=== PATIENT | female | born 1945 | race Caucasian/White ===

== ENCOUNTER → 2018-12-07 14:38 | Outpatient (ROUT) | payer MEDICARE, SELFPAY ==
[2018-12-07 14:53] LABS: Hematocrit 40.3 % (36-46); Hemoglobin 13.6 g/dL (12.0-16.0); Mean Corpuscular HGB Conc 33.7 % (30-36); Mean Corpuscular Hemoglobin 31.5 PG (26-34); Mean Corpuscular Volume 93.6 fL (80-100); Platelet Count 260 X10^3/uL (150-400); Red Cell Distribution Width 13.1 % (11.6-14.8); White Blood Cell Count 4.6 X10^3/uL (4.5-11.0)
[2018-12-07 15:04] LABS: BUN Creatinine Ratio 23.8 (6-22); Blood Urea Nitrogen 19 mg/dL (7-17); Calcium 9.9 mg/dL (8.4-10.2); Carbon Dioxide 26 mmol/L (22-32); Chloride 103 mmol/L (98-107); Estimated Glomerular Filt Rate > 60.0 mL/min (>60); Glucose 91 mg/dL (80-110); HEMOLYSIS < 15 (0-50); Potassium 4.7 mmol/L (3.4-5.1); Sodium 139 mmol/L (137-145)
[2018-12-07 15:32] LABS: TSH w/ Reflex to FT4 2.62 uIU/mL (0.47-4.68)
[2018-12-07 15:51] LABS: Vitamin B12 267 pg/mL (239-931)
== END ==
PROVIDERS: Family Provider Registered Nurse Women's Health Care, Ambulatory; PCP Registered Nurse Women's Health Care, Ambulatory; Visit Provider Internal Medicine
DX: R53.83 Other fatigue (principal)
CPT/HCPCS: 80048; 82607; 84443; 85027

== ENCOUNTER → 2019-01-13 07:03 | Outpatient (CLI) | payer MEDICARE, SELFPAY ==
[2019-01-13 10:05] LABS: Vitamin B12 462 pg/mL (239-931)
== END ==
PROVIDERS: PCP Internal Medicine; Visit Provider Internal Medicine
DX: E53.8 Deficiency of other specified B group vitamins (principal)
CPT/HCPCS: 36415; 82607

== ENCOUNTER 2020-06-03 15:20 | Emergency (ER) | payer MEDICARE, SELFPAY ==
--- NOTE | 2020-06-03 15:24 | DI.RAD.S_ITS ---
PROCEDURE: XR KNEE LT 3V INDICATIONS: heard a pop, pain, unable to bear weight TECHNIQUE: 3views of the knee were acquired. COMPARISON: None. FINDINGS: Bones: No fractures or dislocations. No suspicious bony lesions. Soft tissues: No joint effusion. No suspicious soft tissue calcifications. IMPRESSION: No fracture. No acute osseous lesion. If symptoms and/or clinical suspicion for pathology persists, further assessment with repeat radiographs (7-10 days) or advanced imaging (e.g. CT, MRI or bone scan) should be considered. Dictated by: Evy Quezada MD, PhD on 06/03/2020 at 15:40 Approved by: Evy Quezada MD, PhD on 06/03/2020 at 15:53
[2020-06-03 15:25] VITALS: BP 159/79; PULSE 79; RESP 18; TEMP 36.4; O2SAT 100
--- NOTE | 2020-06-03 16:33 | ED_ITS ---
HPI - Extremity Injury (Lower) General Chief Complaint: Extremity Injury, Lower Stated Complaint: LEFT KNEE PAIN Time Seen by Provider: 06/03/20 16:33 Source: patient Mode of arrival: Wheelchair Limitations: no limitations History of Present Illness HPI Narrative: This is a 74-year-old female comes in with complaint of left knee pain. Patient was gardening when she stood up from her knee pads and went to step up on a large 1st and felt a pop. Patient instantly had pain. She describes the pain more on the medial side of her knee. She has pain with movement but is able to fully flex and extend. Patient states she has pain when she tries to weight bear and required he onto multiple objects to get into the house. Patient has not had prior knee injuries. She did not have any other trauma. She denies any other medical issues. States she is not on medications regularly. She has not had any prior surgeries on her knee. She denies any numbness, tingling or weakness. She states it did feel like the joint was going to give out when she had the initial pain. She does follow with Violetta Minor for primary care. 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 Review of Systems Review of Systems ROS Unobtainable: All systems reviewed & are unremarkable except as noted in HPI and below Exam Narrative Exam Narrative: GENERAL: Alert and oriented x three, well-nourished well- appearing female in mild distress. HEENT: Head normocephalic, atraumatic, EOMI, pupils reactive, face symmetric, moist mucous membranes NECK: Supple, full range of motion EXTREMITIES: Normal range of motion although uncomfortable for patient. Patient has tenderness with palpation of the medial knee but does not have tenderness when valgus nor varus, patient does not have any other joint laxity testing negative anterior posterior drawer. Negative compression test. Patient does not have any is swelling but difficult to tell from habitus. Patient does not have any appreciable bony tenderness of her left lower extremity. She has 2+ dorsalis pedis. Normal sensation throughout. Patient is neurovascularly intact otherwise. NEUROLOGICAL: Cranial nerves II through XII grossly intact. Moving all extremities SKIN: Warm, dry, no petechiae, no rashes or lesions. Initial Vital Signs Initial Vital Signs: Vital Signs Temperature 97.6 F 06/03/20 15:25 Pulse Rate 79 06/03/20 15:25 Respiratory Rate 18 06/03/20 15:25 Blood Pressure 159/79 H 06/03/20 15:25 Pulse Oximetry 100 06/03/20 15:25 Course Orders Ordered: ED Orders 06/03/20 15:24 XR knee LT 3V Stat Vital Signs Vital signs: Vital Signs - 8 hr 06/03/20 15:25 Temperature 97.6 F Pulse Rate 79 Respiratory Rate 18 Blood Pressure 159/79 H Pulse Oximetry 100 [facility] - Extremity Injury (Lower) Imaging Data Extremity x-ray #1: Radiologist's Impression: [address] [id number] ReportSigned Patient: Joie Taylor LMR#: [id number]: [id number]:[id number]/Sex: 74 / FDate of Service: 06/03/20Loc: EDAccession Number: [id number] Procedure: XR knee LT 3V Ordering Provider: Tracie Rivera MD PROCEDURE: XR KNEE LT 3V INDICATIONS: heard a pop, pain, unable to bear weight TECHNIQUE: 3views of the knee were acquired. COMPARISON: None. FINDINGS: Bones: No fractures or dislocations. No suspicious bony lesions. Soft tissues: No joint effusion. No suspicious soft tissue calcifications. IMPRESSION: No fracture. No acute osseous lesion. If symptoms and/or clinical suspicion for pathology persists, further assessment with repeat radiographs (7-10 days) or advanced imaging (e.g. CT, MRI or bone scan) should be considered. Dictated by: Evy Quezada MD, PhD on 06/03/2020 at 15:40 Approved by: Evy Quezada MD, PhD on 06/03/2020 at 15:53 [facility] Narrative Medical decision making narrative: Patient has negative x-ray. Her exam she has tenderness over the medial knee but really bony tenderness. We discussed she may have a tendon or ligament injury or possibly meniscal but the rest of her exam is not highly suspicious. Plan for knee immobilizer, crutches, weight- bearing as tolerated. She has ibuprofen at home which she states she will take an defers any medication here. Discussed follow-up with her primary care for recheck in the next week if she is not having improvement and return precautions discussed. Discharge Plan Departure Patient Disposition: Home Clinical Impression: Injury of knee, left Qualifiers: Encounter type: initial encounter Qualified Code(s): S89.92XA - Unspecified injury of left lower leg, initial encounter Instructions: How to Use a Knee Immobilizer Activity Restrictions/Additional Instructions: Follow-up with your physician in the next week for recheck if your symptoms have not resolved. Call for an appointment. You may take ibuprofen up to 600 mg every 6 hours as needed for pain and/or Tylenol up to a 1000 mg every 8 hours as needed. Splint Care: Keep splint clean and dry. Elevated affected body part to decrease swelling. OK to use ice pack on the affected body part. Use for 15-20 minutes each time, for 5-6x per day. If you develop worsening pain, numbness, tingling, discoloration of the affected body part, loosen the knee immobilizer, and either see your doctor for an urgent re-assessment, or return to the Emergency Department. Return to the Emergency Department for any new or worsening symptoms. Referrals: Violetta Minor MD [Primary Care Provider] -
== END 2020-06-03 17:55 | disposition home or self-care (01) ==
PROVIDERS: Emergency Provider Emergency Medicine; PCP Internal Medicine
DX: S89.92XA Unspecified injury of left lower leg, initial encounter (principal); X58.XXXA Exposure to other specified factors, initial encounter
CPT/HCPCS: 73562; 99283

== ENCOUNTER → 2020-09-14 11:08 | Outpatient (CLI) | payer MEDICARE, SELFPAY ==
[2020-09-14 12:53] LABS: COVID19 -Nasal RAPID Negative (Negative)
== END ==
PROVIDERS: Family Provider Internal Medicine; PCP Internal Medicine; Visit Provider Physician Assistant
DX: Z01.812 Encounter for preprocedural laboratory examination (principal); Z20.822 Contact with and (suspected) exposure to COVID-19
CPT/HCPCS: 87635; C9803

== ENCOUNTER 2020-12-17 09:00 | Outpatient (RCR) | payer MEDICARE, SELFPAY ==
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
--- NOTE | 2020-10-17 15:19 | PT.OPPOC ---
Physical, Occupational & Speech Therapy At [facility] Current Diagnoses Other tear of medial meniscus, current injury, left knee, subsequent encounter (10/17/20) Encounter for other orthopedic aftercare (10/17/20) Visit Care Team Role Provider Type Violetta Minor MD Primary Care Provider Physician Specialty: Internal Medicine Address: [address] [place] [address], [id number] Email: [email or web address] Dwayne Barrientos PA-C Attending Provider Non-Staff Referring Provider Specialty: Nursing Address: [facility] [facility], [address], [place], [address] Email: Plan Of Care PT-OP-T Assessment and Plan Start: 10/16/20 15:44 Freq: Status: Active Protocol: Document 10/17/20 09:00 MB (Rec: 10/17/20 14:10 MB [id number]) Physical Therapy Assessment Rehab Potential Rehabilitation Potential Good Evaluation Complexity Number of Personal Factors/Comorbidities 1-2 Number of Body Systems Impaired 1-2 Clinical Presentation at Evaluation Stable Impairments Impairments Activity Tolerance,Balance, Edema,Functional Activities, Functional Mobility,Gait, Integument,Pain,Posture,ROM, Soft Tissue Mobility,Strength, Transfers Other Impairments Personal factors include leaving town for short vacation (flying) next week. Body systems affected include musculoskeletal and lymphatic. Her clinical presentation is stable at this point post-op. She denies sensory changes. Goals 6 Senior Living Goal (LTG) Pt will perform progressive HEP with I including flexibility, strengthening, balance and gait to mazimize I by 12/17/20. LTG Duration 8 weeks 5 Senior Living Goal (LTG) Pt will perform WNLs on a standardized balance test to decrease fall risk by 12/17/20 . LTG Duration 8 weeks 4 Senior Living Goal (LTG) Pt will gait train at least 1300 feet in 6 minutes without AD to prepare for return to hiking by 12/17/20. LTG Duration 8 weeks 3 Claim Examiner Goal (LTG) Pt will perform active left knee flexion and extension equal to the right in supine to improve functional transfers by 12/17/20. LTG Duration 8 weeks 2 Claim Examiner Goal (LTG) Pt will perform 13 reps sit to stand without UE support in 30 sec to improve functional strength by 12/17/20. LTG Duration 8 weeks 1 Impairment LEF score reflects greater than 70% functional impairment Claim Examiner Goal (LTG) Pt will present with an LEF score to reflect no more than 20% impairment to allow return to gardening and hiking by . LTG Duration 8 weeks Assessment Summary Assessment Pt is an active 75 y/o female presenting 4 weeks post-op left meniscal repair. She presents with LLE edema, decreased ROM and strength, antalgic gait and poor balance . She will benefit from PT to improve range, functional strength, balance and gait. She would like to get back to hiking. She is flying out to [place] next week and this is an initial barrier to PT. Physical Therapy Plan Frequency and Duration Frequency of Treatment 2x/Week Duration of Treatment 8 weeks Plan of Care Start Date 10/17/20 Plan of Care End Date 12/17/20 Therapeutic Interventions Therapeutic Interventions Aquatic Therapy,Balance Training,Canalithic Repositioning,Coordination Training,Gait Training,Home Exercise Program,Joint Mobilizations,Manual Therapy, Neuromuscular Re-education, Orthotic/Prosthetic Management ,Patient/Caregiver Education, Self-Care/Home Management,Soft Tissue Mobilization,Taping, Therapeutic Activities, Therapeutic Exercises Modalities Cold Pack/Ice Massage,Hot Packs Next Visit Focus/Plan Next Note Type Treatment Note Next Visit Plan Initiate recumbent stepper, review exercises given by previous PTLeena Plan of Care Dates Plan of Care Start Date 10/17/20 Plan of Care End Date 12/17/20 Electronically Signed by: Gabrielle De Leon, PT 10/17/20 [id number] Please Sign and Return: I have reviewed this Plan of Care and certify that the skilled therapy services above are required to meet the patient?s needs. Physician Signature Date Printed Name and Credentials Clinical Instructor Signature Printed Name and Credentials
--- NOTE | 2020-10-23 10:25 | PT.OTN ---
Current Diagnoses Other tear of medial meniscus, current injury, left knee, subsequent encounter (10/23/20) Encounter for other orthopedic aftercare (10/23/20) Physical Therapy Treatment Note PT-OP-A Visit Information Start: 10/16/20 15:44 Freq: Status: Active Protocol: Document 10/23/20 09:45 MB (Rec: 10/23/20 10:25 MB [id number]) Out-Patient Physical Therapy Visit Information Visit Information Visit Type Treatment Note Visit Note Medicare AARP before KX Visit Start Time 09:45 Visit Stop Time 10:24 Total Visit Minutes 39 Visit Number 2 Precautions Precautions S/p left knee medial mensicus posterior root repair 09/17/20 and doctor's note from 09/27/20 states: PT orders for gentle knee ROM, strengthening treatment of pain and swelling starting 4 weeks post-op. At that time, she was TTWB wearing knee brace set 0-90 deg. Pt had appointment with Dr. Rojas yesterday and was taken out of brace and told she could WBAT with AD. Note from doctor 10/16/20: she can start WBAT and wean out of knee brace, work on progresive ROM and strengthening PT-OP-B Current Condition Start: 10/16/20 15:44 Freq: Status: Active Protocol: Document 10/17/20 09:00 MB (Rec: 10/17/20 09:22 MB [id number]) Current Condition History of Current Condition Onset Date 09/17/20 Current Complaints Decreased mobility and some pain and swelling left leg History of Current Condition Pt had left meniscal tear May 2020 when she was working in the garden on her hands and knees and stood up. She went to the ED. She then got in with an orthopedist a month later. She then got in to PT and had 12 treatments. Pt had PT at this clinic up until August before she had knee surgery 09/17/20. She underwent left knee arthroscopic surgery for meniscus. Pt has 4 steps to enter the house. She had been in the w/c up until today. She is using RW at home and she comes in with the SPC in her right hand today. She states she just got out of the knee brace. Before May, she was hiking and doing lunges and squats. She used to go to the gym before COVID. Massage, bike and stretching were helpful with PT. The leg press was helpful. Pt is flying to [place] next week and will miss some PT treatments. Pt reports low pain 1/10 left knee. Pt reports that her PMH is essentially negative, she does take an allergy pill everyday . Treatment Goals Patient/Caregiver Goals To get back to active lifestyle PT-OP-C Subjective Start: 10/16/20 15:44 Freq: Status: Active Protocol: Document 10/23/20 09:45 MB (Rec: 10/23/20 10:25 MB [id number]) OP-PT Subjective Patient Comments Patient Comments Pt states that her left knee is a little stiff today. She wonders what the difference is . She is doing her exercises several times a day. PT-OP-G Mobility & Gait Start: 10/16/20 15:44 Freq: Status: Active Protocol: Document 10/17/20 09:00 MB (Rec: 10/17/20 14:10 MB [id number]) OP Gait Assessment Comments Gait Comments Gait is antalgic with step-to pattern with cane in right hand. She presents with decreased heel strike and toe off on the left, slow levi, LLE edema PT-OP-K Range of Motion Start: 10/16/20 15:44 Freq: Status: Active Protocol: Document 10/17/20 09:00 MB (Rec: 10/17/20 14:10 MB [id number]) Knee Goniometric Range of Motion Knee ROM Limitations Comments Right knee AROM in supine: 0- 120 deg Left knee AROM in supine: 12- 85 deg PT-OP-M Strength Start: 10/16/20 15:44 Freq: Status: Active Protocol: Document 10/17/20 09:00 MB (Rec: 10/17/20 14:10 MB [id number]) Hip Strength Hip Manual Muscle Testing Left Flexion (L2) 4 Good Comments Pt does not tolerate holding left leg up for abduction and adduction testing Right Flexion (L2) 4 Good Abduction 4 Good Adduction 4 Good Knee Strength Knee Manual Muscle Testing Left Comments MMT deferred, 4 weeks post-op and decreased ROM Right Flexion (S2) 5 Normal Extension (L3) 5 Normal Ankle/Foot Strength Ankle and Foot Manual Muscle Testing Left Dorsiflexion (L4) 5 Normal Right Dorsiflexion (L4) 5 Normal Toe Strength Toe Manual Muscle Testing Left Great Toe Extension 3+ Fair+ Right Great Toe Extension 5 Normal PT-OP-Q Treatments Start: 10/16/20 15:44 Freq: Status: Active Protocol: Document 10/23/20 09:45 MB (Rec: 10/23/20 10:25 MB [id number]) Cardio Equipment Recumbent Stepper (Sci-Fit) Duration (Minutes) 10 Resistance 4 Therapeutic Exercises Supine Exercises SAQ Side bilateral Comments Without ankle weight today, 10 reps slowly alternating Hamstring stretch with calf, add AP Side bilateral Comments Strap around ankle and added 20-30 APs Dynamic hamstring stretch Side bilateral Comments Hands behind thigh and gently bending and straightening leg Prone Exercises Hamstring curl Side bilateral Comments 10 reps slowly, alternating Standing Exercises Calf stretch Side bilateral Comments Gastroc stretch as instructed last PT course PT-OP-T Assessment and Plan Start: 10/16/20 15:44 Freq: Status: Active Protocol: Document 10/23/20 09:45 MB (Rec: 10/23/20 10:25 MB [id number]) Physical Therapy Assessment Rehab Potential Rehabilitation Potential Good Evaluation Complexity Number of Personal Factors/Comorbidities 1-2 Number of Body Systems Impaired 1-2 Clinical Presentation at Evaluation Stable Impairments Impairments Activity Tolerance,Balance, Edema,Functional Activities, Functional Mobility,Gait, Integument,Pain,Posture,ROM, Soft Tissue Mobility,Strength, Transfers Other Impairments Personal factors include leaving town for short vacation (flying) next week. Body systems affected include musculoskeletal and lymphatic. Her clinical presentation is stable at this point post-op. She denies sensory changes. Goals 6 Fire Support Man Goal (LTG) Pt will perform progressive HEP with I including flexibility, strengthening, balance and gait to mazimize I by 12/17/20. LTG Duration 8 weeks 5 Mcfp Goal (LTG) Pt will perform WNLs on a standardized balance test to decrease fall risk by 12/17/20 . LTG Duration 8 weeks 4 Fire Support Man Goal (LTG) Pt will gait train at least 1300 feet in 6 minutes without AD to prepare for return to hiking by 12/17/20. LTG Duration 8 weeks 3 Mcfp Goal (LTG) Pt will perform active left knee flexion and extension equal to the right in supine to improve functional transfers by 12/17/20. LTG Duration 8 weeks 2 Fire Support Man Goal (LTG) Pt will perform 13 reps sit to stand without UE support in 30 sec to improve functional strength by 12/17/20. LTG Duration 8 weeks 1 Impairment LEF score reflects greater than 70% functional impairment Mcfp Goal (LTG) Pt will present with an LEF score to reflect no more than 20% impairment to allow return to gardening and hiking by . LTG Duration 8 weeks Assessment Summary Assessment Progressed exercises today to include ones that she liked and was performing with PT last PT course. Will con't revision. See plan below. Pt gait is slow and careful with cane in right hand and she cannot tolerate upright bike yet. Physical Therapy Plan Frequency and Duration Frequency of Treatment 2x/Week Duration of Treatment 8 weeks Plan of Care Start Date 10/17/20 Plan of Care End Date 12/17/20 Therapeutic Interventions Therapeutic Interventions Aquatic Therapy,Balance Training,Canalithic Repositioning,Coordination Training,Gait Training,Home Exercise Program,Joint Mobilizations,Manual Therapy, Neuromuscular Re-education, Orthotic/Prosthetic Management ,Patient/Caregiver Education, Self-Care/Home Management,Soft Tissue Mobilization,Taping, Therapeutic Activities, Therapeutic Exercises Modalities Cold Pack/Ice Massage,Hot Packs Next Visit Focus/Plan Next Note Type Treatment Note Next Visit Plan Revisit ball slide and bridge as given by previous PT last PT course vs initiate core progression and then add these later, progress recumbent stepper to upright bike, consider Chaz gomez
--- NOTE | 2020-11-01 10:33 | PT.OTN ---
Current Diagnoses Other tear of medial meniscus, current injury, left knee, subsequent encounter (11/01/20) Encounter for other orthopedic aftercare (11/01/20) Physical Therapy Treatment Note PT-OP-A Visit Information Start: 10/16/20 15:44 Freq: Status: Active Protocol: Document 11/01/20 09:46 MB (Rec: 11/01/20 10:25 MB [id number]) Out-Patient Physical Therapy Visit Information Visit Information Visit Type Treatment Note Visit Note Medicare AARP before KX Visit Start Time 09:46 Visit Stop Time 10:30 Total Visit Minutes 44 Visit Number 3 Precautions Precautions S/p left knee medial mensicus posterior root repair 09/17/20 and doctor's note from 09/27/20 states: PT orders for gentle knee ROM, strengthening treatment of pain and swelling starting 4 weeks post-op. At that time, she was TTWB wearing knee brace set 0-90 deg. Pt had appointment with Dr. Rojas yesterday and was taken out of brace and told she could WBAT with AD. Note from doctor 10/16/20: she can start WBAT and wean out of knee brace, work on progresive ROM and strengthening PT-OP-B Current Condition Start: 10/16/20 15:44 Freq: Status: Active Protocol: Document 10/17/20 09:00 MB (Rec: 10/17/20 09:22 MB [id number]) Current Condition History of Current Condition Onset Date 09/17/20 Current Complaints Decreased mobility and some pain and swelling left leg History of Current Condition Pt had left meniscal tear May 2020 when she was working in the garden on her hands and knees and stood up. She went to the ED. She then got in with an orthopedist a month later. She then got in to PT and had 12 treatments. Pt had PT at this clinic up until August before she had knee surgery 09/17/20. She underwent left knee arthroscopic surgery for meniscus. Pt has 4 steps to enter the house. She had been in the w/c up until today. She is using RW at home and she comes in with the SPC in her right hand today. She states she just got out of the knee brace. Before May, she was hiking and doing lunges and squats. She used to go to the gym before COVID. Massage, bike and stretching were helpful with PT. The leg press was helpful. Pt is flying to [place] next week and will miss some PT treatments. Pt reports low pain 1/10 left knee. Pt reports that her PMH is essentially negative, she does take an allergy pill everyday . Treatment Goals Patient/Caregiver Goals To get back to active lifestyle PT-OP-C Subjective Start: 10/16/20 15:44 Freq: Status: Active Protocol: Document 11/01/20 09:46 MB (Rec: 11/01/20 10:25 MB [id number]) OP-PT Subjective Patient Comments Patient Comments Pt went for a walk for a block with cane x2 this week. It felt good. PT-OP-G Mobility & Gait Start: 10/16/20 15:44 Freq: Status: Active Protocol: Document 10/17/20 09:00 MB (Rec: 10/17/20 14:10 MB [id number]) OP Gait Assessment Comments Gait Comments Gait is antalgic with step-to pattern with cane in right hand. She presents with decreased heel strike and toe off on the left, slow levi, LLE edema PT-OP-K Range of Motion Start: 10/16/20 15:44 Freq: Status: Active Protocol: Document 10/17/20 09:00 MB (Rec: 10/17/20 14:10 MB [id number]) Knee Goniometric Range of Motion Knee ROM Limitations Comments Right knee AROM in supine: 0- 120 deg Left knee AROM in supine: 12- 85 deg PT-OP-M Strength Start: 10/16/20 15:44 Freq: Status: Active Protocol: Document 10/17/20 09:00 MB (Rec: 10/17/20 14:10 MB [id number]) Hip Strength Hip Manual Muscle Testing Left Flexion (L2) 4 Good Comments Pt does not tolerate holding left leg up for abduction and adduction testing Right Flexion (L2) 4 Good Abduction 4 Good Adduction 4 Good Knee Strength Knee Manual Muscle Testing Left Comments MMT deferred, 4 weeks post-op and decreased ROM Right Flexion (S2) 5 Normal Extension (L3) 5 Normal Ankle/Foot Strength Ankle and Foot Manual Muscle Testing Left Dorsiflexion (L4) 5 Normal Right Dorsiflexion (L4) 5 Normal Toe Strength Toe Manual Muscle Testing Left Great Toe Extension 3+ Fair+ Right Great Toe Extension 5 Normal PT-OP-Q Treatments Start: 10/16/20 15:44 Freq: Status: Active Protocol: Document 11/01/20 09:46 MB (Rec: 11/01/20 10:25 MB [id number]) Cardio Equipment Recumbent Stepper (Sci-Fit) Duration (Minutes) 10 Resistance 7 Bicycle (Upright) Duration (Minutes) 7 Resistance 10 Seat Position 4 Therapeutic Exercises Supine Exercises Bridge Supine Exercise Name Pushing out into back, squeeze glutes, hold as long as possible Comments Added back in today with level 2 band around knees Hamstring curl on portuguese ball Comments Feet up on ball, too much for pt Chaz stretch Supine Exercise Name Abdominal drawing in and pelvic tilt first Side bilateral Comments 45 sec hold Manual Therapy Treatment Other Other Manual Treatments STM left vastus lateralis and patellar lift left knee. A lot of tension vastus lateralis and lateral distal patella PT-OP-T Assessment and Plan Start: 10/16/20 15:44 Freq: Status: Active Protocol: Document 11/01/20 09:46 MB (Rec: 11/01/20 10:25 MB [id number]) Physical Therapy Assessment Rehab Potential Rehabilitation Potential Good Evaluation Complexity Number of Personal Factors/Comorbidities 1-2 Number of Body Systems Impaired 1-2 Clinical Presentation at Evaluation Stable Impairments Impairments Activity Tolerance,Balance, Edema,Functional Activities, Functional Mobility,Gait, Integument,Pain,Posture,ROM, Soft Tissue Mobility,Strength, Transfers Other Impairments Personal factors include leaving town for short vacation (flying) next week. Body systems affected include musculoskeletal and lymphatic. Her clinical presentation is stable at this point post-op. She denies sensory changes. Goals 6 Care Home Goal (LTG) Pt will perform progressive HEP with I including flexibility, strengthening, balance and gait to mazimize I by 12/17/20. LTG Duration 8 weeks 5 Consulting Nurse Goal (LTG) Pt will perform WNLs on a standardized balance test to decrease fall risk by 12/17/20 . LTG Duration 8 weeks 4 Consulting Nurse Goal (LTG) Pt will gait train at least 1300 feet in 6 minutes without AD to prepare for return to hiking by 12/17/20. LTG Duration 8 weeks 3 Care Home Goal (LTG) Pt will perform active left knee flexion and extension equal to the right in supine to improve functional transfers by 12/17/20. LTG Duration 8 weeks 2 Care Home Goal (LTG) Pt will perform 13 reps sit to stand without UE support in 30 sec to improve functional strength by 12/17/20. LTG Duration 8 weeks 1 Impairment LEF score reflects greater than 70% functional impairment Consulting Nurse Goal (LTG) Pt will present with an LEF score to reflect no more than 20% impairment to allow return to gardening and hiking by . LTG Duration 8 weeks Assessment Summary Assessment Progressed to upright bike today after using recumbent stepper. Also added Chaz gomez, core ed initiation and bridge and back into program. Con't progression and start manual work. Physical Therapy Plan Frequency and Duration Frequency of Treatment 2x/Week Duration of Treatment 8 weeks Plan of Care Start Date 10/17/20 Plan of Care End Date 12/17/20 Therapeutic Interventions Therapeutic Interventions Aquatic Therapy,Balance Training,Canalithic Repositioning,Coordination Training,Gait Training,Home Exercise Program,Joint Mobilizations,Manual Therapy, Neuromuscular Re-education, Orthotic/Prosthetic Management ,Patient/Caregiver Education, Self-Care/Home Management,Soft Tissue Mobilization,Taping, Therapeutic Activities, Therapeutic Exercises Modalities Cold Pack/Ice Massage,Hot Packs Next Visit Focus/Plan Next Note Type Treatment Note Next Visit Plan Selt massage with rolling pin, core progression and consider band for hip abduction in hook lying, progressive balance and strengthening, manual work, eventually get to Trauma Release Exercises for a quick and full LE strengthening and flexibility work out that will address hip flexor and knee range and strength as well
--- NOTE | 2020-11-05 11:10 | PT.OTN ---
Current Diagnoses Other tear of medial meniscus, current injury, left knee, subsequent encounter (11/05/20) Encounter for other orthopedic aftercare (11/05/20) Physical Therapy Treatment Note PT-OP-A Visit Information Start: 10/16/20 15:44 Freq: Status: Active Protocol: Document 11/05/20 10:28 MB (Rec: 11/05/20 11:06 MB [id number]) Out-Patient Physical Therapy Visit Information Visit Information Visit Type Treatment Note Visit Note Medicare AARP before KX Visit Start Time 10:28 Visit Stop Time 11:10 Total Visit Minutes 42 Visit Number 4 Precautions Precautions S/p left knee medial mensicus posterior root repair 09/17/20 and doctor's note from 09/27/20 states: PT orders for gentle knee ROM, strengthening treatment of pain and swelling starting 4 weeks post-op. At that time, she was TTWB wearing knee brace set 0-90 deg. Pt had appointment with Dr. Rojas yesterday and was taken out of brace and told she could WBAT with AD. Note from doctor 10/16/20: she can start WBAT and wean out of knee brace, work on progresive ROM and strengthening PT-OP-B Current Condition Start: 10/16/20 15:44 Freq: Status: Active Protocol: Document 10/17/20 09:00 MB (Rec: 10/17/20 09:22 MB [id number]) Current Condition History of Current Condition Onset Date 09/17/20 Current Complaints Decreased mobility and some pain and swelling left leg History of Current Condition Pt had left meniscal tear May 2020 when she was working in the garden on her hands and knees and stood up. She went to the ED. She then got in with an orthopedist a month later. She then got in to PT and had 12 treatments. Pt had PT at this clinic up until August before she had knee surgery 09/17/20. She underwent left knee arthroscopic surgery for meniscus. Pt has 4 steps to enter the house. She had been in the w/c up until today. She is using RW at home and she comes in with the SPC in her right hand today. She states she just got out of the knee brace. Before May, she was hiking and doing lunges and squats. She used to go to the gym before COVID. Massage, bike and stretching were helpful with PT. The leg press was helpful. Pt is flying to [place] next week and will miss some PT treatments. Pt reports low pain 1/10 left knee. Pt reports that her PMH is essentially negative, she does take an allergy pill everyday . Treatment Goals Patient/Caregiver Goals To get back to active lifestyle PT-OP-C Subjective Start: 10/16/20 15:44 Freq: Status: Active Protocol: Document 11/05/20 10:28 MB (Rec: 11/05/20 11:06 MB [id number]) OP-PT Subjective Patient Comments Patient Comments Pt walked 2 blocks everyday and got on the upright bike. Her left knee ached really bad one night. It is better. She got up this morning and didn't feel like she needed the cane to walk. PT-OP-G Mobility & Gait Start: 10/16/20 15:44 Freq: Status: Active Protocol: Document 10/17/20 09:00 MB (Rec: 10/17/20 14:10 MB [id number]) OP Gait Assessment Comments Gait Comments Gait is antalgic with step-to pattern with cane in right hand. She presents with decreased heel strike and toe off on the left, slow levi, LLE edema PT-OP-K Range of Motion Start: 10/16/20 15:44 Freq: Status: Active Protocol: Document 10/17/20 09:00 MB (Rec: 10/17/20 14:10 MB [id number]) Knee Goniometric Range of Motion Knee ROM Limitations Comments Right knee AROM in supine: 0- 120 deg Left knee AROM in supine: 12- 85 deg PT-OP-M Strength Start: 10/16/20 15:44 Freq: Status: Active Protocol: Document 10/17/20 09:00 MB (Rec: 10/17/20 14:10 MB [id number]) Hip Strength Hip Manual Muscle Testing Left Flexion (L2) 4 Good Comments Pt does not tolerate holding left leg up for abduction and adduction testing Right Flexion (L2) 4 Good Abduction 4 Good Adduction 4 Good Knee Strength Knee Manual Muscle Testing Left Comments MMT deferred, 4 weeks post-op and decreased ROM Right Flexion (S2) 5 Normal Extension (L3) 5 Normal Ankle/Foot Strength Ankle and Foot Manual Muscle Testing Left Dorsiflexion (L4) 5 Normal Right Dorsiflexion (L4) 5 Normal Toe Strength Toe Manual Muscle Testing Left Great Toe Extension 3+ Fair+ Right Great Toe Extension 5 Normal PT-OP-Q Treatments Start: 10/16/20 15:44 Freq: Status: Active Protocol: Document 11/05/20 10:28 MB (Rec: 11/05/20 11:06 MB [id number]) Cardio Equipment Bicycle (Upright) Duration (Minutes) 10 Resistance 11 Seat Position 4 Therapeutic Exercises Supine Exercises Core progression Supine Exercise Name Abdominal drawing in, knee rocking, heel slide, mini march, knee fall out Side bilateral Clam in hook lying with band around knees Side bilateral Comments Level 2 band too easy, gave a 3. 10 reps slowly Bridge Comments Level 3 band around knees, cues to squeeze glutes Chaz stretch Supine Exercise Name Opposite leg up to chest today Side bilateral Comments 45 sec hold Sitting Exercises Rolling pin self-massage Side bilateral Comments See saw motion PT-OP-T Assessment and Plan Start: 10/16/20 15:44 Freq: Status: Active Protocol: Document 11/05/20 10:28 MB (Rec: 11/05/20 11:06 [id number]) Physical Therapy Assessment Rehab Potential Rehabilitation Potential Good Evaluation Complexity Number of Personal Factors/Comorbidities 1-2 Number of Body Systems Impaired 1-2 Clinical Presentation at Evaluation Stable Impairments Impairments Activity Tolerance,Balance, Edema,Functional Activities, Functional Mobility,Gait, Integument,Pain,Posture,ROM, Soft Tissue Mobility,Strength, Transfers Other Impairments Personal factors include leaving town for short vacation (flying) next week. Body systems affected include musculoskeletal and lymphatic. Her clinical presentation is stable at this point post-op. She denies sensory changes. Goals 6 Business Support Professional Goal (LTG) Pt will perform progressive HEP with I including flexibility, strengthening, balance and gait to mazimize I by 12/17/20. LTG Duration 8 weeks 5 Jail Goal (LTG) Pt will perform WNLs on a standardized balance test to decrease fall risk by 12/17/20 . LTG Duration 8 weeks 4 Business Support Professional Goal (LTG) Pt will gait train at least 1300 feet in 6 minutes without AD to prepare for return to hiLocomizer by 12/17/20. LTG Duration 8 weeks 3 Business Support Professional Goal (LTG) Pt will perform active left knee flexion and extension equal to the right in supine to improve functional transfers by 12/17/20. LTG Duration 8 weeks 2 Jail Goal (LTG) Pt will perform 13 reps sit to stand without UE support in 30 sec to improve functional strength by 12/17/20. LTG Duration 8 weeks 1 Impairment LEF score reflects greater than 70% functional impairment Jail Goal (LTG) Pt will present with an LEF score to reflect no more than 20% impairment to allow return to gardening and hiking by . LTG Duration 8 weeks Assessment Summary Assessment Progressed core and hip strengthening today and self- massage. Progress gait training, balance. Physical Therapy Plan Frequency and Duration Frequency of Treatment 2x/Week Duration of Treatment 8 weeks Plan of Care Start Date 10/17/20 Plan of Care End Date 12/17/20 Therapeutic Interventions Therapeutic Interventions Aquatic Therapy,Balance Training,Canalithic Repositioning,Coordination Training,Gait Training,Home Exercise Program,Joint Mobilizations,Manual Therapy, Neuromuscular Re-education, Orthotic/Prosthetic Management ,Patient/Caregiver Education, Self-Care/Home Management,Soft Tissue Mobilization,Taping, Therapeutic Activities, Therapeutic Exercises Modalities Cold Pack/Ice Massage,Hot Packs Next Visit Focus/Plan Next Note Type Treatment Note Next Visit Plan Progressive balance and strengthening, manual work, eventually get to Trauma Release Exercises for a quick and full LE strengthening and flexibility work out that will address hip flexor and knee range and strength as well
--- NOTE | 2020-11-12 17:11 | PT.OTN ---
Current Diagnoses Other tear of medial meniscus, current injury, left knee, subsequent encounter (11/12/20) Encounter for other orthopedic aftercare (11/12/20) Physical Therapy Treatment Note PT-OP-A Visit Information Start: 10/16/20 15:44 Freq: Status: Active Protocol: Document 11/12/20 15:59 [facility] (Rec: 11/12/20 17:04 [facility] [id number]) Out-Patient Physical Therapy Visit Information Visit Information Visit Type Treatment Note Visit Note Medicare AARP before KX Visit Start Time 16:00 Visit Stop Time 16:45 Total Visit Minutes 45 Visit Number 5 PT-OP-B Current Condition Start: 10/16/20 15:44 Freq: Status: Active Protocol: Document 10/17/20 09:00 MB (Rec: 10/17/20 09:22 MB [id number]) Current Condition History of Current Condition Onset Date 09/17/20 Current Complaints Decreased mobility and some pain and swelling left leg History of Current Condition Pt had left meniscal tear May 2020 when she was working in the garden on her hands and knees and stood up. She went to the ED. She then got in with an orthopedist a month later. She then got in to PT and had 12 treatments. Pt had PT at this clinic up until August before she had knee surgery 09/17/20. She underwent left knee arthroscopic surgery for meniscus. Pt has 4 steps to enter the house. She had been in the w/c up until today. She is using RW at home and she comes in with the SPC in her right hand today. She states she just got out of the knee brace. Before May, she was hiking and doing lunges and squats. She used to go to the gym before . Massage, bike and stretching were helpful with PT. The leg press was helpful. Pt is flying to [place] next week and will miss some PT treatments. Pt reports low pain 1/10 left knee. Pt reports that her PMH is essentially negative, she does take an allergy pill everyday . Treatment Goals Patient/Caregiver Goals To get back to active lifestyle PT-OP-C Subjective Start: 10/16/20 15:44 Freq: Status: Active Protocol: Document 11/12/20 15:59 [facility] (Rec: 11/12/20 17:04 [facility] [id number]) OP-PT Subjective Patient Comments Patient Comments pt got out of bed yesterday morning when it was still dark and felt a twinge in her knee , it was a little sore for the day but better today. PT-OP-G Mobility & Gait Start: 10/16/20 15:44 Freq: Status: Active Protocol: Document 10/17/20 09:00 MB (Rec: 10/17/20 14:10 MB [id number]) OP Gait Assessment Comments Gait Comments Gait is antalgic with step-to pattern with cane in right hand. She presents with decreased heel strike and toe off on the left, slow levi, LLE edema PT-OP-K Range of Motion Start: 10/16/20 15:44 Freq: Status: Active Protocol: Document 10/17/20 09:00 MB (Rec: 10/17/20 14:10 MB [id number]) Knee Goniometric Range of Motion Knee ROM Limitations Comments Right knee AROM in supine: 0- 120 deg Left knee AROM in supine: 12- 85 deg PT-OP-M Strength Start: 10/16/20 15:44 Freq: Status: Active Protocol: Document 10/17/20 09:00 MB (Rec: 10/17/20 14:10 MB [id number]) Hip Strength Hip Manual Muscle Testing Left Flexion (L2) 4 Good Comments Pt does not tolerate holding left leg up for abduction and adduction testing Right Flexion (L2) 4 Good Abduction 4 Good Adduction 4 Good Knee Strength Knee Manual Muscle Testing Left Comments MMT deferred, 4 weeks post-op and decreased ROM Right Flexion (S2) 5 Normal Extension (L3) 5 Normal Ankle/Foot Strength Ankle and Foot Manual Muscle Testing Left Dorsiflexion (L4) 5 Normal Right Dorsiflexion (L4) 5 Normal Toe Strength Toe Manual Muscle Testing Left Great Toe Extension 3+ Fair+ Right Great Toe Extension 5 Normal PT-OP-Q Treatments Start: 10/16/20 15:44 Freq: Status: Active Protocol: Document 11/12/20 15:59 [facility] (Rec: 11/12/20 17:04 [facility] [id number]) Cardio Equipment Bicycle (Upright) Duration (Minutes) 10 Resistance 11 Seat Position 4 Gym Equipment Shuttle Recovery Bilateral Squats Resistance 25# Shuttle Recovery Platform Stable Reps/Time 3 x 10 reps Therapeutic Exercises Supine Exercises Clam in hook lying with band around knees Side bilateral Reps/Minutes level 3 3 x 10 Bridge Comments Level 3 band around knees, cues to squeeze glutes Chaz stretch Supine Exercise Name Opposite leg up to chest today Side bilateral Comments 45 sec hold SLR Side left Comments Some decreased ability to reach full extension before lifting leg Manual Therapy Treatment Soft Tissue Mobilization patella tendon Body Location patella tendon TFM patella mobs Body Location left patella Comments patella mobilizations Quads Body Location Quads L Mobilization Type Myofascial Release Intensity/Depth Moderate Body Position Supine Taping kinesiotape for paltella tendon Body Location patella tendon Type of Tape Kinesio Tape Manual Techniques manual calf and hamstring stretch Comments manual calf and hamstring stretch in supine PT-OP-T Assessment and Plan Start: 10/16/20 15:44 Freq: Status: Active Protocol: Document 11/12/20 16:00 [facility] (Rec: 11/12/20 17:08 [facility] [id number]) Physical Therapy Assessment Assessment Summary Assessment Joie was a little cautious with her knee today with weightbearing. Single leg stance is tender still. I did start her today on the shuttle for bilateral leg press with 25# and she did well. We talked about having a night light by her bed so she is not getting out of bed in the dark Physical Therapy Plan Frequency and Duration Frequency of Treatment 2x/Week Duration of Treatment 8 weeks Plan of Care Start Date 10/17/20 Plan of Care End Date 12/17/20 Next Visit Focus/Plan Next Note Type Treatment Note Next Visit Plan progressive balance and strengthening, manual work for tightness in the patella tendon and quad
--- NOTE | 2020-11-14 17:45 | PT.OTN ---
Current Diagnoses Other tear of medial meniscus, current injury, left knee, subsequent encounter (11/14/20) Encounter for other orthopedic aftercare (11/14/20) Physical Therapy Treatment Note PT-OP-A Visit Information Start: 10/16/20 15:44 Freq: Status: Active Protocol: Document 11/14/20 15:23 [facility] (Rec: 11/14/20 16:01 [facility] [id number]) Out-Patient Physical Therapy Visit Information Visit Information Visit Type Treatment Note Visit Note before kx Visit Start Time 15:15 Visit Stop Time 16:00 Total Visit Minutes 45 Visit Number 6 PT-OP-B Current Condition Start: 10/16/20 15:44 Freq: Status: Active Protocol: Document 10/17/20 09:00 MB (Rec: 10/17/20 09:22 MB [id number]) Current Condition History of Current Condition Onset Date 09/17/20 Current Complaints Decreased mobility and some pain and swelling left leg History of Current Condition Pt had left meniscal tear May 2020 when she was working in the garden on her hands and knees and stood up. She went to the ED. She then got in with an orthopedist a month later. She then got in to PT and had 12 treatments. Pt had PT at this clinic up until August before she had knee surgery 09/17/20. She underwent left knee arthroscopic surgery for meniscus. Pt has 4 steps to enter the house. She had been in the w/c up until today. She is using RW at home and she comes in with the SPC in her right hand today. She states she just got out of the knee brace. Before May, she was hiking and doing lunges and squats. She used to go to the gym before . Massage, bike and stretching were helpful with PT. The leg press was helpful. Pt is flying to [place] next week and will miss some PT treatments. Pt reports low pain 1/10 left knee. Pt reports that her PMH is essentially negative, she does take an allergy pill everyday . Treatment Goals Patient/Caregiver Goals To get back to active lifestyle PT-OP-C Subjective Start: 10/16/20 15:44 Freq: Status: Active Protocol: Document 11/14/20 15:23 [facility] (Rec: 11/14/20 16:01 [facility] [id number]) OP-PT Subjective Patient Comments Patient Comments pt was able to walk 1.7 miles in 40 min with her cane on the [facility] [address] Patient Reported Progress Improving PT-OP-G Mobility & Gait Start: 10/16/20 15:44 Freq: Status: Active Protocol: Document 10/17/20 09:00 MB (Rec: 10/17/20 14:10 MB [id number]) OP Gait Assessment Comments Gait Comments Gait is antalgic with step-to pattern with cane in right hand. She presents with decreased heel strike and toe off on the left, slow levi, LLE edema PT-OP-K Range of Motion Start: 10/16/20 15:44 Freq: Status: Active Protocol: Document 10/17/20 09:00 MB (Rec: 10/17/20 14:10 MB [id number]) Knee Goniometric Range of Motion Knee ROM Limitations Comments Right knee AROM in supine: 0- 120 deg Left knee AROM in supine: 12- 85 deg PT-OP-M Strength Start: 10/16/20 15:44 Freq: Status: Active Protocol: Document 10/17/20 09:00 MB (Rec: 10/17/20 14:10 MB [id number]) Hip Strength Hip Manual Muscle Testing Left Flexion (L2) 4 Good Comments Pt does not tolerate holding left leg up for abduction and adduction testing Right Flexion (L2) 4 Good Abduction 4 Good Adduction 4 Good Knee Strength Knee Manual Muscle Testing Left Comments MMT deferred, 4 weeks post-op and decreased ROM Right Flexion (S2) 5 Normal Extension (L3) 5 Normal Ankle/Foot Strength Ankle and Foot Manual Muscle Testing Left Dorsiflexion (L4) 5 Normal Right Dorsiflexion (L4) 5 Normal Toe Strength Toe Manual Muscle Testing Left Great Toe Extension 3+ Fair+ Right Great Toe Extension 5 Normal PT-OP-Q Treatments Start: 10/16/20 15:44 Freq: Status: Active Protocol: Document 11/14/20 15:23 [facility] (Rec: 11/14/20 16:01 [facility] [id number]) Cardio Equipment Bicycle (Upright) Duration (Minutes) 8 Resistance 14 resistance Seat Position 4 Gym Equipment Cable Column (Body Solid) Leg Curl Resistance 30# Reps/Time 3 x 10 reps Hip Abduction Resistance 30# Reps/Time 3x 10 reps Shuttle Recovery Bilateral Squats Resistance 75 Reps/Time 3 x 10 reps Therapeutic Exercises Standing Exercises single leg stance Side bilateral Reps/Minutes 2 x 30 seconds Comments with support to avoid any knee pain side steps with theraband Reps/Minutes x 20 steps right and left Calf stretch Side bilateral Comments Gastroc stretch as instructed last PT course Other Exercises transfer up and down from the floor Comments pt able to safely transfer with use of chair to the floor and back up PT-OP-T Assessment and Plan Start: 10/16/20 15:44 Freq: Status: Active Protocol: Document 11/14/20 15:15 [facility] (Rec: 11/14/20 17:44 [facility] [id number]) Physical Therapy Assessment Assessment Summary Assessment Joie had decreased pain today and was able to attempt single leg stance with hand hold without pain, I also returned her to the shuttle double leg press, hip abduction, and hamstring curl. She tolerated this well. Transferring to the floor she could do with CGA but she would benefit from additional practice with this transfer. Physical Therapy Plan Frequency and Duration Frequency of Treatment 2x/Week Duration of Treatment 8 weeks Plan of Care Start Date 10/17/20 Plan of Care End Date 12/17/20 Therapeutic Interventions Therapeutic Interventions Aquatic Therapy,Balance Training,Canalithic Repositioning,Coordination Training,Gait Training,Home Exercise Program,Joint Mobilizations,Manual Therapy, Neuromuscular Re-education, Orthotic/Prosthetic Management ,Patient/Caregiver Education, Self-Care/Home Management,Soft Tissue Mobilization,Taping, Therapeutic Activities, Therapeutic Exercises Modalities Cold Pack/Ice Massage,Hot Packs Next Visit Focus/Plan Next Note Type Treatment Note Next Visit Plan progressive balance and strengthening, manual work for tightness in the patella tendon and quad
--- NOTE | 2020-11-18 10:41 | PT.OTN ---
Current Diagnoses Other tear of medial meniscus, current injury, left knee, subsequent encounter (11/18/20) Encounter for other orthopedic aftercare (11/18/20) Physical Therapy Treatment Note PT-OP-A Visit Information Start: 10/16/20 15:44 Freq: Status: Active Protocol: Document 11/18/20 09:45 MB (Rec: 11/18/20 10:25 MB [id number]) Out-Patient Physical Therapy Visit Information Visit Information Visit Type Treatment Note Visit Note before KX Visit Start Time 09:45 Visit Stop Time 10:40 Total Visit Minutes 55 Visit Number 7 PT-OP-B Current Condition Start: 10/16/20 15:44 Freq: Status: Active Protocol: Document 10/17/20 09:00 MB (Rec: 10/17/20 09:22 MB [id number]) Current Condition History of Current Condition Onset Date 09/17/20 Current Complaints Decreased mobility and some pain and swelling left leg History of Current Condition Pt had left meniscal tear May 2020 when she was working in the garden on her hands and knees and stood up. She went to the ED. She then got in with an orthopedist a month later. She then got in to PT and had 12 treatments. Pt had PT at this clinic up until August before she had knee surgery 09/17/20. She underwent left knee arthroscopic surgery for meniscus. Pt has 4 steps to enter the house. She had been in the w/c up until today. She is using RW at home and she comes in with the SPC in her right hand today. She states she just got out of the knee brace. Before May, she was hiking and doing lunges and squats. She used to go to the gym before . Massage, bike and stretching were helpful with PT. The leg press was helpful. Pt is flying to [place] next week and will miss some PT treatments. Pt reports low pain 1/10 left knee. Pt reports that her PMH is essentially negative, she does take an allergy pill everyday . Treatment Goals Patient/Caregiver Goals To get back to active lifestyle PT-OP-C Subjective Start: 10/16/20 15:44 Freq: Status: Active Protocol: Document 11/18/20 09:45 MB (Rec: 11/18/20 10:25 MB [id number]) OP-PT Subjective Patient Comments Patient Comments Pt states that she has been practicing getting on and off the floor at home. She did side stepping and [place] with the band at home. [place] is hard. PT-OP-G Mobility & Gait Start: 10/16/20 15:44 Freq: Status: Active Protocol: Document 10/17/20 09:00 MB (Rec: 10/17/20 14:10 MB [id number]) OP Gait Assessment Comments Gait Comments Gait is antalgic with step-to pattern with cane in right hand. She presents with decreased heel strike and toe off on the left, slow levi, LLE edema PT-OP-K Range of Motion Start: 10/16/20 15:44 Freq: Status: Active Protocol: Document 10/17/20 09:00 MB (Rec: 10/17/20 14:10 MB [id number]) Knee Goniometric Range of Motion Knee ROM Limitations Comments Right knee AROM in supine: 0- 120 deg Left knee AROM in supine: 12- 85 deg PT-OP-M Strength Start: 10/16/20 15:44 Freq: Status: Active Protocol: Document 10/17/20 09:00 MB (Rec: 10/17/20 14:10 MB [id number]) Hip Strength Hip Manual Muscle Testing Left Flexion (L2) 4 Good Comments Pt does not tolerate holding left leg up for abduction and adduction testing Right Flexion (L2) 4 Good Abduction 4 Good Adduction 4 Good Knee Strength Knee Manual Muscle Testing Left Comments MMT deferred, 4 weeks post-op and decreased ROM Right Flexion (S2) 5 Normal Extension (L3) 5 Normal Ankle/Foot Strength Ankle and Foot Manual Muscle Testing Left Dorsiflexion (L4) 5 Normal Right Dorsiflexion (L4) 5 Normal Toe Strength Toe Manual Muscle Testing Left Great Toe Extension 3+ Fair+ Right Great Toe Extension 5 Normal PT-OP-Q Treatments Start: 10/16/20 15:44 Freq: Status: Active Protocol: Document 11/18/20 09:45 MB (Rec: 11/18/20 10:25 MB [id number]) Cardio Equipment Bicycle (Upright) Duration (Minutes) 10 Resistance 14 Seat Position 5 Gym Equipment Shuttle Recovery Bilateral Squats Resistance 87 Reps/Time Level 2 band around knees, 10 reps slowly counting 1,2,3,[address] Therapeutic Exercises Supine Exercises Chaz stretch Side bilateral Comments 45 sec hold Standing Exercises Backward stepping Comments Level 2 band around ankles, several steps going back side steps with theraband Comments Level 2 band around ankles, several steps to right and left x4 Manual Therapy Treatment Other Other Manual Treatments Left patellar lift, STM quads and vastus lateralis and MWM with pt performing active heel slide, STM medial hamstring and adductor attachment PT-OP-T Assessment and Plan Start: 10/16/20 15:44 Freq: Status: Active Protocol: Document 11/18/20 09:45 MB (Rec: 11/18/20 10:25 MB [id number]) Physical Therapy Assessment Goals 6 Band Tier Goal (LTG) Pt will perform progressive HEP with I including flexibility, strengthening, balance and gait to mazimize I by 12/17/20. LTG Duration 8 weeks 5 Care Home Goal (LTG) Pt will perform WNLs on a standardized balance test to decrease fall risk by 12/17/20 . LTG Duration 8 weeks 4 Care Home Goal (LTG) Pt will gait train at least 1300 feet in 6 minutes without AD to prepare for return to hiking by 12/17/20. LTG Duration 8 weeks 3 Band Tier Goal (LTG) Pt will perform active left knee flexion and extension equal to the right in supine to improve functional transfers by 12/17/20. LTG Duration 8 weeks 2 Care Home Goal (LTG) Pt will perform 13 reps sit to stand without UE support in 30 sec to improve functional strength by 12/17/20. LTG Duration 8 weeks 1 Impairment LEF score reflects greater than 70% functional impairment Care Home Goal (LTG) Pt will present with an LEF score to reflect no more than 20% impairment to allow return to gardening and hiking by . LTG Duration 8 weeks Assessment Summary Assessment Progressed hip abduction and extension strengthening with bands today in standing and manual work. Con't progression . Physical Therapy Plan Frequency and Duration Frequency of Treatment 2x/Week Duration of Treatment 8 weeks Plan of Care Start Date 10/17/20 Plan of Care End Date 12/17/20 Therapeutic Interventions Therapeutic Interventions Aquatic Therapy,Balance Training,Canalithic Repositioning,Coordination Training,Gait Training,Home Exercise Program,Joint Mobilizations,Manual Therapy, Neuromuscular Re-education, Orthotic/Prosthetic Management ,Patient/Caregiver Education, Self-Care/Home Management,Soft Tissue Mobilization,Taping, Therapeutic Activities, Therapeutic Exercises Modalities Cold Pack/Ice Massage,Hot Packs Next Visit Focus/Plan Next Note Type Treatment Note Next Visit Plan Consider mini squat against the wall for strengthening, ankle eversion and DF with band around ankle in sitting. Add a balance exercise such as tandem standing for ankle and knee reaction.
--- NOTE | 2020-11-22 09:42 | PT.OTN ---
Current Diagnoses Other tear of medial meniscus, current injury, left knee, subsequent encounter (11/22/20) Encounter for other orthopedic aftercare (11/22/20) Physical Therapy Treatment Note PT-OP-A Visit Information Start: 10/16/20 15:44 Freq: Status: Active Protocol: Document 11/22/20 09:01 MB (Rec: 11/22/20 09:42 MB [id number]) Out-Patient Physical Therapy Visit Information Visit Information Visit Type Treatment Note Visit Note KX Visit Start Time 09:01 Visit Stop Time 09:41 Total Visit Minutes 40 Visit Number 8 PT-OP-B Current Condition Start: 10/16/20 15:44 Freq: Status: Active Protocol: Document 10/17/20 09:00 MB (Rec: 10/17/20 09:22 MB [id number]) Current Condition History of Current Condition Onset Date 09/17/20 Current Complaints Decreased mobility and some pain and swelling left leg History of Current Condition Pt had left meniscal tear May 2020 when she was working in the garden on her hands and knees and stood up. She went to the ED. She then got in with an orthopedist a month later. She then got in to PT and had 12 treatments. Pt had PT at this clinic up until August before she had knee surgery 09/17/20. She underwent left knee arthroscopic surgery for meniscus. Pt has 4 steps to enter the house. She had been in the w/c up until today. She is using RW at home and she comes in with the SPC in her right hand today. She states she just got out of the knee brace. Before May, she was hiking and doing lunges and squats. She used to go to the gym before . Massage, bike and stretching were helpful with PT. The leg press was helpful. Pt is flying to [place] next week and will miss some PT treatments. Pt reports low pain 1/10 left knee. Pt reports that her PMH is essentially negative, she does take an allergy pill everyday . Treatment Goals Patient/Caregiver Goals To get back to active lifestyle PT-OP-C Subjective Start: 10/16/20 15:44 Freq: Status: Active Protocol: Document 11/22/20 09:01 MB (Rec: 11/22/20 09:42 MB [id number]) OP-PT Subjective Patient Comments Patient Comments Pt states she walked yesterday with walking stick and it went well. PT-OP-G Mobility & Gait Start: 10/16/20 15:44 Freq: Status: Active Protocol: Document 10/17/20 09:00 MB (Rec: 10/17/20 14:10 MB [id number]) OP Gait Assessment Comments Gait Comments Gait is antalgic with step-to pattern with cane in right hand. She presents with decreased heel strike and toe off on the left, slow levi, LLE edema PT-OP-K Range of Motion Start: 10/16/20 15:44 Freq: Status: Active Protocol: Document 10/17/20 09:00 MB (Rec: 10/17/20 14:10 MB [id number]) Knee Goniometric Range of Motion Knee ROM Limitations Comments Right knee AROM in supine: 0- 120 deg Left knee AROM in supine: 12- 85 deg PT-OP-M Strength Start: 10/16/20 15:44 Freq: Status: Active Protocol: Document 10/17/20 09:00 MB (Rec: 10/17/20 14:10 MB [id number]) Hip Strength Hip Manual Muscle Testing Left Flexion (L2) 4 Good Comments Pt does not tolerate holding left leg up for abduction and adduction testing Right Flexion (L2) 4 Good Abduction 4 Good Adduction 4 Good Knee Strength Knee Manual Muscle Testing Left Comments MMT deferred, 4 weeks post-op and decreased ROM Right Flexion (S2) 5 Normal Extension (L3) 5 Normal Ankle/Foot Strength Ankle and Foot Manual Muscle Testing Left Dorsiflexion (L4) 5 Normal Right Dorsiflexion (L4) 5 Normal Toe Strength Toe Manual Muscle Testing Left Great Toe Extension 3+ Fair+ Right Great Toe Extension 5 Normal PT-OP-Q Treatments Start: 10/16/20 15:44 Freq: Status: Active Protocol: Document 11/22/20 09:01 MB (Rec: 11/22/20 09:42 MB [id number]) Cardio Equipment Bicycle (Upright) Duration (Minutes) 10 Resistance 12 Seat Position 5 Therapeutic Exercises Sitting Exercises Ankle DF and eversion Side bilateral Equipment Used Level 3 band around feet Comments 10 reps slowly, knees still Standing Exercises Mini wall squat Equipment Used [place] band around knees Reps/Minutes 10 reps, cues to slow down Backward stepping Side bilateral Reps/Minutes Level 1 band around ankles, to use Level 2 at home Comments Several steps side steps with theraband Reps/Minutes Level 1 band around ankles and pt to use level 2 at home Comments Several steps to right and left Neuro Re-Education Treatment Balance Activities Balance in corner Comments Romberg EO no trouble Romberg EC no trouble and increased sway Tandem: trouble with both right foot and left foot behind--can hold several to 20 sec with practice before LOB and added to HEP PT-OP-T Assessment and Plan Start: 10/16/20 15:44 Freq: Status: Active Protocol: Document 11/22/20 09:01 MB (Rec: 11/22/20 09:42 MB [id number]) Physical Therapy Assessment Goals 6 Long-Term Goal (LTG) Pt will perform progressive HEP with I including flexibility, strengthening, balance and gait to mazimize I by 12/17/20. LTG Duration 8 weeks 5 Health And Physical Education Teacher Goal (LTG) Pt will perform WNLs on a standardized balance test to decrease fall risk by 12/17/20 . LTG Duration 8 weeks 4 Long-Term Goal (LTG) Pt will gait train at least 1300 feet in 6 minutes without AD to prepare for return to hiking by 12/17/20. LTG Duration 8 weeks 3 Health And Physical Education Teacher Goal (LTG) Pt will perform active left knee flexion and extension equal to the right in supine to improve functional transfers by 12/17/20. LTG Duration 8 weeks 2 Health And Physical Education Teacher Goal (LTG) Pt will perform 13 reps sit to stand without UE support in 30 sec to improve functional strength by 12/17/20. LTG Duration 8 weeks 1 Impairment LEF score reflects greater than 70% functional impairment Long-Term Goal (LTG) Pt will present with an LEF score to reflect no more than 20% impairment to allow return to gardening and hiking by . LTG Duration 8 weeks Assessment Summary Assessment Progressed mini wall squat against the wall, tandem balance and ankle strengthening today. Physical Therapy Plan Frequency and Duration Frequency of Treatment 2x/Week Duration of Treatment 8 weeks Plan of Care Start Date 10/17/20 Plan of Care End Date 12/17/20 Therapeutic Interventions Therapeutic Interventions Aquatic Therapy,Balance Training,Canalithic Repositioning,Coordination Training,Gait Training,Home Exercise Program,Joint Mobilizations,Manual Therapy, Neuromuscular Re-education, Orthotic/Prosthetic Management ,Patient/Caregiver Education, Self-Care/Home Management,Soft Tissue Mobilization,Taping, Therapeutic Activities, Therapeutic Exercises Modalities Cold Pack/Ice Massage,Hot Packs Next Visit Focus/Plan Next Note Type Treatment Note Next Visit Plan Consider checking sit to stands for form and HEP, getting on and off the floor, onging manual work. Eventually work up to trauma release exercises.
--- NOTE | 2020-11-25 08:54 | PT.OTN ---
Current Diagnoses Other tear of medial meniscus, current injury, left knee, subsequent encounter (11/25/20) Encounter for other orthopedic aftercare (11/25/20) Physical Therapy Treatment Note PT-OP-A Visit Information Start: 10/16/20 15:44 Freq: Status: Active Protocol: Document 11/25/20 08:14 MB (Rec: 11/25/20 08:54 MB [id number]) Out-Patient Physical Therapy Visit Information Visit Information Visit Type Treatment Note Visit Note KX Visit Start Time 08:14 Visit Stop Time 08:53 Total Visit Minutes 39 Visit Number 9 PT-OP-B Current Condition Start: 10/16/20 15:44 Freq: Status: Active Protocol: Document 10/17/20 09:00 MB (Rec: 10/17/20 09:22 MB [id number]) Current Condition History of Current Condition Onset Date 09/17/20 Current Complaints Decreased mobility and some pain and swelling left leg History of Current Condition Pt had left meniscal tear May 2020 when she was working in the garden on her hands and knees and stood up. She went to the ED. She then got in with an orthopedist a month later. She then got in to PT and had 12 treatments. Pt had PT at this clinic up until August before she had knee surgery 09/17/20. She underwent left knee arthroscopic surgery for meniscus. Pt has 4 steps to enter the house. She had been in the w/c up until today. She is using RW at home and she comes in with the SPC in her right hand today. She states she just got out of the knee brace. Before May, she was hiking and doing lunges and squats. She used to go to the gym before . Massage, bike and stretching were helpful with PT. The leg press was helpful. Pt is flying to [place] next week and will miss some PT treatments. Pt reports low pain 1/10 left knee. Pt reports that her PMH is essentially negative, she does take an allergy pill everyday . Treatment Goals Patient/Caregiver Goals To get back to active lifestyle PT-OP-C Subjective Start: 10/16/20 15:44 Freq: Status: Active Protocol: Document 11/25/20 08:14 MB (Rec: 11/25/20 08:54 MB [id number]) OP-PT Subjective Patient Comments Patient Comments Pt states that she is feeling good. She did have trouble doing the balance exercise in the corner yesterday. PT-OP-G Mobility & Gait Start: 10/16/20 15:44 Freq: Status: Active Protocol: Document 10/17/20 09:00 MB (Rec: 10/17/20 14:10 MB [id number]) OP Gait Assessment Comments Gait Comments Gait is antalgic with step-to pattern with cane in right hand. She presents with decreased heel strike and toe off on the left, slow levi, LLE edema PT-OP-K Range of Motion Start: 10/16/20 15:44 Freq: Status: Active Protocol: Document 10/17/20 09:00 MB (Rec: 10/17/20 14:10 MB [id number]) Knee Goniometric Range of Motion Knee ROM Limitations Comments Right knee AROM in supine: 0- 120 deg Left knee AROM in supine: 12- 85 deg PT-OP-M Strength Start: 10/16/20 15:44 Freq: Status: Active Protocol: Document 10/17/20 09:00 MB (Rec: 10/17/20 14:10 MB [id number]) Hip Strength Hip Manual Muscle Testing Left Flexion (L2) 4 Good Comments Pt does not tolerate holding left leg up for abduction and adduction testing Right Flexion (L2) 4 Good Abduction 4 Good Adduction 4 Good Knee Strength Knee Manual Muscle Testing Left Comments MMT deferred, 4 weeks post-op and decreased ROM Right Flexion (S2) 5 Normal Extension (L3) 5 Normal Ankle/Foot Strength Ankle and Foot Manual Muscle Testing Left Dorsiflexion (L4) 5 Normal Right Dorsiflexion (L4) 5 Normal Toe Strength Toe Manual Muscle Testing Left Great Toe Extension 3+ Fair+ Right Great Toe Extension 5 Normal PT-OP-Q Treatments Start: 10/16/20 15:44 Freq: Status: Active Protocol: Document 11/25/20 08:14 MB (Rec: 11/25/20 08:54 MB [id number]) Cardio Equipment Bicycle (Upright) Duration (Minutes) 10 Resistance 11 Seat Position 5 Gym Equipment Shuttle Recovery Bilateral Squats Resistance 87 Reps/Time Level 2 band around knees, 20 reps slowly Therapeutic Exercises Supine Exercises Chaz stretch Side bilateral Comments 45 sec hold and cues to tip pelvis up and make core tight Sitting Exercises Sit to stands Equipment Used Level 2 band around knees Reps/Minutes Several reps for practice, then took arms out of the equation Comments 30 sec: 6 reps Standing Exercises Calf stretch Side bilateral Comments 30 sec each Gait Training Gait Activity 6MWT Comments 11/25/20: Pt gait trains 1330 feet without AD and with reports of left tibial discomfort and decreased left arm swing compared to the right. Will make goal for further distance on progress note next treatment date. PT-OP-T Assessment and Plan Start: 10/16/20 15:44 Freq: Status: Active Protocol: Document 11/25/20 08:14 MB (Rec: 11/25/20 08:54 MB [id number]) Physical Therapy Assessment Rehab Potential Rehabilitation Potential Good Evaluation Complexity Number of Personal Factors/Comorbidities 1-2 Number of Body Systems Impaired 1-2 Clinical Presentation at Evaluation Stable Impairments Impairments Activity Tolerance,Balance, Edema,Functional Activities, Functional Mobility,Gait, Integument,Pain,Posture,ROM, Soft Tissue Mobility,Strength, Transfers Other Impairments Personal factors include leaving town for short vacation (flying) next week. Body systems affected include musculoskeletal and lymphatic. Her clinical presentation is stable at this point post-op. She denies sensory changes. Goals 6 Residential Goal (LTG) Pt will perform progressive HEP with I including flexibility, strengthening, balance and gait to mazimize I by 12/17/20. LTG Duration 8 weeks 5 Humidifier Maintenance Worker Goal (LTG) Pt will perform WNLs on a standardized balance test to decrease fall risk by 12/17/20 . LTG Duration 8 weeks 4 Humidifier Maintenance Worker Goal (LTG) Pt will gait train at least 1300 feet in 6 minutes without AD to prepare for return to hiking by 12/17/20. 11/25/20: Pt gait trains 1330 feet without AD and with reports of left tibial discomfort and decreased left arm swing compared to the right. Will make goal for further distance on progress note next treatment date. LTG Duration 8 weeks 3 Residential Goal (LTG) Pt will perform active left knee flexion and extension equal to the right in supine to improve functional transfers by 12/17/20. LTG Duration 8 weeks 2 Residential Goal (LTG) Pt will perform 13 reps sit to stand without UE support in 30 sec to improve functional strength by 12/17/20. 11/25/20: 7 reps in 30 sec with reaching arms forward LTG Duration 8 weeks 1 Impairment LEF score reflects greater than 70% functional impairment Humidifier Maintenance Worker Goal (LTG) Pt will present with an LEF score to reflect no more than 20% impairment to allow return to gardening and hiking by . LTG Duration 8 weeks Assessment Summary Assessment Initiated 6MWT today and pt presents with some discomfort on her left savage with gait and presents with decreased arm swing left arm compared to the right. She may benefit from long bone/periosteal scan and treatment with Counterstrain in future treatments. Progressed sit to stands today and pt performs well. Physical Therapy Plan Frequency and Duration Frequency of Treatment 2x/Week Duration of Treatment 8 weeks Plan of Care Start Date 10/17/20 Plan of Care End Date 12/17/20 Therapeutic Interventions Therapeutic Interventions Aquatic Therapy,Balance Training,Canalithic Repositioning,Coordination Training,Gait Training,Home Exercise Program,Joint Mobilizations,Manual Therapy, Neuromuscular Re-education, Orthotic/Prosthetic Management ,Patient/Caregiver Education, Self-Care/Home Management,Soft Tissue Mobilization,Taping, Therapeutic Activities, Therapeutic Exercises Modalities Cold Pack/Ice Massage,Hot Packs Next Visit Focus/Plan Next Note Type Progress Note Next Visit Plan Consider checking periosteal scan for left savage/long bones after surgery, getting on and off the floor, onging manual work. Eventually work up to trauma release exercises.
--- NOTE | 2020-11-28 13:15 | PT.OTN ---
Current Diagnoses Other tear of medial meniscus, current injury, left knee, subsequent encounter (11/28/20) Encounter for other orthopedic aftercare (11/28/20) Physical Therapy Treatment Note PT-OP-A Visit Information Start: 10/16/20 15:44 Freq: Status: Active Protocol: Document 11/28/20 09:01 MB (Rec: 11/28/20 09:43 MB [id number]) Out-Patient Physical Therapy Visit Information Visit Information Visit Type Progress Note Visit Note KX Visit Start Time 09:01 Visit Stop Time 09:45 Total Visit Minutes 44 Visit Number 10 PT-OP-B Current Condition Start: 10/16/20 15:44 Freq: Status: Active Protocol: Document 10/17/20 09:00 MB (Rec: 10/17/20 09:22 MB [id number]) Current Condition History of Current Condition Onset Date 09/17/20 Current Complaints Decreased mobility and some pain and swelling left leg History of Current Condition Pt had left meniscal tear May 2020 when she was working in the garden on her hands and knees and stood up. She went to the ED. She then got in with an orthopedist a month later. She then got in to PT and had 12 treatments. Pt had PT at this clinic up until August before she had knee surgery 09/17/20. She underwent left knee arthroscopic surgery for meniscus. Pt has 4 steps to enter the house. She had been in the w/c up until today. She is using RW at home and she comes in with the SPC in her right hand today. She states she just got out of the knee brace. Before May, she was hiking and doing lunges and squats. She used to go to the gym before . Massage, bike and stretching were helpful with PT. The leg press was helpful. Pt is flying to [place] next week and will miss some PT treatments. Pt reports low pain 1/10 left knee. Pt reports that her PMH is essentially negative, she does take an allergy pill everyday . Treatment Goals Patient/Caregiver Goals To get back to active lifestyle PT-OP-C Subjective Start: 10/16/20 15:44 Freq: Status: Active Protocol: Document 11/28/20 09:01 MB (Rec: 11/28/20 09:43 MB [id number]) OP-PT Subjective Patient Comments Patient Comments Yesterday, she went for a mile walk out and back and she got soaked. She did not lose her balance with the wind and rain pushing her and her knee did not bother her. PT-OP-G Mobility & Gait Start: 10/16/20 15:44 Freq: Status: Active Protocol: Document 10/17/20 09:00 MB (Rec: 10/17/20 14:10 MB [id number]) OP Gait Assessment Comments Gait Comments Gait is antalgic with step-to pattern with cane in right hand. She presents with decreased heel strike and toe off on the left, slow levi, LLE edema PT-OP-K Range of Motion Start: 10/16/20 15:44 Freq: Status: Active Protocol: Document 10/17/20 09:00 MB (Rec: 10/17/20 14:10 MB [id number]) Knee Goniometric Range of Motion Knee ROM Limitations Comments Right knee AROM in supine: 0- 120 deg Left knee AROM in supine: 12- 85 deg PT-OP-M Strength Start: 10/16/20 15:44 Freq: Status: Active Protocol: Document 10/17/20 09:00 MB (Rec: 10/17/20 14:10 MB [id number]) Hip Strength Hip Manual Muscle Testing Left Flexion (L2) 4 Good Comments Pt does not tolerate holding left leg up for abduction and adduction testing Right Flexion (L2) 4 Good Abduction 4 Good Adduction 4 Good Knee Strength Knee Manual Muscle Testing Left Comments MMT deferred, 4 weeks post-op and decreased ROM Right Flexion (S2) 5 Normal Extension (L3) 5 Normal Ankle/Foot Strength Ankle and Foot Manual Muscle Testing Left Dorsiflexion (L4) 5 Normal Right Dorsiflexion (L4) 5 Normal Toe Strength Toe Manual Muscle Testing Left Great Toe Extension 3+ Fair+ Right Great Toe Extension 5 Normal PT-OP-Q Treatments Start: 10/16/20 15:44 Freq: Status: Active Protocol: Document 11/28/20 09:01 MB (Rec: 11/28/20 09:43 MB [id number]) Cardio Equipment Bicycle (Upright) Duration (Minutes) 13 Resistance 12 Seat Position 4 Therapeutic Exercises Supine Exercises HS Comments Performed today for AROM assessment, see goals Sitting Exercises Sit to stands Comments 8 reps in 30 sec today Other Exercises HEP Review Comments Verbally reviewed the exercises she is doing for HEP , see goal comments Neuro Re-Education Treatment Balance Activities Balance in corner Comments Reviewed and performed today with pt with LOB within 1 sec of getting into both tandem positions (right foot behind and left foot behind) Romberg WNLs PT-OP-T Assessment and Plan Start: 10/16/20 15:44 Freq: Status: Active Protocol: Document 11/28/20 09:01 MB (Rec: 11/28/20 09:43 MB [id number]) Physical Therapy Assessment Rehab Potential Rehabilitation Potential Good Evaluation Complexity Number of Personal Factors/Comorbidities 1-2 Number of Body Systems Impaired 1-2 Clinical Presentation at Evaluation Stable Impairments Impairments Activity Tolerance,Balance, Edema,Functional Activities, Functional Mobility,Gait, Integument,Pain,Posture,ROM, Soft Tissue Mobility,Strength, Transfers Other Impairments Personal factors include leaving town for short vacation (flying) next week. Body systems affected include musculoskeletal and lymphatic. Her clinical presentation is stable at this point post-op. She denies sensory changes. Goals 6 Vc++ Developer Goal (LTG) Pt will perform progressive HEP with I including flexibility, strengthening, balance and gait to mazimize I by 01/08/21. 11/28/20: Pt is performing hamstring, Chaz, calf stetches, crab and backward walking with band, ankle strengthening with band, sit to stands, core progression with bridge, tandem balance, wall squat with band around knees, self-massage rolling pin LTG Duration 6 weeks 5 Chcf Goal (LTG) Pt will perform WNLs on a standardized balance test to decrease fall risk by 01/08/21 . 11/28/20: Pt can only stand a couple of seconds before she loses balance each foot behind and hits elbow against wall, cues to rest arms by side LTG Duration 6 weeks 4 Chcf Goal (LTG) Pt will gait train at least 1500 feet in 6 minutes without AD to prepare for return to hiking by 01/08/21. 11/25/20: Pt gait trains 1330 feet without AD and with reports of left tibial discomfort and decreased left arm swing compared to the right. Will make goal for further distance on progress note next treatment date. LTG Duration 6 weeks 3 Vc++ Developer Goal (LTG) Pt will perform active left knee flexion and extension equal to the right in supine to improve functional transfers by 01/08/21. 11/28/20: AROM left knee 3-106 deg; right knee 0-115 deg LTG Duration 6 weeks 2 Chcf Goal (LTG) Pt will perform 13 reps sit to stand without UE support in 30 sec to improve functional strength by 01/08/21. 11/28/20: 8 reps in 30 sec with reaching arms forward LTG Duration 6 weeks 1 Impairment LEF score reflects greater than 70% functional impairment Vc++ Developer Goal (LTG) Pt will present with an LEF score to reflect no more than 20% impairment to allow return to gardening and hiking by . 11/28/20: LEF score reflects 32 .5% impairment, which is about a 40% improvement in function since starting PT LTG Duration 6 weeks Assessment Summary Assessment Pt has progressed towards all PT goals since starting therapy. These include ROM, gait distance, balance, sit to stands and HEP. She will benefit from ongoing PT to further improve balance, functional strength, gait and range. Physical Therapy Plan Frequency and Duration Frequency of Treatment 2x/Week Duration of Treatment 6 weeks Plan of Care Start Date 11/28/20 Plan of Care End Date 01/08/21 Therapeutic Interventions Therapeutic Interventions Aquatic Therapy,Balance Training,Canalithic Repositioning,Coordination Training,Gait Training,Home Exercise Program,Joint Mobilizations,Manual Therapy, Neuromuscular Re-education, Orthotic/Prosthetic Management ,Patient/Caregiver Education, Self-Care/Home Management,Soft Tissue Mobilization,Taping, Therapeutic Activities, Therapeutic Exercises Modalities Cold Pack/Ice Massage,Hot Packs Next Visit Focus/Plan Next Note Type Treatment Note Next Visit Plan Consider checking periosteal scan for left savage/long bones after surgery, getting on and off the floor, onging manual work. Eventually work up to trauma release exercises.
--- NOTE | 2020-11-28 13:16 | PT.OPPOC ---
Physical, Occupational & Speech Therapy At [facility] Current Diagnoses Other tear of medial meniscus, current injury, left knee, subsequent encounter (11/28/20) Encounter for other orthopedic aftercare (11/28/20) Visit Care Team Role Provider Type Violetta Minor MD Primary Care Provider Physician Specialty: Internal Medicine Address: [address] [place] [address], [id number] Email: [email or web address] Dwayne Barrientos PA-C Attending Provider Non-Staff Referring Provider Specialty: Nursing Address: [facility] [facility], [address], [place], [address] Email: Plan Of Care PT-OP-T Assessment and Plan Start: 10/16/20 15:44 Freq: Status: Active Protocol: Document 11/28/20 09:01 MB (Rec: 11/28/20 09:43 MB [id number]) Physical Therapy Assessment Rehab Potential Rehabilitation Potential Good Evaluation Complexity Number of Personal Factors/Comorbidities 1-2 Number of Body Systems Impaired 1-2 Clinical Presentation at Evaluation Stable Impairments Impairments Activity Tolerance,Balance, Edema,Functional Activities, Functional Mobility,Gait, Integument,Pain,Posture,ROM, Soft Tissue Mobility,Strength, Transfers Other Impairments Personal factors include leaving town for short vacation (flying) next week. Body systems affected include musculoskeletal and lymphatic. Her clinical presentation is stable at this point post-op. She denies sensory changes. Goals 6 Coffee Roaster Helper Goal (LTG) Pt will perform progressive HEP with I including flexibility, strengthening, balance and gait to mazimize I by 01/08/21. 11/28/20: Pt is performing hamstring, Chaz, calf stetches, crab and backward walking with band, ankle strengthening with band, sit to stands, core progression with bridge, tandem balance, wall squat with band around knees, self-massage rolling pin LTG Duration 6 weeks 5 Coffee Roaster Helper Goal (LTG) Pt will perform WNLs on a standardized balance test to decrease fall risk by 01/08/21 . 11/28/20: Pt can only stand a couple of seconds before she loses balance each foot behind and hits elbow against wall, cues to rest arms by side LTG Duration 6 weeks 4 Alf Goal (LTG) Pt will gait train at least 1500 feet in 6 minutes without AD to prepare for return to hiking by 01/08/21. 11/25/20: Pt gait trains 1330 feet without AD and with reports of left tibial discomfort and decreased left arm swing compared to the right. Will make goal for further distance on progress note next treatment date. LTG Duration 6 weeks 3 Coffee Roaster Helper Goal (LTG) Pt will perform active left knee flexion and extension equal to the right in supine to improve functional transfers by 01/08/21. 11/28/20: AROM left knee 3-106 deg; right knee 0-115 deg LTG Duration 6 weeks 2 Coffee Roaster Helper Goal (LTG) Pt will perform 13 reps sit to stand without UE support in 30 sec to improve functional strength by 01/08/21. 11/28/20: 8 reps in 30 sec with reaching arms forward LTG Duration 6 weeks 1 Impairment LEF score reflects greater than 70% functional impairment Alf Goal (LTG) Pt will present with an LEF score to reflect no more than 20% impairment to allow return to gardening and hiking by . 11/28/20: LEF score reflects 32 .5% impairment, which is about a 40% improvement in function since starting PT LTG Duration 6 weeks Assessment Summary Assessment Pt has progressed towards all PT goals since starting therapy. These include ROM, gait distance, balance, sit to stands and HEP. She will benefit from ongoing PT to further improve balance, functional strength, gait and range. Physical Therapy Plan Frequency and Duration Frequency of Treatment 2x/Week Duration of Treatment 6 weeks Plan of Care Start Date 11/28/20 Plan of Care End Date 01/08/21 Therapeutic Interventions Therapeutic Interventions Aquatic Therapy,Balance Training,Canalithic Repositioning,Coordination Training,Gait Training,Home Exercise Program,Joint Mobilizations,Manual Therapy, Neuromuscular Re-education, Orthotic/Prosthetic Management ,Patient/Caregiver Education, Self-Care/Home Management,Soft Tissue Mobilization,Taping, Therapeutic Activities, Therapeutic Exercises Modalities Cold Pack/Ice Massage,Hot Packs Next Visit Focus/Plan Next Note Type Treatment Note Next Visit Plan Consider checking periosteal scan for left savage/long bones after surgery, getting on and off the floor, onging manual work. Eventually work up to trauma release exercises. Plan of Care Dates Plan of Care Start Date 11/28/20 Plan of Care End Date 01/08/21 Electronically Signed by: Gabrielle De Leon, PT 11/28/20 [id number] Please Sign and Return: I have reviewed this Plan of Care and certify that the skilled therapy services above are required to meet the patient?s needs. Physician Signature Date Printed Name and Credentials Clinical Instructor Signature Printed Name and Credentials
--- NOTE | 2020-12-03 09:52 | PT.OTN ---
Current Diagnoses Other tear of medial meniscus, current injury, left knee, subsequent encounter (12/03/20) Encounter for other orthopedic aftercare (12/03/20) Physical Therapy Treatment Note PT-OP-A Visit Information Start: 10/16/20 15:44 Freq: Status: Active Protocol: Document 12/03/20 09:00 MB (Rec: 12/03/20 09:51 MB [id number]) Out-Patient Physical Therapy Visit Information Visit Information Visit Type Treatment Note Visit Note KX Visit Start Time 09:00 Visit Stop Time 09:45 Total Visit Minutes 45 Visit Number 11 PT-OP-B Current Condition Start: 10/16/20 15:44 Freq: Status: Active Protocol: Document 10/17/20 09:00 MB (Rec: 10/17/20 09:22 MB [id number]) Current Condition History of Current Condition Onset Date 09/17/20 Current Complaints Decreased mobility and some pain and swelling left leg History of Current Condition Pt had left meniscal tear May 2020 when she was working in the garden on her hands and knees and stood up. She went to the ED. She then got in with an orthopedist a month later. She then got in to PT and had 12 treatments. Pt had PT at this clinic up until August before she had knee surgery 09/17/20. She underwent left knee arthroscopic surgery for meniscus. Pt has 4 steps to enter the house. She had been in the w/c up until today. She is using RW at home and she comes in with the SPC in her right hand today. She states she just got out of the knee brace. Before May, she was hiking and doing lunges and squats. She used to go to the gym before . Massage, bike and stretching were helpful with PT. The leg press was helpful. Pt is flying to [place] next week and will miss some PT treatments. Pt reports low pain 1/10 left knee. Pt reports that her PMH is essentially negative, she does take an allergy pill everyday . Treatment Goals Patient/Caregiver Goals To get back to active lifestyle PT-OP-C Subjective Start: 10/16/20 15:44 Freq: Status: Active Protocol: Document 12/03/20 09:00 MB (Rec: 12/03/20 09:51 MB [id number]) OP-PT Subjective Patient Comments Patient Comments Pt states that she walked 2.7 miles in 1 hour yesterday at [facility]. She had really bad cramping in both legs last night. PT-OP-G Mobility & Gait Start: 10/16/20 15:44 Freq: Status: Active Protocol: Document 10/17/20 09:00 MB (Rec: 10/17/20 14:10 MB [id number]) OP Gait Assessment Comments Gait Comments Gait is antalgic with step-to pattern with cane in right hand. She presents with decreased heel strike and toe off on the left, slow levi, LLE edema PT-OP-K Range of Motion Start: 10/16/20 15:44 Freq: Status: Active Protocol: Document 10/17/20 09:00 MB (Rec: 10/17/20 14:10 MB [id number]) Knee Goniometric Range of Motion Knee ROM Limitations Comments Right knee AROM in supine: 0- 120 deg Left knee AROM in supine: 12- 85 deg PT-OP-M Strength Start: 10/16/20 15:44 Freq: Status: Active Protocol: Document 10/17/20 09:00 MB (Rec: 10/17/20 14:10 MB [id number]) Hip Strength Hip Manual Muscle Testing Left Flexion (L2) 4 Good Comments Pt does not tolerate holding left leg up for abduction and adduction testing Right Flexion (L2) 4 Good Abduction 4 Good Adduction 4 Good Knee Strength Knee Manual Muscle Testing Left Comments MMT deferred, 4 weeks post-op and decreased ROM Right Flexion (S2) 5 Normal Extension (L3) 5 Normal Ankle/Foot Strength Ankle and Foot Manual Muscle Testing Left Dorsiflexion (L4) 5 Normal Right Dorsiflexion (L4) 5 Normal Toe Strength Toe Manual Muscle Testing Left Great Toe Extension 3+ Fair+ Right Great Toe Extension 5 Normal PT-OP-Q Treatments Start: 10/16/20 15:44 Freq: Status: Active Protocol: Document 12/03/20 09:00 MB (Rec: 12/03/20 09:51 MB [id number]) Cardio Equipment Bicycle (Upright) Duration (Minutes) 10 Resistance 9 Seat Position 5 Manual Therapy Treatment Other Other Manual Treatments Pt agrees to Counterstrain to assess and treat fascial tension and she presents with tension in ALL, LF, periosteal scan. PT treats stacks in ALL and periostelas for LEs and her scan improves and left tibia moves better. PT-OP-T Assessment and Plan Start: 10/16/20 15:44 Freq: Status: Active Protocol: Document 12/03/20 09:00 MB (Rec: 12/03/20 09:51 MB [id number]) Physical Therapy Assessment Rehab Potential Rehabilitation Potential Good Evaluation Complexity Number of Personal Factors/Comorbidities 1-2 Number of Body Systems Impaired 1-2 Clinical Presentation at Evaluation Stable Impairments Impairments Activity Tolerance,Balance, Edema,Functional Activities, Functional Mobility,Gait, Integument,Pain,Posture,ROM, Soft Tissue Mobility,Strength, Transfers Other Impairments Personal factors include leaving town for short vacation (flying) next week. Body systems affected include musculoskeletal and lymphatic. Her clinical presentation is stable at this point post-op. She denies sensory changes. Goals 6 Detention Goal (LTG) Pt will perform progressive HEP with I including flexibility, strengthening, balance and gait to mazimize I by 01/08/21. 11/28/20: Pt is performing hamstring, Chaz, calf stetches, crab and backward walking with band, ankle strengthening with band, sit to stands, core progression with bridge, tandem balance, wall squat with band around knees, self-massage rolling pin LTG Duration 6 weeks 5 Social Work Coordinator Goal (LTG) Pt will perform WNLs on a standardized balance test to decrease fall risk by 01/08/21 . 11/28/20: Pt can only stand a couple of seconds before she loses balance each foot behind and hits elbow against wall, cues to rest arms by side LTG Duration 6 weeks 4 Social Work Coordinator Goal (LTG) Pt will gait train at least 1500 feet in 6 minutes without AD to prepare for return to hiking by 01/08/21. 11/25/20: Pt gait trains 1330 feet without AD and with reports of left tibial discomfort and decreased left arm swing compared to the right. Will make goal for further distance on progress note next treatment date. LTG Duration 6 weeks 3 Social Work Coordinator Goal (LTG) Pt will perform active left knee flexion and extension equal to the right in supine to improve functional transfers by 01/08/21. 11/28/20: AROM left knee 3-106 deg; right knee 0-115 deg LTG Duration 6 weeks 2 Social Work Coordinator Goal (LTG) Pt will perform 13 reps sit to stand without UE support in 30 sec to improve functional strength by 01/08/21. 11/28/20: 8 reps in 30 sec with reaching arms forward LTG Duration 6 weeks 1 Impairment LEF score reflects greater than 70% functional impairment Detention Goal (LTG) Pt will present with an LEF score to reflect no more than 20% impairment to allow return to gardening and hiking by . 11/28/20: LEF score reflects 32 .5% impairment, which is about a 40% improvement in function since starting PT LTG Duration 6 weeks Assessment Summary Assessment PT ed pt about considering electrolytes when walking to help with leg cramping and to talk with pharmacist or provider about magnesium. Initiated Counterstrain today and pt initially responds well to treatment. Will con't to monitor. Physical Therapy Plan Frequency and Duration Frequency of Treatment 2x/Week Duration of Treatment 6 weeks Plan of Care Start Date 11/28/20 Plan of Care End Date 01/08/21 Therapeutic Interventions Therapeutic Interventions Aquatic Therapy,Balance Training,Canalithic Repositioning,Coordination Training,Gait Training,Home Exercise Program,Joint Mobilizations,Manual Therapy, Neuromuscular Re-education, Orthotic/Prosthetic Management ,Patient/Caregiver Education, Self-Care/Home Management,Soft Tissue Mobilization,Taping, Therapeutic Activities, Therapeutic Exercises Modalities Cold Pack/Ice Massage,Hot Packs Next Visit Focus/Plan Next Note Type Treatment Note Next Visit Plan Consider a treatment with walking including steps to check endurance, balance and strength per pt's report that she can no longer carry stuff up and down the steps Progress to trauma release exercises
--- NOTE | 2020-12-05 12:23 | PT.OTN ---
Current Diagnoses Other tear of medial meniscus, current injury, left knee, subsequent encounter (12/05/20) Encounter for other orthopedic aftercare (12/05/20) Physical Therapy Treatment Note PT-OP-A Visit Information Start: 10/16/20 15:44 Freq: Status: Active Protocol: Document 12/05/20 09:01 MB (Rec: 12/05/20 09:24 MB [id number]) Out-Patient Physical Therapy Visit Information Visit Information Visit Type Treatment Note Visit Note KX Visit Start Time 09:01 Visit Stop Time 09:40 Total Visit Minutes 39 Visit Number 12 PT-OP-B Current Condition Start: 10/16/20 15:44 Freq: Status: Active Protocol: Document 10/17/20 09:00 MB (Rec: 10/17/20 09:22 MB [id number]) Current Condition History of Current Condition Onset Date 09/17/20 Current Complaints Decreased mobility and some pain and swelling left leg History of Current Condition Pt had left meniscal tear May 2020 when she was working in the garden on her hands and knees and stood up. She went to the ED. She then got in with an orthopedist a month later. She then got in to PT and had 12 treatments. Pt had PT at this clinic up until August before she had knee surgery 09/17/20. She underwent left knee arthroscopic surgery for meniscus. Pt has 4 steps to enter the house. She had been in the w/c up until today. She is using RW at home and she comes in with the SPC in her right hand today. She states she just got out of the knee brace. Before May, she was hiking and doing lunges and squats. She used to go to the gym before . Massage, bike and stretching were helpful with PT. The leg press was helpful. Pt is flying to [place] next week and will miss some PT treatments. Pt reports low pain 1/10 left knee. Pt reports that her PMH is essentially negative, she does take an allergy pill everyday . Treatment Goals Patient/Caregiver Goals To get back to active lifestyle PT-OP-C Subjective Start: 10/16/20 15:44 Freq: Status: Active Protocol: Document 12/05/20 09:01 MB (Rec: 12/05/20 09:24 MB [id number]) OP-PT Subjective Patient Comments Patient Comments Pt walked down to PT and forgot her walking sticks. She was able to get to her 2.9 m/ hr pace. She is happy with this. Initially, pt had pain at night after periosteal Counterstrain treatment and now she is feeling better. PT-OP-G Mobility & Gait Start: 10/16/20 15:44 Freq: Status: Active Protocol: Document 10/17/20 09:00 MB (Rec: 10/17/20 14:10 MB [id number]) OP Gait Assessment Comments Gait Comments Gait is antalgic with step-to pattern with cane in right hand. She presents with decreased heel strike and toe off on the left, slow levi, LLE edema PT-OP-K Range of Motion Start: 10/16/20 15:44 Freq: Status: Active Protocol: Document 10/17/20 09:00 MB (Rec: 10/17/20 14:10 MB [id number]) Knee Goniometric Range of Motion Knee ROM Limitations Comments Right knee AROM in supine: 0- 120 deg Left knee AROM in supine: 12- 85 deg PT-OP-M Strength Start: 10/16/20 15:44 Freq: Status: Active Protocol: Document 10/17/20 09:00 MB (Rec: 10/17/20 14:10 MB [id number]) Hip Strength Hip Manual Muscle Testing Left Flexion (L2) 4 Good Comments Pt does not tolerate holding left leg up for abduction and adduction testing Right Flexion (L2) 4 Good Abduction 4 Good Adduction 4 Good Knee Strength Knee Manual Muscle Testing Left Comments MMT deferred, 4 weeks post-op and decreased ROM Right Flexion (S2) 5 Normal Extension (L3) 5 Normal Ankle/Foot Strength Ankle and Foot Manual Muscle Testing Left Dorsiflexion (L4) 5 Normal Right Dorsiflexion (L4) 5 Normal Toe Strength Toe Manual Muscle Testing Left Great Toe Extension 3+ Fair+ Right Great Toe Extension 5 Normal PT-OP-Q Treatments Start: 10/16/20 15:44 Freq: Status: Active Protocol: Document 12/05/20 09:01 MB (Rec: 12/05/20 09:24 MB [id number]) Cardio Equipment Bicycle (Upright) Duration (Minutes) 10 Resistance 11 Seat Position 4 Gait Training Gait Activity Gait outside and on steps Comments [place] inside building outside clinic x2 with right rail ascend and descend and no left knee pain and walks well . Standard carpeted steps with right rail as well, two split level sets x2 with more effort. Pt gait trains well in parking lot and sidewalk, does fatigue 6MWT Comments 12/05/20: Pt gait trains 1511 feet in 6 minutes with some mild less left knee flexion and left arm swing compared to the right. Her pace is 2.86 mi/hour. Her goal is 3 mi/hour . Pt is using race arm swing with arms bent and close to sides PT-OP-T Assessment and Plan Start: 10/16/20 15:44 Freq: Status: Active Protocol: Document 12/05/20 09:01 MB (Rec: 12/05/20 09:24 MB [id number]) Physical Therapy Assessment Rehab Potential Rehabilitation Potential Good Evaluation Complexity Number of Personal Factors/Comorbidities 1-2 Number of Body Systems Impaired 1-2 Clinical Presentation at Evaluation Stable Impairments Impairments Activity Tolerance,Balance, Edema,Functional Activities, Functional Mobility,Gait, Integument,Pain,Posture,ROM, Soft Tissue Mobility,Strength, Transfers Other Impairments Personal factors include leaving town for short vacation (flying) next week. Body systems affected include musculoskeletal and lymphatic. Her clinical presentation is stable at this point post-op. She denies sensory changes. Goals 6 Senior Living Goal (LTG) Pt will perform progressive HEP with I including flexibility, strengthening, balance and gait to mazimize I by 01/08/21. 11/28/20: Pt is performing hamstring, Chaz, calf stetches, crab and backward walking with band, ankle strengthening with band, sit to stands, core progression with bridge, tandem balance, wall squat with band around knees, self-massage rolling pin LTG Duration 6 weeks 5 Deli Cook Goal (LTG) Pt will perform WNLs on a standardized balance test to decrease fall risk by 01/08/21 . 11/28/20: Pt can only stand a couple of seconds before she loses balance each foot behind and hits elbow against wall, cues to rest arms by side LTG Duration 6 weeks 4 Deli Cook Goal (LTG) Pt will gait train at least 1500 feet in 6 minutes without AD to prepare for return to hiking by 01/08/21. 12/05/20: Pt gait trains 1511 feet in 6 minutes with some mild less left knee flexion and left arm swing compared to the right. Her pace is 2.86 mi/hour. Her goal is 3 mi/hour . Pt is using race arm swing with arms bent and close to sides 11/25/20: Pt gait trains 1330 feet without AD and with reports of left tibial discomfort and decreased left arm swing compared to the right. Will make goal for further distance on progress note next treatment date. LTG Duration 6 weeks 3 Deli Cook Goal (LTG) Pt will perform active left knee flexion and extension equal to the right in supine to improve functional transfers by 01/08/21. 11/28/20: AROM left knee 3-106 deg; right knee 0-115 deg LTG Duration 6 weeks 2 Deli Cook Goal (LTG) Pt will perform 13 reps sit to stand without UE support in 30 sec to improve functional strength by 01/08/21. 11/28/20: 8 reps in 30 sec with reaching arms forward LTG Duration 6 weeks 1 Impairment LEF score reflects greater than 70% functional impairment Deli Cook Goal (LTG) Pt will present with an LEF score to reflect no more than 20% impairment to allow return to gardening and hiking by . 11/28/20: LEF score reflects 32 .5% impairment, which is about a 40% improvement in function since starting PT LTG Duration 6 weeks Assessment Summary Assessment Pt is improving with levi with 6MWT and with gait outside and on stairs today without AD. Con't balance and gait progression. Physical Therapy Plan Frequency and Duration Frequency of Treatment 2x/Week Duration of Treatment 6 weeks Plan of Care Start Date 11/28/20 Plan of Care End Date 01/08/21 Therapeutic Interventions Therapeutic Interventions Aquatic Therapy,Balance Training,Canalithic Repositioning,Coordination Training,Gait Training,Home Exercise Program,Joint Mobilizations,Manual Therapy, Neuromuscular Re-education, Orthotic/Prosthetic Management ,Patient/Caregiver Education, Self-Care/Home Management,Soft Tissue Mobilization,Taping, Therapeutic Activities, Therapeutic Exercises Modalities Cold Pack/Ice Massage,Hot Packs Next Visit Focus/Plan Next Note Type Treatment Note Next Visit Plan Progress to trauma release exercises, practice getting on and off the floor
--- NOTE | 2020-12-10 08:55 | PT.OTN ---
Current Diagnoses Other tear of medial meniscus, current injury, left knee, subsequent encounter (12/10/20) Encounter for other orthopedic aftercare (12/10/20) Physical Therapy Treatment Note PT-OP-A Visit Information Start: 10/16/20 15:44 Freq: Status: Active Protocol: Document 12/10/20 08:14 MB (Rec: 12/10/20 08:55 MB [id number]) Out-Patient Physical Therapy Visit Information Visit Information Visit Type Treatment Note Visit Note KX Visit Start Time 08:14 Visit Stop Time 08:55 Total Visit Minutes 41 Visit Number 13 PT-OP-B Current Condition Start: 10/16/20 15:44 Freq: Status: Active Protocol: Document 10/17/20 09:00 MB (Rec: 10/17/20 09:22 MB [id number]) Current Condition History of Current Condition Onset Date 09/17/20 Current Complaints Decreased mobility and some pain and swelling left leg History of Current Condition Pt had left meniscal tear May 2020 when she was working in the garden on her hands and knees and stood up. She went to the ED. She then got in with an orthopedist a month later. She then got in to PT and had 12 treatments. Pt had PT at this clinic up until August before she had knee surgery 09/17/20. She underwent left knee arthroscopic surgery for meniscus. Pt has 4 steps to enter the house. She had been in the w/c up until today. She is using RW at home and she comes in with the SPC in her right hand today. She states she just got out of the knee brace. Before May, she was hiking and doing lunges and squats. She used to go to the gym before . Massage, bike and stretching were helpful with PT. The leg press was helpful. Pt is flying to [place] next week and will miss some PT treatments. Pt reports low pain 1/10 left knee. Pt reports that her PMH is essentially negative, she does take an allergy pill everyday . Treatment Goals Patient/Caregiver Goals To get back to active lifestyle PT-OP-C Subjective Start: 10/16/20 15:44 Freq: Status: Active Protocol: Document 12/10/20 08:14 MB (Rec: 12/10/20 08:55 MB [id number]) OP-PT Subjective Patient Comments Patient Comments Pt states that her left knee is a little tired today. She might have overdone it. She walked about 2 hours yesterday . She was having fun walking with her friend. PT-OP-G Mobility & Gait Start: 10/16/20 15:44 Freq: Status: Active Protocol: Document 10/17/20 09:00 MB (Rec: 10/17/20 14:10 MB [id number]) OP Gait Assessment Comments Gait Comments Gait is antalgic with step-to pattern with cane in right hand. She presents with decreased heel strike and toe off on the left, slow levi, LLE edema PT-OP-K Range of Motion Start: 10/16/20 15:44 Freq: Status: Active Protocol: Document 10/17/20 09:00 MB (Rec: 10/17/20 14:10 MB [id number]) Knee Goniometric Range of Motion Knee ROM Limitations Comments Right knee AROM in supine: 0- 120 deg Left knee AROM in supine: 12- 85 deg PT-OP-M Strength Start: 10/16/20 15:44 Freq: Status: Active Protocol: Document 10/17/20 09:00 MB (Rec: 10/17/20 14:10 MB [id number]) Hip Strength Hip Manual Muscle Testing Left Flexion (L2) 4 Good Comments Pt does not tolerate holding left leg up for abduction and adduction testing Right Flexion (L2) 4 Good Abduction 4 Good Adduction 4 Good Knee Strength Knee Manual Muscle Testing Left Comments MMT deferred, 4 weeks post-op and decreased ROM Right Flexion (S2) 5 Normal Extension (L3) 5 Normal Ankle/Foot Strength Ankle and Foot Manual Muscle Testing Left Dorsiflexion (L4) 5 Normal Right Dorsiflexion (L4) 5 Normal Toe Strength Toe Manual Muscle Testing Left Great Toe Extension 3+ Fair+ Right Great Toe Extension 5 Normal PT-OP-Q Treatments Start: 10/16/20 15:44 Freq: Status: Active Protocol: Document 12/10/20 08:14 MB (Rec: 12/10/20 08:55 MB [id number]) Cardio Equipment Bicycle (Upright) Duration (Minutes) 10 Resistance 11 Seat Position 4 Therapeutic Exercises Other Exercises Trauma Release Exercises Comments Performed all exercises today in order Manual Therapy Treatment Other Other Manual Treatments L patellar mobs and STM rectus femoris and vastus lateralis, positional release for valgus PT-OP-T Assessment and Plan Start: 10/16/20 15:44 Freq: Status: Active Protocol: Document 12/10/20 08:14 MB (Rec: 12/10/20 08:55 MB [id number]) Physical Therapy Assessment Rehab Potential Rehabilitation Potential Good Evaluation Complexity Number of Personal Factors/Comorbidities 1-2 Number of Body Systems Impaired 1-2 Clinical Presentation at Evaluation Stable Impairments Impairments Activity Tolerance,Balance, Edema,Functional Activities, Functional Mobility,Gait, Integument,Pain,Posture,ROM, Soft Tissue Mobility,Strength, Transfers Other Impairments Personal factors include leaving town for short vacation (flying) next week. Body systems affected include musculoskeletal and lymphatic. Her clinical presentation is stable at this point post-op. She denies sensory changes. Goals 6 Recruitment Officer Goal (LTG) Pt will perform progressive HEP with I including flexibility, strengthening, balance and gait to mazimize I by 01/08/21. 11/28/20: Pt is performing hamstring, Chaz, calf stetches, crab and backward walking with band, ankle strengthening with band, sit to stands, core progression with bridge, tandem balance, wall squat with band around knees, self-massage rolling pin LTG Duration 6 weeks 5 Detention Goal (LTG) Pt will perform WNLs on a standardized balance test to decrease fall risk by 01/08/21 . 11/28/20: Pt can only stand a couple of seconds before she loses balance each foot behind and hits elbow against wall, cues to rest arms by side LTG Duration 6 weeks 4 Recruitment Officer Goal (LTG) Pt will gait train at least 1500 feet in 6 minutes without AD to prepare for return to hiking by 01/08/21. 12/05/20: Pt gait trains 1511 feet in 6 minutes with some mild less left knee flexion and left arm swing compared to the right. Her pace is 2.86 mi/hour. Her goal is 3 mi/hour . Pt is using race arm swing with arms bent and close to sides 11/25/20: Pt gait trains 1330 feet without AD and with reports of left tibial discomfort and decreased left arm swing compared to the right. Will make goal for further distance on progress note next treatment date. LTG Duration 6 weeks 3 Recruitment Officer Goal (LTG) Pt will perform active left knee flexion and extension equal to the right in supine to improve functional transfers by 01/08/21. 11/28/20: AROM left knee 3-106 deg; right knee 0-115 deg LTG Duration 6 weeks 2 Recruitment Officer Goal (LTG) Pt will perform 13 reps sit to stand without UE support in 30 sec to improve functional strength by 01/08/21. 11/28/20: 8 reps in 30 sec with reaching arms forward LTG Duration 6 weeks 1 Impairment LEF score reflects greater than 70% functional impairment Detention Goal (LTG) Pt will present with an LEF score to reflect no more than 20% impairment to allow return to gardening and hiking by . 11/28/20: LEF score reflects 32 .5% impairment, which is about a 40% improvement in function since starting PT LTG Duration 6 weeks Assessment Summary Assessment Progressed to trauma release exercises today. Manual work as well. Con't balance progression. Physical Therapy Plan Frequency and Duration Frequency of Treatment 2x/Week Duration of Treatment 6 weeks Plan of Care Start Date 11/28/20 Plan of Care End Date 01/08/21 Therapeutic Interventions Therapeutic Interventions Aquatic Therapy,Balance Training,Canalithic Repositioning,Coordination Training,Gait Training,Home Exercise Program,Joint Mobilizations,Manual Therapy, Neuromuscular Re-education, Orthotic/Prosthetic Management ,Patient/Caregiver Education, Self-Care/Home Management,Soft Tissue Mobilization,Taping, Therapeutic Activities, Therapeutic Exercises Modalities Cold Pack/Ice Massage,Hot Packs Next Visit Focus/Plan Next Note Type Treatment Note Next Visit Plan Balance progression
--- NOTE | 2020-12-12 08:46 | PT.OTN ---
Current Diagnoses Other tear of medial meniscus, current injury, left knee, subsequent encounter (12/12/20) Encounter for other orthopedic aftercare (12/12/20) Physical Therapy Treatment Note PT-OP-A Visit Information Start: 10/16/20 15:44 Freq: Status: Active Protocol: Document 12/12/20 08:15 MB (Rec: 12/12/20 08:46 MB [id number]) Out-Patient Physical Therapy Visit Information Visit Information Visit Type Treatment Note Visit Note KX Visit Start Time 08:15 Visit Stop Time 08:38 Total Visit Minutes 23 Visit Number 14 PT-OP-B Current Condition Start: 10/16/20 15:44 Freq: Status: Active Protocol: Document 10/17/20 09:00 MB (Rec: 10/17/20 09:22 MB [id number]) Current Condition History of Current Condition Onset Date 09/17/20 Current Complaints Decreased mobility and some pain and swelling left leg History of Current Condition Pt had left meniscal tear May 2020 when she was working in the garden on her hands and knees and stood up. She went to the ED. She then got in with an orthopedist a month later. She then got in to PT and had 12 treatments. Pt had PT at this clinic up until August before she had knee surgery 09/17/20. She underwent left knee arthroscopic surgery for meniscus. Pt has 4 steps to enter the house. She had been in the w/c up until today. She is using RW at home and she comes in with the SPC in her right hand today. She states she just got out of the knee brace. Before May, she was hiking and doing lunges and squats. She used to go to the gym before . Massage, bike and stretching were helpful with PT. The leg press was helpful. Pt is flying to [place] next week and will miss some PT treatments. Pt reports low pain 1/10 left knee. Pt reports that her PMH is essentially negative, she does take an allergy pill everyday . Treatment Goals Patient/Caregiver Goals To get back to active lifestyle PT-OP-C Subjective Start: 10/16/20 15:44 Freq: Status: Active Protocol: Document 12/12/20 08:15 MB (Rec: 12/12/20 08:46 MB [id number]) OP-PT Subjective Patient Comments Patient Comments Pt states that she was really sore in both legs the following day after PT. She could only walk 3/4 mile yesterday. She did her stretching exercises today and they didn't bother her. PT-OP-G Mobility & Gait Start: 10/16/20 15:44 Freq: Status: Active Protocol: Document 10/17/20 09:00 MB (Rec: 10/17/20 14:10 MB [id number]) OP Gait Assessment Comments Gait Comments Gait is antalgic with step-to pattern with cane in right hand. She presents with decreased heel strike and toe off on the left, slow levi, LLE edema PT-OP-K Range of Motion Start: 10/16/20 15:44 Freq: Status: Active Protocol: Document 10/17/20 09:00 MB (Rec: 10/17/20 14:10 MB [id number]) Knee Goniometric Range of Motion Knee ROM Limitations Comments Right knee AROM in supine: 0- 120 deg Left knee AROM in supine: 12- 85 deg PT-OP-M Strength Start: 10/16/20 15:44 Freq: Status: Active Protocol: Document 10/17/20 09:00 MB (Rec: 10/17/20 14:10 MB [id number]) Hip Strength Hip Manual Muscle Testing Left Flexion (L2) 4 Good Comments Pt does not tolerate holding left leg up for abduction and adduction testing Right Flexion (L2) 4 Good Abduction 4 Good Adduction 4 Good Knee Strength Knee Manual Muscle Testing Left Comments MMT deferred, 4 weeks post-op and decreased ROM Right Flexion (S2) 5 Normal Extension (L3) 5 Normal Ankle/Foot Strength Ankle and Foot Manual Muscle Testing Left Dorsiflexion (L4) 5 Normal Right Dorsiflexion (L4) 5 Normal Toe Strength Toe Manual Muscle Testing Left Great Toe Extension 3+ Fair+ Right Great Toe Extension 5 Normal PT-OP-Q Treatments Start: 10/16/20 15:44 Freq: Status: Active Protocol: Document 12/12/20 08:15 MB (Rec: 12/12/20 08:46 MB [id number]) Cardio Equipment Bicycle (Upright) Duration (Minutes) 10 Resistance 11 Seat Position 5 Neuro Re-Education Treatment Balance Activities Tandem gait for home Comments L index finger sliding along the wall, tandem walking reps in hallway x3 with I and no LOB FGA Comments FGA score is 27/30, normal. She slows with walking with eyes closed, has mild trouble with tandem gait and slows with stepping over obstacle PT-OP-T Assessment and Plan Start: 10/16/20 15:44 Freq: Status: Active Protocol: Document 12/12/20 08:15 MB (Rec: 12/12/20 08:46 MB [id number]) Physical Therapy Assessment Rehab Potential Rehabilitation Potential Good Evaluation Complexity Number of Personal Factors/Comorbidities 1-2 Number of Body Systems Impaired 1-2 Clinical Presentation at Evaluation Stable Impairments Impairments Activity Tolerance,Balance, Edema,Functional Activities, Functional Mobility,Gait, Integument,Pain,Posture,ROM, Soft Tissue Mobility,Strength, Transfers Other Impairments Personal factors include leaving town for short vacation (flying) next week. Body systems affected include musculoskeletal and lymphatic. Her clinical presentation is stable at this point post-op. She denies sensory changes. Goals 6 Mcfp Goal (LTG) Pt will perform progressive HEP with I including flexibility, strengthening, balance and gait to mazimize I by 01/08/21. 11/28/20: Pt is performing hamstring, Chaz, calf stetches, crab and backward walking with band, ankle strengthening with band, sit to stands, core progression with bridge, tandem balance, wall squat with band around knees, self-massage rolling pin LTG Duration 6 weeks 5 Mcfp Goal (LTG) Pt will perform WNLs on a standardized balance test to decrease fall risk by 01/08/21 . 11/28/20: Pt can only stand a couple of seconds before she loses balance each foot behind and hits elbow against wall, cues to rest arms by side LTG Duration 6 weeks 4 Mcfp Goal (LTG) Pt will gait train at least 1500 feet in 6 minutes without AD to prepare for return to hiking by 01/08/21. 12/05/20: Pt gait trains 1511 feet in 6 minutes with some mild less left knee flexion and left arm swing compared to the right. Her pace is 2.86 mi/hour. Her goal is 3 mi/hour . Pt is using race arm swing with arms bent and close to sides 11/25/20: Pt gait trains 1330 feet without AD and with reports of left tibial discomfort and decreased left arm swing compared to the right. Will make goal for further distance on progress note next treatment date. LTG Duration 6 weeks 3 Mcfp Goal (LTG) Pt will perform active left knee flexion and extension equal to the right in supine to improve functional transfers by 01/08/21. 11/28/20: AROM left knee 3-106 deg; right knee 0-115 deg LTG Duration 6 weeks 2 Human Resource Analyst Goal (LTG) Pt will perform 13 reps sit to stand without UE support in 30 sec to improve functional strength by 01/08/21. 11/28/20: 8 reps in 30 sec with reaching arms forward LTG Duration 6 weeks 1 Impairment LEF score reflects greater than 70% functional impairment Mcfp Goal (LTG) Pt will present with an LEF score to reflect no more than 20% impairment to allow return to gardening and hiking by . 11/28/20: LEF score reflects 32 .5% impairment, which is about a 40% improvement in function since starting PT LTG Duration 6 weeks Assessment Summary Assessment Progressed balance exercise for home, pt only has trouble with tandem walking. She has progressed very well with PT and will be ready to d/c soon with her exercises and starting to hike. She returns to surgeon on Wednesday. Anticipate two more treatments . Physical Therapy Plan Frequency and Duration Frequency of Treatment 2x/Week Duration of Treatment 6 weeks Plan of Care Start Date 11/28/20 Plan of Care End Date 01/08/21 Therapeutic Interventions Therapeutic Interventions Aquatic Therapy,Balance Training,Canalithic Repositioning,Coordination Training,Gait Training,Home Exercise Program,Joint Mobilizations,Manual Therapy, Neuromuscular Re-education, Orthotic/Prosthetic Management ,Patient/Caregiver Education, Self-Care/Home Management,Soft Tissue Mobilization,Taping, Therapeutic Activities, Therapeutic Exercises Modalities Cold Pack/Ice Massage,Hot Packs Next Visit Focus/Plan Next Note Type Treatment Note Next Visit Plan Review exercises as needed
--- NOTE | 2020-12-17 09:45 | PT.OTN ---
Current Diagnoses Other tear of medial meniscus, current injury, left knee, subsequent encounter (12/17/20) Encounter for other orthopedic aftercare (12/17/20) Physical Therapy Treatment Note PT-OP-A Visit Information Start: 10/16/20 15:44 Freq: Status: Active Protocol: Document 12/17/20 09:02 MB (Rec: 12/17/20 09:45 MB [id number]) Out-Patient Physical Therapy Visit Information Visit Information Visit Type Treatment Note Visit Note KX Visit Start Time 09:02 Visit Stop Time 09:40 Total Visit Minutes 38 Visit Number 15 PT-OP-B Current Condition Start: 10/16/20 15:44 Freq: Status: Active Protocol: Document 10/17/20 09:00 MB (Rec: 10/17/20 09:22 MB [id number]) Current Condition History of Current Condition Onset Date 09/17/20 Current Complaints Decreased mobility and some pain and swelling left leg History of Current Condition Pt had left meniscal tear May 2020 when she was working in the garden on her hands and knees and stood up. She went to the ED. She then got in with an orthopedist a month later. She then got in to PT and had 12 treatments. Pt had PT at this clinic up until August before she had knee surgery 09/17/20. She underwent left knee arthroscopic surgery for meniscus. Pt has 4 steps to enter the house. She had been in the w/c up until today. She is using RW at home and she comes in with the SPC in her right hand today. She states she just got out of the knee brace. Before May, she was hiking and doing lunges and squats. She used to go to the gym before . Massage, bike and stretching were helpful with PT. The leg press was helpful. Pt is flying to [place] next week and will miss some PT treatments. Pt reports low pain 1/10 left knee. Pt reports that her PMH is essentially negative, she does take an allergy pill everyday . Treatment Goals Patient/Caregiver Goals To get back to active lifestyle PT-OP-C Subjective Start: 10/16/20 15:44 Freq: Status: Active Protocol: Document 12/17/20 09:02 MB (Rec: 12/17/20 09:45 MB [id number]) OP-PT Subjective Patient Comments Patient Comments Pt states that she returned to the surgeon and he said that she does not need to con't with PT. She still has some left knee pain after trauma release exercises that lasts for the afternoon and she takes a couple of Tylenol. She did go for a quicker walk on Wednesday and went the speed and distance she wanted. PT-OP-G Mobility & Gait Start: 10/16/20 15:44 Freq: Status: Active Protocol: Document 10/17/20 09:00 MB (Rec: 10/17/20 14:10 MB [id number]) OP Gait Assessment Comments Gait Comments Gait is antalgic with step-to pattern with cane in right hand. She presents with decreased heel strike and toe off on the left, slow levi, LLE edema PT-OP-K Range of Motion Start: 10/16/20 15:44 Freq: Status: Active Protocol: Document 10/17/20 09:00 MB (Rec: 10/17/20 14:10 MB [id number]) Knee Goniometric Range of Motion Knee ROM Limitations Comments Right knee AROM in supine: 0- 120 deg Left knee AROM in supine: 12- 85 deg PT-OP-M Strength Start: 10/16/20 15:44 Freq: Status: Active Protocol: Document 10/17/20 09:00 MB (Rec: 10/17/20 14:10 MB [id number]) Hip Strength Hip Manual Muscle Testing Left Flexion (L2) 4 Good Comments Pt does not tolerate holding left leg up for abduction and adduction testing Right Flexion (L2) 4 Good Abduction 4 Good Adduction 4 Good Knee Strength Knee Manual Muscle Testing Left Comments MMT deferred, 4 weeks post-op and decreased ROM Right Flexion (S2) 5 Normal Extension (L3) 5 Normal Ankle/Foot Strength Ankle and Foot Manual Muscle Testing Left Dorsiflexion (L4) 5 Normal Right Dorsiflexion (L4) 5 Normal Toe Strength Toe Manual Muscle Testing Left Great Toe Extension 3+ Fair+ Right Great Toe Extension 5 Normal PT-OP-Q Treatments Start: 10/16/20 15:44 Freq: Status: Active Protocol: Document 12/17/20 09:02 MB (Rec: 12/17/20 09:45 MB [id number]) Cardio Equipment Bicycle (Upright) Duration (Minutes) 15 Resistance 11 Seat Position 4 Therapeutic Exercises Supine Exercises HS Comments Performed for ROM check today, see goals Sitting Exercises Sit to stands Comments Performed many times today for goal, see goal Other Exercises Trauma Release Exercises Comments Verbally reviewed today and ed to take care, angelique with wall sit Gait Training Gait Activity [id number] Comments Performed today for goals and see goal for comments Gait quality throughout treatment is WNLs and without pain today, pt can perform good arm swing with quick gait PT-OP-T Assessment and Plan Start: 10/16/20 15:44 Freq: Status: Active Protocol: Document 12/17/20 09:02 MB (Rec: 12/17/20 09:45 MB [id number]) Physical Therapy Assessment Rehab Potential Rehabilitation Potential Good Evaluation Complexity Number of Personal Factors/Comorbidities 1-2 Number of Body Systems Impaired 1-2 Clinical Presentation at Evaluation Stable Impairments Impairments Activity Tolerance,Balance, Edema,Functional Activities, Functional Mobility,Gait, Integument,Pain,Posture,ROM, Soft Tissue Mobility,Strength, Transfers Other Impairments Personal factors include leaving town for short vacation (flying) next week. Body systems affected include musculoskeletal and lymphatic. Her clinical presentation is stable at this point post-op. She denies sensory changes. Goals 6 Mcc Goal (LTG) Pt will perform progressive HEP with I including flexibility, strengthening, balance and gait to mazimize I by 01/08/21. 12/17/20: Pt is performing all exercises as instructed and monitoring response (trauma release exercises) LTG Duration Met 5 Mcc Goal (LTG) Pt will perform WNLs on a standardized balance test to decrease fall risk by 01/08/21 . 12/17/20: Pt uses hand on ballet bar to get into position and then is able to hold 30 sec each position LTG Duration Progressed towards goal 4 Burr Picker Goal (LTG) Pt will gait train at least 1500 feet in 6 minutes without AD to prepare for return to hiking by 01/08/21. 12/17/20: Pt gait trains 1507 in 6 minutes without pain in tibial plateau today LTG Duration Met 3 Burr Picker Goal (LTG) Pt will perform active left knee flexion and extension equal to the right in supine to improve functional transfers by 01/08/21. 12/17/20: AROM left knee 0-113 deg; right knee 0-112 deg LTG Duration Met 2 Mcc Goal (LTG) Pt will perform 13 reps sit to stand without UE support in 30 sec to improve functional strength by 01/08/21. 12/17/20: 11 reps in 30 sec and then 12 reps in 30 sec LTG Duration Progressed towards goal 1 Impairment LEF score reflects greater than 70% functional impairment Mcc Goal (LTG) Pt will present with an LEF score to reflect no more than 20% impairment to allow return to gardening and hiking by . 12/17/20: LEF score reflects 27.5% impairment LTG Duration Progressed towards goal Assessment Summary Assessment Pt has met many goals since starting PT including range, gait, HEP. She has progressed towards balance, sit to stands and LEF score. She is ready for d/c and will con't with HEP at d/c. Physical Therapy Plan Frequency and Duration Frequency of Treatment 2x/Week Duration of Treatment 6 weeks Plan of Care Start Date 11/28/20 Plan of Care End Date 01/08/21 Therapeutic Interventions Therapeutic Interventions Aquatic Therapy,Balance Training,Canalithic Repositioning,Coordination Training,Gait Training,Home Exercise Program,Joint Mobilizations,Manual Therapy, Neuromuscular Re-education, Orthotic/Prosthetic Management ,Patient/Caregiver Education, Self-Care/Home Management,Soft Tissue Mobilization,Taping, Therapeutic Activities, Therapeutic Exercises Modalities Cold Pack/Ice Massage,Hot Packs Discharge Physical Therapy Discharge Reasons Goals Met
== END 2021-04-01 09:53 ==
LOC: PHYS 09:00
PROVIDERS: PCP Internal Medicine; Referring Provider Physician Assistant Surgical; Visit Provider Physician Assistant Surgical
DX: S83.242D Other tear of medial meniscus, current injury, left knee, subsequent encounter (principal); Z47.89 Encounter for other orthopedic aftercare
CPT/HCPCS: 97110; 97112; 97116; 97140; 97161

== ENCOUNTER → 2021-02-08 13:51 | Outpatient (CLI) | payer MEDICARE, SELFPAY ==
[2021-02-08 15:09] LABS: COVID19 -Nasal RAPID Negative (Negative)
== END ==
PROVIDERS: PCP Internal Medicine; Visit Provider Nurse Practitioner Family
DX: R09.89 Other specified symptoms and signs involving the circulatory and respiratory systems (principal); R06.7 Sneezing
CPT/HCPCS: 87635

== ENCOUNTER → 2021-05-12 07:54 | Outpatient (CLI) | payer MEDICARE, SELFPAY ==
--- NOTE | 2021-05-12 | DI.MG.S_ITS ---
BILATERAL DIGITAL SCREENING MAMMOGRAM 3D/2D WITH CAD: 05/12/2021 CLINICAL: Routine screening. Comparison is made to exams dated: 02/28/2016 mammogram, 03/31/2013 mammogram, and 11/26/2011 mammogram - [facility]. The tissue of both breasts is predominantly fatty. Current study was also evaluated with a Computer Aided Detection (CAD) system. No significant masses, calcifications, or other findings are seen in either breast. There has been no significant interval change. IMPRESSION: NEGATIVE There is no mammographic evidence of malignancy. A 1 year screening mammogram is recommended. This exam was interpreted at Station ID: [id number]. NOTE: For mammograms, a report in lay terms will be sent to the patient. Approximately 15% of breast malignancies will not be visualized mammographically. In the management of a palpable breast mass, a negative mammogram must not discourage biopsy of a clinically suspicious lesion. Electronically Signed By: Dinora spencer/michael:05/12/2021 08:54:44 letter sent: Normal Exam ACR BI-RADS Category 1: Negative [id number]
== END ==
PROVIDERS: PCP Family Medicine; Referring Provider Internal Medicine; Visit Provider Internal Medicine
DX: Z12.31 Encounter for screening mammogram for malignant neoplasm of breast (principal)
CPT/HCPCS: 77063; 77067

== ENCOUNTER → 2021-07-07 15:55 | Outpatient (CLI) | payer MEDICARE, SELFPAY ==
--- NOTE | 2021-07-07 | DI.RAD.S_ITS ---
PROCEDURE: XR THORACIC SPINE 2V INDICATIONS: DORSALGIA TECHNIQUE: 3 views of the thoracic spine were acquired. COMPARISON: [facility], , CHEST 2 VIEW, 05/11/2015, 9:39. FINDINGS: Bones: No acute fractures or dislocations. Mild wedging of the T9 vertebral body which is unchanged from prior examination. Mild multilevel disc height loss with endplate sclerosis and spurring. No suspicious bony lesions. 12 pairs of ribs are noted, and appear intact where visualized. Mild levo curvature centered at the T12 level. Soft tissues: No paravertebral stripe thickening. IMPRESSION: 1. Chronic mild wedging of the T9 vertebral body unchanged from prior examination which may be physiologic. 2. Multilevel disc degeneration. disc degeneration. Dictated by: Mateus STANTON Interpreted: Baldev Singh MD on 07/07/2021 at 16:27 Transcribed by: IBIS on 07/07/2021 at 16:29 Approved by: Baldev Singh M.D. on 07/07/2021 at 17:17
== END ==
PROVIDERS: PCP Family Medicine; Referring Provider Family Medicine; Visit Provider Family Medicine
DX: M54.9 Dorsalgia, unspecified (principal); M51.34 Other intervertebral disc degeneration, thoracic region
CPT/HCPCS: 72070

== ENCOUNTER → 2021-07-11 08:34 | Outpatient (CLI) | payer MEDICARE, SELFPAY ==
--- NOTE | 2021-07-11 | DI.MRI.S_ITS ---
PROCEDURE: MR STROKE Pre- and post-contrast brain MRI, non-contrast brain MR angiogram, pre- and postcontrast neck MR angiogram INDICATIONS: Syncope and collapse/STROKE PROTOCOL TECHNIQUE: Brain: Noncontrast axial T1 spin echo, axial T2 fast spin echo, sagittal and axial FLAIR, coronal T2 fast spin echo, axial gradient echo, axial diffusion and ADC through the brain. After the administration of contrast, axial 3D VIBE of the cranial vasculature and brain. Brain MRA: Non-contrast 3-D time of flight MR angiogram, with multiple vsptjoa-edmetdfdi-tjaiyjvxax (MIP) reformats performed. Neck MRA: Axial and sagittal TruFISP through the neck. Coronal dynamic MR angiogram during administration of contrast in the arterial and venous phases, with 3-dimenstional ajctlnr-mdkiychqi-cwsnmpvruu (MIP) reformats constructed from subtraction images. COMPARISON: None. FINDINGS: Image quality: Excellent. BRAIN: CSF spaces: Ventricles are normal in size and shape. Basal cisterns are patent. No extra-axial fluid collections. Brain: No intracranial bleeds or mass effects. Anthony-white matter interface is normal. Diffusion weighted images show no acute ischemic insults. Brainstem appears normal. Normal intravascular flow voids are present. Dural sinuses demonstrate normal postcontrast enhancement. No abnormal intracranial enhancement. Skull and face: Calvarial marrow signal is normal. Orbits appear normal. Sinuses: Sinuses are clear. Small amount fluid noted in the dependent portions of the mastoid air cells, left greater than right. BRAIN MR ANGIOGRAM: Anterior circulation: Intracranial internal carotid arteries are normal in size and enhancement. The flow within the paired anterior cerebral arteries is normal and symmetric. The flow within the middle cerebral arteries is normal and symmetric. The anterior communicating artery is seen. No stenoses, occlusions, or aneurysms. Posterior circulation: The visualized portions of the vertebral arteries demonstrate normal caliber, and join to form a normal appearing basilar artery. The flow within the posterior cerebral arteries is normal and symmetric. 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 No stenoses, occlusions, or aneurysms. NECK MR ANGIOGRAM: Carotids: Great vessels demonstrate a conventional anatomy as they arise from the aortic arch. The origins of the common carotid arteries appear patent. The calibers and courses of both common carotid arteries are normal. The bifurcation regions appear normal bilaterally. The internal carotid arteries demonstrate normal course. Right internal carotid artery is fully patent. Atherosclerotic plaque noted in the origin left internal carotid artery which causes less than 50% stenosis of the vessel. Posterior circulation: The origins of the vertebral arteries appear patent. More superior portions of both vertebral arteries demonstrate normal course and caliber, and join to form a normal appearing basilar artery. Miscellaneous: Subclavian arteries appear patent. Pre-contrast images through the neck show no soft tissue abnormalities. IMPRESSION: BRAIN MRI: 1. No acute intracranial disease process. 2. No areas of acute or chronic infarction. 3. Ryzj-ve-unayexvk diffuse cerebral volume loss. 4. Mild periventricular and subcortical white matter chronic microvascular ischemic change. BRAIN MR ANGIOGRAM: Normal MR angiogram of the head. NECK MR ANGIOGRAM: 1. Less than 50% stenosis of the origin of the left internal carotid artery. 2. Right internal carotid artery is fully patent. 3. Vertebral arteries are fully patent. Dictated by: Evy Quezada MD, PhD on 07/11/2021 at 11:12 Approved by: Evy Quezada MD, PhD on 07/11/2021 at 11:20
== END ==
PROVIDERS: PCP Family Medicine; Referring Provider Family Medicine; Visit Provider Family Medicine
DX: I65.22 Occlusion and stenosis of left carotid artery (principal); R55 Syncope and collapse
CPT/HCPCS: 70548; 70553; A9579

== ENCOUNTER → 2021-07-16 09:44 | Outpatient (CLI) | payer MEDICARE, SELFPAY ==
--- NOTE | 2021-09-04 16:16 | PM.CARDMON.1 ---
Mud [employer] Operator Report Referral & Results Date Patient Seen: 07/16/21 Requesting provider: Dewayne Ledezma Indication: Syncope Duration of monitoring (days): 7 Diary information: There was 1 patient triggered event associated with sinus rhythm only Data: Minimum heart rate identified was 57 beats per minute at 05:06 on 07/20/2021 Maximum sinus heart rate was 120 beats per minute at 10:16 on 07/17/2021 Maximum overall heart rate was 182 beats per minute at 22:19 on 07/19/2021 during a run of SVT There were 4 runs of SVT with the fastest being a 4 beat run at the above rate of 182 beats per minute, the longest was 12 beats in duration Less than 1% of identified beats were ventricular or supraventricular ectopic in origin, which would classify them as rare. There were no pauses of 3 seconds or longer or episodes of atrial fibrillation identified on this study Impression: 6+ day classroom monitor demonstrating very rare very brief runs of SVT otherwise unremarkable No etiology for syncope identified on this study
== END ==
PROVIDERS: PCP Family Medicine; Referring Provider Family Medicine; Visit Provider Family Medicine
DX: R55 Syncope and collapse (principal)
CPT/HCPCS: 93242; 93244

== ENCOUNTER → 2021-11-16 08:53 | Outpatient (CLI) | payer MEDICARE, SELFPAY ==
--- NOTE | 2021-11-16 08:55 | DI.MRI.S_ITS ---
PROCEDURE: MR CERVICAL SPINE WO CON INDICATIONS: FREQUENT FALLS/GAIT DISTURBANCE/HYPERREFLEXIA TECHNIQUE: Noncontrast sagittal T1 spin echo and T2 fast spin echo, sagittal STIR, foraminal oblique sagittal T2 fast spin echo, and axial gradient echo or T2 fast spin echo through the cervical spine. COMPARISON: None. FINDINGS: Image quality: Excellent. Alignment and Curvature: There is normal bony alignment. Bone Marrow: Marrow demonstrates normal overall signal. Moderate reactive signal within the endplates adjacent to the C5-C6 and C6-C7 intervertebral discs. Mild reactive signal adjacent to the remaining cervical and upper thoracic intervertebral discs. Spinal Cord: Visualized spinal cord has normal size and signal. No cerebellar tonsillar herniation. Paraspinous Soft Tissues: No paravertebral masses. Prevertebral soft tissues are normal in thickness. C2-C3: Moderate disc height loss and desiccation. Mild diffuse disc bulge. Mild facet and uncovertebral hypertrophy bilaterally. Mild canal stenosis. Moderate left and mild right foraminal stenosis. C3-C4: Moderate disc desiccation. Mild disc height loss and diffuse disc bulge. Moderate facet and uncovertebral hypertrophy bilaterally. Mild canal stenosis. Moderate left greater than right foraminal stenosis. C4-C5: Mild disc height loss and desiccation. Mild diffuse disc bulge. Moderate facet and uncovertebral hypertrophy bilaterally. Mild canal stenosis. Moderate bilateral foraminal stenosis. C5-C6: Moderate disc height loss and desiccation. Mild diffuse disc bulge with superimposed right posterolateral broad-based protrusion/osteophyte. Mild left and moderate right facet and uncovertebral hypertrophy bilaterally. Moderate to severe canal stenosis. Minimal anterior cord flattening. Moderate left and severe right foraminal stenosis. Right C6 nerve root compression. C6-C7: Moderate disc height loss and desiccation. Mild diffuse disc bulge. Mild facet and uncovertebral hypertrophy. Mild canal stenosis. Moderate to severe right and mild left foraminal stenosis. Right C7 nerve root compression. C7-T1: Mild disc height loss. Moderate disc desiccation. No significant canal, or foraminal stenosis. IMPRESSION: 1. Multilevel degenerative disc and facet disease, as well as uncovertebral hypertrophy. 2. Multilevel canal stenoses, worst at C5-C6 where there is minimal cord flattening. 3. Multilevel foraminal stenoses, worst at C5-C6 and C6-C7 where there is associated intraforaminal nerve root compression. Recommend correlation with clinical symptoms to ascertain relevance of these findings. Dictated by: Sri Oconnor M.D. on 11/17/2021 at 12:54 Approved by: Sri Oconnor M.D. on 11/17/2021 at 12:57
== END ==
PROVIDERS: PCP Family Medicine; Referring Provider Psychiatry & Neurology Neurology; Visit Provider Psychiatry & Neurology Neurology
DX: R26.9 Unspecified abnormalities of gait and mobility (principal); R29.6 Repeated falls; M50.30 Other cervical disc degeneration, unspecified cervical region; M48.02 Spinal stenosis, cervical region
CPT/HCPCS: 72141

== ENCOUNTER → 2021-12-25 10:11 | Outpatient (CLI) | payer MEDICARE, SELFPAY | PROVIDERS: Absent Provider Family Medicine; Family Provider Family Medicine; PCP Family Medicine; Referring Provider Family Medicine; Visit Provider Family Medicine | DX: R29.898 Other symptoms and signs involving the musculoskeletal system (principal) | CPT/HCPCS: 95886; 95911 ==

== ENCOUNTER → 2022-01-01 15:11 | Outpatient (CLI) | payer MEDICARE, SELFPAY ==
--- NOTE | 2022-01-01 | DI.MRI.S_ITS ---
PROCEDURE: MR LUMBAR SPINE WO CON INDICATIONS: Dorsalgia, unspecified TECHNIQUE: Noncontrast sagittal T1 spin echo and T2 fast echo, sagittal STIR, and T2 fast spin echo through the lumbar spine. In cases with scoliosis, additional coronal T2 fast spin echo may be performed. COMPARISON: None. FINDINGS: Image quality: Excellent. Alignment and Curvature: There is normal bony alignment. Bone: Marrow is of normal overall signal. No acute vertebral body compression fractures. Schmorl's nodes are seen at multiple levels including T11, T12, and L1. Endplate degenerative changes and anterior osteophytes are seen throughout the lumbar spine. There is a remote compression fracture of T11 and T12 with minimal height loss. Spinal Cord: Conus medullaris terminates at the L1 level. Visualized cord demonstrates normal signal and size. Paraspinous Soft Tissues: No paravertebral masses. T12-L1: Diffuse disc bulge and disc osteophytes with facet hypertrophy cause moderate bilateral foraminal stenosis. The central canal is patent. L1-L2: Diffuse disc bulge and disc osteophytes with facet hypertrophy cause moderate bilateral foraminal stenosis. The central canal is patent. L2-L3: Diffuse disc bulge and disc osteophytes with facet hypertrophy cause moderate bilateral foraminal stenosis. The central canal is patent. L3-L4: Diffuse disc bulge and disc osteophytes with facet hypertrophy causing mild right and moderate left foraminal stenosis. The central canal has severe stenosis. L4-L5: Diffuse disc bulge and disc osteophytes with facet hypertrophy causing mild right and severe left foraminal stenosis. The central canal has severe stenosis. L5-S1: Diffuse disc bulge and disc osteophytes with facet hypertrophy cause moderate bilateral foraminal stenosis. The central canal is patent. IMPRESSION: 1. Multilevel lumbar spondylosis, causing foraminal stenosis as detailed above. 2. Severe central canal stenosis at L3-4 and L4-5. 3. No abnormal cord signal. 4. Remote compression fractures of T11 and T12. Dictated by: Joey Cortez M.D. on 01/02/2022 at 8:43 Approved by: Joey Cortez M.D. on 01/02/2022 at 9:24
== END ==
PROVIDERS: Family Provider Family Medicine; PCP Family Medicine; Referring Provider Family Medicine; Visit Provider Family Medicine
DX: M47.816 Spondylosis without myelopathy or radiculopathy, lumbar region (principal); M48.061 Spinal stenosis, lumbar region without neurogenic claudication; M48.54XS Collapsed vertebra, not elsewhere classified, thoracic region, sequela of fracture; R29.898 Other symptoms and signs involving the musculoskeletal system; M54.9 Dorsalgia, unspecified; R94.131 Abnormal electromyogram [EMG]
CPT/HCPCS: 72148

== ENCOUNTER 2022-04-13 09:51 | Outpatient (RCR) | payer MEDICARE, SELFPAY ==
--- NOTE | 2022-04-13 11:31 | OT.OP.DC ---
Visit Care Team Role Provider Type Dewayne Ledezma MD Attending Provider Physician Family Provider Primary Care Provider Referring Provider Address: [address] [place] [address], [id number] Email: [email or web address] OT Outpatient OT Outpatient Adult Evaluation Start: 04/13/22 11:18 Freq: Status: Active Protocol: Document 04/13/22 11:18 [facility] (Rec: 04/13/22 11:30 [facility] [id number]) General Information - Adult Visit Information Visit Number 03/10 Plan of Care Dates 04/13/22 - 04/20/22 Insurance Information Medicare Session Time Visit Start Time 10:30 Visit Stop Time 11:00 Total Visit Minutes 30 Setting Treatment Setting Outpatient Care Visit Type Note Type Initial Evaluation Identification Identification Confirmed Yes Assessment/Plan Assessment Treatment Assessment Joie is a 76 year-old right hand dominant female who was accompanied by her to initial evaluation. Joie arrived to [facility] utilizing FWW for ambulation; she required physical assistance from her to transfer from chair w/ bilateral arm rests x 2 trials. Tendency to sit back in chair versus weight shifting to front of chair prior to coming into standing. Joie is receiving outpatient PT here at ; Joie reports that PT is addressing LE strength, UE strength and hand strength. She was given medium firm theraputty and a softer theraputty for home use for strengthening, as well as removing beans from the putty for fine motor coordination/ strength. Main concerns that were expressed by Joie and her were in re: home set-up and desire for clinician to assess the home ( particularly as her function declines). Thus, outpatient OT not needed at this time. Plan Patient Recommendations Discharge from Occupational Therapy Functional Wrist/Hand Scan Hand Side Sensory Assessment Sensory Profile2
== END 2022-04-14 09:37 | disposition home or self-care (01) ==
LOC: OT 09:51
PROVIDERS: Family Provider Family Medicine; PCP Family Medicine; Referring Provider Family Medicine; Visit Provider Family Medicine
DX: G12.21 Amyotrophic lateral sclerosis (principal)
CPT/HCPCS: 97166

== ENCOUNTER 2022-11-18 10:45 | Outpatient (RCR) | payer MEDICARE, SELFPAY ==
--- NOTE | 2022-02-09 15:05 | PT.OIE ---
Current Diagnoses Muscle weakness (generalized) (02/09/22) Difficulty in walking, not elsewhere classified (02/09/22) Visit Care Team Role Provider Type Dewayne Ledezma MD Attending Provider Physician Family Provider Primary Care Provider Referring Provider Specialty: Family Practice Address: [address] [place] [address], [facility] [place], [address] Email: [email or web address] Physical Therapy Initial Evaluation PT-OP-A Visit Information Start: 02/04/22 18:00 Freq: Status: Active Protocol: Document 02/09/22 11:20 [facility] (Rec: 02/09/22 15:02 [facility] [id number]) Out-Patient Physical Therapy Visit Information Visit Information Visit Type Initial Evaluation Visit Note 03/10 Visit Start Time 11:20 Visit Stop Time 12:15 Total Visit Minutes 55 Visit Number 1 Number of INTAKE CLINICIAN Visits 0 PT-OP-B Current Condition Start: 02/04/22 18:00 Freq: Status: Active Protocol: Document 02/09/22 11:20 [facility] (Rec: 02/09/22 15:02 [facility] [id number]) Current Condition History of Current Condition Onset Date Jan Current Complaints weakness in entire body, falls History of Current Condition Pt is frustrated because she used to be able to go to high intensity classes and walk 3-5 miles a day but stopped in Mar d/t falls. She has seen 2 neurologists, 1 neurosurgeon and feels like she is really progressively worse. She is really hating not being able to walk daily. She is having trouble getting socks on. Her dexterity is limited also. No one has been able to say what they think it is. Pt has been using a 4WW since Nov and in June started using a cane. she started using devices d/t falls. She is planning to see another neurologist in [place]. She has started going to [employer] class but stopped d/t her balance being too bad. She has all the pilates equipment including a reformer. Her also recently has dx of cancer. Pt reports she got her first booster in Dec and she wonders if this is what started this. In Jan, she had some falls when she was working on her [employer] and stumbled mult times. Had Meniscus surgery in August and did PT for a short time and was DC quickly d/t how well she was doing. Dr. Jain sent her to the neurosurgeon for potential back surgery based on EMG, but neurosurgeon didn't think that was the issue. She has mild back pain in the AM that has only been recently d/t being less mobile. The neurosurgeon at first thought she needed another MRI of brain and had it scheduled, but then when he talked to the neurologist, the plan is now for her to see a different neurologist. Pt seeing a telehealth ND/MD who gave her folic acid steffanie something else but she doesn't feel like it helps. Pt reports R foot flops down sometime. Since getting 4WW , she has fallen 3 times ( nov). Prior to the walker, she was falling every few days and had some days wehre she fell more than once. All falls have resulted only in cuts and bruises Prior Treatments and Tests Lumbar MRI: IMPRESSION: 1. Multilevel lumbar spondylosis, causing foraminal stenosis as detailed above. 2. Severe central canal stenosis at L3-4 and L4-5. 3. No abnormal cord signal. 4. Remote compression fractures of T11 and T12. Cervical MRI:IMPRESSION: 1. Multilevel degenerative disc and facet disease, as well as uncovertebral hypertrophy. 2. Multilevel canal stenoses, worst at C5-C6 where there is minimal cord flattening. 3. Multilevel foraminal stenoses, worst at C5-C6 and C6-C7 where there is associated intraforaminal nerve root compression. Recommend correlation with clinical symptoms to ascertain relevance of these findings. IMPRESSION: BRAIN MRI: 1. No acute intracranial disease process. 2. No areas of acute or chronic infarction. 3. Jtmu-pe-edgtwoil diffuse cerebral volume loss. 4. Mild periventricular and subcortical white matter chronic microvascular ischemic change. BRAIN MR ANGIOGRAM: Normal MR angiogram of the head. NECK MR ANGIOGRAM: 1. Less than 50% stenosis of the origin of the left internal carotid artery. 2. Right internal carotid artery is fully patent. 3. Vertebral arteries are fully patent. ADDENDUM: This case was reviewed at the request of Dr. Gonzalez and discussed by telephone at 11: 04 a.m. [place] time on October 14, 2021. This patient is brain parenchymal volume loss and chronic small vessel ischemic change. There is prominence of the ventricles and sulci, with the lateral ventricles larger than would be expected, given the degree of sulcal atrophy. Please consider normal pressure hydrocephalus. IMPRESSION: 1. Chronic mild wedging of the T9 vertebral body unchanged from prior examination which may be physiologic. 2. Multilevel disc degeneration. disc degeneration. Treatment Goals Patient/Caregiver Goals be able to get back to working outa nd walking PT-OP-D Balance Start: 02/04/22 18:00 Freq: Status: Active Protocol: Document 02/09/22 11:20 [facility] (Rec: 02/09/22 15:02 [facility] [id number]) Balance Tests Kimble Balance Test Kimble Balance Test Score test next session PT-OP-E Functional Tests Start: 02/04/22 18:00 Freq: Status: Active Protocol: Document 02/09/22 11:20 [facility] (Rec: 02/09/22 15:02 [facility] [id number]) Functional Tests 6 Minute Walk Test Distance to be tested next session PT-OP-F Manual Assessment Start: 02/04/22 18:00 Freq: Status: Active Protocol: Document 02/09/22 11:20 [facility] (Rec: 02/09/22 15:02 [facility] [id number]) Manual Assessments Soft Tissue Assessment Soft Tissue Mobility Assessment tight calves w/limited passive DF PT-OP-G Mobility & Gait Start: 02/04/22 18:00 Freq: Status: Active Protocol: Document 02/09/22 11:20 [facility] (Rec: 02/09/22 15:02 [facility] [id number]) OP Mobility Evaluation Bed Mobility Rolling can roll B indep w/lower body following upper body Supine to and from Sit required min A for both supine <>sit Transfers Sit to Stand heavy use of UEs -pt reports sometimes needs to help OP Gait Assessment Comments Gait Comments Dec foot clearance B with heavy use of 4WW and dec DF R> L and dec hip flex PT-OP-M Strength Start: 02/04/22 18:00 Freq: Status: Active Protocol: Document 02/09/22 11:20 [facility] (Rec: 02/09/22 15:02 [facility] [id number]) Hip Strength Hip Manual Muscle Testing Right Flexion (L2) 3- Fair- Abduction 2+ Poor+ External Rotation 3- Fair- Internal Rotation 3+ Fair+ Left Flexion (L2) 3- Fair- Abduction 2+ Poor+ External Rotation 3 Fair Internal Rotation 3+ Fair+ Knee Strength Knee Manual Muscle Testing Right Flexion (S2) 3+ Fair+ Extension (L3) 3+ Fair+ Left Flexion (S2) 3+ Fair+ Extension (L3) 3+ Fair+ Ankle/Foot Strength Ankle and Foot Manual Muscle Testing Right Dorsiflexion (L4) 3 Fair Plantarflexion (S1) 4- Good- Left Dorsiflexion (L4) 3 Fair Plantarflexion (S1) 4- Good- Comments PF tested seated B PT-OP-Q Treatments Start: 02/04/22 18:00 Freq: Status: Active Protocol: Document 02/09/22 11:20 [facility] (Rec: 02/09/22 15:02 [facility] [id number]) Self-Care/Home Management Treatment Education Other Education Discussion w/pt re: how despite lumbar findings in imaging and EMG that would not explain her UE symptoms also. Discussed other diseases pt had found upon google searcha nd encouraged her to bring this up with her neurologist. Encouraged pt to make a list of all the things that are difficult now and discuss her workout prior upon meeting with the next neurologist. Discussed if she iss till having difficulty, consider looking into a clinic at [facility] or other larger facility. PT-OP-T Assessment and Plan Start: 02/04/22 18:00 Freq: Status: Active Protocol: Document 02/09/22 11:20 [facility] (Rec: 02/09/22 15:02 [facility] [id number]) Physical Therapy Assessment Rehab Potential Rehabilitation Potential Good Evaluation Complexity Number of Personal Factors/Comorbidities 3 or More Number of Body Systems Impaired 4 or More Clinical Presentation at Evaluation Evolving Impairments Impairments Activity Tolerance,Balance, Functional Activities, Functional Mobility,Gait,Pain, Posture,ROM,Soft Tissue Mobility,Strength Goals functional activities Short Term Goal (STG) Pt will be able to do bed mobility indep consistantly STG Duration 04/06/22 Drag Out Worker Goal (LTG) Pt will be able to do sit to stand Indep and safely LTG Duration 05/04/22 strength Short Term Goal (STG) Pt will be indep w/HEP STG Duration 03/29/22 Residential Goal (LTG) Pt will score at least 4/5 on MMT to show improved LE strength improvign pt ability to do ADLs LTG Duration 05/04 gait Residential Goal (LTG) Pt will be able to walk safely with SPC at home and in community. LTG Duration 05/04/22 balance Short Term Goal (STG) Pt will be able to score at least 36 on KIMBLE to show safe ambulation w/AD w/dec risk for falls. STG Duration 04/01/22 Drag Out Worker Goal (LTG) Pt will be able to score at least 46 on KIMBLE to show safe ambulation w/dec risk for falls. LTG Duration 05/04/22 Assessment Summary Assessment Pt presents w/rapid change in strength and balance that continues to get worse that started about 1 year ago. Pt notes the month before, she had gotten her COVID 19 booster and is unsure if it is related. At this time, pt shows extreme weakness w/ decreased LE strength so signifcantly, pt is not clearing R foot>L w/gait and is now having to use a 4WW and has had still at least 3 falls in the past 2 months. 1 year ago, pt was walking 3-5 miles a day and doing a lot of crafts along with high intensity gym classes.S he tried to continue what she could and still is doing as much as she can, but is very limited d/t weakness. She has seen primary, 2 neurlologists, a neurosurgeon and plans to see another neurologist, with Cervical MRI, brain MRI and lumbar MRI, but no one has been able to diagnose her. She is frustrated d/t being a very activite person and now struggles with her ADLs. Pt would benefit from skilled PT to work on balance, gait, and core and LE strength. Physical Therapy Plan Frequency and Duration Frequency of Treatment 2x/Week Duration of treatment (weeks) 12 Plan of Care Start Date 02/09/22 Plan of Care End Date 05/04/22 Therapeutic Interventions Therapeutic Interventions Aquatic Therapy,Balance Training,Coordination Training ,Gait Training,Home Exercise Program,Joint Mobilizations, Manual Therapy,Neuromuscular Re-education,Orthotic/ Prosthetic Management,Patient/ Caregiver Education,Self-Care/ Home Management,Soft Tissue Mobilization,Taping, Therapeutic Activities, Therapeutic Exercises Modalities Electric Stimulation Next Visit Focus/Plan Next Note Type Treatment Note Next Visit Plan technical support associate strength testing,6 min walk test, KIMBLE balance test, HEP (seated: marches, knee ext /flex w/tband, Hip ER w/band, APs, towel calf stretch)
--- NOTE | 2022-02-09 15:05 | PT.OPPOC ---
Physical, Occupational & Speech Therapy At [facility] Current Diagnoses Muscle weakness (generalized) (02/09/22) Difficulty in walking, not elsewhere classified (02/09/22) Visit Care Team Role Provider Type Dewayne Ledezma MD Attending Provider Physician Family Provider Primary Care Provider Referring Provider Specialty: [facility] Address: [address] [place] [address], [facility] Email: [email or web address] Plan Of Care PT-OP-T Assessment and Plan Start: 02/04/22 18:00 Freq: Status: Active Protocol: Document 02/09/22 11:20 [facility] (Rec: 02/09/22 15:02 [facility] [id number]) Physical Therapy Assessment Rehab Potential Rehabilitation Potential Good Evaluation Complexity Number of Personal Factors/Comorbidities 3 or More Number of Body Systems Impaired 4 or More Clinical Presentation at Evaluation Evolving Impairments Impairments Activity Tolerance,Balance, Functional Activities, Functional Mobility,Gait,Pain, Posture,ROM,Soft Tissue Mobility,Strength Goals functional activities Short Term Goal (STG) Pt will be able to do bed mobility indep consistantly STG Duration 04/06/22 Assisted Goal (LTG) Pt will be able to do sit to stand Indep and safely LTG Duration 05/04/22 strength Short Term Goal (STG) Pt will be indep w/HEP STG Duration 03/29/22 Blanker Operator Goal (LTG) Pt will score at least 4/5 on MMT to show improved LE strength improvign pt ability to do ADLs LTG Duration 05/04 gait Assisted Goal (LTG) Pt will be able to walk safely with SPC at home and in community. LTG Duration 05/04/22 balance Short Term Goal (STG) Pt will be able to score at least 36 on KIMBLE to show safe ambulation w/AD w/dec risk for falls. STG Duration 04/01/22 Assisted Goal (LTG) Pt will be able to score at least 46 on KIMBLE to show safe ambulation w/dec risk for falls. LTG Duration 05/04/22 Assessment Summary Assessment Pt presents w/rapid change in strength and balance that continues to get worse that started about 1 year ago. Pt notes the month before, she had gotten her COVID 19 booster and is unsure if it is related. At this time, pt shows extreme weakness w/ decreased LE strength so signifcantly, pt is not clearing R foot>L w/gait and is now having to use a 4WW and has had still at least 3 falls in the past 2 months. 1 year ago, pt was walking 3-5 miles a day and doing a lot of crafts along with high intensity gym classes.S he tried to continue what she could and still is doing as much as she can, but is very limited d/t weakness. She has seen primary, 2 neurlologists, a neurosurgeon and plans to see another neurologist, with Cervical MRI, brain MRI and lumbar MRI, but no one has been able to diagnose her. She is frustrated d/t being a very activite person and now struggles with her ADLs. Pt would benefit from skilled PT to work on balance, gait, and core and LE strength. Physical Therapy Plan Frequency and Duration Frequency of Treatment 2x/Week Duration of treatment (weeks) 12 Plan of Care Start Date 02/09/22 Plan of Care End Date 05/04/22 Therapeutic Interventions Therapeutic Interventions Aquatic Therapy,Balance Training,Coordination Training ,Gait Training,Home Exercise Program,Joint Mobilizations, Manual Therapy,Neuromuscular Re-education,Orthotic/ Prosthetic Management,Patient/ Caregiver Education,Self-Care/ Home Management,Soft Tissue Mobilization,Taping, Therapeutic Activities, Therapeutic Exercises Modalities Electric Stimulation Next Visit Focus/Plan Next Note Type Treatment Note Next Visit Plan security sales consultant strength testing,6 min walk test, KIMBLE balance test, HEP (seated: marches, knee ext /flex w/tband, Hip ER w/band, APs, towel calf stretch) Plan of Care Dates Plan of Care Start Date 02/09/22 Plan of Care End Date 05/04/22 Electronically Signed by: Leni Russell, PT 02/09/22 2366 If you are in agreement with this Plan of Care, please return a signed and dated copy. I have reviewed this Plan of Care and certify that the skilled therapy services above are required to meet the patient?s needs. Physician Signature Date Printed Name and Credentials Clinical Instructor Signature Printed Name and Credentials
--- NOTE | 2022-02-13 10:35 | PT.OTN ---
Current Diagnoses Muscle weakness (generalized) (02/13/22) Difficulty in walking, not elsewhere classified (02/13/22) Physical Therapy Treatment Note PT-OP-A Visit Information Start: 02/04/22 18:00 Freq: Status: Active Protocol: Document 02/13/22 09:52 SP (Rec: 02/13/22 10:37 SP [id number]) Out-Patient Physical Therapy Visit Information Visit Information Visit Type Treatment Note Visit Note 04/10 Visit Start Time 09:52 Visit Stop Time 10:35 Total Visit Minutes 43 Visit Number 2 Number of UTILITY DIVISION PROJECT MANAGER Visits 1 PT-OP-B Current Condition Start: 02/04/22 18:00 Freq: Status: Active Protocol: Document 02/09/22 11:20 [facility] (Rec: 02/09/22 15:02 [facility] [id number]) Current Condition History of Current Condition Onset Date Jan Current Complaints weakness in entire body, falls History of Current Condition Pt is frustrated because she used to be able to go to high intensity classes and walk 3-5 miles a day but stopped in Mar d/t falls. She has seen 2 neurologists, 1 neurosurgeon and feels like she is really progressively worse. She is really hating not being able to walk daily. She is having trouble getting socks on. Her dexterity is limited also. No one has been able to say what they think it is. Pt has been using a 4WW since Nov and in June started using a cane. she started using devices d/t falls. She is planning to see another neurologist in [place]. She has started going to [employer] class but stopped d/t her balance being too bad. She has all the [employer] equipment including a reformer. Her also recently has dx of cancer. Pt reports she got her first booster in Dec and she wonders if this is what started this. In Jan, she had some falls when she was working on her [employer]. Had Meniscus surgery in August and did PT for a short time and was DC quickly d/t how well she was doing. Dr. Jain sent her to the neurosurgeon for potential back surgery based on EMG, but neurosurgeon didn't think that was the issue. She has mild back pain in the AM that has only been recently d/t being less mobile. The neurosurgeon at first thought she needed another MRI of brain and had it scheduled, but then when he talked to the neurologist, the plan is now for her to see a different neurologist. Pt seeing a telehealth ND/MD who gave her folic acid steffanie something else but she doesn't feel like it helps. Pt reports R foot flops down sometime. Since getting 4WW , she has fallen 3 times ( oct). Prior to the walker, she was falling every few days and had some days wehre she fell more than once. All falls have resulted only in cuts and bruises Prior Treatments and Tests Lumbar MRI: IMPRESSION: 1. Multilevel lumbar spondylosis, causing foraminal stenosis as detailed above. 2. Severe central canal stenosis at L3-4 and L4-5. 3. No abnormal cord signal. 4. Remote compression fractures of T11 and T12. Cervical MRI:IMPRESSION: 1. Multilevel degenerative disc and facet disease, as well as uncovertebral hypertrophy. 2. Multilevel canal stenoses, worst at C5-C6 where there is minimal cord flattening. 3. Multilevel foraminal stenoses, worst at C5-C6 and C6-C7 where there is associated intraforaminal nerve root compression. Recommend correlation with clinical symptoms to ascertain relevance of these findings. IMPRESSION: BRAIN MRI: 1. No acute intracranial disease process. 2. No areas of acute or chronic infarction. 3. Hqlt-kn-qstefysv diffuse cerebral volume loss. 4. Mild periventricular and subcortical white matter chronic microvascular ischemic change. BRAIN MR ANGIOGRAM: Normal MR angiogram of the head. NECK MR ANGIOGRAM: 1. Less than 50% stenosis of the origin of the left internal carotid artery. 2. Right internal carotid artery is fully patent. 3. Vertebral arteries are fully patent. ADDENDUM: This case was reviewed at the request of Dr. Gonzalez and discussed by telephone at 11: 04 a.m. [place] time on October 14, 2021. This patient is brain parenchymal volume loss and chronic small vessel ischemic change. There is prominence of the ventricles and sulci, with the lateral ventricles larger than would be expected, given the degree of sulcal atrophy. Please consider normal pressure hydrocephalus. IMPRESSION: 1. Chronic mild wedging of the T9 vertebral body unchanged from prior examination which may be physiologic. 2. Multilevel disc degeneration. disc degeneration. Treatment Goals Patient/Caregiver Goals be able to get back to working outa nd walking PT-OP-C Subjective Start: 02/04/22 18:00 Freq: Status: Active Protocol: Document 02/13/22 09:52 SP (Rec: 02/13/22 10:37 SP [id number]) OP-PT Subjective Patient Comments Patient Comments Pt reports getting EMG in [place], not looking forward to but hoping will provide insight to why has made significant decline in mobility. Pt arrives using FWW and SPC in hanging bag, states was able to purchase a foot drop brace and wants help to try on/use and see if is helpful at this time. She states finds herself performing a mini squat and doing things at the counter and fairly stable vs standing upright, legs get unsteady and start to lose balance retro needing UE support. PT-OP-D Balance Start: 02/04/22 18:00 Freq: Status: Active Protocol: Document 02/13/22 09:52 SP (Rec: 02/13/22 10:37 SP [id number]) Kimble Balance Assessment Evaluation Sitting to Standing Ability Minimal Assist Unsupported Stance 30 seconds Sitting Unsupported, Feet on Floor Safely- 2 minutes Standing to Sitting Ability Independent, Uncontrolled Transfer Ability Safely, Hand Use Unsupported Stance- Eyes Closed Falls Without Assistance Unsupported Stance- Eyes Open Independent, 1 minute Reaching Forward Standing Safely, 5 inches Pick- Up Object From Floor Within 2 inches, Unable Look Behind Shoulder - Standing Supervision w/Turning Turning 360 Degrees Requires Assistance Unsupported Stance, Alternating Feet on Assist to Prevent Fall Stair Unsupported Tandem Stance Balance Lost- Step/Stand Unilateral Leg Stance Unable,assist to not fall Total Score Kimble Total Score (out of 56 points) 21 Kimble Impairment Rating 60 to 79% Impaired (Score 12- 22) PT-OP-E Functional Tests Start: 02/04/22 18:00 Freq: Status: Active Protocol: Document 02/13/22 09:52 SP (Rec: 02/13/22 10:37 SP [id number]) Functional Tests 6 Minute Walk Test Distance next tx PT-OP-F Manual Assessment Start: 02/04/22 18:00 Freq: Status: Active Protocol: Document 02/09/22 11:20 [facility] (Rec: 02/09/22 15:02 [facility] [id number]) Manual Assessments Soft Tissue Assessment Soft Tissue Mobility Assessment tight calves w/limited passive DF PT-OP-G Mobility & Gait Start: 02/04/22 18:00 Freq: Status: Active Protocol: Document 02/09/22 11:20 [facility] (Rec: 02/09/22 15:02 [facility] [id number]) OP Mobility Evaluation Bed Mobility Rolling can roll B indep w/lower body following upper body Supine to and from Sit required min A for both supine <>sit Transfers Sit to Stand heavy use of UEs -pt reports sometimes needs to help OP Gait Assessment Comments Gait Comments Dec foot clearance B with heavy use of 4WW and dec DF R> L and dec hip flex PT-OP-M Strength Start: 02/04/22 18:00 Freq: Status: Active Protocol: Document 02/09/22 11:20 [facility] (Rec: 02/09/22 15:02 [facility] [id number]) Hip Strength Hip Manual Muscle Testing Right Flexion (L2) 3- Fair- Abduction 2+ Poor+ External Rotation 3- Fair- Internal Rotation 3+ Fair+ Left Flexion (L2) 3- Fair- Abduction 2+ Poor+ External Rotation 3 Fair Internal Rotation 3+ Fair+ Knee Strength Knee Manual Muscle Testing Right Flexion (S2) 3+ Fair+ Extension (L3) 3+ Fair+ Left Flexion (S2) 3+ Fair+ Extension (L3) 3+ Fair+ Ankle/Foot Strength Ankle and Foot Manual Muscle Testing Right Dorsiflexion (L4) 3 Fair Plantarflexion (S1) 4- Good- Left Dorsiflexion (L4) 3 Fair Plantarflexion (S1) 4- Good- Comments PF tested seated B PT-OP-Q Treatments Start: 02/04/22 18:00 Freq: Status: Active Protocol: Document 02/13/22 09:52 SP (Rec: 02/13/22 10:37 SP [id number]) Therapeutic Exercises Sitting Exercises sit<> stand Sitting Exercise Name reviewed self HEP Equipment Used mesh chair Reps/Minutes many reps during Kimble testing Comments SBA BUE support on chair arms, Min A hands on chair seat Standing Exercises mini squats Standing Exercise Name reviewed self HEP Resistance AROM Equipment Used hands hover FWW/ rail for safety Reps/Minutes 5 reps, 5 sec hold Comments cued TS/ chest lift, good core /HS facilitation for stability Self-Care/Home Management Treatment Education Patient Education Body Mechanics,Safety Other Education Extensive time spent ed/don dorsflexion ankle brace purchased: DOSH. Pt and UTILITY DIVISION PROJECT MANAGER noticed didn't provide sufficient DF support both straps or secured to sneaker laces. Pt reported thinks will return and continue to look for DF brace that better supports her needs. UTILITY DIVISION PROJECT MANAGER told pt, PT/ UTILITY DIVISION PROJECT MANAGER will continue look for alternates in meantime as well. PT-OP-T Assessment and Plan Start: 02/04/22 18:00 Freq: Status: Active Protocol: Document 02/13/22 09:52 SP (Rec: 02/13/22 10:37 SP [id number]) Physical Therapy Assessment Goals functional activities Short Term Goal (STG) Pt will be able to do bed mobility indep consistantly STG Duration 04/06/22 Bowling Ball Grader And Marker Goal (LTG) Pt will be able to do sit to stand Indep and safely LTG Duration 05/04/22 strength Short Term Goal (STG) Pt will be indep w/HEP STG Duration 03/29/22 Bowling Ball Grader And Marker Goal (LTG) Pt will score at least 4/5 on MMT to show improved LE strength improvign pt ability to do ADLs LTG Duration 05/04 gait Bowling Ball Grader And Marker Goal (LTG) Pt will be able to walk safely with SPC at home and in community. LTG Duration 05/04/22 balance Short Term Goal (STG) Pt will be able to score at least 36 on KIMBLE to show safe ambulation w/AD w/dec risk for falls. 02/13/22: KIMBLE . STG Duration 04/01/22 Bowling Ball Grader And Marker Goal (LTG) Pt will be able to score at least 46 on KIMBLE to show safe ambulation w/dec risk for falls. LTG Duration 05/04/22 Assessment Summary Assessment UTILITY DIVISION PROJECT MANAGER donned DOSH DF ankle brace and pt decided will be difficult for her to manage with her lack of L hand chaplain strength and stated didn't give as good DF support needs with strap attached to furthest laces, will return and look for more options. Complete KIMBLE testing . Pt decreased stability, requires BUE for transfers able self chair arms, added Min A + from seat, pt states sometimes has to help her alot coming to standing is sits to long. Will benefit from continued skilled therapy . Physical Therapy Plan Frequency and Duration Frequency of Treatment 2x/Week Duration of treatment (weeks) 12 Plan of Care Start Date 02/09/22 Plan of Care End Date 05/04/22 Therapeutic Interventions Therapeutic Interventions Aquatic Therapy,Balance Training,Coordination Training ,Gait Training,Home Exercise Program,Joint Mobilizations, Manual Therapy,Neuromuscular Re-education,Orthotic/ Prosthetic Management,Patient/ Caregiver Education,Self-Care/ Home Management,Soft Tissue Mobilization,Taping, Therapeutic Activities, Therapeutic Exercises Modalities Electric Stimulation Next Visit Focus/Plan Next Note Type Treatment Note Next Visit Plan Next tx: chaplain strength testing L>R UE, 6 min walk test. Add: HEP (seated: marches, knee ext/flex w/tband, Hip ER w/ band, APs, towel calf stretch, theraputty/scissor cutting).
--- NOTE | 2022-02-16 13:45 | PT.OTN ---
Current Diagnoses Muscle weakness (generalized) (02/16/22) Difficulty in walking, not elsewhere classified (02/16/22) Physical Therapy Treatment Note PT-OP-A Visit Information Start: 02/04/22 18:00 Freq: Status: Active Protocol: Document 02/16/22 11:21 [facility] (Rec: 02/16/22 13:43 [facility] [id number]) Out-Patient Physical Therapy Visit Information Visit Information Visit Type Treatment Note Visit Note 05/08 Visit Start Time 11:20 Visit Stop Time 12:05 Total Visit Minutes 45 Visit Number 3 Number of HIGH SCHOOL SOCIAL STUDIES TEACHER Visits 0 PT-OP-B Current Condition Start: 02/04/22 18:00 Freq: Status: Active Protocol: Document 02/09/22 11:20 [facility] (Rec: 02/09/22 15:02 [facility] [id number]) Current Condition History of Current Condition Onset Date Jan Current Complaints weakness in entire body, falls History of Current Condition Pt is frustrated because she used to be able to go to high intensity classes and walk 3-5 miles a day but stopped in Mar d/t falls. She has seen 2 neurologists, 1 neurosurgeon and feels like she is really progressively worse. She is really hating not being able to walk daily. She is having trouble getting socks on. Her dexterity is limited also. No one has been able to say what they think it is. Pt has been using a 4WW since Nov and in June started using a cane. she started using devices d/t falls. She is planning to see another neurologist in [place]. She has started going to [employer] class but stopped d/t her balance being too bad. She has all the [employer] equipment including a reformer. Her also recently has dx of cancer. Pt reports she got her first booster in Dec and she wonders if this is what started this. In Jan, she had some falls when she was working on her [employer]. Had Meniscus surgery in August and did PT for a short time and was DC quickly d/t how well she was doing. Dr. Jain sent her to the neurosurgeon for potential back surgery based on EMG, but neurosurgeon didn't think that was the issue. She has mild back pain in the AM that has only been recently d/t being less mobile. The neurosurgeon at first thought she needed another MRI of brain and had it scheduled, but then when he talked to the neurologist, the plan is now for her to see a different neurologist. Pt seeing a telehealth ND/MD who gave her folic acid steffanie something else but she doesn't feel like it helps. Pt reports R foot flops down sometime. Since getting 4WW , she has fallen 3 times ( oct). Prior to the walker, she was falling every few days and had some days wehre she fell more than once. All falls have resulted only in cuts and bruises Prior Treatments and Tests Lumbar MRI: IMPRESSION: 1. Multilevel lumbar spondylosis, causing foraminal stenosis as detailed above. 2. Severe central canal stenosis at L3-4 and L4-5. 3. No abnormal cord signal. 4. Remote compression fractures of T11 and T12. Cervical MRI:IMPRESSION: 1. Multilevel degenerative disc and facet disease, as well as uncovertebral hypertrophy. 2. Multilevel canal stenoses, worst at C5-C6 where there is minimal cord flattening. 3. Multilevel foraminal stenoses, worst at C5-C6 and C6-C7 where there is associated intraforaminal nerve root compression. Recommend correlation with clinical symptoms to ascertain relevance of these findings. IMPRESSION: BRAIN MRI: 1. No acute intracranial disease process. 2. No areas of acute or chronic infarction. 3. Mpor-wi-vglwobhx diffuse cerebral volume loss. 4. Mild periventricular and subcortical white matter chronic microvascular ischemic change. BRAIN MR ANGIOGRAM: Normal MR angiogram of the head. NECK MR ANGIOGRAM: 1. Less than 50% stenosis of the origin of the left internal carotid artery. 2. Right internal carotid artery is fully patent. 3. Vertebral arteries are fully patent. ADDENDUM: This case was reviewed at the request of Dr. Gonzalez and discussed by telephone at 11: 04 a.m. [place] time on October 14, 2021. This patient is brain parenchymal volume loss and chronic small vessel ischemic change. There is prominence of the ventricles and sulci, with the lateral ventricles larger than would be expected, given the degree of sulcal atrophy. Please consider normal pressure hydrocephalus. IMPRESSION: 1. Chronic mild wedging of the T9 vertebral body unchanged from prior examination which may be physiologic. 2. Multilevel disc degeneration. disc degeneration. Treatment Goals Patient/Caregiver Goals be able to get back to working outa nd walking PT-OP-C Subjective Start: 02/04/22 18:00 Freq: Status: Active Protocol: Document 02/16/22 11:21 [facility] (Rec: 02/16/22 13:43 [facility] [id number]) OP-PT Subjective Patient Comments Patient Comments Pt reports she got EMG and neurologist thinks she may have ALS and has listed something else too. She is frustrated as not much more testing is planned PT-OP-D Balance Start: 02/04/22 18:00 Freq: Status: Active Protocol: Document 02/13/22 09:52 SP (Rec: 02/13/22 10:37 SP [id number]) Kimble Balance Assessment Evaluation Sitting to Standing Ability Minimal Assist Unsupported Stance 30 seconds Sitting Unsupported, Feet on Floor Safely- 2 minutes Standing to Sitting Ability Independent, Uncontrolled Transfer Ability Safely, Hand Use Unsupported Stance- Eyes Closed Falls Without Assistance Unsupported Stance- Eyes Open Independent, 1 minute Reaching Forward Standing Safely, 5 inches Pick- Up Object From Floor Within 2 inches, Unable Look Behind Shoulder - Standing Supervision w/Turning Turning 360 Degrees Requires Assistance Unsupported Stance, Alternating Feet on Assist to Prevent Fall Stair Unsupported Tandem Stance Balance Lost- Step/Stand Unilateral Leg Stance Unable,assist to not fall Total Score Kimble Total Score (out of 56 points) 21 Kimble Impairment Rating 60 to 79% Impaired (Score 12- 22) PT-OP-E Functional Tests Start: 02/04/22 18:00 Freq: Status: Active Protocol: Document 02/16/22 11:21 [facility] (Rec: 02/16/22 13:43 [facility] [id number]) Functional Tests 6 Minute Walk Test Distance 190ft Device Used fww PT-OP-F Manual Assessment Start: 02/04/22 18:00 Freq: Status: Active Protocol: Document 02/09/22 11:20 [facility] (Rec: 02/09/22 15:02 [facility] [id number]) Manual Assessments Soft Tissue Assessment Soft Tissue Mobility Assessment tight calves w/limited passive DF PT-OP-G Mobility & Gait Start: 02/04/22 18:00 Freq: Status: Active Protocol: Document 02/09/22 11:20 [facility] (Rec: 02/09/22 15:02 [facility] [id number]) OP Mobility Evaluation Bed Mobility Rolling can roll B indep w/lower body following upper body Supine to and from Sit required min A for both supine <>sit Transfers Sit to Stand heavy use of UEs -pt reports sometimes needs to help OP Gait Assessment Comments Gait Comments Dec foot clearance B with heavy use of 4WW and dec DF R> L and dec hip flex PT-OP-M Strength Start: 02/04/22 18:00 Freq: Status: Active Protocol: Document 02/16/22 09:52 [facility] (Rec: 02/16/22 13:45 [id number] Hand Hot Saw Operator/Pinch Strength Hand Dominance Hand Dominance Right Hand Strength Right Comments 15 kg, 14 kg, 12 kg Left Comments 4kg x3 reps PT-OP-Q Treatments Start: 02/04/22 18:00 Freq: Status: Active Protocol: Document 02/16/22 11:21 [facility] (Rec: 02/16/22 13:43 [id number]) Therapeutic Exercises Sitting Exercises sit backs Sitting Exercise Name hip hinge back Side bilateral Equipment Used dowel on back initially Reps/Minutes 15 Comments small range-cues for scap squeeze together calf stretch Sitting Exercise Name calf/HS stretch Side bilateral Reps/Minutes 30 sec knee flex Side bilateral Equipment Used L1 Reps/Minutes 15 knee ext Side bilateral Equipment Used L1 Reps/Minutes 15 DF Side bilateral Reps/Minutes 30 march Side bilateral Reps/Minutes 20 Comments cues for posture & core hip ER Side bilateral Equipment Used L2 Reps/Minutes 15 Comments cues for posture & core PT-OP-T Assessment and Plan Start: 02/04/22 18:00 Freq: Status: Active Protocol: Document 02/16/22 11:21 [facility] (Rec: 02/16/22 13:43 [id number] Physical Therapy Assessment Goals functional activities Short Term Goal (STG) Pt will be able to do bed mobility indep consistantly STG Duration 04/06/22 Starch Factory Laborer Goal (LTG) Pt will be able to do sit to stand Indep and safely LTG Duration 05/04/22 strength Short Term Goal (STG) Pt will be indep w/HEP STG Duration 03/29/22 [facility] Goal (LTG) Pt will score at least 4/5 on MMT to show improved LE strength improvign pt ability to do ADLs LTG Duration 3/6 gait [facility] Goal (LTG) Pt will be able to walk safely with SPC at home and in community. LTG Duration 05/04/22 balance Short Term Goal (STG) Pt will be able to score at least 36 on KIMBLE to show safe ambulation w/AD w/dec risk for falls. 02/13/22: KIMBLE 21/56. STG Duration 04/01/22 Starch Factory Laborer Goal (LTG) Pt will be able to score at least 46 on KIMBLE to show safe ambulation w/dec risk for falls. LTG Duration 05/04/22 Assessment Summary Assessment Pt required a lot of cues for posture and core during seated exercises and has trouble maintaining this. She did understand exercises and does plan to do at home. Limited mobility noted w/6 min walk and significant weakness in B sports management professor. Physical Therapy Plan Next Visit Focus/Plan Next Note Type Treatment Note Next Visit Plan review HEP quickly; spend most time on standing ther ex and blance (for clinic only at this time)
--- NOTE | 2022-02-27 11:16 | PT.OTN ---
Current Diagnoses Muscle weakness (generalized) (02/27/22) Difficulty in walking, not elsewhere classified (02/27/22) Physical Therapy Treatment Note PT-OP-A Visit Information Start: 02/04/22 18:00 Freq: Status: Active Protocol: Document 02/27/22 10:36 SP (Rec: 02/27/22 11:29 SP [id number]) Out-Patient Physical Therapy Visit Information Visit Information Visit Type Treatment Note Visit Note 06/08 Visit Start Time 10:36 Visit Stop Time 11:16 Total Visit Minutes 40 Visit Number 4 Number of COMMUNITY SERVICE DIRECTOR Visits 1 PT-OP-B Current Condition Start: 02/04/22 18:00 Freq: Status: Active Protocol: Document 02/09/22 11:20 [facility] (Rec: 02/09/22 15:02 [facility] [id number]) Current Condition History of Current Condition Onset Date Jan Current Complaints weakness in entire body, falls History of Current Condition Pt is frustrated because she used to be able to go to high intensity classes and walk 3-5 miles a day but stopped in Mar d/t falls. She has seen 2 neurologists, 1 neurosurgeon and feels like she is really progressively worse. She is really hating not being able to walk daily. She is having trouble getting socks on. Her dexterity is limited also. No one has been able to say what they think it is. Pt has been using a 4WW since Nov and in June started using a cane. she started using devices d/t falls. She is planning to see another neurologist in [place]. She has started going to [employer] class but stopped d/t her balance being too bad. She has all the [employer]onate equipment including a reformer. Her also recently has dx of cancer. Pt reports she got her first booster in Dec and she wonders if this is what started this. In Jan, she had some falls when she was working on her [employer] and [employer]. Had Meniscus surgery in August and did PT for a short time and was DC quickly d/t how well she was doing. Dr. Jain sent her to the neurosurgeon for potential back surgery based on EMG, but neurosurgeon didn't think that was the issue. She has mild back pain in the AM that has only been recently d/t being less mobile. The neurosurgeon at first thought she needed another MRI of brain and had it scheduled, but then when he talked to the neurologist, the plan is now for her to see a different neurologist. Pt seeing a telehealth ND/MD who gave her folic acid steffanie something else but she doesn't feel like it helps. Pt reports R foot flops down sometime. Since getting 4WW , she has fallen 3 times ( oct). Prior to the walker, she was falling every few days and had some days wehre she fell more than once. All falls have resulted only in cuts and bruises Prior Treatments and Tests Lumbar MRI: IMPRESSION: 1. Multilevel lumbar spondylosis, causing foraminal stenosis as detailed above. 2. Severe central canal stenosis at L3-4 and L4-5. 3. No abnormal cord signal. 4. Remote compression fractures of T11 and T12. Cervical MRI:IMPRESSION: 1. Multilevel degenerative disc and facet disease, as well as uncovertebral hypertrophy. 2. Multilevel canal stenoses, worst at C5-C6 where there is minimal cord flattening. 3. Multilevel foraminal stenoses, worst at C5-C6 and C6-C7 where there is associated intraforaminal nerve root compression. Recommend correlation with clinical symptoms to ascertain relevance of these findings. IMPRESSION: BRAIN MRI: 1. No acute intracranial disease process. 2. No areas of acute or chronic infarction. 3. Pyqm-ux-zfcngllf diffuse cerebral volume loss. 4. Mild periventricular and subcortical white matter chronic microvascular ischemic change. BRAIN MR ANGIOGRAM: Normal MR angiogram of the head. NECK MR ANGIOGRAM: 1. Less than 50% stenosis of the origin of the left internal carotid artery. 2. Right internal carotid artery is fully patent. 3. Vertebral arteries are fully patent. ADDENDUM: This case was reviewed at the request of Dr. Gonzalez and discussed by telephone at 11: 04 a.m. [place] time on October 14, 2021. This patient is brain parenchymal volume loss and chronic small vessel ischemic change. There is prominence of the ventricles and sulci, with the lateral ventricles larger than would be expected, given the degree of sulcal atrophy. Please consider normal pressure hydrocephalus. IMPRESSION: 1. Chronic mild wedging of the T9 vertebral body unchanged from prior examination which may be physiologic. 2. Multilevel disc degeneration. disc degeneration. Treatment Goals Patient/Caregiver Goals be able to get back to working outa nd walking PT-OP-C Subjective Start: 02/04/22 18:00 Freq: Status: Active Protocol: Document 02/27/22 10:36 SP (Rec: 02/27/22 11:29 SP [id number]) OP-PT Subjective Patient Comments Patient Comments Pt reports thinking of finding another neurologist or specialist that works with ALS more often for support how mobilize going forward and what to expect. PT-OP-D Balance Start: 02/04/22 18:00 Freq: Status: Active Protocol: Document 02/13/22 09:52 SP (Rec: 02/13/22 10:37 SP [id number]) Kimble Balance Assessment Evaluation Sitting to Standing Ability Minimal Assist Unsupported Stance 30 seconds Sitting Unsupported, Feet on Floor Safely- 2 minutes Standing to Sitting Ability Independent, Uncontrolled Transfer Ability Safely, Hand Use Unsupported Stance- Eyes Closed Falls Without Assistance Unsupported Stance- Eyes Open Independent, 1 minute Reaching Forward Standing Safely, 5 inches Pick- Up Object From Floor Within 2 inches, Unable Look Behind Shoulder - Standing Supervision w/Turning Turning 360 Degrees Requires Assistance Unsupported Stance, Alternating Feet on Assist to Prevent Fall Stair Unsupported Tandem Stance Balance Lost- Step/Stand Unilateral Leg Stance Unable,assist to not fall Total Score Kimble Total Score (out of 56 points) 21 Kimble Impairment Rating 60 to 79% Impaired (Score 12- 22) PT-OP-E Functional Tests Start: 02/04/22 18:00 Freq: Status: Active Protocol: Document 02/16/22 11:21 [facility] (Rec: 02/16/22 13:43 [facility] [id number]) Functional Tests 6 Minute Walk Test Distance 190ft Device Used fww PT-OP-F Manual Assessment Start: 02/04/22 18:00 Freq: Status: Active Protocol: Document 02/09/22 11:20 [facility] (Rec: 02/09/22 15:02 [facility] [id number]) Manual Assessments Soft Tissue Assessment Soft Tissue Mobility Assessment tight calves w/limited passive DF PT-OP-G Mobility & Gait Start: 02/04/22 18:00 Freq: Status: Active Protocol: Document 02/09/22 11:20 [facility] (Rec: 02/09/22 15:02 [facility] [id number]) OP Mobility Evaluation Bed Mobility Rolling can roll B indep w/lower body following upper body Supine to and from Sit required min A for both supine <>sit Transfers Sit to Stand heavy use of UEs -pt reports sometimes needs to help OP Gait Assessment Comments Gait Comments Dec foot clearance B with heavy use of 4WW and dec DF R> L and dec hip flex PT-OP-M Strength Start: 02/04/22 18:00 Freq: Status: Active Protocol: Document 02/16/22 09:52 [facility] (Rec: 02/16/22 13:45 [facility] [id number]) Hand Business Banking Sales Assistant/Pinch Strength Hand Dominance Hand Dominance Right Hand Strength Right Comments 15 kg, 14 kg, 12 kg Left Comments 4kg x3 reps PT-OP-Q Treatments Start: 02/04/22 18:00 Freq: Status: Active Protocol: Document 02/27/22 10:36 SP (Rec: 02/27/22 11:29 SP [id number]) Therapeutic Exercises Sitting Exercises theraputty Sitting Exercise Name added toHEP: grasp squeeze, pick out buttons Resistance yellow theraputty (provided Red for progression) Reps/Minutes 2 min Comments good feedback will help with sewing/ cutting sit backs Sitting Exercise Name hip hinge back Side bilateral Equipment Used cued chest lift (hover toilet) Reps/Minutes 15 Comments cued reach use 1 UE for safe controlled support knee flex Side bilateral Resistance L1 Equipment Used therapist anchored Reps/Minutes 15 Comments cued eccentric control DF Sitting Exercise Name HEP review Side bilateral Reps/Minutes 30 Comments cued increase range can tolerate hip ER Sitting Exercise Name hip abd against resistance Side bilateral Resistance L2 Reps/Minutes 15 Comments cues for posture & core sit<> stand Sitting Exercise Name reviewed self HEP Equipment Used raised table 18-0 Reps/Minutes many reps Comments SBA BUE support on chair arms, Min A hands on chair seat Standing Exercises wall plank Standing Exercise Name added to HEP Resistance FWW front of her Reps/Minutes 5 reps 5 sec hold Comments cued tall posture, forearm fully on wall allowable shld range mini squats Standing Exercise Name reviewed self HEP hip hinge hover toilet Resistance AROM Equipment Used FWW/rail for safety Reps/Minutes 5 reps, 5 sec hold Comments cued TS/ chest lift, good core /HS facilitation for stability Self-Care/Home Management Treatment Education Patient Education Body Mechanics,Safety Other Education Time spent discussion stationary recliner not rotation but lift recliner only if bring to level can get up from to continue do the work. Added yellow theraputty for cattle dehorner strength, wall plank to keep up with activity modified used to do, cues for tall posturing LT fac. PT-OP-T Assessment and Plan Start: 02/04/22 18:00 Freq: Status: Active Protocol: Document 02/27/22 10:36 SP (Rec: 02/27/22 11:29 SP [id number]) Physical Therapy Assessment Goals functional activities Short Term Goal (STG) Pt will be able to do bed mobility indep consistantly STG Duration 04/06/22 Fpc Goal (LTG) Pt will be able to do sit to stand Indep and safely 02/27/22; cues for proper hand placement and hip hinge slow controlled descent, scoot forward feet under push from seated and downward pressure on FWW. LTG Duration 05/04/22 progressing : 02/27/22 strength Short Term Goal (STG) Pt will be indep w/HEP 02/27/22: added theraputty, wall plank, reviewed seated resisted hip abd, HC, STS, mini squat STG Duration 03/29/22 progressing 02/27/22 Cascade Operator Goal (LTG) Pt will score at least 4/5 on MMT to show improved LE strength improvign pt ability to do ADLs LTG Duration 05/04 gait Cascade Operator Goal (LTG) Pt will be able to walk safely with SPC at home and in community. 02/27/22: pt uses moderate UE WB on FWW during gait, cues for DF and controlled purposeful LE advancement. LTG Duration 05/04/22 slow progression balance Short Term Goal (STG) Pt will be able to score at least 36 on KIMBLE to show safe ambulation w/AD w/dec risk for falls. 02/13/22: KIMBLE 21/56. STG Duration 04/01/22 Fpc Goal (LTG) Pt will be able to score at least 46 on KIMBLE to show safe ambulation w/dec risk for falls. LTG Duration 05/04/22 Assessment Summary Assessment Pt improved self corrections seated trunk control at EO raised mat table HEP review. PRovided theraputty for assist cattle dehorner strength to allow better grasp theraband with hip abd seated. Added wall plank for trunk posturing, calf stretch and core fac modified used to do. Physical Therapy Plan Frequency and Duration Frequency of Treatment 2x/Week Duration of treatment (weeks) 12 Plan of Care Start Date 02/09/22 Plan of Care End Date 05/04/22 Therapeutic Interventions Therapeutic Interventions Aquatic Therapy,Balance Training,Coordination Training ,Gait Training,Home Exercise Program,Joint Mobilizations, Manual Therapy,Neuromuscular Re-education,Orthotic/ Prosthetic Management,Patient/ Caregiver Education,Self-Care/ Home Management,Soft Tissue Mobilization,Taping, Therapeutic Activities, Therapeutic Exercises Modalities Electric Stimulation Next Visit Focus/Plan Next Note Type Treatment Note Next Visit Plan recheck standing plank added. Continue POC: review HEP quickly; spend most time on standing ther ex and blance ( for clinic only at this time)
--- NOTE | 2022-03-03 12:32 | PT.OTN ---
Current Diagnoses Muscle weakness (generalized) (03/03/22) Difficulty in walking, not elsewhere classified (03/03/22) Physical Therapy Treatment Note PT-OP-A Visit Information Start: 02/04/22 18:00 Freq: Status: Active Protocol: Document 03/03/22 11:20 [facility] (Rec: 03/03/22 12:32 [facility] [id number]) Out-Patient Physical Therapy Visit Information Visit Information Visit Type Treatment Note Visit Note 07/08 Visit Start Time 11:20 Visit Stop Time 12:00 Total Visit Minutes 40 Visit Number 5 Number of FOOD COUNSELOR Visits 0 PT-OP-B Current Condition Start: 02/04/22 18:00 Freq: Status: Active Protocol: Document 02/09/22 11:20 [facility] (Rec: 02/09/22 15:02 [facility] [id number]) Current Condition History of Current Condition Onset Date Jan Current Complaints weakness in entire body, falls History of Current Condition Pt is frustrated because she used to be able to go to high intensity classes and walk 3-5 miles a day but stopped in Mar d/t falls. She has seen 2 neurologists, 1 neurosurgeon and feels like she is really progressively worse. She is really hating not being able to walk daily. She is having trouble getting socks on. Her dexterity is limited also. No one has been able to say what they think it is. Pt has been using a 4WW since Nov and in June started using a cane. she started using devices d/t falls. She is planning to see another neurologist in [place]. She has started going to [employer] class but stopped d/t her balance being too bad. She has all the [employer] equipment including a reformer. Her also recently has dx of cancer. Pt reports she got her first booster in Dec and she wonders if this is what started this. In Jan, she had some falls when she was working on her [employer]. Had Meniscus surgery in August and did PT for a short time and was DC quickly d/t how well she was doing. Dr. Jain sent her to the neurosurgeon for potential back surgery based on EMG, but neurosurgeon didn't think that was the issue. She has mild back pain in the AM that has only been recently d/t being less mobile. The neurosurgeon at first thought she needed another MRI of brain and had it scheduled, but then when he talked to the neurologist, the plan is now for her to see a different neurologist. Pt seeing a telehealth ND/MD who gave her folic acid steffanie something else but she doesn't feel like it helps. Pt reports R foot flops down sometime. Since getting 4WW , she has fallen 3 times ( oct). Prior to the walker, she was falling every few days and had some days wehre she fell more than once. All falls have resulted only in cuts and bruises Prior Treatments and Tests Lumbar MRI: IMPRESSION: 1. Multilevel lumbar spondylosis, causing foraminal stenosis as detailed above. 2. Severe central canal stenosis at L3-4 and L4-5. 3. No abnormal cord signal. 4. Remote compression fractures of T11 and T12. Cervical MRI:IMPRESSION: 1. Multilevel degenerative disc and facet disease, as well as uncovertebral hypertrophy. 2. Multilevel canal stenoses, worst at C5-C6 where there is minimal cord flattening. 3. Multilevel foraminal stenoses, worst at C5-C6 and C6-C7 where there is associated intraforaminal nerve root compression. Recommend correlation with clinical symptoms to ascertain relevance of these findings. IMPRESSION: BRAIN MRI: 1. No acute intracranial disease process. 2. No areas of acute or chronic infarction. 3. Qsau-mv-oquunavq diffuse cerebral volume loss. 4. Mild periventricular and subcortical white matter chronic microvascular ischemic change. BRAIN MR ANGIOGRAM: Normal MR angiogram of the head. NECK MR ANGIOGRAM: 1. Less than 50% stenosis of the origin of the left internal carotid artery. 2. Right internal carotid artery is fully patent. 3. Vertebral arteries are fully patent. ADDENDUM: This case was reviewed at the request of Dr. Gonzalez and discussed by telephone at 11: 04 a.m. [place] time on October 14, 2021. This patient is brain parenchymal volume loss and chronic small vessel ischemic change. There is prominence of the ventricles and sulci, with the lateral ventricles larger than would be expected, given the degree of sulcal atrophy. Please consider normal pressure hydrocephalus. IMPRESSION: 1. Chronic mild wedging of the T9 vertebral body unchanged from prior examination which may be physiologic. 2. Multilevel disc degeneration. disc degeneration. Treatment Goals Patient/Caregiver Goals be able to get back to working outa nd walking PT-OP-C Subjective Start: 02/04/22 18:00 Freq: Status: Active Protocol: Document 03/03/22 11:20 [facility] (Rec: 03/03/22 12:32 [facility] [id number]) OP-PT Subjective Patient Comments Patient Comments Pt reports she meets w/neuro via telehealth appt today. PT-OP-D Balance Start: 02/04/22 18:00 Freq: Status: Active Protocol: Document 02/13/22 09:52 SP (Rec: 02/13/22 10:37 SP [id number]) Kimble Balance Assessment Evaluation Sitting to Standing Ability Minimal Assist Unsupported Stance 30 seconds Sitting Unsupported, Feet on Floor Safely- 2 minutes Standing to Sitting Ability Independent, Uncontrolled Transfer Ability Safely, Hand Use Unsupported Stance- Eyes Closed Falls Without Assistance Unsupported Stance- Eyes Open Independent, 1 minute Reaching Forward Standing Safely, 5 inches Pick- Up Object From Floor Within 2 inches, Unable Look Behind Shoulder - Standing Supervision w/Turning Turning 360 Degrees Requires Assistance Unsupported Stance, Alternating Feet on Assist to Prevent Fall Stair Unsupported Tandem Stance Balance Lost- Step/Stand Unilateral Leg Stance Unable,assist to not fall Total Score Kimble Total Score (out of 56 points) 21 Kimble Impairment Rating 60 to 79% Impaired (Score 12- 22) PT-OP-E Functional Tests Start: 02/04/22 18:00 Freq: Status: Active Protocol: Document 02/16/22 11:21 [facility] (Rec: 02/16/22 13:43 [facility] [id number]) Functional Tests 6 Minute Walk Test Distance 190ft Device Used fww PT-OP-F Manual Assessment Start: 02/04/22 18:00 Freq: Status: Active Protocol: Document 02/09/22 11:20 [facility] (Rec: 02/09/22 15:02 [facility] [id number]) Manual Assessments Soft Tissue Assessment Soft Tissue Mobility Assessment tight calves w/limited passive DF PT-OP-G Mobility & Gait Start: 02/04/22 18:00 Freq: Status: Active Protocol: Document 02/09/22 11:20 [facility] (Rec: 02/09/22 15:02 [facility] [id number]) OP Mobility Evaluation Bed Mobility Rolling can roll B indep w/lower body following upper body Supine to and from Sit required min A for both supine <>sit Transfers Sit to Stand heavy use of UEs -pt reports sometimes needs to help OP Gait Assessment Comments Gait Comments Dec foot clearance B with heavy use of 4WW and dec DF R> L and dec hip flex PT-OP-M Strength Start: 02/04/22 18:00 Freq: Status: Active Protocol: Document 02/16/22 09:52 [facility] (Rec: 02/16/22 13:45 [facility] [id number]) Hand Back Maker/Pinch Strength Hand Dominance Hand Dominance Right Hand Strength Right Comments 15 kg, 14 kg, 12 kg Left Comments 4kg x3 reps PT-OP-Q Treatments Start: 02/04/22 18:00 Freq: Status: Active Protocol: Document 03/03/22 11:20 [facility] (Rec: 03/03/22 12:32 [facility] [id number]) Cardio Equipment Recumbent Elliptical ([employer]) Duration (Minutes) 5 Resistance 7 Seat Position 7 Therapeutic Exercises Sitting Exercises hip ER Side bilateral Equipment Used L4 Reps/Minutes 15 Comments cues for posture & core Standing Exercises heel raises Side bilateral Reps/Minutes 2x10 april Standing Exercise Name 1 rail Side bilateral Reps/Minutes 10 backwards walk Side bilateral Equipment Used //bars Reps/Minutes 10ft Neuro Re-Education Treatment Balance Activities tilt board Details fwd &s golden Comments balancing & wt shifts ea EC Comments WBOS & NBOS trials foam Comments WBOS w/head turns NBOS staggered stance B PT-OP-T Assessment and Plan Start: 02/04/22 18:00 Freq: Status: Active Protocol: Document 03/03/22 11:20 [facility] (Rec: 03/03/22 12:32 [facility] [id number]) Physical Therapy Assessment Goals functional activities Short Term Goal (STG) Pt will be able to do bed mobility indep consistantly STG Duration 04/06/22 Billet Grinder Goal (LTG) Pt will be able to do sit to stand Indep and safely 02/27/22; cues for proper hand placement and hip hinge slow controlled descent, scoot forward feet under push from seated and downward pressure on FWW. LTG Duration 05/04/22 progressing : 02/27/22 strength Short Term Goal (STG) Pt will be indep w/HEP 02/27/22: added theraputty, wall plank, reviewed seated resisted hip abd, HC, STS, mini squat STG Duration 03/29/22 progressing 02/27/22 Billet Grinder Goal (LTG) Pt will score at least 4/5 on MMT to show improved LE strength improvign pt ability to do ADLs LTG Duration 05/04 gait Billet Grinder Goal (LTG) Pt will be able to walk safely with SPC at home and in community. 02/27/22: pt uses moderate UE WB on FWW during gait, cues for DF and controlled purposeful LE advancement. LTG Duration 05/04/22 slow progression balance Short Term Goal (STG) Pt will be able to score at least 36 on KIMBLE to show safe ambulation w/AD w/dec risk for falls. 02/13/22: KIMBLE 21/56. STG Duration 04/01/22 Prison Goal (LTG) Pt will be able to score at least 46 on KIMBLE to show safe ambulation w/dec risk for falls. LTG Duration 05/04/22 Assessment Summary Assessment Pt was cahllenged by standing exercisesand did report fatigue after session. She has dec balance when adding unstable surfaces and/or head turns/EC challenges. Physical Therapy Plan Frequency and Duration Frequency of Treatment 2x/Week Duration of treatment (weeks) 12 Plan of Care Start Date 02/09/22 Plan of Care End Date 05/04/22 Next Visit Focus/Plan Next Note Type Treatment Note Next Visit Plan Give supine/s/l exercises for pt to do safely at home for core and LEs; standing balacne
--- NOTE | 2022-03-05 12:13 | PT.OTN ---
Current Diagnoses Muscle weakness (generalized) (03/05/22) Difficulty in walking, not elsewhere classified (03/05/22) Physical Therapy Treatment Note PT-OP-A Visit Information Start: 02/04/22 18:00 Freq: Status: Active Protocol: Document 03/05/22 11:18 [facility] (Rec: 03/05/22 12:13 [facility] [id number]) Out-Patient Physical Therapy Visit Information Visit Information Visit Type Treatment Note Visit Note 08/08 Visit Start Time 11:18 Visit Stop Time 12:00 Total Visit Minutes 42 Visit Number 6 Number of TAXI DRIVER Visits 0 PT-OP-B Current Condition Start: 02/04/22 18:00 Freq: Status: Active Protocol: Document 02/09/22 11:20 [facility] (Rec: 02/09/22 15:02 [facility] [id number]) Current Condition History of Current Condition Onset Date Jan Current Complaints weakness in entire body, falls History of Current Condition Pt is frustrated because she used to be able to go to high intensity classes and walk 3-5 miles a day but stopped in Mar d/t falls. She has seen 2 neurologists, 1 neurosurgeon and feels like she is really progressively worse. She is really hating not being able to walk daily. She is having trouble getting socks on. Her dexterity is limited also. No one has been able to say what they think it is. Pt has been using a 4WW since Nov and in June started using a cane. she started using devices d/t falls. She is planning to see another neurologist in [place]. She has started going to [employer] class but stopped d/t her balance being too bad. She has all the [employer] equipment including a reformer. Her also recently has dx of cancer. Pt reports she got her first booster in Dec and she wonders if this is what started this. In Jan, she had some falls when she was working on her [employer]. Had Meniscus surgery in August and did PT for a short time and was DC quickly d/t how well she was doing. Dr. Jain sent her to the neurosurgeon for potential back surgery based on EMG, but neurosurgeon didn't think that was the issue. She has mild back pain in the AM that has only been recently d/t being less mobile. The neurosurgeon at first thought she needed another MRI of brain and had it scheduled, but then when he talked to the neurologist, the plan is now for her to see a different neurologist. Pt seeing a telehealth ND/MD who gave her folic acid steffanie something else but she doesn't feel like it helps. Pt reports R foot flops down sometime. Since getting 4WW , she has fallen 3 times ( oct). Prior to the walker, she was falling every few days and had some days wehre she fell more than once. All falls have resulted only in cuts and bruises Prior Treatments and Tests Lumbar MRI: IMPRESSION: 1. Multilevel lumbar spondylosis, causing foraminal stenosis as detailed above. 2. Severe central canal stenosis at L3-4 and L4-5. 3. No abnormal cord signal. 4. Remote compression fractures of T11 and T12. Cervical MRI:IMPRESSION: 1. Multilevel degenerative disc and facet disease, as well as uncovertebral hypertrophy. 2. Multilevel canal stenoses, worst at C5-C6 where there is minimal cord flattening. 3. Multilevel foraminal stenoses, worst at C5-C6 and C6-C7 where there is associated intraforaminal nerve root compression. Recommend correlation with clinical symptoms to ascertain relevance of these findings. IMPRESSION: BRAIN MRI: 1. No acute intracranial disease process. 2. No areas of acute or chronic infarction. 3. Mgsv-[id number]-dqgpwvwo diffuse cerebral volume loss. 4. Mild periventricular and subcortical white matter chronic microvascular ischemic change. BRAIN MR ANGIOGRAM: Normal MR angiogram of the head. NECK MR ANGIOGRAM: 1. Less than 50% stenosis of the origin of the left internal carotid artery. 2. Right internal carotid artery is fully patent. 3. Vertebral arteries are fully patent. ADDENDUM: This case was reviewed at the request of Dr. Gonzalez and discussed by telephone at 11: 04 a.m. [place] time on October 14, 2021. This patient is brain parenchymal volume loss and chronic small vessel ischemic change. There is prominence of the ventricles and sulci, with the lateral ventricles larger than would be expected, given the degree of sulcal atrophy. Please consider normal pressure hydrocephalus. IMPRESSION: 1. Chronic mild wedging of the T9 vertebral body unchanged from prior examination which may be physiologic. 2. Multilevel disc degeneration. disc degeneration. Treatment Goals Patient/Caregiver Goals be able to get back to working outa nd walking PT-OP-C Subjective Start: 02/04/22 18:00 Freq: Status: Active Protocol: Document 03/05/22 11:18 [facility] (Rec: 03/05/22 12:13 [facility] [id number]) OP-PT Subjective Patient Comments Patient Comments Pt reports her feels like she has gotten better since starting PT. Pt reports neurologist telehelath appt didn't help much Patient Reported Progress Improving PT-OP-D Balance Start: 02/04/22 18:00 Freq: Status: Active Protocol: Document 02/13/22 09:52 SP (Rec: 02/13/22 10:37 SP [id number]) Kimble Balance Assessment Evaluation Sitting to Standing Ability Minimal Assist Unsupported Stance 30 seconds Sitting Unsupported, Feet on Floor Safely- 2 minutes Standing to Sitting Ability Independent, Uncontrolled Transfer Ability Safely, Hand Use Unsupported Stance- Eyes Closed Falls Without Assistance Unsupported Stance- Eyes Open Independent, 1 minute Reaching Forward Standing Safely, 5 inches Pick- Up Object From Floor Within 2 inches, Unable Look Behind Shoulder - Standing Supervision w/Turning Turning 360 Degrees Requires Assistance Unsupported Stance, Alternating Feet on Assist to Prevent Fall Stair Unsupported Tandem Stance Balance Lost- Step/Stand Unilateral Leg Stance Unable,assist to not fall Total Score Kimble Total Score (out of 56 points) 21 Kimble Impairment Rating 60 to 79% Impaired (Score 12- 22) PT-OP-E Functional Tests Start: 02/04/22 18:00 Freq: Status: Active Protocol: Document 02/16/22 11:21 [facility] (Rec: 02/16/22 13:43 [facility] [id number]) Functional Tests 6 Minute Walk Test Distance 190ft Device Used fww PT-OP-F Manual Assessment Start: 02/04/22 18:00 Freq: Status: Active Protocol: Document 02/09/22 11:20 [facility] (Rec: 02/09/22 15:02 [facility] [id number]) Manual Assessments Soft Tissue Assessment Soft Tissue Mobility Assessment tight calves w/limited passive DF PT-OP-G Mobility & Gait Start: 02/04/22 18:00 Freq: Status: Active Protocol: Document 02/09/22 11:20 [facility] (Rec: 02/09/22 15:02 [facility] [id number]) OP Mobility Evaluation Bed Mobility Rolling can roll B indep w/lower body following upper body Supine to and from Sit required min A for both supine <>sit Transfers Sit to Stand heavy use of UEs -pt reports sometimes needs to help OP Gait Assessment Comments Gait Comments Dec foot clearance B with heavy use of 4WW and dec DF R> L and dec hip flex PT-OP-M Strength Start: 02/04/22 18:00 Freq: Status: Active Protocol: Document 02/16/22 09:52 [facility] (Rec: 02/16/22 13:45 [facility] [id number]) Hand Site Project Manager/Pinch Strength Hand Dominance Hand Dominance Right Hand Strength Right Comments 15 kg, 14 kg, 12 kg Left Comments 4kg x3 reps PT-OP-Q Treatments Start: 02/04/22 18:00 Freq: Status: Active Protocol: Document 03/05/22 11:18 [facility] (Rec: 03/05/22 12:13 [facility] [id number]) Cardio Equipment Recumbent Elliptical ([employer]) Duration (Minutes) 6 Resistance 7 Seat Position 7 Therapeutic Exercises Supine Exercises SLR Supine Exercise Name core enagagement Side bilateral Reps/Minutes 8 bridge Side bilateral Reps/Minutes 5 sec x8 Sidelying Exercises abd Sidelying Exercise Name hip Side bilateral Reps/Minutes 8 clamshell Side bilateral Reps/Minutes 10 Standing Exercises heel raises Side bilateral Reps/Minutes 15 Gait Training Gait Activity FWW Device Used FWW Distance/Duration 100ft x4 Comments amb w/FWW Neuro Re-Education Treatment Balance Activities SLS Comments alt tap to blue foam w/RAKING MACHINE OPERATOR x12 B tilt board Details fwd &s golden Comments balancing & wt shifts ea EC Comments WBOS trials foam Comments WBOS w/head turns NBOS w/head turns staggered stance B PT-OP-T Assessment and Plan Start: 02/04/22 18:00 Freq: Status: Active Protocol: Document 03/05/22 11:18 [facility] (Rec: 03/05/22 12:13 [facility] [id number]) Physical Therapy Assessment Goals functional activities Short Term Goal (STG) Pt will be able to do bed mobility indep consistantly STG Duration 04/06/22 Mcfp Goal (LTG) Pt will be able to do sit to stand Indep and safely 02/27/22; cues for proper hand placement and hip hinge slow controlled descent, scoot forward feet under push from seated and downward pressure on FWW. LTG Duration 05/04/22 progressing : 02/27/22 strength Short Term Goal (STG) Pt will be indep w/HEP 02/27/22: added theraputty, wall plank, reviewed seated resisted hip abd, HC, STS, mini squat STG Duration 03/29/22 progressing 02/27/22 Mcfp Goal (LTG) Pt will score at least 4/5 on MMT to show improved LE strength improvign pt ability to do ADLs LTG Duration 05/04 gait Mcfp Goal (LTG) Pt will be able to walk safely with SPC at home and in community. 02/27/22: pt uses moderate UE WB on FWW during gait, cues for DF and controlled purposeful LE advancement. LTG Duration 05/04/22 slow progression balance Short Term Goal (STG) Pt will be able to score at least 36 on KIMBLE to show safe ambulation w/AD w/dec risk for falls. 02/13/22: KIMBLE 21/56. STG Duration 04/01/22 Proposal Development Manager Goal (LTG) Pt will be able to score at least 46 on KIMBLE to show safe ambulation w/dec risk for falls. LTG Duration 05/04/22 Assessment Summary Assessment Pt appears to be amb w/better levi w/walking now. SHe did well with laying exercises and they gave her challenge. Cont to be challnged by balance Physical Therapy Plan Frequency and Duration Frequency of Treatment 2x/Week Duration of treatment (weeks) 12 Plan of Care Start Date 02/09/22 Plan of Care End Date 05/04/22 Next Visit Focus/Plan Next Note Type Treatment Note Next Visit Plan cont to advance standing balance and gait & strength
--- NOTE | 2022-03-09 09:46 | PT.OTN ---
Current Diagnoses Muscle weakness (generalized) (03/09/22) Difficulty in walking, not elsewhere classified (03/09/22) Physical Therapy Treatment Note PT-OP-A Visit Information Start: 02/04/22 18:00 Freq: Status: Active Protocol: Document 03/09/22 09:08 SP (Rec: 03/09/22 09:51 SP [id number]) Out-Patient Physical Therapy Visit Information Visit Information Visit Type Treatment Note Visit Note 09/07 Visit Start Time 09:08 Visit Stop Time 09:46 Total Visit Minutes 38 Visit Number 7 Number of DIGITAL ARTIST Visits 1 PT-OP-B Current Condition Start: 02/04/22 18:00 Freq: Status: Active Protocol: Document 02/09/22 11:20 [facility] (Rec: 02/09/22 15:02 [facility] [id number]) Current Condition History of Current Condition Onset Date Jan Current Complaints weakness in entire body, falls History of Current Condition Pt is frustrated because she used to be able to go to high intensity classes and walk 3-5 miles a day but stopped in Mar d/t falls. She has seen 2 neurologists, 1 neurosurgeon and feels like she is really progressively worse. She is really hating not being able to walk daily. She is having trouble getting socks on. Her dexterity is limited also. No one has been able to say what they think it is. Pt has been using a 4WW since Nov and in June started using a cane. she started using devices d/t falls. She is planning to see another neurologist in [place]. She has started going to [employer] class but stopped d/t her balance being too bad. She has all the [employer] equipment including a reformer. Her also recently has dx of cancer. Pt reports she got her first booster in Dec and she wonders if this is what started this. In Jan, she had some falls when she was working on her [employer] and [employer]. Had Meniscus surgery in August and did PT for a short time and was DC quickly d/t how well she was doing. Dr. Jain sent her to the neurosurgeon for potential back surgery based on EMG, but neurosurgeon didn't think that was the issue. She has mild back pain in the AM that has only been recently d/t being less mobile. The neurosurgeon at first thought she needed another MRI of brain and had it scheduled, but then when he talked to the neurologist, the plan is now for her to see a different neurologist. Pt seeing a telehealth ND/MD who gave her folic acid steffanie something else but she doesn't feel like it helps. Pt reports R foot flops down sometime. Since getting 4WW , she has fallen 3 times ( oct). Prior to the walker, she was falling every few days and had some days wehre she fell more than once. All falls have resulted only in cuts and bruises Prior Treatments and Tests Lumbar MRI: IMPRESSION: 1. Multilevel lumbar spondylosis, causing foraminal stenosis as detailed above. 2. Severe central canal stenosis at L3-4 and L4-5. 3. No abnormal cord signal. 4. Remote compression fractures of T11 and T12. Cervical MRI:IMPRESSION: 1. Multilevel degenerative disc and facet disease, as well as uncovertebral hypertrophy. 2. Multilevel canal stenoses, worst at C5-C6 where there is minimal cord flattening. 3. Multilevel foraminal stenoses, worst at C5-C6 and C6-C7 where there is associated intraforaminal nerve root compression. Recommend correlation with clinical symptoms to ascertain relevance of these findings. IMPRESSION: BRAIN MRI: 1. No acute intracranial disease process. 2. No areas of acute or chronic infarction. 3. Qrqg-rs-gycxbrpm diffuse cerebral volume loss. 4. Mild periventricular and subcortical white matter chronic microvascular ischemic change. BRAIN MR ANGIOGRAM: Normal MR angiogram of the head. NECK MR ANGIOGRAM: 1. Less than 50% stenosis of the origin of the left internal carotid artery. 2. Right internal carotid artery is fully patent. 3. Vertebral arteries are fully patent. ADDENDUM: This case was reviewed at the request of Dr. Gonzalez and discussed by telephone at 11: 04 a.m. [place] time on October 14, 2021. This patient is brain parenchymal volume loss and chronic small vessel ischemic change. There is prominence of the ventricles and sulci, with the lateral ventricles larger than would be expected, given the degree of sulcal atrophy. Please consider normal pressure hydrocephalus. IMPRESSION: 1. Chronic mild wedging of the T9 vertebral body unchanged from prior examination which may be physiologic. 2. Multilevel disc degeneration. disc degeneration. Treatment Goals Patient/Caregiver Goals be able to get back to working outa nd walking PT-OP-C Subjective Start: 02/04/22 18:00 Freq: Status: Active Protocol: Document 03/09/22 09:08 SP (Rec: 03/09/22 09:51 SP [id number]) OP-PT Subjective Patient Comments Patient Comments Pt reports tries to perform a mini squat when comes to standing to get a stretch over the front of her knees. Stated ordered a chair lift to get to basement to allow her get to sewing supplies. PT-OP-D Balance Start: 02/04/22 18:00 Freq: Status: Active Protocol: Document 02/13/22 09:52 SP (Rec: 02/13/22 10:37 SP [id number]) Kimble Balance Assessment Evaluation Sitting to Standing Ability Minimal Assist Unsupported Stance 30 seconds Sitting Unsupported, Feet on Floor Safely- 2 minutes Standing to Sitting Ability Independent, Uncontrolled Transfer Ability Safely, Hand Use Unsupported Stance- Eyes Closed Falls Without Assistance Unsupported Stance- Eyes Open Independent, 1 minute Reaching Forward Standing Safely, 5 inches Pick- Up Object From Floor Within 2 inches, Unable Look Behind Shoulder - Standing Supervision w/Turning Turning 360 Degrees Requires Assistance Unsupported Stance, Alternating Feet on Assist to Prevent Fall Stair Unsupported Tandem Stance Balance Lost- Step/Stand Unilateral Leg Stance Unable,assist to not fall Total Score Kimble Total Score (out of 56 points) 21 Kimble Impairment Rating 60 to 79% Impaired (Score 12- 22) PT-OP-E Functional Tests Start: 02/04/22 18:00 Freq: Status: Active Protocol: Document 02/16/22 11:21 [facility] (Rec: 02/16/22 13:43 [facility] [id number]) Functional Tests 6 Minute Walk Test Distance 190ft Device Used fww PT-OP-F Manual Assessment Start: 02/04/22 18:00 Freq: Status: Active Protocol: Document 02/09/22 11:20 [facility] (Rec: 02/09/22 15:02 [facility] [id number]) Manual Assessments Soft Tissue Assessment Soft Tissue Mobility Assessment tight calves w/limited passive DF PT-OP-G Mobility & Gait Start: 02/04/22 18:00 Freq: Status: Active Protocol: Document 02/09/22 11:20 [facility] (Rec: 02/09/22 15:02 [facility] [id number]) OP Mobility Evaluation Bed Mobility Rolling can roll B indep w/lower body following upper body Supine to and from Sit required min A for both supine <>sit Transfers Sit to Stand heavy use of UEs -pt reports sometimes needs to help OP Gait Assessment Comments Gait Comments Dec foot clearance B with heavy use of 4WW and dec DF R> L and dec hip flex PT-OP-M Strength Start: 02/04/22 18:00 Freq: Status: Active Protocol: Document 02/16/22 09:52 [facility] (Rec: 02/16/22 13:45 [facility] [id number]) Hand Responder/Pinch Strength Hand Dominance Hand Dominance Right Hand Strength Right Comments 15 kg, 14 kg, 12 kg Left Comments 4kg x3 reps PT-OP-Q Treatments Start: 02/04/22 18:00 Freq: Status: Active Protocol: Document 03/09/22 09:08 SP (Rec: 03/09/22 09:51 SP [id number]) Gym Equipment Shuttle Recovery Unilateral Squats Details cued // knees asc/desc Resistance 25 (new band) Reps/Time 2x10 Bilateral Squats Details cued //knees Resistance 50 (2 old bands) Reps/Time 2x10 Therapeutic Exercises Supine Exercises TA/ neutral pelvis Supine Exercise Name warm up review Reps/Minutes 5 sec hold x5 Comments cued CS neutral chin nod, low ribcage toward table, not alow leg assist SLR Supine Exercise Name core enagagement Side bilateral Reps/Minutes 8 bridge Supine Exercise Name HEP reviewed Side bilateral Equipment Used small green ball between knees , 1/2 foam under forefoot Reps/Minutes 5 sec x10 Comments cued hand flat arm straight gentle presure into bed, neutral pelvis Sitting Exercises DF Sitting Exercise Name HEP review Side bilateral Reps/Minutes 30 Comments cued increase range can tolerate Therapeutic Activity Therapeutic Activity supine>sit, log roll Name added to HEP Reps/Minutes 1 Comments Min A get each LE on table, cued log roll and use of BUEs to self support improved core fac and self performance this tx. Prior to today tends to sit up and harder to do so has been helping. Manual Therapy Treatment Soft Tissue Mobilization B ankles, calver Body Location B calves, Tib Ant, retrograde MFR Intensity/Depth Superficial Body Position Supine Comments gentle massage, pt reports ususally wears compression socks, didn't put on before tx today. Joint Mobilizations ankle Joint B talocrual, med/lat calcaneus , MTPs forefoot rotation, DF stretch Grade II Body Position Supine Comments good feedback mobility. Manual Techniques DF stretch Type B ankle Body Position Supine Comments good feedback stretch Self-Care/Home Management Treatment Education Patient Education Body Mechanics,Joint Protection,Safety Other Education Discussed limited in DF ROM possibly due to tight calves and weakness in DFs. Suggested to pt [place] sock assist DF ROM to support decrease calf PF while sleeping. Pt reports gets overheated easily so unsure would be able to wear. Pt reports usually wears compression socks, didn't today. Uses sock aide to don self. Theraputty helps with keeping up her strength. DIGITAL ARTIST also suggested check for an ALS support group for herself and , pt stated found one on zoom for herself but will ask about one for family. PT-OP-T Assessment and Plan Start: 02/04/22 18:00 Freq: Status: Active Protocol: Document 03/09/22 09:08 SP (Rec: 03/09/22 09:51 SP [id number]) Physical Therapy Assessment Goals functional activities Short Term Goal (STG) Pt will be able to do bed mobility indep consistantly 03/09/22: pt reports helps her at times comes to sitting, during tx instructed log roll able to perform with cues continued BUE support. STG Duration 04/06/22 progressing 03/09/22 Flight Software Test Engineer Goal (LTG) Pt will be able to do sit to stand Indep and safely 02/27/22; cues for proper hand placement and hip hinge slow controlled descent, scoot forward feet under push from seated and downward pressure on FWW. 03/09/22: pt stated needs use BUE support and at times has to help her. LTG Duration 05/04/22 progressing : 03/09/22 strength Short Term Goal (STG) Pt will be indep w/HEP 02/27/22: added theraputty, wall plank, reviewed seated resisted hip abd, HC, STS, mini squat 03/09/22: reviewed TA bridge ( added 1/2 foam roll under forefoot), SLR STG Duration 03/29/22 progressing 02/27/22 Flight Software Test Engineer Goal (LTG) Pt will score at least 4/5 on MMT to show improved LE strength improvign pt ability to do ADLs LTG Duration 05/04 gait Flight Software Test Engineer Goal (LTG) Pt will be able to walk safely with SPC at home and in community. 02/27/22: pt uses moderate UE WB on FWW during gait, cues for DF and controlled purposeful LE advancement. LTG Duration 05/04/22 slow progression balance Short Term Goal (STG) Pt will be able to score at least 36 on KIMBLE to show safe ambulation w/AD w/dec risk for falls. 02/13/22: KIMBLE 21/56. STG Duration 04/01/22 Fci Goal (LTG) Pt will be able to score at least 46 on KIMBLE to show safe ambulation w/dec risk for falls. LTG Duration 05/04/22 Assessment Summary Assessment Pt improved core/glut facilitation post manual with ankles and 1/2 foam roll under forefoot, cued BUE down at side and can give self compression into table for scapular complex, core, glut facilitation support improved more stable lift. Suggested use of DF sock for wearing at night to give passive calf stretch and allow improved DF while sleeping to improve stability coming to standing. Pt reported log roll technique helped alot with getting self up. Physical Therapy Plan Frequency and Duration Frequency of Treatment 2x/Week Duration of treatment (weeks) 12 Plan of Care Start Date 02/09/22 Plan of Care End Date 05/04/22 Therapeutic Interventions Therapeutic Interventions Aquatic Therapy,Balance Training,Coordination Training ,Gait Training,Home Exercise Program,Joint Mobilizations, Manual Therapy,Neuromuscular Re-education,Orthotic/ Prosthetic Management,Patient/ Caregiver Education,Self-Care/ Home Management,Soft Tissue Mobilization,Taping, Therapeutic Activities, Therapeutic Exercises Modalities Electric Stimulation Next Visit Focus/Plan Next Note Type Treatment Note Next Visit Plan Recheck bridge w/ DF support. Recheck sup<> sitting. Trial shuttle recovery, step taps/ step ups for quad/glut drive. F/B walking in //bars POC: cont to advance standing balance and gait & strength
--- NOTE | 2022-03-12 16:58 | PT.OTN ---
Current Diagnoses Muscle weakness (generalized) (03/12/22) Difficulty in walking, not elsewhere classified (03/12/22) Physical Therapy Treatment Note PT-OP-A Visit Information Start: 02/04/22 18:00 Freq: Status: Active Protocol: Document 03/12/22 16:11 [facility] (Rec: 03/12/22 16:58 [facility] [id number]) Out-Patient Physical Therapy Visit Information Visit Information Visit Type Treatment Note Visit Note 10/08 Visit Start Time 16:05 Visit Stop Time 16:46 Total Visit Minutes 41 Visit Number 8 Number of FISH FARM LABORER Visits 0 PT-OP-B Current Condition Start: 02/04/22 18:00 Freq: Status: Active Protocol: Document 02/09/22 11:20 [facility] (Rec: 02/09/22 15:02 [facility] [id number]) Current Condition History of Current Condition Onset Date Jan Current Complaints weakness in entire body, falls History of Current Condition Pt is frustrated because she used to be able to go to high intensity classes and walk 3-5 miles a day but stopped in Mar d/t falls. She has seen 2 neurologists, 1 neurosurgeon and feels like she is really progressively worse. She is really hating not being able to walk daily. She is having trouble getting socks on. Her dexterity is limited also. No one has been able to say what they think it is. Pt has been using a 4WW since Nov and in June started using a cane. she started using devices d/t falls. She is planning to see another neurologist in [place]. She has started going to [email or web address] class but stopped d/t her balance being too bad. She has all the [employer] equipment including a reformer. Her also recently has dx of cancer. Pt reports she got her first booster in Dec and she wonders if this is what started this. In Jan, she had some falls when she was working on her [employer] and [employer]. Had Meniscus surgery in August and did PT for a short time and was DC quickly d/t how well she was doing. Dr. Jain sent her to the neurosurgeon for potential back surgery based on EMG, but neurosurgeon didn't think that was the issue. She has mild back pain in the AM that has only been recently d/t being less mobile. The neurosurgeon at first thought she needed another MRI of brain and had it scheduled, but then when he talked to the neurologist, the plan is now for her to see a different neurologist. Pt seeing a telehealth ND/MD who gave her folic acid steffanie something else but she doesn't feel like it helps. Pt reports R foot flops down sometime. Since getting 4WW , she has fallen 3 times ( oct). Prior to the walker, she was falling every few days and had some days wehre she fell more than once. All falls have resulted only in cuts and bruises Prior Treatments and Tests Lumbar MRI: IMPRESSION: 1. Multilevel lumbar spondylosis, causing foraminal stenosis as detailed above. 2. Severe central canal stenosis at L3-4 and L4-5. 3. No abnormal cord signal. 4. Remote compression fractures of T11 and T12. Cervical MRI:IMPRESSION: 1. Multilevel degenerative disc and facet disease, as well as uncovertebral hypertrophy. 2. Multilevel canal stenoses, worst at C5-C6 where there is minimal cord flattening. 3. Multilevel foraminal stenoses, worst at C5-C6 and C6-C7 where there is associated intraforaminal nerve root compression. Recommend correlation with clinical symptoms to ascertain relevance of these findings. IMPRESSION: BRAIN MRI: 1. No acute intracranial disease process. 2. No areas of acute or chronic infarction. 3. Tjqn-fz-szytgkvv diffuse cerebral volume loss. 4. Mild periventricular and subcortical white matter chronic microvascular ischemic change. BRAIN MR ANGIOGRAM: Normal MR angiogram of the head. NECK MR ANGIOGRAM: 1. Less than 50% stenosis of the origin of the left internal carotid artery. 2. Right internal carotid artery is fully patent. 3. Vertebral arteries are fully patent. ADDENDUM: This case was reviewed at the request of Dr. Gonzalez and discussed by telephone at 11: 04 a.m. [place] time on October 14, 2021. This patient is brain parenchymal volume loss and chronic small vessel ischemic change. There is prominence of the ventricles and sulci, with the lateral ventricles larger than would be expected, given the degree of sulcal atrophy. Please consider normal pressure hydrocephalus. IMPRESSION: 1. Chronic mild wedging of the T9 vertebral body unchanged from prior examination which may be physiologic. 2. Multilevel disc degeneration. disc degeneration. Treatment Goals Patient/Caregiver Goals be able to get back to working outa nd walking PT-OP-C Subjective Start: 02/04/22 18:00 Freq: Status: Active Protocol: Document 03/12/22 16:11 [facility] (Rec: 03/12/22 16:58 [facility] [id number]) OP-PT Subjective Patient Comments Patient Comments pt reports she looks froward to seeing [facility] neurologist on Wed to get more info. She cooked dinner last nigth and did the dishes. She is tired this afternoon PT-OP-D Balance Start: 02/04/22 18:00 Freq: Status: Active Protocol: Document 02/13/22 09:52 SP (Rec: 02/13/22 10:37 SP [id number]) Kimble Balance Assessment Evaluation Sitting to Standing Ability Minimal Assist Unsupported Stance 30 seconds Sitting Unsupported, Feet on Floor Safely- 2 minutes Standing to Sitting Ability Independent, Uncontrolled Transfer Ability Safely, Hand Use Unsupported Stance- Eyes Closed Falls Without Assistance Unsupported Stance- Eyes Open Independent, 1 minute Reaching Forward Standing Safely, 5 inches Pick- Up Object From Floor Within 2 inches, Unable Look Behind Shoulder - Standing Supervision w/Turning Turning 360 Degrees Requires Assistance Unsupported Stance, Alternating Feet on Assist to Prevent Fall Stair Unsupported Tandem Stance Balance Lost- Step/Stand Unilateral Leg Stance Unable,assist to not fall Total Score Kimble Total Score (out of 56 points) 21 Kimble Impairment Rating 60 to 79% Impaired (Score 12- 22) PT-OP-E Functional Tests Start: 02/04/22 18:00 Freq: Status: Active Protocol: Document 02/16/22 11:21 [facility] (Rec: 02/16/22 13:43 [facility] [id number]) Functional Tests 6 Minute Walk Test Distance 190ft Device Used fww PT-OP-F Manual Assessment Start: 02/04/22 18:00 Freq: Status: Active Protocol: Document 02/09/22 11:20 [facility] (Rec: 02/09/22 15:02 [facility] [id number]) Manual Assessments Soft Tissue Assessment Soft Tissue Mobility Assessment tight calves w/limited passive DF PT-OP-G Mobility & Gait Start: 02/04/22 18:00 Freq: Status: Active Protocol: Document 02/09/22 11:20 [facility] (Rec: 02/09/22 15:02 [facility] [id number]) OP Mobility Evaluation Bed Mobility Rolling can roll B indep w/lower body following upper body Supine to and from Sit required min A for both supine <>sit Transfers Sit to Stand heavy use of UEs -pt reports sometimes needs to help OP Gait Assessment Comments Gait Comments Dec foot clearance B with heavy use of 4WW and dec DF R> L and dec hip flex PT-OP-M Strength Start: 02/04/22 18:00 Freq: Status: Active Protocol: Document 02/16/22 09:52 [facility] (Rec: 02/16/22 13:45 [facility] [id number]) Hand Rn Neurosurgical/Pinch Strength Hand Dominance Hand Dominance Right Hand Strength Right Comments 15 kg, 14 kg, 12 kg Left Comments 4kg x3 reps PT-OP-Q Treatments Start: 02/04/22 18:00 Freq: Status: Active Protocol: Document 03/12/22 16:11 [facility] (Rec: 03/12/22 16:58 [facility] [id number]) Cardio Equipment Recumbent Elliptical ([employer]) Duration (Minutes) 6 Resistance 7 Seat Position 7 Therapeutic Exercises Standing Exercises step ups Side bilateral Equipment Used 5 in step Reps/Minutes 10 Comments B rail Gait Training Gait Activity FWW Device Used FWW Distance/Duration 100ft x4 Comments amb w/FWW Neuro Re-Education Treatment Balance Activities hurdles Details on their sides (6) Reps/Duration 2 reps Comments fwd walk over SLS Comments alt tap to blue foam w/SENIOR NET C DEVELOPER x12 B tilt board Details fwd & side Comments balancing & wt shifts ea EC Comments WBOS & NBOS trials foam Comments WBOS w/head turns NBOS w/head turns staggered stance B PT-OP-T Assessment and Plan Start: 02/04/22 18:00 Freq: Status: Active Protocol: Document 03/12/22 16:11 [facility] (Rec: 03/12/22 16:58 [facility] [id number]) Physical Therapy Assessment Goals functional activities Short Term Goal (STG) Pt will be able to do bed mobility indep consistantly 03/09/22: pt reports helps her at times comes to sitting, during tx instructed log roll able to perform with cues continued BUE support. STG Duration 04/06/22 progressing 03/09/22 Correction Goal (LTG) Pt will be able to do sit to stand Indep and safely 02/27/22; cues for proper hand placement and hip hinge slow controlled descent, scoot forward feet under push from seated and downward pressure on FWW. 03/09/22: pt stated needs use BUE support and at times has to help her. LTG Duration 05/04/22 progressing : 03/09/22 strength Short Term Goal (STG) Pt will be indep w/HEP 02/27/22: added theraputty, wall plank, reviewed seated resisted hip abd, HC, STS, mini squat 03/09/22: reviewed TA bridge ( added 1/2 foam roll under forefoot), SLR STG Duration 03/29/22 progressing 02/27/22 Correction Goal (LTG) Pt will score at least 4/5 on MMT to show improved LE strength improvign pt ability to do ADLs LTG Duration 05/04 gait Correction Goal (LTG) Pt will be able to walk safely with SPC at home and in community. 02/27/22: pt uses moderate UE WB on FWW during gait, cues for DF and controlled purposeful LE advancement. LTG Duration 05/04/22 slow progression balance Short Term Goal (STG) Pt will be able to score at least 36 on KIMBLE to show safe ambulation w/AD w/dec risk for falls. 02/13/22: KIMBLE 21/56. STG Duration 04/01/22 Correction Goal (LTG) Pt will be able to score at least 46 on KIMBLE to show safe ambulation w/dec risk for falls. LTG Duration 05/04/22 Assessment Summary Assessment Pt did well with exercises is showing improvement w/blaance overall but did fatigue more at the end today likely d/t being already tired upon entering. Physical Therapy Plan Next Visit Focus/Plan Next Note Type Treatment Note Next Visit Plan Recheck bridge w/ DF support. Recheck sup<> sitting. Trial shuttle recovery, POC: cont to advance standing balance and gait & strength
--- NOTE | 2022-03-16 09:45 | PT.OTN ---
Current Diagnoses Muscle weakness (generalized) (03/16/22) Difficulty in walking, not elsewhere classified (03/16/22) Physical Therapy Treatment Note PT-OP-A Visit Information Start: 02/04/22 18:00 Freq: Status: Active Protocol: Document 03/16/22 09:05 SP (Rec: 03/16/22 09:49 SP [id number]) Out-Patient Physical Therapy Visit Information Visit Information Visit Type Treatment Note Visit Note 11/08 PN next visit Visit Start Time 09:05 Visit Stop Time 09:45 Total Visit Minutes 40 Visit Number 9 Number of FUR FINISHER Visits 1 PT-OP-B Current Condition Start: 02/04/22 18:00 Freq: Status: Active Protocol: Document 02/09/22 11:20 [facility] (Rec: 02/09/22 15:02 [facility] [id number]) Current Condition History of Current Condition Onset Date Jan Current Complaints weakness in entire body, falls History of Current Condition Pt is frustrated because she used to be able to go to high intensity classes and walk 3-5 miles a day but stopped in Mar d/t falls. She has seen 2 neurologists, 1 neurosurgeon and feels like she is really progressively worse. She is really hating not being able to walk daily. She is having trouble getting socks on. Her dexterity is limited also. No one has been able to say what they think it is. Pt has been using a 4WW since Nov and in June started using a cane. she started using devices d/t falls. She is planning to see another neurologist in [place]. She has started going to [employer] class but stopped d/t her balance being too bad. She has all the pilates equipment including a reformer. Her also recently has dx of cancer. Pt reports she got her first booster in Dec and she wonders if this is what started this. In Jan, she had some falls when she was working on her [employer] and [employer]. Had Meniscus surgery in August and did PT for a short time and was DC quickly d/t how well she was doing. Dr. Jain sent her to the neurosurgeon for potential back surgery based on EMG, but neurosurgeon didn't think that was the issue. She has mild back pain in the AM that has only been recently d/t being less mobile. The neurosurgeon at first thought she needed another MRI of brain and had it scheduled, but then when he talked to the neurologist, the plan is now for her to see a different neurologist. Pt seeing a telehealth ND/MD who gave her folic acid steffanie something else but she doesn't feel like it helps. Pt reports R foot flops down sometime. Since getting 4WW , she has fallen 3 times ( oct). Prior to the walker, she was falling every few days and had some days wehre she fell more than once. All falls have resulted only in cuts and bruises Prior Treatments and Tests Lumbar MRI: IMPRESSION: 1. Multilevel lumbar spondylosis, causing foraminal stenosis as detailed above. 2. Severe central canal stenosis at L3-4 and L4-5. 3. No abnormal cord signal. 4. Remote compression fractures of T11 and T12. Cervical MRI:IMPRESSION: 1. Multilevel degenerative disc and facet disease, as well as uncovertebral hypertrophy. 2. Multilevel canal stenoses, worst at C5-C6 where there is minimal cord flattening. 3. Multilevel foraminal stenoses, worst at C5-C6 and C6-C7 where there is associated intraforaminal nerve root compression. Recommend correlation with clinical symptoms to ascertain relevance of these findings. IMPRESSION: BRAIN MRI: 1. No acute intracranial disease process. 2. No areas of acute or chronic infarction. 3. Ixzx-dq-glwwuull diffuse cerebral volume loss. 4. Mild periventricular and subcortical white matter chronic microvascular ischemic change. BRAIN MR ANGIOGRAM: Normal MR angiogram of the head. NECK MR ANGIOGRAM: 1. Less than 50% stenosis of the origin of the left internal carotid artery. 2. Right internal carotid artery is fully patent. 3. Vertebral arteries are fully patent. ADDENDUM: This case was reviewed at the request of Dr. Gonzalez and discussed by telephone at 11: 04 a.m. [place] time on October 14, 2021. This patient is brain parenchymal volume loss and chronic small vessel ischemic change. There is prominence of the ventricles and sulci, with the lateral ventricles larger than would be expected, given the degree of sulcal atrophy. Please consider normal pressure hydrocephalus. IMPRESSION: 1. Chronic mild wedging of the T9 vertebral body unchanged from prior examination which may be physiologic. 2. Multilevel disc degeneration. disc degeneration. Treatment Goals Patient/Caregiver Goals be able to get back to working outa nd walking PT-OP-C Subjective Start: 02/04/22 18:00 Freq: Status: Active Protocol: Document 03/16/22 09:05 SP (Rec: 03/16/22 09:49 SP [id number]) OP-PT Subjective Patient Comments Patient Comments Pt reports does take her a couple tries to get out of chair. She states ordered the chair lift, hoping will get by end of Mar. She has her neurologist appt this Wed. She performing SKTC helps with decrease tension before getting out of bed. PT-OP-D Balance Start: 02/04/22 18:00 Freq: Status: Active Protocol: Document 02/13/22 09:52 SP (Rec: 02/13/22 10:37 SP [id number]) Kimble Balance Assessment Evaluation Sitting to Standing Ability Minimal Assist Unsupported Stance 30 seconds Sitting Unsupported, Feet on Floor Safely- 2 minutes Standing to Sitting Ability Independent, Uncontrolled Transfer Ability Safely, Hand Use Unsupported Stance- Eyes Closed Falls Without Assistance Unsupported Stance- Eyes Open Independent, 1 minute Reaching Forward Standing Safely, 5 inches Pick- Up Object From Floor Within 2 inches, Unable Look Behind Shoulder - Standing Supervision w/Turning Turning 360 Degrees Requires Assistance Unsupported Stance, Alternating Feet on Assist to Prevent Fall Stair Unsupported Tandem Stance Balance Lost- Step/Stand Unilateral Leg Stance Unable,assist to not fall Total Score Kimble Total Score (out of 56 points) 21 Kimble Impairment Rating 60 to 79% Impaired (Score 12- 22) PT-OP-E Functional Tests Start: 02/04/22 18:00 Freq: Status: Active Protocol: Document 02/16/22 11:21 [facility] (Rec: 02/16/22 13:43 [facility] [id number]) Functional Tests 6 Minute Walk Test Distance 190ft Device Used fww PT-OP-F Manual Assessment Start: 02/04/22 18:00 Freq: Status: Active Protocol: Document 02/09/22 11:20 [facility] (Rec: 02/09/22 15:02 [facility] [id number]) Manual Assessments Soft Tissue Assessment Soft Tissue Mobility Assessment tight calves w/limited passive DF PT-OP-G Mobility & Gait Start: 02/04/22 18:00 Freq: Status: Active Protocol: Document 02/09/22 11:20 [facility] (Rec: 02/09/22 15:02 [facility] [id number]) OP Mobility Evaluation Bed Mobility Rolling can roll B indep w/lower body following upper body Supine to and from Sit required min A for both supine <>sit Transfers Sit to Stand heavy use of UEs -pt reports sometimes needs to help OP Gait Assessment Comments Gait Comments Dec foot clearance B with heavy use of 4WW and dec DF R> L and dec hip flex PT-OP-M Strength Start: 02/04/22 18:00 Freq: Status: Active Protocol: Document 02/16/22 09:52 [facility] (Rec: 02/16/22 13:45 [facility] [id number]) Hand Shredding Floor Equipment Operator/Pinch Strength Hand Dominance Hand Dominance Right Hand Strength Right Comments 15 kg, 14 kg, 12 kg Left Comments 4kg x3 reps PT-OP-Q Treatments Start: 02/04/22 18:00 Freq: Status: Active Protocol: Document 03/16/22 09:05 SP (Rec: 03/16/22 09:49 SP [id number]) Cardio Equipment Recumbent Elliptical ([employer]) Duration (Minutes) 6 Resistance 7 Seat Position 7 Other UEs/ LEs, cued 30 RPM goal, maintains 25RPM Therapeutic Exercises Standing Exercises step ups Side bilateral Resistance close SBA Equipment Used 6 step, bottom stairs Reps/Minutes 10 Comments B rail Mod/ Max UE support, cued hip extension to clear ft step back down april Standing Exercise Name 1 rail Side bilateral Reps/Minutes 10 backwards walk Standing Exercise Name Fwd april/Bwd/ lateral side walking Side bilateral Equipment Used //bars BUE Reps/Minutes 10ft Gait Training Gait Activity 4WW Description assess pacing/foot clearance safety Device Used 4WW Level of Assistance S Surface carpet/tile Distance/Duration 100ft Treatment Focus food beverage manager brake mgt, pacing, foot clearance/stride Comments cued DF foot clearance, good brake mgt FWW Device Used FWW Distance/Duration 100ft x2 Comments amb w/FWW Neuro Re-Education Treatment Balance Activities hurdles Details Hurdles normal position, next tx continue positioned on side Equipment //bars Reps/Duration 2/4 hurdles foot clearance, R> L more challenged end tx, Comments fwd walk over, assist x2 RLE clearance Self-Care/Home Management Treatment Education Patient Education Body Mechanics,Joint Protection,Posture,Safety Other Education Provided HO regarding [place] sock for DF passive ROM during sleeping for ROM am support coming to standing. Also suggested DF support will provide image like [place] ankle brace/strap for safety foot clearance for gait success. Printed image after tx will provide to pt next tx. Scanned in. PT-OP-T Assessment and Plan Start: 02/04/22 18:00 Freq: Status: Active Protocol: Document 03/16/22 09:05 SP (Rec: 03/16/22 09:49 SP [id number]) Physical Therapy Assessment Goals functional activities Short Term Goal (STG) Pt will be able to do bed mobility indep consistantly 03/09/22: pt reports helps her at times comes to sitting, during tx instructed log roll able to perform with cues continued BUE support. STG Duration 04/06/22 progressing 03/09/22 Group Home Goal (LTG) Pt will be able to do sit to stand Indep and safely 02/27/22; cues for proper hand placement and hip hinge slow controlled descent, scoot forward feet under push from seated and downward pressure on FWW. 03/09/22: pt stated needs use BUE support and at times has to help her. LTG Duration 05/04/22 progressing : 03/09/22 strength Short Term Goal (STG) Pt will be indep w/HEP 02/27/22: added theraputty, wall plank, reviewed seated resisted hip abd, HC, STS, mini squat 03/09/22: reviewed TA bridge ( added 1/2 foam roll under forefoot), SLR STG Duration 03/29/22 progressing 02/27/22 Calender Roll Press Operator Goal (LTG) Pt will score at least 4/5 on MMT to show improved LE strength improvign pt ability to do ADLs LTG Duration 05/04 gait Calender Roll Press Operator Goal (LTG) Pt will be able to walk safely with SPC at home and in community. 02/27/22: pt uses moderate UE WB on FWW during gait, cues for DF and controlled purposeful LE advancement. LTG Duration 05/04/22 slow progression balance Short Term Goal (STG) Pt will be able to score at least 36 on KIMBLE to show safe ambulation w/AD w/dec risk for falls. 02/13/22: KIMBLE 21/56. STG Duration 04/01/22 Group Home Goal (LTG) Pt will be able to score at least 46 on KIMBLE to show safe ambulation w/dec risk for falls. LTG Duration 05/04/22 Assessment Summary Assessment Pt improved hip/knee flexion and DF foot clearance during gait post step ups compared to when arrived. Reviewed could use DF support, suggested strap/ankle brace. Pt good safety use of 4WW demonstrated during tx for in home use. She reports to quick for outdoor use so uses FWW. Pt reports chair lift to get to sewing room hopefully being installed end Mar. Physical Therapy Plan Frequency and Duration Frequency of Treatment 2x/Week Duration of treatment (weeks) 12 Plan of Care Start Date 02/09/22 Plan of Care End Date 05/04/22 Therapeutic Interventions Therapeutic Interventions Aquatic Therapy,Balance Training,Coordination Training ,Gait Training,Home Exercise Program,Joint Mobilizations, Manual Therapy,Neuromuscular Re-education,Orthotic/ Prosthetic Management,Patient/ Caregiver Education,Self-Care/ Home Management,Soft Tissue Mobilization,Taping, Therapeutic Activities, Therapeutic Exercises Modalities Electric Stimulation Next Visit Focus/Plan Next Note Type Treatment Note Next Visit Plan Recheck bridge w/ DF support. Recheck sup<> sitting. Trial shuttle recovery next tx . Provided [place] ankle brace image if interested. POC: cont to advance standing balance and gait & strength
--- NOTE | 2022-03-31 08:22 | PT-OP ANOTE ---
Pt cancelled <24hrs due to feels unsafe to go out in snow.
--- NOTE | 2022-04-03 10:33 | PT.OTN ---
Current Diagnoses Muscle weakness (generalized) (04/03/22) Difficulty in walking, not elsewhere classified (04/03/22) Physical Therapy Treatment Note PT-OP-A Visit Information Start: 02/04/22 18:00 Freq: Status: Active Protocol: Document 04/03/22 09:55 SP (Rec: 04/03/22 10:34 SP [id number]) Out-Patient Physical Therapy Visit Information Visit Information Visit Type Treatment Note Visit Note 12/08 PN next visit Visit Start Time 09:55 Visit Stop Time 10:33 Total Visit Minutes 38 Visit Number 10 Number of OFFICE ADMINISTRATOR Visits 2 PT-OP-B Current Condition Start: 02/04/22 18:00 Freq: Status: Active Protocol: Document 02/09/22 11:20 LR (Rec: 02/09/22 15:02 [facility] [id number]) Current Condition History of Current Condition Onset Date Jan Current Complaints weakness in entire body, falls History of Current Condition Pt is frustrated because she used to be able to go to high intensity classes and walk 3-5 miles a day but stopped in Mar d/t falls. She has seen 2 neurologists, 1 neurosurgeon and feels like she is really progressively worse. She is really hating not being able to walk daily. She is having trouble getting socks on. Her dexterity is limited also. No one has been able to say what they think it is. Pt has been using a 4WW since Nov and in June started using a cane. she started using devices d/t falls. She is planning to see another neurologist in [place]. She has started going to [employer] class but stopped d/t her balance being too bad. She has all the pilates equipment including a reformer. Her also recently has dx of cancer. Pt reports she got her first booster in Dec and she wonders if this is what started this. In Jan, she had some falls when she was working on her [employer] and [employer] Had Meniscus surgery in August and did PT for a short time and was DC quickly d/t how well she was doing. Dr. Jain sent her to the neurosurgeon for potential back surgery based on EMG, but neurosurgeon didn't think that was the issue. She has mild back pain in the AM that has only been recently d/t being less mobile. The neurosurgeon at first thought she needed another MRI of brain and had it scheduled, but then when he talked to the neurologist, the plan is now for her to see a different neurologist. Pt seeing a telehealth ND/MD who gave her folic acid steffanie something else but she doesn't feel like it helps. Pt reports R foot flops down sometime. Since getting 4WW , she has fallen 3 times ( oct). Prior to the walker, she was falling every few days and had some days wehre she fell more than once. All falls have resulted only in cuts and bruises Prior Treatments and Tests Lumbar MRI: IMPRESSION: 1. Multilevel lumbar spondylosis, causing foraminal stenosis as detailed above. 2. Severe central canal stenosis at L3-4 and L4-5. 3. No abnormal cord signal. 4. Remote compression fractures of T11 and T12. Cervical MRI:IMPRESSION: 1. Multilevel degenerative disc and facet disease, as well as uncovertebral hypertrophy. 2. Multilevel canal stenoses, worst at C5-C6 where there is minimal cord flattening. 3. Multilevel foraminal stenoses, worst at C5-C6 and C6-C7 where there is associated intraforaminal nerve root compression. Recommend correlation with clinical symptoms to ascertain relevance of these findings. IMPRESSION: BRAIN MRI: 1. No acute intracranial disease process. 2. No areas of acute or chronic infarction. 3. Djns-gy-bncuffnf diffuse cerebral volume loss. 4. Mild periventricular and subcortical white matter chronic microvascular ischemic change. BRAIN MR ANGIOGRAM: Normal MR angiogram of the head. NECK MR ANGIOGRAM: 1. Less than 50% stenosis of the origin of the left internal carotid artery. 2. Right internal carotid artery is fully patent. 3. Vertebral arteries are fully patent. ADDENDUM: This case was reviewed at the request of Dr. Gonzalez and discussed by telephone at 11: 04 a.m. [place] time on October 14, 2021. This patient is brain parenchymal volume loss and chronic small vessel ischemic change. There is prominence of the ventricles and sulci, with the lateral ventricles larger than would be expected, given the degree of sulcal atrophy. Please consider normal pressure hydrocephalus. IMPRESSION: 1. Chronic mild wedging of the T9 vertebral body unchanged from prior examination which may be physiologic. 2. Multilevel disc degeneration. disc degeneration. Treatment Goals Patient/Caregiver Goals be able to get back to working outa nd walking PT-OP-C Subjective Start: 02/04/22 18:00 Freq: Status: Active Protocol: Document 04/03/22 09:55 SP (Rec: 04/03/22 10:34 SP [id number]) OP-PT Subjective Patient Comments Patient Comments Pt reports able to get around better since IV treatments. She was able to get out of bed self and get to self activities without , chair lift downstairs installed and doing well using . Purchased a lift chair recliner but knows only use can get in/out of with good effort still. Feels more confidence, some life back. Her still SB for showers for safety. PT-OP-D Balance Start: 02/04/22 18:00 Freq: Status: Active Protocol: Document 02/13/22 09:52 SP (Rec: 02/13/22 10:37 SP [id number]) Kimble Balance Assessment Evaluation Sitting to Standing Ability Minimal Assist Unsupported Stance 30 seconds Sitting Unsupported, Feet on Floor Safely- 2 minutes Standing to Sitting Ability Independent, Uncontrolled Transfer Ability Safely, Hand Use Unsupported Stance- Eyes Closed Falls Without Assistance Unsupported Stance- Eyes Open Independent, 1 minute Reaching Forward Standing Safely, 5 inches Pick- Up Object From Floor Within 2 inches, Unable Look Behind Shoulder - Standing Supervision w/Turning Turning 360 Degrees Requires Assistance Unsupported Stance, Alternating Feet on Assist to Prevent Fall Stair Unsupported Tandem Stance Balance Lost- Step/Stand Unilateral Leg Stance Unable,assist to not fall Total Score Kimble Total Score (out of 56 points) 21 Kimble Impairment Rating 60 to 79% Impaired (Score 12- 22) PT-OP-E Functional Tests Start: 02/04/22 18:00 Freq: Status: Active Protocol: Document 02/16/22 11:21 [facility] (Rec: 02/16/22 13:43 [facility] [id number]) Functional Tests 6 Minute Walk Test Distance 190ft Device Used fww PT-OP-F Manual Assessment Start: 02/04/22 18:00 Freq: Status: Active Protocol: Document 02/09/22 11:20 [facility] (Rec: 02/09/22 15:02 [facility] [id number]) Manual Assessments Soft Tissue Assessment Soft Tissue Mobility Assessment tight calves w/limited passive DF PT-OP-G Mobility & Gait Start: 02/04/22 18:00 Freq: Status: Active Protocol: Document 02/09/22 11:20 [facility] (Rec: 02/09/22 15:02 [facility] [id number]) OP Mobility Evaluation Bed Mobility Rolling can roll B indep w/lower body following upper body Supine to and from Sit required min A for both supine <>sit Transfers Sit to Stand heavy use of UEs -pt reports sometimes needs to help OP Gait Assessment Comments Gait Comments Dec foot clearance B with heavy use of 4WW and dec DF R> L and dec hip flex PT-OP-M Strength Start: 02/04/22 18:00 Freq: Status: Active Protocol: Document 02/16/22 09:52 [facility] (Rec: 02/16/22 13:45 [facility] [id number]) Hand Acoustical Carpenter/Pinch Strength Hand Dominance Hand Dominance Right Hand Strength Right Comments 15 kg, 14 kg, 12 kg Left Comments 4kg x3 reps PT-OP-Q Treatments Start: 02/04/22 18:00 Freq: Status: Active Protocol: Document 04/03/22 09:55 SP (Rec: 04/03/22 10:34 SP [id number]) Gym Equipment Shuttle Recovery Unilateral Squats Details cued // knees asc/desc Resistance 25> 37# (new band) Reps/Time 2x10 Bilateral Squats Details cued //knees Resistance 50>75# (3 old bands) Reps/Time x20 Therapeutic Exercises Sitting Exercises knee ext Side bilateral Equipment Used L1 at ankles Reps/Minutes 3SH x2 reps Comments cued no neck/ upper body recruitment sit<> stand Sitting Exercise Name reviewed self HEP Equipment Used mesh chair, BUE support Reps/Minutes x5 reps Comments SBA, cues slow descent BUE. Neuro Re-Education Treatment Balance Activities hurdles Details positioned on side:lateral Equipment rail Reps/Duration 6 hurdles Comments cued // feet, DF/ hip/ knee flexion clearance, space between BLEs PT-OP-T Assessment and Plan Start: 02/04/22 18:00 Freq: Status: Active Protocol: Document 04/03/22 09:55 SP (Rec: 04/03/22 10:34 SP [id number]) Physical Therapy Assessment Goals functional activities Short Term Goal (STG) Pt will be able to do bed mobility indep consistantly 03/09/22: pt reports helps her at times comes to sitting, during tx instructed log roll able to perform with cues continued BUE support. 04/03/22: able to get out of bed self but still need getting leg in bed and can roll over B . STG Duration 04/06/22 Progressing 04/03/22 Steward/Stewardess Room Goal (LTG) Pt will be able to do sit to stand Indep and safely 02/27/22; cues for proper hand placement and hip hinge slow controlled descent, scoot forward feet under push from seated and downward pressure on FWW. 03/09/22: pt stated needs use BUE support and at times has to help her. 04/03/22: progressing: cues needed for consistant BUE support slow descent. LTG Duration 05/04/22 progressing : 04/03/22 strength Short Term Goal (STG) Pt will be indep w/HEP 02/27/22: added theraputty, wall plank, reviewed seated resisted hip abd, HC, STS, mini squat 03/09/22: reviewed TA bridge ( added 1/2 foam roll under forefoot), SLR STG Duration 03/29/22 progressing 02/27/22 Usp Goal (LTG) Pt will score at least 4/5 on MMT to show improved LE strength improvign pt ability to do ADLs LTG Duration 05/04 gait Steward/Stewardess Room Goal (LTG) Pt will be able to walk safely with SPC at home and in community. 02/27/22: pt uses moderate UE WB on FWW during gait, cues for DF and controlled purposeful LE advancement. 04/03/22: progressing decrease BUE WB on FWW today, still decrease DF more effort hip/ knee flexion to advance LEs. LTG Duration 05/04/22 slow progression 04/03/22 balance Short Term Goal (STG) Pt will be able to score at least 36 on KIMBLE to show safe ambulation w/AD w/dec risk for falls. 02/13/22: KIMBLE 21/56. STG Duration 04/01/22 Steward/Stewardess Room Goal (LTG) Pt will be able to score at least 46 on KIMBLE to show safe ambulation w/dec risk for falls. LTG Duration 05/04/22 Assessment Summary Assessment Pt responded well to ther ex, improvements in upright posturing, foot clearance and eccentric LE advancement with less LB hip hiking this tx. Provided HO for ankle DF strap support if feel needs. Seems more endurance today. Physical Therapy Plan Frequency and Duration Frequency of Treatment 2x/Week Duration of treatment (weeks) 12 Plan of Care Start Date 02/09/22 Plan of Care End Date 05/04/22 Therapeutic Interventions Therapeutic Interventions Aquatic Therapy,Balance Training,Coordination Training ,Gait Training,Home Exercise Program,Joint Mobilizations, Manual Therapy,Neuromuscular Re-education,Orthotic/ Prosthetic Management,Patient/ Caregiver Education,Self-Care/ Home Management,Soft Tissue Mobilization,Taping, Therapeutic Activities, Therapeutic Exercises Modalities Electric Stimulation Next Visit Focus/Plan Next Note Type Progress Note Next Visit Plan Recheck bridge w/ DF support. Recheck sup<> sitting. Trial shuttle recovery next tx . Provided Ossure ankle brace image if interested. POC: cont to advance standing balance and gait & strength
--- NOTE | 2022-04-07 11:47 | PT.OTN ---
Current Diagnoses Muscle weakness (generalized) (04/07/22) Difficulty in walking, not elsewhere classified (04/07/22) Physical Therapy Treatment Note PT-OP-A Visit Information Start: 02/04/22 18:00 Freq: Status: Active Protocol: Document 04/07/22 09:05 [facility] (Rec: 04/07/22 11:47 [facility] [id number]) Out-Patient Physical Therapy Visit Information Visit Information Visit Type Progress Note Visit Note 03/10 Visit Start Time 09:06 Visit Stop Time 09:50 Total Visit Minutes 44 Visit Number 11 Number of PILOT PLANT SUPERVISOR Visits 0 PT-OP-B Current Condition Start: 02/04/22 18:00 Freq: Status: Active Protocol: Document 02/09/22 11:20 [facility] (Rec: 02/09/22 15:02 [facility] [id number]) Current Condition History of Current Condition Onset Date Jan Current Complaints weakness in entire body, falls History of Current Condition Pt is frustrated because she used to be able to go to high intensity classes and walk 3-5 miles a day but stopped in Mar d/t falls. She has seen 2 neurologists, 1 neurosurgeon and feels like she is really progressively worse. She is really hating not being able to walk daily. She is having trouble getting socks on. Her dexterity is limited also. No one has been able to say what they think it is. Pt has been using a 4WW since Nov and in June started using a cane. she started using devices d/t falls. She is planning to see another neurologist in [place]. She has started going to [employer] class but stopped d/t her balance being too bad. She has all the [employer] equipment including a reformer. Her also recently has dx of cancer. Pt reports she got her first booster in Dec and she wonders if this is what started this. In Jan, she had some falls when she was working on her [employer]. Had Meniscus surgery in August and did PT for a short time and was DC quickly d/t how well she was doing. Dr. Jain sent her to the neurosurgeon for potential back surgery based on EMG, but neurosurgeon didn't think that was the issue. She has mild back pain in the AM that has only been recently d/t being less mobile. The neurosurgeon at first thought she needed another MRI of brain and had it scheduled, but then when he talked to the neurologist, the plan is now for her to see a different neurologist. Pt seeing a telehealth ND/MD who gave her folic acid steffanie something else but she doesn't feel like it helps. Pt reports R foot flops down sometime. Since getting 4WW , she has fallen 3 times ( oct). Prior to the walker, she was falling every few days and had some days wehre she fell more than once. All falls have resulted only in cuts and bruises Prior Treatments and Tests Lumbar MRI: IMPRESSION: 1. Multilevel lumbar spondylosis, causing foraminal stenosis as detailed above. 2. Severe central canal stenosis at L3-4 and L4-5. 3. No abnormal cord signal. 4. Remote compression fractures of T11 and T12. Cervical MRI:IMPRESSION: 1. Multilevel degenerative disc and facet disease, as well as uncovertebral hypertrophy. 2. Multilevel canal stenoses, worst at C5-C6 where there is minimal cord flattening. 3. Multilevel foraminal stenoses, worst at C5-C6 and C6-C7 where there is associated intraforaminal nerve root compression. Recommend correlation with clinical symptoms to ascertain relevance of these findings. IMPRESSION: BRAIN MRI: 1. No acute intracranial disease process. 2. No areas of acute or chronic infarction. 3. Elap-ne-gdisxlew diffuse cerebral volume loss. 4. Mild periventricular and subcortical white matter chronic microvascular ischemic change. BRAIN MR ANGIOGRAM: Normal MR angiogram of the head. NECK MR ANGIOGRAM: 1. Less than 50% stenosis of the origin of the left internal carotid artery. 2. Right internal carotid artery is fully patent. 3. Vertebral arteries are fully patent. ADDENDUM: This case was reviewed at the request of Dr. Gonzalez and discussed by telephone at 11: 04 a.m. [place] time on October 14, 2021. This patient is brain parenchymal volume loss and chronic small vessel ischemic change. There is prominence of the ventricles and sulci, with the lateral ventricles larger than would be expected, given the degree of sulcal atrophy. Please consider normal pressure hydrocephalus. IMPRESSION: 1. Chronic mild wedging of the T9 vertebral body unchanged from prior examination which may be physiologic. 2. Multilevel disc degeneration. disc degeneration. Treatment Goals Patient/Caregiver Goals be able to get back to working outa nd walking PT-OP-C Subjective Start: 02/04/22 18:00 Freq: Status: Active Protocol: Document 04/07/22 09:05 [facility] (Rec: 04/07/22 11:47 [facility] [id number]) OP-PT Subjective Patient Comments Patient Comments Pt reports cont to feel better w/IV treatments Patient Reported Progress Improving PT-OP-D Balance Start: 02/04/22 18:00 Freq: Status: Active Protocol: Document 04/07/22 09:05 [facility] (Rec: 04/07/22 11:47 [facility] [id number]) Balance Tests Kimble Balance Test Kimble Balance Test Score 28 PT-OP-E Functional Tests Start: 02/04/22 18:00 Freq: Status: Active Protocol: Document 02/16/22 11:21 [facility] (Rec: 02/16/22 13:43 [facility] [id number]) Functional Tests 6 Minute Walk Test Distance 190ft Device Used fww PT-OP-F Manual Assessment Start: 02/04/22 18:00 Freq: Status: Active Protocol: Document 02/09/22 11:20 [facility] (Rec: 02/09/22 15:02 [facility] [id number]) Manual Assessments Soft Tissue Assessment Soft Tissue Mobility Assessment tight calves w/limited passive DF PT-OP-G Mobility & Gait Start: 02/04/22 18:00 Freq: Status: Active Protocol: Document 02/09/22 11:20 [facility] (Rec: 02/09/22 15:02 [facility] [id number]) OP Mobility Evaluation Bed Mobility Rolling can roll B indep w/lower body following upper body Supine to and from Sit required min A for both supine <>sit Transfers Sit to Stand heavy use of UEs -pt reports sometimes needs to help OP Gait Assessment Comments Gait Comments Dec foot clearance B with heavy use of 4WW and dec DF R> L and dec hip flex PT-OP-M Strength Start: 02/04/22 18:00 Freq: Status: Active Protocol: Document 02/16/22 09:52 [facility] (Rec: 02/16/22 13:45 [facility] [id number]) Hand Oxygen Equipment Technician/Pinch Strength Hand Dominance Hand Dominance Right Hand Strength Right Comments 15 kg, 14 kg, 12 kg Left Comments 4kg x3 reps PT-OP-Q Treatments Start: 02/04/22 18:00 Freq: Status: Active Protocol: Document 04/07/22 09:05 [facility] (Rec: 04/07/22 11:47 [facility] [id number]) Gait Training Gait Activity FWW Device Used FWW Distance/Duration 150ft x2 Comments amb w/FWW w/cues for not stepping past front bar Neuro Re-Education Treatment Balance Activities SLS Comments 1.alt tap to 5 in step w/TRAVEL MANAGER/ cane progressed to rail x6B 2. mod w/sm joelle under opp le tilt board Details fwd & side Comments balancing & wt shifts ea foam Comments staggered stance B PT-OP-T Assessment and Plan Start: 02/04/22 18:00 Freq: Status: Active Protocol: Document 04/07/22 09:05 [facility] (Rec: 04/07/22 11:47 [facility] [id number]) Physical Therapy Assessment Goals functional activities Short Term Goal (STG) Pt will be able to do bed mobility indep consistantly 03/09/22: pt reports helps her at times comes to sitting, during tx instructed log roll able to perform with cues continued BUE support. 04/03/22: able to get out of bed self but still need getting leg in bed and can roll over B . STG Duration 04/06/22 Progressing 04/03/22 Sampler And Test Preparer Goal (LTG) Pt will be able to do sit to stand Indep and safely 02/27/22; cues for proper hand placement and hip hinge slow controlled descent, scoot forward feet under push from seated and downward pressure on FWW. 03/09/22: pt stated needs use BUE support and at times has to help her. 04/03/22: progressing: cues needed for consistant BUE support slow descent. LTG Duration 05/04/22 progressing : 04/03/22 strength Short Term Goal (STG) Pt will be indep w/HEP 02/27/22: added theraputty, wall plank, reviewed seated resisted hip abd, HC, STS, mini squat 03/09/22: reviewed TA bridge ( added 1/2 foam roll under forefoot), SLR STG Duration 03/29/22 progressing 02/27/22 Longterm Goal (LTG) Pt will score at least 4/5 on MMT to show improved LE strength improvign pt ability to do ADLs LTG Duration 05/04 gait Sampler And Test Preparer Goal (LTG) Pt will be able to walk safely with SPC at home and in community. 02/27/22: pt uses moderate UE WB on FWW during gait, cues for DF and controlled purposeful LE advancement. 04/03/22: progressing decrease BUE WB on FWW today, still decrease DF more effort hip/ knee flexion to advance LEs. LTG Duration 05/04/22 slow progression 04/03/22 balance Short Term Goal (STG) Pt will be able to score at least 36 on KIMBLE to show safe ambulation w/AD w/dec risk for falls. 02/13/22: KIMBLE 21/56. 04/07- STG Duration 04/01/22 Longterm Goal (LTG) Pt will be able to score at least 46 on KIMBLE to show safe ambulation w/dec risk for falls. LTG Duration 05/04/22 Assessment Summary Assessment Pt is making excellent progress w/PT despite ALS diagnosis. She is working hard with exercises and does show imrpoved balance and gait at this time. Cont PT to work on strength, balancea nd gait. Physical Therapy Plan Frequency and Duration Frequency of Treatment 2x/Week Duration of treatment (weeks) 12 Plan of Care Start Date 02/09/22 Plan of Care End Date 05/04/22 Next Visit Focus/Plan Next Note Type Treatment Note Next Visit Plan Recheck bridge w/ DF support. Recheck sup<> sitting. Trial shuttle recovery next tx . Provided Ossure ankle brace image if interested. POC: cont to advance standing balance and gait & strength
--- NOTE | 2022-04-09 11:08 | PT.OTN ---
Current Diagnoses Muscle weakness (generalized) (04/09/22) Difficulty in walking, not elsewhere classified (04/09/22) Physical Therapy Treatment Note PT-OP-A Visit Information Start: 02/04/22 18:00 Freq: Status: Active Protocol: Document 04/09/22 07:35 [facility] (Rec: 04/09/22 11:08 [facility] [id number]) Out-Patient Physical Therapy Visit Information Visit Information Visit Type Treatment Note Visit Note 04/10 Visit Start Time 09:06 Visit Stop Time 09:48 Total Visit Minutes 42 Visit Number 12 Number of SEMICONDUCTOR ENGINEER Visits 0 PT-OP-B Current Condition Start: 02/04/22 18:00 Freq: Status: Active Protocol: Document 02/09/22 11:20 [facility] (Rec: 02/09/22 15:02 [facility] [id number]) Current Condition History of Current Condition Onset Date Jan Current Complaints weakness in entire body, falls History of Current Condition Pt is frustrated because she used to be able to go to high intensity classes and walk 3-5 miles a day but stopped in Mar d/t falls. She has seen 2 neurologists, 1 neurosurgeon and feels like she is really progressively worse. She is really hating not being able to walk daily. She is having trouble getting socks on. Her dexterity is limited also. No one has been able to say what they think it is. Pt has been using a 4WW since Nov and in June started using a cane. she started using devices d/t falls. She is planning to see another neurologist in [place]. She has started going to [employer] class but stopped d/t her balance being too bad. She has all the [employer] equipment including a reformer. Her also recently has dx of cancer. Pt reports she got her first booster in Dec and she wonders if this is what started this. In Jan, she had some falls when she was working on her [employer] Had Meniscus surgery in August and did PT for a short time and was DC quickly d/t how well she was doing. Dr. Jain sent her to the neurosurgeon for potential back surgery based on EMG, but neurosurgeon didn't think that was the issue. She has mild back pain in the AM that has only been recently d/t being less mobile. The neurosurgeon at first thought she needed another MRI of brain and had it scheduled, but then when he talked to the neurologist, the plan is now for her to see a different neurologist. Pt seeing a telehealth ND/MD who gave her folic acid steffanie something else but she doesn't feel like it helps. Pt reports R foot flops down sometime. Since getting 4WW , she has fallen 3 times ( oct). Prior to the walker, she was falling every few days and had some days wehre she fell more than once. All falls have resulted only in cuts and bruises Prior Treatments and Tests Lumbar MRI: IMPRESSION: 1. Multilevel lumbar spondylosis, causing foraminal stenosis as detailed above. 2. Severe central canal stenosis at L3-4 and L4-5. 3. No abnormal cord signal. 4. Remote compression fractures of T11 and T12. Cervical MRI:IMPRESSION: 1. Multilevel degenerative disc and facet disease, as well as uncovertebral hypertrophy. 2. Multilevel canal stenoses, worst at C5-C6 where there is minimal cord flattening. 3. Multilevel foraminal stenoses, worst at C5-C6 and C6-C7 where there is associated intraforaminal nerve root compression. Recommend correlation with clinical symptoms to ascertain relevance of these findings. IMPRESSION: BRAIN MRI: 1. No acute intracranial disease process. 2. No areas of acute or chronic infarction. 3. Qyvf-oo-fdansxdv diffuse cerebral volume loss. 4. Mild periventricular and subcortical white matter chronic microvascular ischemic change. BRAIN MR ANGIOGRAM: Normal MR angiogram of the head. NECK MR ANGIOGRAM: 1. Less than 50% stenosis of the origin of the left internal carotid artery. 2. Right internal carotid artery is fully patent. 3. Vertebral arteries are fully patent. ADDENDUM: This case was reviewed at the request of Dr. Gonzalez and discussed by telephone at 11: 04 a.m. [place] time on October 14, 2021. This patient is brain parenchymal volume loss and chronic small vessel ischemic change. There is prominence of the ventricles and sulci, with the lateral ventricles larger than would be expected, given the degree of sulcal atrophy. Please consider normal pressure hydrocephalus. IMPRESSION: 1. Chronic mild wedging of the T9 vertebral body unchanged from prior examination which may be physiologic. 2. Multilevel disc degeneration. disc degeneration. Treatment Goals Patient/Caregiver Goals be able to get back to working outa nd walking PT-OP-C Subjective Start: 02/04/22 18:00 Freq: Status: Active Protocol: Document 04/09/22 07:35 [facility] (Rec: 04/09/22 11:08 [facility] [id number]) OP-PT Subjective Patient Comments Patient Comments pt reports feeling very fatigued after last session PT-OP-D Balance Start: 02/04/22 18:00 Freq: Status: Active Protocol: Document 04/07/22 09:05 [facility] (Rec: 04/07/22 11:47 [facility] [id number]) Balance Tests Kimble Balance Test Kimble Balance Test Score 28 PT-OP-E Functional Tests Start: 02/04/22 18:00 Freq: Status: Active Protocol: Document 02/16/22 11:21 [facility] (Rec: 02/16/22 13:43 [facility] [id number]) Functional Tests 6 Minute Walk Test Distance 190ft Device Used fww PT-OP-F Manual Assessment Start: 02/04/22 18:00 Freq: Status: Active Protocol: Document 02/09/22 11:20 [facility] (Rec: 02/09/22 15:02 [facility] [id number]) Manual Assessments Soft Tissue Assessment Soft Tissue Mobility Assessment tight calves w/limited passive DF PT-OP-G Mobility & Gait Start: 02/04/22 18:00 Freq: Status: Active Protocol: Document 02/09/22 11:20 [facility] (Rec: 02/09/22 15:02 [facility] [id number]) OP Mobility Evaluation Bed Mobility Rolling can roll B indep w/lower body following upper body Supine to and from Sit required min A for both supine <>sit Transfers Sit to Stand heavy use of UEs -pt reports sometimes needs to help OP Gait Assessment Comments Gait Comments Dec foot clearance B with heavy use of 4WW and dec DF R> L and dec hip flex PT-OP-M Strength Start: 02/04/22 18:00 Freq: Status: Active Protocol: Document 02/16/22 09:52 [facility] (Rec: 02/16/22 13:45 [facility] [id number]) Hand Mannequin Wig Maker/Pinch Strength Hand Dominance Hand Dominance Right Hand Strength Right Comments 15 kg, 14 kg, 12 kg Left Comments 4kg x3 reps PT-OP-Q Treatments Start: 02/04/22 18:00 Freq: Status: Active Protocol: Document 04/09/22 07:35 [facility] (Rec: 04/09/22 11:08 [facility] [id number]) Gait Training Gait Activity FWW Device Used FWW Distance/Duration 150ft ,100ft Comments amb w/FWW w/cues for not stepping past front bar Neuro Re-Education Treatment Balance Activities head turns Surface firm Comments staggered stance and NBOS hurdles Details positioned on side: fwd x4 side x2 B Equipment rail Reps/Duration 6 hurdles Comments cued // feet, DF/ hip/ knee flexion clearance, space between BLEs SLS Comments 1.alt tap to blue foam x8 B w/ PATTERN CHART WRITER 2. mod w/sm joelle under opp le tilt board Details fwd & side Comments balancing & wt shifts ea EC Comments NBOS trials foam Comments WBOS & NBOS staggered stance B PT-OP-T Assessment and Plan Start: 02/04/22 18:00 Freq: Status: Active Protocol: Document 04/09/22 07:35 [facility] (Rec: 04/09/22 11:08 [facility] [id number]) Physical Therapy Assessment Goals functional activities Short Term Goal (STG) Pt will be able to do bed mobility indep consistantly 03/09/22: pt reports helps her at times comes to sitting, during tx instructed log roll able to perform with cues continued BUE support. 04/03/22: able to get out of bed self but still need getting leg in bed and can roll over B . STG Duration 04/06/22 Progressing 04/03/22 Counterintelligence Agent Goal (LTG) Pt will be able to do sit to stand Indep and safely 02/27/22; cues for proper hand placement and hip hinge slow controlled descent, scoot forward feet under push from seated and downward pressure on FWW. 03/09/22: pt stated needs use BUE support and at times has to help her. 04/03/22: progressing: cues needed for consistant BUE support slow descent. LTG Duration 05/04/22 progressing : 04/03/22 strength Short Term Goal (STG) Pt will be indep w/HEP 02/27/22: added theraputty, wall plank, reviewed seated resisted hip abd, HC, STS, mini squat 03/09/22: reviewed TA bridge ( added 1/2 foam roll under forefoot), SLR STG Duration 03/29/22 progressing 02/27/22 Counterintelligence Agent Goal (LTG) Pt will score at least 4/5 on MMT to show improved LE strength improvign pt ability to do ADLs LTG Duration 05/04 gait Counterintelligence Agent Goal (LTG) Pt will be able to walk safely with SPC at home and in community. 02/27/22: pt uses moderate UE WB on FWW during gait, cues for DF and controlled purposeful LE advancement. 04/03/22: progressing decrease BUE WB on FWW today, still decrease DF more effort hip/ knee flexion to advance LEs. LTG Duration 05/04/22 slow progression 04/03/22 balance Short Term Goal (STG) Pt will be able to score at least 36 on KIMBLE to show safe ambulation w/AD w/dec risk for falls. 02/13/22: KIMBLE 21/56. 04/07- STG Duration 04/01/22 Counterintelligence Agent Goal (LTG) Pt will be able to score at least 46 on KIMBLE to show safe ambulation w/dec risk for falls. LTG Duration 05/04/22 Assessment Summary Assessment Pt did well with balance but was challenged significantly by it. she was fatigued by end of session Physical Therapy Plan Frequency and Duration Frequency of Treatment 2x/Week Duration of treatment (weeks) 12 Plan of Care Start Date 02/09/22 Plan of Care End Date 05/04/22 Next Visit Focus/Plan Next Note Type Treatment Note Next Visit Plan Recheck bridge w/ DF support. cont to work on strength for sup<> sitting. Provided Ossure ankle brace image if interested. POC: cont to advance standing balance and gait & strength
--- NOTE | 2022-04-14 09:53 | PT.OTN ---
Current Diagnoses Muscle weakness (generalized) (04/14/22) Difficulty in walking, not elsewhere classified (04/14/22) Physical Therapy Treatment Note PT-OP-A Visit Information Start: 02/04/22 18:00 Freq: Status: Active Protocol: Document 04/14/22 09:35 [facility] (Rec: 04/14/22 09:53 [facility] [id number]) Out-Patient Physical Therapy Visit Information Visit Information Visit Type Treatment Note Visit Note 05/08 Visit Start Time 09:05 Visit Stop Time 09:45 Total Visit Minutes 40 Visit Number 13 Number of PARALEGAL SECRETARY Visits 0 PT-OP-B Current Condition Start: 02/04/22 18:00 Freq: Status: Active Protocol: Document 02/09/22 11:20 [facility] (Rec: 02/09/22 15:02 [facility] [id number]) Current Condition History of Current Condition Onset Date Jan Current Complaints weakness in entire body, falls History of Current Condition Pt is frustrated because she used to be able to go to high intensity classes and walk 3-5 miles a day but stopped in Mar d/t falls. She has seen 2 neurologists, 1 neurosurgeon and feels like she is really progressively worse. She is really hating not being able to walk daily. She is having trouble getting socks on. Her dexterity is limited also. No one has been able to say what they think it is. Pt has been using a 4WW since Nov and in June started using a cane. she started using devices d/t falls. She is planning to see another neurologist in [place]. She has started going to [employer] class but stopped d/t her balance being too bad. She has all the [employer] equipment including a reformer. Her also recently has dx of cancer. Pt reports she got her first booster in Dec and she wonders if this is what started this. In Jan, she had some falls when she was working on her [employer] and [employer]. Had Meniscus surgery in August and did PT for a short time and was DC quickly d/t how well she was doing. Dr. Jain sent her to the neurosurgeon for potential back surgery based on EMG, but neurosurgeon didn't think that was the issue. She has mild back pain in the AM that has only been recently d/t being less mobile. The neurosurgeon at first thought she needed another MRI of brain and had it scheduled, but then when he talked to the neurologist, the plan is now for her to see a different neurologist. Pt seeing a telehealth ND/MD who gave her folic acid steffanie something else but she doesn't feel like it helps. Pt reports R foot flops down sometime. Since getting 4WW , she has fallen 3 times ( oct). Prior to the walker, she was falling every few days and had some days wehre she fell more than once. All falls have resulted only in cuts and bruises Prior Treatments and Tests Lumbar MRI: IMPRESSION: 1. Multilevel lumbar spondylosis, causing foraminal stenosis as detailed above. 2. Severe central canal stenosis at L3-4 and L4-5. 3. No abnormal cord signal. 4. Remote compression fractures of T11 and T12. Cervical MRI:IMPRESSION: 1. Multilevel degenerative disc and facet disease, as well as uncovertebral hypertrophy. 2. Multilevel canal stenoses, worst at C5-C6 where there is minimal cord flattening. 3. Multilevel foraminal stenoses, worst at C5-C6 and C6-C7 where there is associated intraforaminal nerve root compression. Recommend correlation with clinical symptoms to ascertain relevance of these findings. IMPRESSION: BRAIN MRI: 1. No acute intracranial disease process. 2. No areas of acute or chronic infarction. 3. Jfut-br-szhykyoj diffuse cerebral volume loss. 4. Mild periventricular and subcortical white matter chronic microvascular ischemic change. BRAIN MR ANGIOGRAM: Normal MR angiogram of the head. NECK MR ANGIOGRAM: 1. Less than 50% stenosis of the origin of the left internal carotid artery. 2. Right internal carotid artery is fully patent. 3. Vertebral arteries are fully patent. ADDENDUM: This case was reviewed at the request of Dr. Gonzalez and discussed by telephone at 11: 04 a.m. [place] time on October 14, 2021. This patient is brain parenchymal volume loss and chronic small vessel ischemic change. There is prominence of the ventricles and sulci, with the lateral ventricles larger than would be expected, given the degree of sulcal atrophy. Please consider normal pressure hydrocephalus. IMPRESSION: 1. Chronic mild wedging of the T9 vertebral body unchanged from prior examination which may be physiologic. 2. Multilevel disc degeneration. disc degeneration. Treatment Goals Patient/Caregiver Goals be able to get back to working outa nd walking PT-OP-C Subjective Start: 02/04/22 18:00 Freq: Status: Active Protocol: Document 04/14/22 09:35 [facility]14[facility]22 09[id number] Subjective Patient Comments Patient Comments pt reports fell to her knees last night when walking w/4WW PT-OP-D Balance Start: 02/04/22 18:00 Freq: Status: Active Protocol: Document 04/07/22 09:05 [facility] (Rec: 04/07/22 11:47 [facility] [id number]) Balance Tests Kimble Balance Test Kimble Balance Test Score 28 PT-OP-E Functional Tests Start: 02/04/22 18:00 Freq: Status: Active Protocol: Document 02/16/22 11:21 [facility] (Rec: 02/16/22 13:43 [facility] [id number]) Functional Tests 6 Minute Walk Test Distance 190ft Device Used fww PT-OP-F Manual Assessment Start: 02/04/22 18:00 Freq: Status: Active Protocol: Document 02/09/22 11:20 [facility] (Rec: 02/09/22 15:02 [facility] [id number]) Manual Assessments Soft Tissue Assessment Soft Tissue Mobility Assessment tight calves w/limited passive DF PT-OP-G Mobility & Gait Start: 02/04/22 18:00 Freq: Status: Active Protocol: Document 02/09/22 11:20 [facility] (Rec: 02/09/22 15:02 [facility] [id number]) OP Mobility Evaluation Bed Mobility Rolling can roll B indep w/lower body following upper body Supine to and from Sit required min A for both supine <>sit Transfers Sit to Stand heavy use of UEs -pt reports sometimes needs to help OP Gait Assessment Comments Gait Comments Dec foot clearance B with heavy use of 4WW and dec DF R> L and dec hip flex PT-OP-M Strength Start: 02/04/22 18:00 Freq: Status: Active Protocol: Document 02/16/22 09:52 [facility] (Rec: 02/16/22 13:45 [facility] [id number]) Hand Supply Cataloguer/Pinch Strength Hand Dominance Hand Dominance Right Hand Strength Right Comments 15 kg, 14 kg, 12 kg Left Comments 4kg x3 reps PT-OP-Q Treatments Start: 02/04/22 18:00 Freq: Status: Active Protocol: Document 04/14/22 09:35 [facility] (Rec: 04/14/22 09:53 [facility] [id number]) Gait Training Gait Activity FWW Device Used FWW Distance/Duration 200ft, 70ftx2 Comments amb w/FWW w/cues for not stepping past front bar Neuro Re-Education Treatment Balance Activities hurdles Details positioned on side: fwd x4 side x2 B Equipment rail Reps/Duration 6 hurdles Comments cued // feet, DF/ hip/ knee flexion clearance, space between BLEs SLS Comments 1.alt tap to blue foam x8 B w/ MEDICAL TECH tilt board Details fwd & side Comments balancing & wt shifts ea foam Comments WBOS w/head turns &ec & NBOS w/head turns staggered stance B PT-OP-T Assessment and Plan Start: 02/04/22 18:00 Freq: Status: Active Protocol: Document 04/14/22 09:35 [facility] (Rec: 04/14/22 09:53 [facility] [id number]) Physical Therapy Assessment Goals functional activities Short Term Goal (STG) Pt will be able to do bed mobility indep consistantly 03/09/22: pt reports helps her at times comes to sitting, during tx instructed log roll able to perform with cues continued BUE support. 04/03/22: able to get out of bed self but still need getting leg in bed and can roll over B . STG Duration 04/06/22 Progressing 04/03/22 Aws Developer Goal (LTG) Pt will be able to do sit to stand Indep and safely 02/27/22; cues for proper hand placement and hip hinge slow controlled descent, scoot forward feet under push from seated and downward pressure on FWW. 03/09/22: pt stated needs use BUE support and at times has to help her. 04/03/22: progressing: cues needed for consistant BUE support slow descent. LTG Duration 05/04/22 progressing : 04/03/22 strength Short Term Goal (STG) Pt will be indep w/HEP 02/27/22: added theraputty, wall plank, reviewed seated resisted hip abd, HC, STS, mini squat 03/09/22: reviewed TA bridge ( added 1/2 foam roll under forefoot), SLR STG Duration 03/29/22 progressing 02/27/22 Aws Developer Goal (LTG) Pt will score at least 4/5 on MMT to show improved LE strength improvign pt ability to do ADLs LTG Duration 05/04 gait Aws Developer Goal (LTG) Pt will be able to walk safely with SPC at home and in community. 02/27/22: pt uses moderate UE WB on FWW during gait, cues for DF and controlled purposeful LE advancement. 04/03/22: progressing decrease BUE WB on FWW today, still decrease DF more effort hip/ knee flexion to advance LEs. LTG Duration 05/04/22 slow progression 04/03/22 balance Short Term Goal (STG) Pt will be able to score at least 36 on KIMBLE to show safe ambulation w/AD w/dec risk for falls. 02/13/22: KIMBLE 21/56. 04/07- STG Duration 04/01/22 Mcc Goal (LTG) Pt will be able to score at least 46 on KIMBLE to show safe ambulation w/dec risk for falls. LTG Duration 05/04/22 Assessment Summary Assessment Pt did well with balance and did not require as many seated breaks today. She did better w/gait w/PT changing back of walker to sliders she brought and took off rubber stoppers. Physical Therapy Plan Frequency and Duration Frequency of Treatment 2x/Week Duration of treatment (weeks) 12 Plan of Care Start Date 02/09/22 Plan of Care End Date 05/04/22 Next Visit Focus/Plan Next Note Type Treatment Note Next Visit Plan Recheck bridge w/ DF support. cont to work on strength for sup<> sitting. Provided Ossure ankle brace image if interested. POC: cont to advance standing balance and gait & strength
--- NOTE | 2022-04-16 09:49 | PT.OTN ---
Current Diagnoses Muscle weakness (generalized) (04/16/22) Difficulty in walking, not elsewhere classified (04/16/22) Physical Therapy Treatment Note PT-OP-A Visit Information Start: 02/04/22 18:00 Freq: Status: Active Protocol: Document 04/16/22 09:27 [facility] (Rec: 04/16/22 09:43 [facility] [id number]) Out-Patient Physical Therapy Visit Information Visit Information Visit Type Treatment Note Visit Note 06/08 Visit Start Time 09:05 Visit Stop Time 09:45 Total Visit Minutes 40 Visit Number 14 Number of INSIDE PHONE SALES Visits 0 PT-OP-B Current Condition Start: 02/04/22 18:00 Freq: Status: Active Protocol: Document 02/09/22 11:20 [facility] (Rec: 02/09/22 15:02 [facility] [id number]) Current Condition History of Current Condition Onset Date Jan Current Complaints weakness in entire body, falls History of Current Condition Pt is frustrated because she used to be able to go to high intensity classes and walk 3-5 miles a day but stopped in Mar d/t falls. She has seen 2 neurologists, 1 neurosurgeon and feels like she is really progressively worse. She is really hating not being able to walk daily. She is having trouble getting socks on. Her dexterity is limited also. No one has been able to say what they think it is. Pt has been using a 4WW since Nov and in June started using a cane. she started using devices d/t falls. She is planning to see another neurologist in [place]. She has started going to [employer] class but stopped d/t her balance being too bad. She has all the [employer] equipment including a reformer. Her also recently has dx of cancer. Pt reports she got her first booster in Dec and she wonders if this is what started this. In Jan, she had some falls when she was working on her [employer]. Had Meniscus surgery in August and did PT for a short time and was DC quickly d/t how well she was doing. Dr. Jain sent her to the neurosurgeon for potential back surgery based on EMG, but neurosurgeon didn't think that was the issue. She has mild back pain in the AM that has only been recently d/t being less mobile. The neurosurgeon at first thought she needed another MRI of brain and had it scheduled, but then when he talked to the neurologist, the plan is now for her to see a different neurologist. Pt seeing a telehealth ND/MD who gave her folic acid steffanie something else but she doesn't feel like it helps. Pt reports R foot flops down sometime. Since getting 4WW , she has fallen 3 times ( oct). Prior to the walker, she was falling every few days and had some days wehre she fell more than once. All falls have resulted only in cuts and bruises Prior Treatments and Tests Lumbar MRI: IMPRESSION: 1. Multilevel lumbar spondylosis, causing foraminal stenosis as detailed above. 2. Severe central canal stenosis at L3-4 and L4-5. 3. No abnormal cord signal. 4. Remote compression fractures of T11 and T12. Cervical MRI:IMPRESSION: 1. Multilevel degenerative disc and facet disease, as well as uncovertebral hypertrophy. 2. Multilevel canal stenoses, worst at C5-C6 where there is minimal cord flattening. 3. Multilevel foraminal stenoses, worst at C5-C6 and C6-C7 where there is associated intraforaminal nerve root compression. Recommend correlation with clinical symptoms to ascertain relevance of these findings. IMPRESSION: BRAIN MRI: 1. No acute intracranial disease process. 2. No areas of acute or chronic infarction. 3. Twia-dc-ayqyeqvh diffuse cerebral volume loss. 4. Mild periventricular and subcortical white matter chronic microvascular ischemic change. BRAIN MR ANGIOGRAM: Normal MR angiogram of the head. NECK MR ANGIOGRAM: 1. Less than 50% stenosis of the origin of the left internal carotid artery. 2. Right internal carotid artery is fully patent. 3. Vertebral arteries are fully patent. ADDENDUM: This case was reviewed at the request of Dr. Gonzalez and discussed by telephone at 11: 04 a.m. [place] time on October 14, 2021. This patient is brain parenchymal volume loss and chronic small vessel ischemic change. There is prominence of the ventricles and sulci, with the lateral ventricles larger than would be expected, given the degree of sulcal atrophy. Please consider normal pressure hydrocephalus. IMPRESSION: 1. Chronic mild wedging of the T9 vertebral body unchanged from prior examination which may be physiologic. 2. Multilevel disc degeneration. disc degeneration. Treatment Goals Patient/Caregiver Goals be able to get back to working outa nd walking PT-OP-C Subjective Start: 02/04/22 18:00 Freq: Status: Active Protocol: Document 04/16/22 09:27 [facility] (Rec: 04/16/22 09:43 [facility] [id number]) OP-PT Subjective Patient Comments Patient Comments pt reports less fatigue after sessions Patient Reported Progress Improving PT-OP-D Balance Start: 02/04/22 18:00 Freq: Status: Active Protocol: Document 04/07/22 09:05 [facility] (Rec: 04/07/22 11:47 [facility] [id number]) Balance Tests Kimble Balance Test Kimble Balance Test Score 28 PT-OP-E Functional Tests Start: 02/04/22 18:00 Freq: Status: Active Protocol: Document 02/16/22 11:21 [facility] (Rec: 02/16/22 13:43 [facility] [id number]) Functional Tests 6 Minute Walk Test Distance 190ft Device Used fww PT-OP-F Manual Assessment Start: 02/04/22 18:00 Freq: Status: Active Protocol: Document 02/09/22 11:20 [facility] (Rec: 02/09/22 15:02 [facility] [id number]) Manual Assessments Soft Tissue Assessment Soft Tissue Mobility Assessment tight calves w/limited passive DF PT-OP-G Mobility & Gait Start: 02/04/22 18:00 Freq: Status: Active Protocol: Document 02/09/22 11:20 [facility] (Rec: 02/09/22 15:02 [facility] [id number]) OP Mobility Evaluation Bed Mobility Rolling can roll B indep w/lower body following upper body Supine to and from Sit required min A for both supine <>sit Transfers Sit to Stand heavy use of UEs -pt reports sometimes needs to help OP Gait Assessment Comments Gait Comments Dec foot clearance B with heavy use of 4WW and dec DF R> L and dec hip flex PT-OP-M Strength Start: 02/04/22 18:00 Freq: Status: Active Protocol: Document 02/16/22 09:52 [facility] (Rec: 02/16/22 13:45 [facility] [id number]) Hand Livestock [employer]cker/Pinch Strength Hand Dominance Hand Dominance Right Hand Strength Right Comments 15 kg, 14 kg, 12 kg Left Comments 4kg x3 reps PT-OP-Q Treatments Start: 02/04/22 18:00 Freq: Status: Active Protocol: Document 04/16/22 09:27 [facility] (Rec: 04/16/22 09:43 [facility] [id number]) Therapeutic Exercises Standing Exercises stretch Standing Exercise Name 1. DEANNA calf B 2. SL fwd lean Side bilateral Reps/Minutes 30 sec ea step ups Side bilateral Resistance close SBA Equipment Used 5 in Reps/Minutes 10 Comments B rail Mod/ Max UE support, cued hip extension to clear ft step back down heel raises Side bilateral Reps/Minutes 20 backwards walk Side bilateral Reps/Minutes 6ftx3 Gait Training Gait Activity FWW Device Used FWW Distance/Duration 70ftx2 Comments amb w/FWW w/cues for not stepping past front bar Neuro Re-Education Treatment Balance Activities hurdles Details positioned on side: fwd x4 side x1 B Equipment rail 1 Reps/Duration 6 hurdles Comments cued // feet, DF/ hip/ knee flexion clearance, space between BLEs SLS Comments 1.alt tap to blue foam x8 B w/ [employer] tilt board Details fwd & side Comments balancing & wt shifts ea foam Comments WBOS w/head turns &ec & NBOS w/head turns staggered stance B PT-OP-T Assessment and Plan Start: 02/04/22 18:00 Freq: Status: Active Protocol: Document 04/16/22 09:27 [facility] (Rec: 04/16/22 09:43 [facility] [id number]) Physical Therapy Assessment Goals functional activities Short Term Goal (STG) Pt will be able to do bed mobility indep consistantly 03/09/22: pt reports helps her at times comes to sitting, during tx instructed log roll able to perform with cues continued BUE support. 04/03/22: able to get out of bed self but still need getting leg in bed and can roll over B . STG Duration 04/06/22 Progressing 04/03/22 Chcf Goal (LTG) Pt will be able to do sit to stand Indep and safely 02/27/22; cues for proper hand placement and hip hinge slow controlled descent, scoot forward feet under push from seated and downward pressure on FWW. 03/09/22: pt stated needs use BUE support and at times has to help her. 04/03/22: progressing: cues needed for consistant BUE support slow descent. LTG Duration 05/04/22 progressing : 04/03/22 strength Short Term Goal (STG) Pt will be indep w/HEP 02/27/22: added theraputty, wall plank, reviewed seated resisted hip abd, HC, STS, mini squat 03/09/22: reviewed TA bridge ( added 1/2 foam roll under forefoot), SLR STG Duration 03/29/22 progressing 02/27/22 Rn Operating Room Goal (LTG) Pt will score at least 4/5 on MMT to show improved LE strength improvign pt ability to do ADLs LTG Duration 05/04 gait Rn Operating Room Goal (LTG) Pt will be able to walk safely with SPC at home and in community. 02/27/22: pt uses moderate UE WB on FWW during gait, cues for DF and controlled purposeful LE advancement. 04/03/22: progressing decrease BUE WB on FWW today, still decrease DF more effort hip/ knee flexion to advance LEs. LTG Duration 05/04/22 slow progression 04/03/22 balance Short Term Goal (STG) Pt will be able to score at least 36 on KIMBLE to show safe ambulation w/AD w/dec risk for falls. 02/13/22: KIMBLE 21/56. 04/07- STG Duration 04/01/22 Rn Operating Room Goal (LTG) Pt will be able to score at least 46 on KIMBLE to show safe ambulation w/dec risk for falls. LTG Duration 05/04/22 Assessment Summary Assessment Pt did well with exercises today and showed improved balance during balance tasks today. She did well with strength exercises and ddi note fatigue at end of session . Physical Therapy Plan Frequency and Duration Frequency of Treatment 2x/Week Duration of treatment (weeks) 12 Plan of Care Start Date 02/09/22 Plan of Care End Date 05/04/22 Next Visit Focus/Plan Next Note Type Treatment Note Next Visit Plan Recheck bridge w/ DF support. cont to work on strength for sup<> sitting. Provided [employer] ankle brace image if interested. POC: cont to advance standing balance and gait & strength
--- NOTE | 2022-04-21 17:27 | PT.OTN ---
Current Diagnoses Muscle weakness (generalized) (04/21/22) Difficulty in walking, not elsewhere classified (04/21/22) Physical Therapy Treatment Note PT-OP-A Visit Information Start: 02/04/22 18:00 Freq: Status: Active Protocol: Document 04/21/22 13:45 [facility] (Rec: 04/21/22 17:27 [facility] [id number]) Out-Patient Physical Therapy Visit Information Visit Information Visit Type Treatment Note Visit Note 07/08 Visit Start Time 13:50 Visit Stop Time 14:30 Total Visit Minutes 40 Visit Number 15 PT-OP-B Current Condition Start: 02/04/22 18:00 Freq: Status: Active Protocol: Document 02/09/22 11:20 [facility] (Rec: 02/09/22 15:02 [facility] [id number]) Current Condition History of Current Condition Onset Date Jan Current Complaints weakness in entire body, falls History of Current Condition Pt is frustrated because she used to be able to go to high intensity classes and walk 3-5 miles a day but stopped in Mar d/t falls. She has seen 2 neurologists, 1 neurosurgeon and feels like she is really progressively worse. She is really hating not being able to walk daily. She is having trouble getting socks on. Her dexterity is limited also. No one has been able to say what they think it is. Pt has been using a 4WW since Nov and in June started using a cane. she started using devices d/t falls. She is planning to see another neurologist in [place]. She has started going to [employer] class but stopped d/t her balance being too bad. She has all the [employer] equipment including a reformer. Her also recently has dx of cancer. Pt reports she got her first booster in Dec and she wonders if this is what started this. In Jan, she had some falls when she was working on her [employer] and [employer]. Had Meniscus surgery in August and did PT for a short time and was DC quickly d/t how well she was doing. Dr. Jain sent her to the neurosurgeon for potential back surgery based on EMG, but neurosurgeon didn't think that was the issue. She has mild back pain in the AM that has only been recently d/t being less mobile. The neurosurgeon at first thought she needed another MRI of brain and had it scheduled, but then when he talked to the neurologist, the plan is now for her to see a different neurologist. Pt seeing a telehealth ND/MD who gave her folic acid steffanie something else but she doesn't feel like it helps. Pt reports R foot flops down sometime. Since getting 4WW , she has fallen 3 times ( oct). Prior to the walker, she was falling every few days and had some days wehre she fell more than once. All falls have resulted only in cuts and bruises Prior Treatments and Tests Lumbar MRI: IMPRESSION: 1. Multilevel lumbar spondylosis, causing foraminal stenosis as detailed above. 2. Severe central canal stenosis at L3-4 and L4-5. 3. No abnormal cord signal. 4. Remote compression fractures of T11 and T12. Cervical MRI:IMPRESSION: 1. Multilevel degenerative disc and facet disease, as well as uncovertebral hypertrophy. 2. Multilevel canal stenoses, worst at C5-C6 where there is minimal cord flattening. 3. Multilevel foraminal stenoses, worst at C5-C6 and C6-C7 where there is associated intraforaminal nerve root compression. Recommend correlation with clinical symptoms to ascertain relevance of these findings. IMPRESSION: BRAIN MRI: 1. No acute intracranial disease process. 2. No areas of acute or chronic infarction. 3. Nruo-jt-rsniznxb diffuse cerebral volume loss. 4. Mild periventricular and subcortical white matter chronic microvascular ischemic change. BRAIN MR ANGIOGRAM: Normal MR angiogram of the head. NECK MR ANGIOGRAM: 1. Less than 50% stenosis of the origin of the left internal carotid artery. 2. Right internal carotid artery is fully patent. 3. Vertebral arteries are fully patent. ADDENDUM: This case was reviewed at the request of Dr. Gonzalez and discussed by telephone at 11: 04 a.m. [place] time on October 14, 2021. This patient is brain parenchymal volume loss and chronic small vessel ischemic change. There is prominence of the ventricles and sulci, with the lateral ventricles larger than would be expected, given the degree of sulcal atrophy. Please consider normal pressure hydrocephalus. IMPRESSION: 1. Chronic mild wedging of the T9 vertebral body unchanged from prior examination which may be physiologic. 2. Multilevel disc degeneration. disc degeneration. Treatment Goals Patient/Caregiver Goals be able to get back to working outa nd walking PT-OP-C Subjective Start: 02/04/22 18:00 Freq: Status: Active Protocol: Document 04/21/22 13:48 [facility] (Rec: 04/21/22 15:17 [facility] [id number]) OP-PT Subjective Patient Comments Patient Comments pt notes she was feeling really well after doing the IB previgan and notes she is due for another one. She feels more fatigued today and doesn' t know if its because the medication is wearing off or because she did the pilates reformer yesterday. PT-OP-D Balance Start: 02/04/22 18:00 Freq: Status: Active Protocol: Document 04/07/22 09:05 [facility] (Rec: 04/07/22 11:47 [facility] [id number]) Balance Tests Iglesias Balance Test Iglesias Balance Test Score 28 PT-OP-E Functional Tests Start: 02/04/22 18:00 Freq: Status: Active Protocol: Document 02/16/22 11:21 [facility] (Rec: 02/16/22 13:43 [facility] [id number]) Functional Tests 6 Minute Walk Test Distance 190ft Device Used fww PT-OP-F Manual Assessment Start: 02/04/22 18:00 Freq: Status: Active Protocol: Document 02/09/22 11:20 [facility] (Rec: 02/09/22 15:02 [facility] [id number]) Manual Assessments Soft Tissue Assessment Soft Tissue Mobility Assessment tight calves w/limited passive DF PT-OP-G Mobility & Gait Start: 02/04/22 18:00 Freq: Status: Active Protocol: Document 02/09/22 11:20 [facility] (Rec: 02/09/22 15:02 [facility] [id number]) OP Mobility Evaluation Bed Mobility Rolling can roll B indep w/lower body following upper body Supine to and from Sit required min A for both supine <>sit Transfers Sit to Stand heavy use of UEs -pt reports sometimes needs to help OP Gait Assessment Comments Gait Comments Dec foot clearance B with heavy use of 4WW and dec DF R> L and dec hip flex PT-OP-M Strength Start: 02/04/22 18:00 Freq: Status: Active Protocol: Document 02/16/22 09:52 [facility] (Rec: 02/16/22 13:45 [facility] [id number]) Hand [employer]/Pinch Strength Hand Dominance Hand Dominance Right Hand Strength Right Comments 15 kg, 14 kg, 12 kg Left Comments 4kg x3 reps PT-OP-Q Treatments Start: 02/04/22 18:00 Freq: Status: Active Protocol: Document 04/21/22 13:45 [facility] (Rec: 04/21/22 17:27 [facility] [id number]) Therapeutic Exercises Standing Exercises step ups Side bilateral Resistance close SBA Equipment Used 5 in Reps/Minutes 10 Comments B rail Mod/ Max UE support, cued hip extension to clear ft step back down heel raises Side bilateral Reps/Minutes 18 may Standing Exercise Name 1 rail Side bilateral Reps/Minutes 10 mini squats Standing Exercise Name reviewed self HEP hip hinge hover toilet Resistance AROM Equipment Used FWW/rail for safety Reps/Minutes 5 reps, 5 sec hold Comments cued TS/ chest lift, good core /HS facilitation for stability Neuro Re-Education Treatment Balance Activities head turns Surface firm Comments staggered stance and NBOS hurdles Details positioned on side: fwd x4 side x1 B Equipment rail 1 Reps/Duration 6 hurdles Comments cued // feet, DF/ hip/ knee flexion clearance, space between BLEs SLS Comments 1.alt tap to blue foam x8 B w/ [employer]PER[employer]ENT tilt board Details fwd & side Comments balancing & wt shifts ea foam Comments WBOS w/head turns &ec & NBOS w/head turns staggered stance B PT-OP-T Assessment and Plan Start: 02/04/22 18:00 Freq: Status: Active Protocol: Document 04/21/22 13:45 [facility] (Rec: 04/21/22 17:27 [facility] [id number]) Physical Therapy Assessment Assessment Summary Assessment pt felt more fatigued with her exercises today and she notes she did the pilates reformed yesterday and she is not sure if she tired her self out. She is also ready for another infusion and she is helping this second time with the infusion helps as much as the first time Physical Therapy Plan Frequency and Duration Frequency of Treatment 2x/Week Duration of treatment (weeks) 12 Plan of Care Start Date 02/09/22 Plan of Care End Date 05/04/22 Therapeutic Interventions Therapeutic Interventions Aquatic Therapy,Balance Training,Coordination Training ,Gait Training,Home Exercise Program,Joint Mobilizations, Manual Therapy,Neuromuscular Re-education,Orthotic/ Prosthetic Management,Patient/ Caregiver Education,Self-Care/ Home Management,Soft Tissue Mobilization,Taping, Therapeutic Activities, Therapeutic Exercises Modalities Electric Stimulation Next Visit Focus/Plan Next Note Type Treatment Note Next Visit Plan Recheck bridge w/ DF support. cont to work on strength for sup<> sitting. Provided Ossure ankle brace image if interested. POC: cont to advance standing balance and gait & strength
--- NOTE | 2022-05-01 13:28 | PT.OTN ---
Current Diagnoses Muscle weakness (generalized) (05/01/22) Difficulty in walking, not elsewhere classified (05/01/22) Physical Therapy Treatment Note PT-OP-A Visit Information Start: 02/04/22 18:00 Freq: Status: Active Protocol: Document 05/01/22 10:50 NBM (Rec: 05/01/22 12:50 NBM [id number]) Out-Patient Physical Therapy Visit Information Visit Information Visit Type Treatment Note Visit Note 08/08 Visit Start Time 10:50 Visit Stop Time 11:30 Total Visit Minutes 40 Visit Number 16 Number of CONSUMER SAFETY INSPECTOR Visits 1 PT-OP-B Current Condition Start: 02/04/22 18:00 Freq: Status: Active Protocol: Document 02/09/22 11:20 [facility] (Rec: 02/09/22 15:02 [facility] [id number]) Current Condition History of Current Condition Onset Date Jan Current Complaints weakness in entire body, falls History of Current Condition Pt is frustrated because she used to be able to go to high intensity classes and walk 3-5 miles a day but stopped in Mar d/t falls. She has seen 2 neurologists, 1 neurosurgeon and feels like she is really progressively worse. She is really hating not being able to walk daily. She is having trouble getting socks on. Her dexterity is limited also. No one has been able to say what they think it is. Pt has been using a 4WW since Nov and in June started using a cane. she started using devices d/t falls. She is planning to see another neurologist in [place]. She has started going to [employer] class but stopped d/t her balance being too bad. She has all the [employer] equipment including a reformer. Her also recently has dx of cancer. Pt reports she got her first booster in Dec and she wonders if this is what started this. In Jan, she had some falls when she was working on her [employer] and [employer]. Had Meniscus surgery in August and did PT for a short time and was DC quickly d/t how well she was doing. Dr. Jain sent her to the neurosurgeon for potential back surgery based on EMG, but neurosurgeon didn't think that was the issue. She has mild back pain in the AM that has only been recently d/t being less mobile. The neurosurgeon at first thought she needed another MRI of brain and had it scheduled, but then when he talked to the neurologist, the plan is now for her to see a different neurologist. Pt seeing a telehealth ND/MD who gave her folic acid steffanie something else but she doesn't feel like it helps. Pt reports R foot flops down sometime. Since getting 4WW , she has fallen 3 times ( oct). Prior to the walker, she was falling every few days and had some days wehre she fell more than once. All falls have resulted only in cuts and bruises Prior Treatments and Tests Lumbar MRI: IMPRESSION: 1. Multilevel lumbar spondylosis, causing foraminal stenosis as detailed above. 2. Severe central canal stenosis at L3-4 and L4-5. 3. No abnormal cord signal. 4. Remote compression fractures of T11 and T12. Cervical MRI:IMPRESSION: 1. Multilevel degenerative disc and facet disease, as well as uncovertebral hypertrophy. 2. Multilevel canal stenoses, worst at C5-C6 where there is minimal cord flattening. 3. Multilevel foraminal stenoses, worst at C5-C6 and C6-C7 where there is associated intraforaminal nerve root compression. Recommend correlation with clinical symptoms to ascertain relevance of these findings. IMPRESSION: BRAIN MRI: 1. No acute intracranial disease process. 2. No areas of acute or chronic infarction. 3. Tibl-jz-uwmmrtym diffuse cerebral volume loss. 4. Mild periventricular and subcortical white matter chronic microvascular ischemic change. BRAIN MR ANGIOGRAM: Normal MR angiogram of the head. NECK MR ANGIOGRAM: 1. Less than 50% stenosis of the origin of the left internal carotid artery. 2. Right internal carotid artery is fully patent. 3. Vertebral arteries are fully patent. ADDENDUM: This case was reviewed at the request of Dr. Gonzalez and discussed by telephone at 11: 04 a.m. [place] time on October 14, 2021. This patient is brain parenchymal volume loss and chronic small vessel ischemic change. There is prominence of the ventricles and sulci, with the lateral ventricles larger than would be expected, given the degree of sulcal atrophy. Please consider normal pressure hydrocephalus. IMPRESSION: 1. Chronic mild wedging of the T9 vertebral body unchanged from prior examination which may be physiologic. 2. Multilevel disc degeneration. disc degeneration. Treatment Goals Patient/Caregiver Goals be able to get back to working outa nd walking PT-OP-C Subjective Start: 02/04/22 18:00 Freq: Status: Active Protocol: Document 05/01/22 10:50 NBM (Rec: 05/01/22 12:50 [facility] [id number]) OP-PT Subjective Patient Comments Patient Comments Pt reports she is tired, and her fell last week and broke his femur and he has cancer. She has been sitting a lot this past week and needs to stretch. She can't do the pilates reformer without her 's help to get on. Their friends are helping 21/09 . She was able to get into bed by herself once. They have an electric stander to help her stand, and an electric chair for the staircase (the rollercoaster). She plans to go to pool. She states she tends to push herself. PT-OP-D Balance Start: 02/04/22 18:00 Freq: Status: Active Protocol: Document 04/07/22 09:05 [facility] (Rec: 04/07/22 11:47 [facility] [id number]) Balance Tests Kimble Balance Test Kimble Balance Test Score 28 PT-OP-E Functional Tests Start: 02/04/22 18:00 Freq: Status: Active Protocol: Document 02/16/22 11:21 [facility] (Rec: 02/16/22 13:43 [facility] [id number]) Functional Tests 6 Minute Walk Test Distance 190ft Device Used fww PT-OP-F Manual Assessment Start: 02/04/22 18:00 Freq: Status: Active Protocol: Document 02/09/22 11:20 [facility] (Rec: 02/09/22 15:02 [facility] [id number]) Manual Assessments Soft Tissue Assessment Soft Tissue Mobility Assessment tight calves w/limited passive DF PT-OP-G Mobility & Gait Start: 02/04/22 18:00 Freq: Status: Active Protocol: Document 02/09/22 11:20 [facility] (Rec: 02/09/22 15:02 [facility] [id number]) OP Mobility Evaluation Bed Mobility Rolling can roll B indep w/lower body following upper body Supine to and from Sit required min A for both supine <>sit Transfers Sit to Stand heavy use of UEs -pt reports sometimes needs to help OP Gait Assessment Comments Gait Comments Dec foot clearance B with heavy use of 4WW and dec DF R> L and dec hip flex PT-OP-M Strength Start: 02/04/22 18:00 Freq: Status: Active Protocol: Document 02/16/22 09:52 [facility] (Rec: 02/16/22 13:45 [facility] [id number]) Hand Stitcher Utility/Pinch Strength Hand Dominance Hand Dominance Right Hand Strength Right Comments 15 kg, 14 kg, 12 kg Left Comments 4kg x3 reps PT-OP-Q Treatments Start: 02/04/22 18:00 Freq: Status: Active Protocol: Document 05/01/22 10:50 NBM (Rec: 05/01/22 12:50 NBM [id number]) Cardio Equipment Recumbent Elliptical ([employer]) Duration (Minutes) 7 Resistance 7 Seat Position 7 Other UEs/ LEs, cued 30 RPM goal, maintains 25RPM, vc knee alignment Therapeutic Exercises Sitting Exercises biceps curls Side bilateral Resistance 2# ea Equipment Used mesh chair Reps/Minutes x10 Comments cues to stop before fatigue/ energy conservation sit<> stand Sitting Exercise Name reviewed self HEP Equipment Used mesh chair, BUE support Reps/Minutes x5 reps Comments SBA, standing up to FWW between activities Standing Exercises stretch Standing Exercise Name 1. DEANNA calf B 2. SL fwd lean ( seated hamstring stretch today 05/01/22) Side bilateral Equipment Used // bars Reps/Minutes 60 sec ea Comments cues for glute squeeze step ups Side bilateral Resistance close SBA Equipment Used 5 in, // bars Reps/Minutes x10 Comments B rail Mod/ Max UE support, cues hip flex R foot clearance and heels apart backwards walk Side bilateral Equipment Used // bars Reps/Minutes 6ft Comments visual cue for heels apart/ neutral foot Gait Training Gait Activity FWW Device Used FWW Distance/Duration 45ftx2 Comments adjusted walker height down one level - improved upright posture and glute engagement - good feedback response. amb w /FWW w/cues for not stepping past front bar Self-Care/Home Management Treatment Education Patient Education Body Mechanics,Joint Protection,Posture,Safety Other Education -Discussed Energy conservation and pacing techniques with ALS, such as mixing standing and sitting activities before approaching fatigue (food prep sitting>cooking standing> bills sitting, etc). -Encouraged pt to incorporate 2 step-ups using bilateral rails at bottom of staircase before using the electric chair ascend, to improve/ maintain functional mobility. Pt requires initial cues for excessive hip external rotation with step ups and backwards walking - pt's self- awareness improves with cueing . -Pt unable to bring 4WW in for assessment but will try to adjust it to match FWW height. PT-OP-T Assessment and Plan Start: 02/04/22 18:00 Freq: Status: Active Protocol: Document 05/01/22 10:50 NBM (Rec: 05/01/22 12:50 NBM [id number]) Physical Therapy Assessment Impairments Impairments Activity Tolerance,Balance, Functional Activities, Functional Mobility,Gait,Pain, Posture,ROM,Soft Tissue Mobility,Strength Goals functional activities Short Term Goal (STG) Pt will be able to do bed mobility indep consistantly 03/09/22: pt reports helps her at times comes to sitting, during tx instructed log roll able to perform with cues continued BUE support. 04/03/22: able to get out of bed self but still need getting leg in bed and can roll over B . STG Duration 04/06/22 Progressing 04/03/22 Quality Control Chemist Goal (LTG) Pt will be able to do sit to stand Indep and safely 02/27/22; cues for proper hand placement and hip hinge slow controlled descent, scoot forward feet under push from seated and downward pressure on FWW. 03/09/22: pt stated needs use BUE support and at times has to help her. 04/03/22: progressing: cues needed for consistant BUE support slow descent. LTG Duration 05/04/22 progressing : 04/03/22 strength Short Term Goal (STG) Pt will be indep w/HEP 02/27/22: added theraputty, wall plank, reviewed seated resisted hip abd, HC, STS, mini squat 03/09/22: reviewed TA bridge ( added 1/2 foam roll under forefoot), SLR STG Duration 03/29/22 progressing 02/27/22 Group Home Goal (LTG) Pt will score at least 4/5 on MMT to show improved LE strength improvign pt ability to do ADLs LTG Duration 05/04 gait Group Home Goal (LTG) Pt will be able to walk safely with SPC at home and in community. 02/27/22: pt uses moderate UE WB on FWW during gait, cues for DF and controlled purposeful LE advancement. 04/03/22: progressing decrease BUE WB on FWW today, still decrease DF more effort hip/ knee flexion to advance LEs. LTG Duration 05/04/22 slow progression 04/03/22 balance Short Term Goal (STG) Pt will be able to score at least 36 on KIMBLE to show safe ambulation w/AD w/dec risk for falls. 02/13/22: KIMBLE 21/56. STG Duration 04/01/22 Quality Control Chemist Goal (LTG) Pt will be able to score at least 46 on KIMBLE to show safe ambulation w/dec risk for falls. LTG Duration 05/04/22 Assessment Summary Assessment Discussed Energy conservation and pacing techniques with ALS , such as mixing standing and sitting activities before approaching fatigue (food prep sitting>cooking standing> bills sitting, etc). Pt encouraged to incorporate 2 step-ups using bilateral rails at bottom of staircase before using the electric chair to ascend, to improve/maintain functional mobility. adjusted FWW height down, steps practice before electric chair . Adjusted walker height down one level and pt shows improved upright posture and glute engagement, and provides good feedback response. Pt requires cues for not stepping past front bar. Pt is able to perform 10 biceps curls today w/ 2# dumbbells in each UE which she states she has not been able to do for awhile. Physical Therapy Plan Frequency and Duration Frequency of Treatment 2x/Week Duration of treatment (weeks) 12 Plan of Care Start Date 02/09/22 Plan of Care End Date 05/04/22 Therapeutic Interventions Therapeutic Interventions Aquatic Therapy,Balance Training,Coordination Training ,Gait Training,Home Exercise Program,Joint Mobilizations, Manual Therapy,Neuromuscular Re-education,Orthotic/ Prosthetic Management,Patient/ Caregiver Education,Self-Care/ Home Management,Soft Tissue Mobilization,Taping, Therapeutic Activities, Therapeutic Exercises Modalities Electric Stimulation Next Visit Focus/Plan Next Note Type Treatment Note Next Visit Plan Check energy conservation/ pacing- consider handout and if pt is using staircase for step-ups prior to electric chair. Reassess gait with FWW. Recheck bridge w/ DF support. cont to work on strength for sup<> sitting. POC: cont to advance standing balance and gait & strength
--- NOTE | 2022-05-12 12:25 | PT.OTN ---
Current Diagnoses Muscle weakness (generalized) (05/12/22) Difficulty in walking, not elsewhere classified (05/12/22) Physical Therapy Treatment Note PT-OP-A Visit Information Start: 02/04/22 18:00 Freq: Status: Active Protocol: Document 05/12/22 11:28 [facility] (Rec: 05/12/22 12:24 [facility] [id number]) Out-Patient Physical Therapy Visit Information Visit Information Visit Type Progress Note Visit Note 03/10 Visit Start Time 11: Visit Stop Time 12:05 Total Visit Minutes 43 Visit Number 17 Number of COLOR MAKER DYER Visits 0 PT-OP-B Current Condition Start: 02/04/22 18:00 Freq: Status: Active Protocol: Document 02/09/22 11:20 [facility] (Rec: 02/09/22 15:02 [facility] [id number]) Current Condition History of Current Condition Onset Date Jan Current Complaints weakness in entire body, falls History of Current Condition Pt is frustrated because she used to be able to go to high intensity classes and walk 3-5 miles a day but stopped in Mar d/t falls. She has seen 2 neurologists, 1 neurosurgeon and feels like she is really progressively worse. She is really hating not being able to walk daily. She is having trouble getting socks on. Her dexterity is limited also. No one has been able to say what they think it is. Pt has been using a 4WW since Nov and in June started using a cane. she started using devices d/t falls. She is planning to see another neurologist in [place]. She has started going to [employer] class but stopped d/t her balance being too bad. She has all the [employer] equipment including a reformer. Her also recently has dx of cancer. Pt reports she got her first booster in Dec and she wonders if this is what started this. In Jan, she had some falls when she was working on her [employer] and [employer]. Had Meniscus surgery in August and did PT for a short time and was DC quickly d/t how well she was doing. Dr. Jain sent her to the neurosurgeon for potential back surgery based on EMG, but neurosurgeon didn't think that was the issue. She has mild back pain in the AM that has only been recently d/t being less mobile. The neurosurgeon at first thought she needed another MRI of brain and had it scheduled, but then when he talked to the neurologist, the plan is now for her to see a different neurologist. Pt seeing a telehealth ND/MD who gave her folic acid steffanie something else but she doesn't feel like it helps. Pt reports R foot flops down sometime. Since getting 4WW , she has fallen 3 times ( oct). Prior to the walker, she was falling every few days and had some days wehre she fell more than once. All falls have resulted only in cuts and bruises Prior Treatments and Tests Lumbar MRI: IMPRESSION: 1. Multilevel lumbar spondylosis, causing foraminal stenosis as detailed above. 2. Severe central canal stenosis at L3-4 and L4-5. 3. No abnormal cord signal. 4. Remote compression fractures of T11 and T12. Cervical MRI:IMPRESSION: 1. Multilevel degenerative disc and facet disease, as well as uncovertebral hypertrophy. 2. Multilevel canal stenoses, worst at C5-C6 where there is minimal cord flattening. 3. Multilevel foraminal stenoses, worst at C5-C6 and C6-C7 where there is associated intraforaminal nerve root compression. Recommend correlation with clinical symptoms to ascertain relevance of these findings. IMPRESSION: BRAIN MRI: 1. No acute intracranial disease process. 2. No areas of acute or chronic infarction. 3. Suqi-rj-lvetqbls diffuse cerebral volume loss. 4. Mild periventricular and subcortical white matter chronic microvascular ischemic change. BRAIN MR ANGIOGRAM: Normal MR angiogram of the head. NECK MR ANGIOGRAM: 1. Less than 50% stenosis of the origin of the left internal carotid artery. 2. Right internal carotid artery is fully patent. 3. Vertebral arteries are fully patent. ADDENDUM: This case was reviewed at the request of Dr. Gonzalez and discussed by telephone at 11: 04 a.m. [place] time on October 14, 2021. This patient is brain parenchymal volume loss and chronic small vessel ischemic change. There is prominence of the ventricles and sulci, with the lateral ventricles larger than would be expected, given the degree of sulcal atrophy. Please consider normal pressure hydrocephalus. IMPRESSION: 1. Chronic mild wedging of the T9 vertebral body unchanged from prior examination which may be physiologic. 2. Multilevel disc degeneration. disc degeneration. Treatment Goals Patient/Caregiver Goals be able to get back to working outa nd walking PT-OP-C Subjective Start: 02/04/22 18:00 Freq: Status: Active Protocol: Document 05/12/22 11:28 [facility] (Rec: 05/12/22 12:24 [facility] [id number]) OP-PT Subjective Patient Comments Patient Comments Pt reports today she feels weaker. notes her infusions were split up the past 2 weeks which she thinks didn't work as well. notes that was why she had to cancel some visits too PT-OP-D Balance Start: 02/04/22 18:00 Freq: Status: Active Protocol: Document 05/12/22 11:28 [facility] (Rec: 05/12/22 12:24 [facility] [id number]) Balance Tests Kimble Balance Test Kimble Balance Test Score 32 PT-OP-E Functional Tests Start: 02/04/22 18:00 Freq: Status: Active Protocol: Document 05/12/22 11:28 [facility] (Rec: 05/12/22 12:25 [facility] [id number]) Functional Tests 6 Minute Walk Test Distance 179ft Device Used fww PT-OP-F Manual Assessment Start: 02/04/22 18:00 Freq: Status: Active Protocol: Document 02/09/22 11:20 [facility] (Rec: 02/09/22 15:02 [facility] [id number]) Manual Assessments Soft Tissue Assessment Soft Tissue Mobility Assessment tight calves w/limited passive DF PT-OP-G Mobility & Gait Start: 02/04/22 18:00 Freq: Status: Active Protocol: Document 02/09/22 11:20 [facility] (Rec: 02/09/22 15:02 [facility] [id number]) OP Mobility Evaluation Bed Mobility Rolling can roll B indep w/lower body following upper body Supine to and from Sit required min A for both supine <>sit Transfers Sit to Stand heavy use of UEs -pt reports sometimes needs to help OP Gait Assessment Comments Gait Comments Dec foot clearance B with heavy use of 4WW and dec DF R> L and dec hip flex PT-OP-M Strength Start: 02/04/22 18:00 Freq: Status: Active Protocol: Document 05/12/22 11:28 [facility] (Rec: 05/12/22 12:24 [facility] [id number]) Hip Strength Hip Manual Muscle Testing Right Flexion (L2) 3 Fair Abduction 2+ Poor+ External Rotation 3+ Fair+ Internal Rotation 3+ Fair+ Left Flexion (L2) 3- Fair- Abduction 2+ Poor+ External Rotation 3+ Fair+ Internal Rotation 3+ Fair+ Knee Strength Knee Manual Muscle Testing Right Flexion (S2) 4- Good- Extension (L3) 4- Good- Left Flexion (S2) 4- Good- Extension (L3) 4- Good- Ankle/Foot Strength Ankle and Foot Manual Muscle Testing Right Dorsiflexion (L4) 3+ Fair+ Plantarflexion (S1) 4- Good- Left Dorsiflexion (L4) 3+ Fair+ Plantarflexion (S1) 4- Good- Comments PF tested seated B PT-OP-Q Treatments Start: 02/04/22 18:00 Freq: Status: Active Protocol: Document 05/12/22 11:28 [facility] (Rec: 05/12/22 12:24 [facility] [id number]) Gait Training Gait Activity FWW Device Used FWW Distance/Duration 180ft,[id number] Comments occ cues for posture and step length & speed PT-OP-T Assessment and Plan Start: 02/04/22 18:00 Freq: Status: Active Protocol: Document 05/12/22 11:28 [facility] (Rec: 05/12/22 12:24 [facility] [id number]) Physical Therapy Assessment Goals rolling Impairment pt rolls well to L side but difficult rolling R w/o assist Half-Way Goal (LTG) Pt will be indep w/roll B w/ difficulty LTG Duration 08/04/22 6 min walk Impairment 179ft 3/14 w/FWW Industrial Safety And Health Manager Goal (LTG) Pt will be able to walk at least 350ft in 6 min to show more functional gait speed LTG Duration 08/04 functional activities Short Term Goal (STG) Pt will be able to do bed mobility indep consistantly 03/09/22: pt reports helps her at times comes to sitting, during tx instructed log roll able to perform with cues continued BUE support. 04/03/22: able to get out of bed self but still need getting leg in bed and can roll over B . 05/12-gets out of bed ok and is getting rail to help get into bed STG Duration 06/29 Industrial Safety And Health Manager Goal (LTG) Pt will be able to do sit to stand Indep and safely 02/27/22; cues for proper hand placement and hip hinge slow controlled descent, scoot forward feet under push from seated and downward pressure on FWW. 03/09/22: pt stated needs use BUE support and at times has to help her. 04/03/22: progressing: cues needed for consistant BUE support slow descent. LTG Duration achieved 05/12 strength Short Term Goal (STG) Pt will be indep w/HEP 02/27/22: added theraputty, wall plank, reviewed seated resisted hip abd, HC, STS, mini squat 03/09/22: reviewed TA bridge ( added 1/2 foam roll under forefoot), SLR STG Duration achieved-advancing as able Industrial Safety And Health Manager Goal (LTG) Pt will score at least 4/5 on MMT to show improved LE strength improvign pt ability to do ADLs 05/12-improved LTG Duration 08/04 gait Industrial Safety And Health Manager Goal (LTG) Pt will be able to walk safely with SPC at home and in community. 02/27/22: pt uses moderate UE WB on FWW during gait, cues for DF and controlled purposeful LE advancement. 04/03/22: progressing decrease BUE WB on FWW today, still decrease DF more effort hip/ knee flexion to advance LEs. LTG Duration discontinue goal-unrealistic w /current now known diagnosis balance Short Term Goal (STG) Pt will be able to score at least 36 on KIMBLE to show safe ambulation w/AD w/dec risk for falls. 02/13/22: KIMBLE 21/56. 04/07-05/12- STG Duration 06/28 Half-Way Goal (LTG) Pt will be able to score at least 46 on KIMBLE to show safe ambulation w/dec risk for falls. LTG Duration 08/04 Assessment Summary Assessment Pt is making gradual progress w/PT still and showing improved balance and strength overall despite today not being as strong of a day for pt. She has recent ALS diagnosis whcih is going to limit her progress. She would beneift from cont PT to work of factiliation of LE and core stabiltiy and balance and gait mehcanics. Physical Therapy Plan Frequency and Duration Frequency of Treatment 2x/Week Duration of treatment (weeks) 12 Plan of Care Start Date 05/12/22 Plan of Care End Date 08/04/22 Therapeutic Interventions Therapeutic Interventions Aquatic Therapy,Balance Training,Coordination Training ,Gait Training,Home Exercise Program,Joint Mobilizations, Manual Therapy,Neuromuscular Re-education,Orthotic/ Prosthetic Management,Patient/ Caregiver Education,Self-Care/ Home Management,Soft Tissue Mobilization,Taping, Therapeutic Activities, Therapeutic Exercises Modalities Electric Stimulation Next Visit Focus/Plan Next Note Type Treatment Note Next Visit Plan Check energy conservation/ pacing- consider handout and if pt is using staircase for step-ups prior to electric chair. Reassess gait with FWW. Recheck bridge w/ DF support. cont to work on strength for sup<> sitting. POC: cont to advance standing balance and gait & strength
--- NOTE | 2022-05-12 12:25 | PT.OPPOC ---
Physical, Occupational & Speech Therapy At [facility] Current Diagnoses Muscle weakness (generalized) (05/12/22) Difficulty in walking, not elsewhere classified (05/12/22) Visit Care Team Role Provider Type Dewayne Ledezma MD Attending Provider Physician Family Provider Primary Care Provider Referring Provider Specialty: Family Practice Address: [address] [place] [address], [place], [place], [facility] Email: [email or web address] Plan Of Care PT-OP-T Assessment and Plan Start: 02/04/22 18:00 Freq: Status: Active Protocol: Document 05/12/22 11:28 [facility] (Rec: 05/12/22 12:24 [facility] [id number]) Physical Therapy Assessment Goals rolling Impairment pt rolls well to L side but difficult rolling R w/o assist Group Home Goal (LTG) Pt will be indep w/roll B w/ difficulty LTG Duration 08/04/22 6 min walk Impairment 179ft 05/12 w/FWW Group Home Goal (LTG) Pt will be able to walk at least 350ft in 6 min to show more functional gait speed LTG Duration 08/04 functional activities Short Term Goal (STG) Pt will be able to do bed mobility indep consistantly 03/09/22: pt reports helps her at times comes to sitting, during tx instructed log roll able to perform with cues continued BUE support. 04/03/22: able to get out of bed self but still need getting leg in bed and can roll over B . 05/12-gets out of bed ok and is getting rail to help get into bed STG Duration 06/29 Formulator Compounder Goal (LTG) Pt will be able to do sit to stand Indep and safely 02/27/22; cues for proper hand placement and hip hinge slow controlled descent, scoot forward feet under push from seated and downward pressure on FWW. 03/09/22: pt stated needs use BUE support and at times has to help her. 04/03/22: progressing: cues needed for consistant BUE support slow descent. LTG Duration achieved 05/12 strength Short Term Goal (STG) Pt will be indep w/HEP 02/27/22: added theraputty, wall plank, reviewed seated resisted hip abd, HC, STS, mini squat 03/09/22: reviewed TA bridge ( added 12 foam roll under forefoot), SLR STG Duration achieved-advancing as able Group Home Goal (LTG) Pt will score at least 4/5 on MMT to show improved LE strength improvign pt ability to do ADLs 05/12-improved LTG Duration 08/04 gait Formulator Compounder Goal (LTG) Pt will be able to walk safely with SPC at home and in community. 02/27/22: pt uses moderate UE WB on FWW during gait, cues for DF and controlled purposeful LE advancement. 04/03/22: progressing decrease BUE WB on FWW today, still decrease DF more effort hip/ knee flexion to advance LEs. LTG Duration discontinue goal-unrealistic w /current now known diagnosis balance Short Term Goal (STG) Pt will be able to score at least 36 on KIMBLE to show safe ambulation w/AD w/dec risk for falls. 02/13/22: KIMBLE 21/56. 04/07-05/12- STG Duration 06/28 Formulator Compounder Goal (LTG) Pt will be able to score at least 46 on KIMBLE to show safe ambulation w/dec risk for falls. LTG Duration 08/04 Assessment Summary Assessment Pt is making gradual progress w/PT still and showing improved balance and strength overall despite today not being as strong of a day for pt. She has recent ALS diagnosis whcih is going to limit her progress. She would beneift from cont PT to work of factiliation of LE and core stabiltiy and balance and gait mehcanics. Physical Therapy Plan Frequency and Duration Frequency of Treatment 2x/Week Duration of treatment (weeks) 12 Plan of Care Start Date 05/12/22 Plan of Care End Date 08/04/22 Therapeutic Interventions Therapeutic Interventions Aquatic Therapy,Balance Training,Coordination Training ,Gait Training,Home Exercise Program,Joint Mobilizations, Manual Therapy,Neuromuscular Re-education,Orthotic/ Prosthetic Management,Patient/ Caregiver Education,Self-Care/ Home Management,Soft Tissue Mobilization,Taping, Therapeutic Activities, Therapeutic Exercises Modalities Electric Stimulation Next Visit Focus/Plan Next Note Type Treatment Note Next Visit Plan Check energy conservation/ pacing- consider handout and if pt is using staircase for step-ups prior to electric chair. Reassess gait with FWW. Recheck bridge w/ DF support. cont to work on strength for sup<> sitting. POC: cont to advance standing balance and gait & strength Plan of Care Dates Plan of Care Start Date 05/12/22 Plan of Care End Date 08/04/22 Electronically Signed by: Leni Russell, PT 05/12/22 [id number] If you are in agreement with this Plan of Care, please return a signed and dated copy. I have reviewed this Plan of Care and certify that the skilled therapy services above are required to meet the patient?s needs. Physician Signature Date Printed Name and Credentials Clinical Instructor Signature Printed Name and Credentials
--- NOTE | 2022-05-15 14:46 | PT.OTN ---
Current Diagnoses Muscle weakness (generalized) (05/15/22) Difficulty in walking, not elsewhere classified (05/15/22) Physical Therapy Treatment Note PT-OP-A Visit Information Start: 02/04/22 18:00 Freq: Status: Active Protocol: Document 05/15/22 11:37 NBM (Rec: 05/15/22 14:42 NBM [id number]) Out-Patient Physical Therapy Visit Information Visit Information Visit Type Treatment Note Visit Note 04/10 Visit Start Time 11:37 Visit Stop Time 12:17 Total Visit Minutes 40 Visit Number 18 Number of EDUCATION SPECIALIST Visits 1 PT-OP-B Current Condition Start: 02/04/22 18:00 Freq: Status: Active Protocol: Document 02/09/22 11:20 [facility] (Rec: 02/09/22 15:02 [facility] [id number]) Current Condition History of Current Condition Onset Date Jan Current Complaints weakness in entire body, falls History of Current Condition Pt is frustrated because she used to be able to go to high intensity classes and walk 3-5 miles a day but stopped in Mar d/t falls. She has seen 2 neurologists, 1 neurosurgeon and feels like she is really progressively worse. She is really hating not being able to walk daily. She is having trouble getting socks on. Her dexterity is limited also. No one has been able to say what they think it is. Pt has been using a 4WW since Nov and in June started using a cane. she started using devices d/t falls. She is planning to see another neurologist in [place]. She has started going to [employer] class but stopped d/t her balance being too bad. She has all the [employer] equipment including a reformer. Her also recently has dx of cancer. Pt reports she got her first booster in Dec and she wonders if this is what started this. In Jan, she had some falls when she was working on her [employer] and [employer]. Had Meniscus surgery in August and did PT for a short time and was DC quickly d/t how well she was doing. Dr. Jain sent her to the neurosurgeon for potential back surgery based on EMG, but neurosurgeon didn't think that was the issue. She has mild back pain in the AM that has only been recently d/t being less mobile. The neurosurgeon at first thought she needed another MRI of brain and had it scheduled, but then when he talked to the neurologist, the plan is now for her to see a different neurologist. Pt seeing a telehealth ND/MD who gave her folic acid steffanie something else but she doesn't feel like it helps. Pt reports R foot flops down sometime. Since getting 4WW , she has fallen 3 times ( oct). Prior to the walker, she was falling every few days and had some days wehre she fell more than once. All falls have resulted only in cuts and bruises Prior Treatments and Tests Lumbar MRI: IMPRESSION: 1. Multilevel lumbar spondylosis, causing foraminal stenosis as detailed above. 2. Severe central canal stenosis at L3-4 and L4-5. 3. No abnormal cord signal. 4. Remote compression fractures of T11 and T12. Cervical MRI:IMPRESSION: 1. Multilevel degenerative disc and facet disease, as well as uncovertebral hypertrophy. 2. Multilevel canal stenoses, worst at C5-C6 where there is minimal cord flattening. 3. Multilevel foraminal stenoses, worst at C5-C6 and C6-C7 where there is associated intraforaminal nerve root compression. Recommend correlation with clinical symptoms to ascertain relevance of these findings. IMPRESSION: BRAIN MRI: 1. No acute intracranial disease process. 2. No areas of acute or chronic infarction. 3. Kcss-iu-hnkgcjnx diffuse cerebral volume loss. 4. Mild periventricular and subcortical white matter chronic microvascular ischemic change. BRAIN MR ANGIOGRAM: Normal MR angiogram of the head. NECK MR ANGIOGRAM: 1. Less than 50% stenosis of the origin of the left internal carotid artery. 2. Right internal carotid artery is fully patent. 3. Vertebral arteries are fully patent. ADDENDUM: This case was reviewed at the request of Dr. Gonzalez and discussed by telephone at 11: 04 a.m. [place] time on October 14, 2021. This patient is brain parenchymal volume loss and chronic small vessel ischemic change. There is prominence of the ventricles and sulci, with the lateral ventricles larger than would be expected, given the degree of sulcal atrophy. Please consider normal pressure hydrocephalus. IMPRESSION: 1. Chronic mild wedging of the T9 vertebral body unchanged from prior examination which may be physiologic. 2. Multilevel disc degeneration. disc degeneration. Treatment Goals Patient/Caregiver Goals be able to get back to working outa nd walking PT-OP-C Subjective Start: 02/04/22 18:00 Freq: Status: Active Protocol: Document 05/15/22 11:37 NBM (Rec: 05/15/22 14:42 [facility] [id number]) OP-PT Subjective Patient Comments Patient Comments Pt reports she's feeling tired but enjoyed sitting outside this morning. She notices her leg muscles are really tight. She is still unable to use her pilates reformer because her 's femur is broken so he can't help her onto it. I honestly think that two week infusion thing really screwed my body up. Pt has incorporated step-ups prior to using electric chair for going upstairs, and adjusted her 4WW at home to match her FWW. PT-OP-D Balance Start: 02/04/22 18:00 Freq: Status: Active Protocol: Document 05/12/22 11:28 [facility] (Rec: 05/12/22 12:24 [facility] [id number]) Balance Tests Kimble Balance Test Kimble Balance Test Score 32 PT-OP-E Functional Tests Start: 02/04/22 18:00 Freq: Status: Active Protocol: Document 05/12/22 11:28 [facility] (Rec: 05/12/22 12:25 [facility] [id number]) Functional Tests 6 Minute Walk Test Distance 179ft Device Used fww PT-OP-F Manual Assessment Start: 02/04/22 18:00 Freq: Status: Active Protocol: Document 02/09/22 11:20 [facility] (Rec: 02/09/22 15:02 [facility] [id number]) Manual Assessments Soft Tissue Assessment Soft Tissue Mobility Assessment tight calves w/limited passive DF PT-OP-G Mobility & Gait Start: 02/04/22 18:00 Freq: Status: Active Protocol: Document 02/09/22 11:20 [facility] (Rec: 02/09/22 15:02 [facility] [id number]) OP Mobility Evaluation Bed Mobility Rolling can roll B indep w/lower body following upper body Supine to and from Sit required min A for both supine <>sit Transfers Sit to Stand heavy use of UEs -pt reports sometimes needs to help OP Gait Assessment Comments Gait Comments Dec foot clearance B with heavy use of 4WW and dec DF R> L and dec hip flex PT-OP-M Strength Start: 02/04/22 18:00 Freq: Status: Active Protocol: Document 05/12/22 11:28 [facility] (Rec: 05/12/22 12:24 [facility] [id number]) Hip Strength Hip Manual Muscle Testing Right Flexion (L2) 3 Fair Abduction 2+ Poor+ External Rotation 3+ Fair+ Internal Rotation 3+ Fair+ Left Flexion (L2) 3- Fair- Abduction 2+ Poor+ External Rotation 3+ Fair+ Internal Rotation 3+ Fair+ Knee Strength Knee Manual Muscle Testing Right Flexion (S2) 4- Good- Extension (L3) 4- Good- Left Flexion (S2) 4- Good- Extension (L3) 4- Good- Ankle/Foot Strength Ankle and Foot Manual Muscle Testing Right Dorsiflexion (L4) 3+ Fair+ Plantarflexion (S1) 4- Good- Left Dorsiflexion (L4) 3+ Fair+ Plantarflexion (S1) 4- Good- Comments PF tested seated B PT-OP-Q Treatments Start: 02/04/22 18:00 Freq: Status: Active Protocol: Document 05/15/22 11:37 NBM (Rec: 05/15/22 14:42 [facility] [id number]) Cardio Equipment Recumbent Elliptical (Biodex) Duration (Minutes) 10 Resistance 7 Seat Position 6 Other UEs/ LEs>LE last min, cued 30 RPM goal, maintains 25RPM, vc knee alignment Therapeutic Exercises Supine Exercises ITB stretch Side bilateral Equipment Used manual Comments + feedback response H/s stretch Side bilateral Equipment Used w/strap; manual w/ PNF contract/relax Comments difficult to sustain more than 5 sec due to UE weakness. Sitting Exercises biceps curls Side bilateral Resistance 2# ea Equipment Used mesh chair Reps/Minutes x10 Comments cues for slow eccentric sit<> stand Equipment Used mesh chair, BUE support Reps/Minutes x5 reps Comments SBA>Priscilla today, 1 post LOB, standing up to FWW between activities Self-Care/Home Management Treatment Education Patient Education Body Mechanics,Joint Protection,Posture,Safety Other Education -Reviewed Energy conservation and pacing techniques PT-OP-T Assessment and Plan Start: 02/04/22 18:00 Freq: Status: Active Protocol: Document 05/15/22 11:37 NBM (Rec: 05/15/22 14:42 [facility] [id number]) Physical Therapy Assessment Impairments Impairments Activity Tolerance,Balance, Functional Activities, Functional Mobility,Gait,Pain, Posture,ROM,Soft Tissue Mobility,Strength Goals rolling Impairment pt rolls well to L side but difficult rolling R w/o assist Usp Goal (LTG) Pt will be indep w/roll B w/ difficulty LTG Duration 08/04/22 6 min walk Impairment 179ft 05/12 w/FWW Usp Goal (LTG) Pt will be able to walk at least 350ft in 6 min to show more functional gait speed LTG Duration 08/04 functional activities Short Term Goal (STG) Pt will be able to do bed mobility indep consistantly 03/09/22: pt reports helps her at times comes to sitting, during tx instructed log roll able to perform with cues continued BUE support. 04/03/22: able to get out of bed self but still need getting leg in bed and can roll over B . 05/12-gets out of bed ok and is getting rail to help get into bed STG Duration 06/29 Usp Goal (LTG) Pt will be able to do sit to stand Indep and safely 02/27/22; cues for proper hand placement and hip hinge slow controlled descent, scoot forward feet under push from seated and downward pressure on FWW. 03/09/22: pt stated needs use BUE support and at times has to help her. 04/03/22: progressing: cues needed for consistant BUE support slow descent. LTG Duration achieved 05/12 strength Short Term Goal (STG) Pt will be indep w/HEP 02/27/22: added theraputty, wall plank, reviewed seated resisted hip abd, HC, STS, mini squat 03/09/22: reviewed TA bridge ( added 1/2 foam roll under forefoot), SLR STG Duration achieved-advancing as able Usp Goal (LTG) Pt will score at least 4/5 on MMT to show improved LE strength improvign pt ability to do ADLs 05/12-improved LTG Duration 08/04 gait Pilot Plant Research Technician Goal (LTG) Pt will be able to walk safely with SPC at home and in community. 02/27/22: pt uses moderate UE WB on FWW during gait, cues for DF and controlled purposeful LE advancement. 04/03/22: progressing decrease BUE WB on FWW today, still decrease DF more effort hip/ knee flexion to advance LEs. LTG Duration discontinue goal-unrealistic w /current now known diagnosis balance Short Term Goal (STG) Pt will be able to score at least 36 on KIMBLE to show safe ambulation w/AD w/dec risk for falls. 02/13/22: KIMBLE 21/56. 04/07-05/12- STG Duration 06/28 Usp Goal (LTG) Pt will be able to score at least 46 on KIMBLE to show safe ambulation w/dec risk for falls. LTG Duration 08/04 Assessment Summary Assessment Treatment focus on LE strengthening and stretching today. Reviewed and encouraged energy conservation and pacing techniques with pt. Hamstring tightness bilaterally improves w/ manual stretch using PNF contract/ relax which increases HS pain- free range of motion. Pt requires cues today for foot placement with sit to stand and has one loss of balance posteriorly into chair w/ SBA; no further LOB with cueing and CGA>Priscilla. Physical Therapy Plan Frequency and Duration Frequency of Treatment 2x/Week Duration of treatment (weeks) 12 Plan of Care Start Date 05/12/22 Plan of Care End Date 08/04/22 Therapeutic Interventions Therapeutic Interventions Aquatic Therapy,Balance Training,Coordination Training ,Gait Training,Home Exercise Program,Joint Mobilizations, Manual Therapy,Neuromuscular Re-education,Orthotic/ Prosthetic Management,Patient/ Caregiver Education,Self-Care/ Home Management,Soft Tissue Mobilization,Taping, Therapeutic Activities, Therapeutic Exercises Modalities Electric Stimulation Next Visit Focus/Plan Next Note Type Treatment Note Next Visit Plan Consider Energy Conservation/ Pacing handout. Reassess gait with FWW. Recheck bridge w/ DF support. cont to work on strength for sup<> sitting. POC: cont to advance standing balance and gait & strength
--- NOTE | 2022-05-19 12:20 | PT.OTN ---
Current Diagnoses Muscle weakness (generalized) (05/19/22) Difficulty in walking, not elsewhere classified (05/19/22) Physical Therapy Treatment Note PT-OP-A Visit Information Start: 02/04/22 18:00 Freq: Status: Active Protocol: Document 05/19/22 11:32 [facility] (Rec: 05/19/22 12:20 [facility] [id number]) Out-Patient Physical Therapy Visit Information Visit Information Visit Type Treatment Note Visit Note 05/08 Visit Start Time 11:21 Visit Stop Time 12:06 Total Visit Minutes 45 Visit Number 19 Number of MANAGER FLORAL Visits 0 PT-OP-B Current Condition Start: 02/04/22 18:00 Freq: Status: Active Protocol: Document 02/09/22 11:20 [facility] (Rec: 02/09/22 15:02 [facility] [id number]) Current Condition History of Current Condition Onset Date Jan Current Complaints weakness in entire body, falls History of Current Condition Pt is frustrated because she used to be able to go to high intensity classes and walk 3-5 miles a day but stopped in Mar d/t falls. She has seen 2 neurologists, 1 neurosurgeon and feels like she is really progressively worse. She is really hating not being able to walk daily. She is having trouble getting socks on. Her dexterity is limited also. No one has been able to say what they think it is. Pt has been using a 4WW since Nov and in June started using a cane. she started using devices d/t falls. She is planning to see another neurologist in [place]. She has started going to [employer] class but stopped d/t her balance being too bad. She has all the [employer] equipment including a reformer. Her also recently has dx of cancer. Pt reports she got her first booster in Dec and she wonders if this is what started this. In Jan, she had some falls when she was working on her [employer] and [employer]. Had Meniscus surgery in August and did PT for a short time and was DC quickly d/t how well she was doing. Dr. Jain sent her to the neurosurgeon for potential back surgery based on EMG, but neurosurgeon didn't think that was the issue. She has mild back pain in the AM that has only been recently d/t being less mobile. The neurosurgeon at first thought she needed another MRI of brain and had it scheduled, but then when he talked to the neurologist, the plan is now for her to see a different neurologist. Pt seeing a telehealth ND/MD who gave her folic acid steffanie something else but she doesn't feel like it helps. Pt reports R foot flops down sometime. Since getting 4WW , she has fallen 3 times ( oct). Prior to the walker, she was falling every few days and had some days wehre she fell more than once. All falls have resulted only in cuts and bruises Prior Treatments and Tests Lumbar MRI: IMPRESSION: 1. Multilevel lumbar spondylosis, causing foraminal stenosis as detailed above. 2. Severe central canal stenosis at L3-4 and L4-5. 3. No abnormal cord signal. 4. Remote compression fractures of T11 and T12. Cervical MRI:IMPRESSION: 1. Multilevel degenerative disc and facet disease, as well as uncovertebral hypertrophy. 2. Multilevel canal stenoses, worst at C5-C6 where there is minimal cord flattening. 3. Multilevel foraminal stenoses, worst at C5-C6 and C6-C7 where there is associated intraforaminal nerve root compression. Recommend correlation with clinical symptoms to ascertain relevance of these findings. IMPRESSION: BRAIN MRI: 1. No acute intracranial disease process. 2. No areas of acute or chronic infarction. 3. Vcdn-op-gazhrsif diffuse cerebral volume loss. 4. Mild periventricular and subcortical white matter chronic microvascular ischemic change. BRAIN MR ANGIOGRAM: Normal MR angiogram of the head. NECK MR ANGIOGRAM: 1. Less than 50% stenosis of the origin of the left internal carotid artery. 2. Right internal carotid artery is fully patent. 3. Vertebral arteries are fully patent. ADDENDUM: This case was reviewed at the request of Dr. Gonzalez and discussed by telephone at 11: 04 a.m. [place] time on October 14, 2021. This patient is brain parenchymal volume loss and chronic small vessel ischemic change. There is prominence of the ventricles and sulci, with the lateral ventricles larger than would be expected, given the degree of sulcal atrophy. Please consider normal pressure hydrocephalus. IMPRESSION: 1. Chronic mild wedging of the T9 vertebral body unchanged from prior examination which may be physiologic. 2. Multilevel disc degeneration. disc degeneration. Treatment Goals Patient/Caregiver Goals be able to get back to working outa nd walking PT-OP-C Subjective Start: 02/04/22 18:00 Freq: Status: Active Protocol: Document 05/19/22 11:32 [facility] (Rec: 05/19/22 12:20 [facility] [id number]) OP-PT Subjective Patient Comments Patient Comments pt reports she is feeling better today. Yesterday was a bad day. PT-OP-D Balance Start: 02/04/22 18:00 Freq: Status: Active Protocol: Document 05/12/22 11:28 [facility] (Rec: 05/12/22 12:24 [facility] [id number]) Balance Tests Kmible Balance Test Kimble Balance Test Score 32 PT-OP-E Functional Tests Start: 02/04/22 18:00 Freq: Status: Active Protocol: Document 05/12/22 11:28 [facility] (Rec: 05/12/22 12:25 [facility] [id number]) Functional Tests 6 Minute Walk Test Distance 179ft Device Used fww PT-OP-F Manual Assessment Start: 02/04/22 18:00 Freq: Status: Active Protocol: Document 02/09/22 11:20 [facility] (Rec: 02/09/22 15:02 [facility] [id number]) Manual Assessments Soft Tissue Assessment Soft Tissue Mobility Assessment tight calves w/limited passive DF PT-OP-G Mobility & Gait Start: 02/04/22 18:00 Freq: Status: Active Protocol: Document 02/09/22 11:20 [facility] (Rec: 02/09/22 15:02 [facility] [id number]) OP Mobility Evaluation Bed Mobility Rolling can roll B indep w/lower body following upper body Supine to and from Sit required min A for both supine <>sit Transfers Sit to Stand heavy use of UEs -pt reports sometimes needs to help OP Gait Assessment Comments Gait Comments Dec foot clearance B with heavy use of 4WW and dec DF R> L and dec hip flex PT-OP-M Strength Start: 02/04/22 18:00 Freq: Status: Active Protocol: Document 05/12/22 11:28 [facility] (Rec: 05/12/22 12:24 [facility] [id number]) Hip Strength Hip Manual Muscle Testing Right Flexion (L2) 3 Fair Abduction 2+ Poor+ External Rotation 3+ Fair+ Internal Rotation 3+ Fair+ Left Flexion (L2) 3- Fair- Abduction 2+ Poor+ External Rotation 3+ Fair+ Internal Rotation 3+ Fair+ Knee Strength Knee Manual Muscle Testing Right Flexion (S2) 4- Good- Extension (L3) 4- Good- Left Flexion (S2) 4- Good- Extension (L3) 4- Good- Ankle/Foot Strength Ankle and Foot Manual Muscle Testing Right Dorsiflexion (L4) 3+ Fair+ Plantarflexion (S1) 4- Good- Left Dorsiflexion (L4) 3+ Fair+ Plantarflexion (S1) 4- Good- Comments PF tested seated B PT-OP-Q Treatments Start: 02/04/22 18:00 Freq: Status: Active Protocol: Document 05/19/22 11:32 [facility] (Rec: 05/19/22 12:20 [facility] [id number]) Therapeutic Exercises Standing Exercises side step Side bilateral Resistance yellow tband Equipment Used rail Reps/Minutes x10ft ea heel raises Standing Exercise Name toe raises Side bilateral Equipment Used B hands on rail Reps/Minutes 15 alt backwards walk Standing Exercise Name fwd/back Side bilateral Equipment Used yellow tband w/rail Reps/Minutes 2x10ft ea Therapeutic Activity Therapeutic Activity supine>sit, log roll Reps/Minutes 1 Comments Min A get each LE on table, cued log roll and use of BUEs x3reps 2. rolling to R x4 Gait Training Gait Activity FWW Device Used FWW Distance/Duration 180ft,[id number] Comments occ cues for posture and step length & speed Neuro Re-Education Treatment Balance Activities SLS Comments alt toe tap x12 B onto 5 in step-1 rail & fingers holding PT fingers Other Activities PNF Comments 1. rhythmic initiation progressed to sustained holds w/L ant elevation -mult reps 2. sustained holds mass flex L -mult reps holding as long as pt tolerates PT-OP-T Assessment and Plan Start: 02/04/22 18:00 Freq: Status: Active Protocol: Document 05/19/22 11:32 [facility] (Rec: 05/19/22 12:20 [facility] [id number]) Physical Therapy Assessment Goals rolling Impairment pt rolls well to L side but difficult rolling R w/o assist Government Operations Consultant Goal (LTG) Pt will be indep w/roll B w/ difficulty LTG Duration 08/04/22 6 min walk Impairment 179ft 3/14 w/FWW Government Operations Consultant Goal (LTG) Pt will be able to walk at least 350ft in 6 min to show more functional gait speed LTG Duration 08/04 functional activities Short Term Goal (STG) Pt will be able to do bed mobility indep consistantly 03/09/22: pt reports helps her at times comes to sitting, during tx instructed log roll able to perform with cues continued BUE support. 04/03/22: able to get out of bed self but still need getting leg in bed and can roll over B . 05/12-gets out of bed ok and is getting rail to help get into bed STG Duration 06/29 Care Home Goal (LTG) Pt will be able to do sit to stand Indep and safely 02/27/22; cues for proper hand placement and hip hinge slow controlled descent, scoot forward feet under push from seated and downward pressure on FWW. 03/09/22: pt stated needs use BUE support and at times has to help her. 04/03/22: progressing: cues needed for consistant BUE support slow descent. LTG Duration achieved 05/12 strength Short Term Goal (STG) Pt will be indep w/HEP 02/27/22: added theraputty, wall plank, reviewed seated resisted hip abd, HC, STS, mini squat 03/09/22: reviewed TA bridge ( added 1/2 foam roll under forefoot), SLR STG Duration achieved-advancing as able Care Home Goal (LTG) Pt will score at least 4/5 on MMT to show improved LE strength improvign pt ability to do ADLs 05/12-improved LTG Duration 08/04 gait Government Operations Consultant Goal (LTG) Pt will be able to walk safely with SPC at home and in community. 02/27/22: pt uses moderate UE WB on FWW during gait, cues for DF and controlled purposeful LE advancement. 04/03/22: progressing decrease BUE WB on FWW today, still decrease DF more effort hip/ knee flexion to advance LEs. LTG Duration discontinue goal-unrealistic w /current now known diagnosis balance Short Term Goal (STG) Pt will be able to score at least 36 on KIMBLE to show safe ambulation w/AD w/dec risk for falls. 02/13/22: KIMBLE 21/56. 04/07-05/12- STG Duration 06/28 Care Home Goal (LTG) Pt will be able to score at least 46 on KIMBLE to show safe ambulation w/dec risk for falls. LTG Duration 08/04 Assessment Summary Assessment Pt had much imrpoved ease for roll to R after PNF pattern usage. She did well with strength activities today and was cued for posture and dec reliance on UEs. Physical Therapy Plan Next Visit Focus/Plan Next Note Type Treatment Note Next Visit Plan PNF for rolling cont to work on strength for sup<> sitting. POC: cont to advance standing balance and gait & strength
--- NOTE | 2022-05-22 17:36 | PT.OTN ---
Current Diagnoses Muscle weakness (generalized) (05/22/22) Difficulty in walking, not elsewhere classified (05/22/22) Physical Therapy Treatment Note PT-OP-A Visit Information Start: 02/04/22 18:00 Freq: Status: Active Protocol: Document 05/22/22 11:44 [facility] (Rec: 05/22/22 12:26 [facility] [id number]) Out-Patient Physical Therapy Visit Information Visit Information Visit Type Treatment Note Visit Note 06/08 Visit Start Time 11:35 Visit Stop Time 12:20 Total Visit Minutes 45 Visit Number 20 Number of MANUFACTURING BUSINESS ANALYST Visits 1 PT-OP-B Current Condition Start: 02/04/22 18:00 Freq: Status: Active Protocol: Document 02/09/22 11:20 [facility] (Rec: 02/09/22 15:02 [facility] [id number]) Current Condition History of Current Condition Onset Date Jan Current Complaints weakness in entire body, falls History of Current Condition Pt is frustrated because she used to be able to go to high intensity classes and walk 3-5 miles a day but stopped in Mar d/t falls. She has seen 2 neurologists, 1 neurosurgeon and feels like she is really progressively worse. She is really hating not being able to walk daily. She is having trouble getting socks on. Her dexterity is limited also. No one has been able to say what they think it is. Pt has been using a 4WW since Nov and in June started using a cane. she started using devices d/t falls. She is planning to see another neurologist in [place]. She has started going to [employer] class but stopped d/t her balance being too bad. She has all the [employer] equipment including a reformer. Her also recently has dx of cancer. Pt reports she got her first booster in Dec and she wonders if this is what started this. In Jan, she had some falls when she was working on her [employer] and [employer]. Had Meniscus surgery in August and did PT for a short time and was DC quickly d/t how well she was doing. Dr. Jain sent her to the neurosurgeon for potential back surgery based on EMG, but neurosurgeon didn't think that was the issue. She has mild back pain in the AM that has only been recently d/t being less mobile. The neurosurgeon at first thought she needed another MRI of brain and had it scheduled, but then when he talked to the neurologist, the plan is now for her to see a different neurologist. Pt seeing a telehealth ND/MD who gave her folic acid steffanie something else but she doesn't feel like it helps. Pt reports R foot flops down sometime. Since getting 4WW , she has fallen 3 times ( oct). Prior to the walker, she was falling every few days and had some days wehre she fell more than once. All falls have resulted only in cuts and bruises Prior Treatments and Tests Lumbar MRI: IMPRESSION: 1. Multilevel lumbar spondylosis, causing foraminal stenosis as detailed above. 2. Severe central canal stenosis at L3-4 and L4-5. 3. No abnormal cord signal. 4. Remote compression fractures of T11 and T12. Cervical MRI:IMPRESSION: 1. Multilevel degenerative disc and facet disease, as well as uncovertebral hypertrophy. 2. Multilevel canal stenoses, worst at C5-C6 where there is minimal cord flattening. 3. Multilevel foraminal stenoses, worst at C5-C6 and C6-C7 where there is associated intraforaminal nerve root compression. Recommend correlation with clinical symptoms to ascertain relevance of these findings. IMPRESSION: BRAIN MRI: 1. No acute intracranial disease process. 2. No areas of acute or chronic infarction. 3. Rgvr-ip-dbrpuncq diffuse cerebral volume loss. 4. Mild periventricular and subcortical white matter chronic microvascular ischemic change. BRAIN MR ANGIOGRAM: Normal MR angiogram of the head. NECK MR ANGIOGRAM: 1. Less than 50% stenosis of the origin of the left internal carotid artery. 2. Right internal carotid artery is fully patent. 3. Vertebral arteries are fully patent. ADDENDUM: This case was reviewed at the request of Dr. Gonzalez and discussed by telephone at 11: 04 a.m. [place] time on October 14, 2021. This patient is brain parenchymal volume loss and chronic small vessel ischemic change. There is prominence of the ventricles and sulci, with the lateral ventricles larger than would be expected, given the degree of sulcal atrophy. Please consider normal pressure hydrocephalus. IMPRESSION: 1. Chronic mild wedging of the T9 vertebral body unchanged from prior examination which may be physiologic. 2. Multilevel disc degeneration. disc degeneration. Treatment Goals Patient/Caregiver Goals be able to get back to working outa nd walking PT-OP-C Subjective Start: 02/04/22 18:00 Freq: Status: Active Protocol: Document 05/22/22 11:44 [facility] (Rec: 05/22/22 12:26 [facility] [id number]) OP-PT Subjective Patient Comments Patient Comments Pt reports she can feel that she isn't as active and her body feels tighter and weaker. She felt good after the last visit Leni worked me hard but I need it. Her is not getting better, and they are going to ask their daughter to come help. The seated clamshell stretch works really well but she doesn't feel the bandwalking one as much. Pt has been working on pacing energy. PT-OP-D Balance Start: 02/04/22 18:00 Freq: Status: Active Protocol: Document 05/12/22 11:28 [facility] (Rec: 05/12/22 12:24 [facility] [id number]) Balance Tests Kimble Balance Test Kimble Balance Test Score 32 PT-OP-E Functional Tests Start: 02/04/22 18:00 Freq: Status: Active Protocol: Document 05/12/22 11:28 [facility] (Rec: 05/12/22 12:25 [facility] [id number]) Functional Tests 6 Minute Walk Test Distance 179ft Device Used fww PT-OP-F Manual Assessment Start: 02/04/22 18:00 Freq: Status: Active Protocol: Document 02/09/22 11:20 [facility] (Rec: 02/09/22 15:02 [facility] [id number]) Manual Assessments Soft Tissue Assessment Soft Tissue Mobility Assessment tight calves w/limited passive DF PT-OP-G Mobility & Gait Start: 02/04/22 18:00 Freq: Status: Active Protocol: Document 02/09/22 11:20 [facility] (Rec: 02/09/22 15:02 [facility] [id number]) OP Mobility Evaluation Bed Mobility Rolling can roll B indep w/lower body following upper body Supine to and from Sit required min A for both supine <>sit Transfers Sit to Stand heavy use of UEs -pt reports sometimes needs to help OP Gait Assessment Comments Gait Comments Dec foot clearance B with heavy use of 4WW and dec DF R> L and dec hip flex PT-OP-M Strength Start: 02/04/22 18:00 Freq: Status: Active Protocol: Document 05/12/22 11:28 [facility] (Rec: 05/12/22 12:24 [facility] [id number]) Hip Strength Hip Manual Muscle Testing Right Flexion (L2) 3 Fair Abduction 2+ Poor+ External Rotation 3+ Fair+ Internal Rotation 3+ Fair+ Left Flexion (L2) 3- Fair- Abduction 2+ Poor+ External Rotation 3+ Fair+ Internal Rotation 3+ Fair+ Knee Strength Knee Manual Muscle Testing Right Flexion (S2) 4- Good- Extension (L3) 4- Good- Left Flexion (S2) 4- Good- Extension (L3) 4- Good- Ankle/Foot Strength Ankle and Foot Manual Muscle Testing Right Dorsiflexion (L4) 3+ Fair+ Plantarflexion (S1) 4- Good- Left Dorsiflexion (L4) 3+ Fair+ Plantarflexion (S1) 4- Good- Comments PF tested seated B PT-OP-Q Treatments Start: 02/04/22 18:00 Freq: Status: Active Protocol: Document 05/22/22 11:44 [facility] (Rec: 05/22/22 12:26 [facility] [id number]) Cardio Equipment Recumbent Elliptical (Biodex) Duration (Minutes) 9 Resistance 7 Seat Position 6 Other UEs/ LEs, cued 30 RPM goal, maintains 25RPM, vc knee alignment Therapeutic Exercises Sitting Exercises hamstring stretch Side bilateral Equipment Used biodex, 5 step Reps/Minutes x60s ea hip ER Side bilateral Equipment Used yellow band Reps/Minutes 15 Comments cues for posture & core, control eccentric sit<> stand Equipment Used from Biodex, no UE support Reps/Minutes x8 reps Comments CGA, standing up to FWW Standing Exercises side step Side bilateral Resistance yellow tband Equipment Used rail Reps/Minutes x3ft ea Comments EOS, L challenged and pulled into L hip ER, dc'd d/t fatigue Self-Care/Home Management Treatment Education Patient Education Body Mechanics,Home Exercise Program,Pain Management,Safety Other Education Added to HEP: Energy Conservation - reviewed Four Ps: Plan, Prioritize, Pace, Performance (body mechanics) - HO provided. PT-OP-T Assessment and Plan Start: 02/04/22 18:00 Freq: Status: Active Protocol: Document 05/22/22 11:44 [facility] (Rec: 05/22/22 12:26 [facility] [id number]) Physical Therapy Assessment Impairments Impairments Activity Tolerance,Balance, Functional Activities, Functional Mobility,Gait,Pain, Posture,ROM,Soft Tissue Mobility,Strength Goals rolling Impairment pt rolls well to L side but difficult rolling R w/o assist Alf Goal (LTG) Pt will be indep w/roll B w/ difficulty LTG Duration 08/04/22 6 min walk Impairment 179ft 05/12 w/FWW Increment Manager Goal (LTG) Pt will be able to walk at least 350ft in 6 min to show more functional gait speed LTG Duration 08/04 functional activities Short Term Goal (STG) Pt will be able to do bed mobility indep consistantly 03/09/22: pt reports helps her at times comes to sitting, during tx instructed log roll able to perform with cues continued BUE support. 04/03/22: able to get out of bed self but still need getting leg in bed and can roll over B . 05/12-gets out of bed ok and is getting rail to help get into bed STG Duration 06/29 Increment Manager Goal (LTG) Pt will be able to do sit to stand Indep and safely 02/27/22; cues for proper hand placement and hip hinge slow controlled descent, scoot forward feet under push from seated and downward pressure on FWW. 03/09/22: pt stated needs use BUE support and at times has to help her. 04/03/22: progressing: cues needed for consistant BUE support slow descent. LTG Duration achieved 05/12 strength Short Term Goal (STG) Pt will be indep w/HEP 02/27/22: added theraputty, wall plank, reviewed seated resisted hip abd, HC, STS, mini squat 03/09/22: reviewed TA bridge ( added 1/2 foam roll under forefoot), SLR STG Duration achieved-advancing as able Alf Goal (LTG) Pt will score at least 4/5 on MMT to show improved LE strength improvign pt ability to do ADLs 05/12-improved LTG Duration 08/04 gait Alf Goal (LTG) Pt will be able to walk safely with SPC at home and in community. 02/27/22: pt uses moderate UE WB on FWW during gait, cues for DF and controlled purposeful LE advancement. 04/03/22: progressing decrease BUE WB on FWW today, still decrease DF more effort hip/ knee flexion to advance LEs. LTG Duration discontinue goal-unrealistic w /current now known diagnosis balance Short Term Goal (STG) Pt will be able to score at least 36 on KIMBLE to show safe ambulation w/AD w/dec risk for falls. 02/13/22: KIMBLE 21/56. 04/07-05/12- STG Duration 06/28 Alf Goal (LTG) Pt will be able to score at least 46 on KIMBLE to show safe ambulation w/dec risk for falls. LTG Duration 08/04 Assessment Summary Assessment Pt demonstrates decreased activity tolerance today and is unable to move more than three feet L laterally w/ resisted side step end of session, and is unable to bring LLE out of extreme L hip external rotation independently. Pt does demonstrate improving energy conservation self-awareness and requests more rest breaks accordingly. Added to HEP: Energy Conservation - reviewed Four Ps: Plan, Prioritize, Pace, Performance (body mechanics) - HO provided. Physical Therapy Plan Frequency and Duration Frequency of Treatment 2x/Week Duration of treatment (weeks) 12 Plan of Care Start Date 05/12/22 Plan of Care End Date 08/04/22 Therapeutic Interventions Therapeutic Interventions Aquatic Therapy,Balance Training,Coordination Training ,Gait Training,Home Exercise Program,Joint Mobilizations, Manual Therapy,Neuromuscular Re-education,Orthotic/ Prosthetic Management,Patient/ Caregiver Education,Self-Care/ Home Management,Soft Tissue Mobilization,Taping, Therapeutic Activities, Therapeutic Exercises Modalities Electric Stimulation Next Visit Focus/Plan Next Note Type Treatment Note Next Visit Plan PNF for rolling cont to work on strength for sup<> sitting. POC: cont to advance standing balance and gait & strength
--- NOTE | 2022-05-26 12:29 | PT.OTN ---
Current Diagnoses Muscle weakness (generalized) (05/26/22) Difficulty in walking, not elsewhere classified (05/26/22) Physical Therapy Treatment Note PT-OP-A Visit Information Start: 02/04/22 18:00 Freq: Status: Active Protocol: Document 05/26/22 11:31 [facility] (Rec: 05/26/22 12:29 [facility] [id number]) Out-Patient Physical Therapy Visit Information Visit Information Visit Type Treatment Note Visit Note 07/08 Visit Start Time : Visit Stop Time 12:04 Total Visit Minutes 42 Visit Number 21 Number of TUNNELLER Visits 0 PT-OP-B Current Condition Start: 02/04/22 18:00 Freq: Status: Active Protocol: Document 02/09/22 11:20 [facility] (Rec: 02/09/22 15:02 [facility] [id number]) Current Condition History of Current Condition Onset Date Jan Current Complaints weakness in entire body, falls History of Current Condition Pt is frustrated because she used to be able to go to high intensity classes and walk 3-5 miles a day but stopped in Mar d/t falls. She has seen 2 neurologists, 1 neurosurgeon and feels like she is really progressively worse. She is really hating not being able to walk daily. She is having trouble getting socks on. Her dexterity is limited also. No one has been able to say what they think it is. Pt has been using a 4WW since Nov and in June started using a cane. she started using devices d/t falls. She is planning to see another neurologist in [place]. She has started going to [employer] class but stopped d/t her balance being too bad. She has all the [employer] equipment including a reformer. Her also recently has dx of cancer. Pt reports she got her first booster in Dec and she wonders if this is what started this. In Jan, she had some falls when she was working on her [employer] and [employer]. Had Meniscus surgery in August and did PT for a short time and was DC quickly d/t how well she was doing. Dr. Jain sent her to the neurosurgeon for potential back surgery based on EMG, but neurosurgeon didn't think that was the issue. She has mild back pain in the AM that has only been recently d/t being less mobile. The neurosurgeon at first thought she needed another MRI of brain and had it scheduled, but then when he talked to the neurologist, the plan is now for her to see a different neurologist. Pt seeing a telehealth ND/MD who gave her folic acid steffanie something else but she doesn't feel like it helps. Pt reports R foot flops down sometime. Since getting 4WW , she has fallen 3 times ( oct). Prior to the walker, she was falling every few days and had some days wehre she fell more than once. All falls have resulted only in cuts and bruises Prior Treatments and Tests Lumbar MRI: IMPRESSION: 1. Multilevel lumbar spondylosis, causing foraminal stenosis as detailed above. 2. Severe central canal stenosis at L3-4 and L4-5. 3. No abnormal cord signal. 4. Remote compression fractures of T11 and T12. Cervical MRI:IMPRESSION: 1. Multilevel degenerative disc and facet disease, as well as uncovertebral hypertrophy. 2. Multilevel canal stenoses, worst at C5-C6 where there is minimal cord flattening. 3. Multilevel foraminal stenoses, worst at C5-C6 and C6-C7 where there is associated intraforaminal nerve root compression. Recommend correlation with clinical symptoms to ascertain relevance of these findings. IMPRESSION: BRAIN MRI: 1. No acute intracranial disease process. 2. No areas of acute or chronic infarction. 3. Wvpy-hf-lkrwynew diffuse cerebral volume loss. 4. Mild periventricular and subcortical white matter chronic microvascular ischemic change. BRAIN MR ANGIOGRAM: Normal MR angiogram of the head. NECK MR ANGIOGRAM: 1. Less than 50% stenosis of the origin of the left internal carotid artery. 2. Right internal carotid artery is fully patent. 3. Vertebral arteries are fully patent. ADDENDUM: This case was reviewed at the request of Dr. Gonzalez and discussed by telephone at 11: 04 a.m. [place] time on October 14, 2021. This patient is brain parenchymal volume loss and chronic small vessel ischemic change. There is prominence of the ventricles and sulci, with the lateral ventricles larger than would be expected, given the degree of sulcal atrophy. Please consider normal pressure hydrocephalus. IMPRESSION: 1. Chronic mild wedging of the T9 vertebral body unchanged from prior examination which may be physiologic. 2. Multilevel disc degeneration. disc degeneration. Treatment Goals Patient/Caregiver Goals be able to get back to working outa nd walking PT-OP-C Subjective Start: 02/04/22 18:00 Freq: Status: Active Protocol: Document 05/26/22 11:31 [facility] (Rec: 05/26/22 12:29 [facility] [id number]) OP-PT Subjective Patient Comments Patient Comments Pt reports she has been rolling better to L but it is still hard to the R PT-OP-D Balance Start: 02/04/22 18:00 Freq: Status: Active Protocol: Document 05/12/22 11:28 [facility] (Rec: 05/12/22 12:24 [facility] [id number]) Balance Tests Kimble Balance Test Kimble Balance Test Score 32 PT-OP-E Functional Tests Start: 02/04/22 18:00 Freq: Status: Active Protocol: Document 05/12/22 11:28 [facility] (Rec: 05/12/22 12:25 [facility] [id number]) Functional Tests 6 Minute Walk Test Distance 179ft Device Used fww PT-OP-F Manual Assessment Start: 02/04/22 18:00 Freq: Status: Active Protocol: Document 02/09/22 11:20 [facility] (Rec: 02/09/22 15:02 [facility] [id number]) Manual Assessments Soft Tissue Assessment Soft Tissue Mobility Assessment tight calves w/limited passive DF PT-OP-G Mobility & Gait Start: 02/04/22 18:00 Freq: Status: Active Protocol: Document 02/09/22 11:20 [facility] (Rec: 02/09/22 15:02 [facility] [id number]) OP Mobility Evaluation Bed Mobility Rolling can roll B indep w/lower body following upper body Supine to and from Sit required min A for both supine <>sit Transfers Sit to Stand heavy use of UEs -pt reports sometimes needs to help OP Gait Assessment Comments Gait Comments Dec foot clearance B with heavy use of 4WW and dec DF R> L and dec hip flex PT-OP-M Strength Start: 02/04/22 18:00 Freq: Status: Active Protocol: Document 05/12/22 11:28 [facility] (Rec: 05/12/22 12:24 [facility] [id number]) Hip Strength Hip Manual Muscle Testing Right Flexion (L2) 3 Fair Abduction 2+ Poor+ External Rotation 3+ Fair+ Internal Rotation 3+ Fair+ Left Flexion (L2) 3- Fair- Abduction 2+ Poor+ External Rotation 3+ Fair+ Internal Rotation 3+ Fair+ Knee Strength Knee Manual Muscle Testing Right Flexion (S2) 4- Good- Extension (L3) 4- Good- Left Flexion (S2) 4- Good- Extension (L3) 4- Good- Ankle/Foot Strength Ankle and Foot Manual Muscle Testing Right Dorsiflexion (L4) 3+ Fair+ Plantarflexion (S1) 4- Good- Left Dorsiflexion (L4) 3+ Fair+ Plantarflexion (S1) 4- Good- Comments PF tested seated B PT-OP-Q Treatments Start: 02/04/22 18:00 Freq: Status: Active Protocol: Document 05/26/22 11:31 [facility] (Rec: 05/26/22 12:29 [facility] [id number]) Therapeutic Exercises Sitting Exercises dynadisc Sitting Exercise Name 1. seated balance w/posture 2. w/reaching all directions w/ BUEs Reps/Minutes 10 min Comments 3. w/balloon volley w/aide w/ SBA lat wt shift Sitting Exercise Name to UEs Side bilateral Reps/Minutes 10 ea Therapeutic Activity Therapeutic Activity supine>sit, log roll Comments rolling B x6 ea supine to sit 1x ea w/min A for sitting up Gait Training Gait Activity FWW Device Used FWW Distance/Duration 150ft,100ft Comments occ cues for posture and step length & speed Neuro Re-Education Treatment Other Activities PNF Comments 1. rhythmic initiation progressed to sustained holds w/L ant elevation -mult reps & L ant dep scap 2. sustained holds mass flex L -mult reps holding as long as pt tolerates 3. Sustained hold L ant elevation pelvis w/LLE facilitation PT-OP-T Assessment and Plan Start: 02/04/22 18:00 Freq: Status: Active Protocol: Document 05/26/22 11:31 [facility] (Rec: 05/26/22 12:29 [facility] [id number]) Physical Therapy Assessment Goals rolling Impairment pt rolls well to L side but difficult rolling R w/o assist Group Home Goal (LTG) Pt will be indep w/roll B w/ difficulty LTG Duration 08/04/22 6 min walk Impairment 179ft 3/14 w/FWW Group Home Goal (LTG) Pt will be able to walk at least 350ft in 6 min to show more functional gait speed LTG Duration 08/04 functional activities Short Term Goal (STG) Pt will be able to do bed mobility indep consistantly 03/09/22: pt reports helps her at times comes to sitting, during tx instructed log roll able to perform with cues continued BUE support. 04/03/22: able to get out of bed self but still need getting leg in bed and can roll over B . 05/12-gets out of bed ok and is getting rail to help get into bed STG Duration 06/29 Group Home Goal (LTG) Pt will be able to do sit to stand Indep and safely 02/27/22; cues for proper hand placement and hip hinge slow controlled descent, scoot forward feet under push from seated and downward pressure on FWW. 03/09/22: pt stated needs use BUE support and at times has to help her. 04/03/22: progressing: cues needed for consistant BUE support slow descent. LTG Duration achieved 05/12 strength Short Term Goal (STG) Pt will be indep w/HEP 02/27/22: added theraputty, wall plank, reviewed seated resisted hip abd, HC, STS, mini squat 03/09/22: reviewed TA bridge ( added 1/ foam roll under forefoot), SLR STG Duration achieved-advancing as able Group Home Goal (LTG) Pt will score at least 4/5 on MMT to show improved LE strength improvign pt ability to do ADLs 05/12-improved LTG Duration 08/04 gait Conduit Reamer Operator Goal (LTG) Pt will be able to walk safely with SPC at home and in community. 02/27/22: pt uses moderate UE WB on FWW during gait, cues for DF and controlled purposeful LE advancement. 04/03/22: progressing decrease BUE WB on FWW today, still decrease DF more effort hip/ knee flexion to advance LEs. LTG Duration discontinue goal-unrealistic w /current now known diagnosis balance Short Term Goal (STG) Pt will be able to score at least 36 on KIMBLE to show safe ambulation w/AD w/dec risk for falls. 02/13/22: KIMBLE 21/56. 04/07-05/12- STG Duration 06/28 Group Home Goal (LTG) Pt will be able to score at least 46 on KIMBLE to show safe ambulation w/dec risk for falls. LTG Duration 08/04 Assessment Summary Assessment pt did well with rolling and demonstrated improveda bility to roll R after PNF. Still weakness in core which limits abiltity to sit up from supine & dec UE strength. Physical Therapy Plan Frequency and Duration Frequency of Treatment 2x/Week Duration of treatment (weeks) 12 Plan of Care Start Date 05/12/22 Plan of Care End Date 08/04/22 Next Visit Focus/Plan Next Note Type Treatment Note Next Visit Plan PNF for rolling cont to work on strength for sup<> sitting. POC: cont to advance standing balance and gait & strength
--- NOTE | 2022-05-29 13:21 | PT.OTN ---
Current Diagnoses Muscle weakness (generalized) (05/29/22) Difficulty in walking, not elsewhere classified (05/29/22) Physical Therapy Treatment Note PT-OP-A Visit Information Start: 02/04/22 18:00 Freq: Status: Active Protocol: Document 05/29/22 11:46 [facility] (Rec: 05/29/22 13:18 [facility] [id number]) Out-Patient Physical Therapy Visit Information Visit Information Visit Type Treatment Note Visit Note 08/08 Visit Start Time 11:35 Visit Stop Time 12:20 Total Visit Minutes 45 Visit Number 22 Number of TELEHEALTH CASE MANAGER Visits 1 PT-OP-B Current Condition Start: 02/04/22 18:00 Freq: Status: Active Protocol: Document 02/09/22 11:20 [facility] (Rec: 02/09/22 15:02 [facility] [id number]) Current Condition History of Current Condition Onset Date Jan Current Complaints weakness in entire body, falls History of Current Condition Pt is frustrated because she used to be able to go to high intensity classes and walk 3-5 miles a day but stopped in Mar d/t falls. She has seen 2 neurologists, 1 neurosurgeon and feels like she is really progressively worse. She is really hating not being able to walk daily. She is having trouble getting socks on. Her dexterity is limited also. No one has been able to say what they think it is. Pt has been using a 4WW since Nov and in June started using a cane. she started using devices d/t falls. She is planning to see another neurologist in [place]. She has started going to [employer] class but stopped d/t her balance being too bad. She has all the [employer] equipment including a reformer. Her also recently has dx of cancer. Pt reports she got her first booster in Dec and she wonders if this is what started this. In Jan, she had some falls when she was working on her [employer] and [employer]. Had Meniscus surgery in August and did PT for a short time and was DC quickly d/t how well she was doing. Dr. Jain sent her to the neurosurgeon for potential back surgery based on EMG, but neurosurgeon didn't think that was the issue. She has mild back pain in the AM that has only been recently d/t being less mobile. The neurosurgeon at first thought she needed another MRI of brain and had it scheduled, but then when he talked to the neurologist, the plan is now for her to see a different neurologist. Pt seeing a telehealth ND/MD who gave her folic acid steffanie something else but she doesn't feel like it helps. Pt reports R foot flops down sometime. Since getting 4WW , she has fallen 3 times ( oct). Prior to the walker, she was falling every few days and had some days wehre she fell more than once. All falls have resulted only in cuts and bruises Prior Treatments and Tests Lumbar MRI: IMPRESSION: 1. Multilevel lumbar spondylosis, causing foraminal stenosis as detailed above. 2. Severe central canal stenosis at L3-4 and L4-5. 3. No abnormal cord signal. 4. Remote compression fractures of T11 and T12. Cervical MRI:IMPRESSION: 1. Multilevel degenerative disc and facet disease, as well as uncovertebral hypertrophy. 2. Multilevel canal stenoses, worst at C5-C6 where there is minimal cord flattening. 3. Multilevel foraminal stenoses, worst at C5-C6 and C6-C7 where there is associated intraforaminal nerve root compression. Recommend correlation with clinical symptoms to ascertain relevance of these findings. IMPRESSION: BRAIN MRI: 1. No acute intracranial disease process. 2. No areas of acute or chronic infarction. 3. Uejo-eo-avjmdxvq diffuse cerebral volume loss. 4. Mild periventricular and subcortical white matter chronic microvascular ischemic change. BRAIN MR ANGIOGRAM: Normal MR angiogram of the head. NECK MR ANGIOGRAM: 1. Less than 50% stenosis of the origin of the left internal carotid artery. 2. Right internal carotid artery is fully patent. 3. Vertebral arteries are fully patent. ADDENDUM: This case was reviewed at the request of Dr. Gonzalez and discussed by telephone at 11: 04 a.m. [place] time on October 14, 2021. This patient is brain parenchymal volume loss and chronic small vessel ischemic change. There is prominence of the ventricles and sulci, with the lateral ventricles larger than would be expected, given the degree of sulcal atrophy. Please consider normal pressure hydrocephalus. IMPRESSION: 1. Chronic mild wedging of the T9 vertebral body unchanged from prior examination which may be physiologic. 2. Multilevel disc degeneration. disc degeneration. Treatment Goals Patient/Caregiver Goals be able to get back to working outa nd walking PT-OP-C Subjective Start: 02/04/22 18:00 Freq: Status: Active Protocol: Document 05/29/22 11:46 [facility] (Rec: 05/29/22 13:18 [facility] [id number]) OP-PT Subjective Patient Comments Patient Comments Pt reports she thinks her ALS is getting worse, and that makes her crabby. She couldn't put her contacts in this morning because her hands were shaking too much. Rolling to get out of bed is getting easier. She cooked yesterday and is pacing herself by sitting after an activity. Infusions are next week. PT-OP-D Balance Start: 02/04/22 18:00 Freq: Status: Active Protocol: Document 05/12/22 11:28 [facility] (Rec: 05/12/22 12:24 [facility] [id number]) Balance Tests Kimble Balance Test Kimble Balance Test Score 32 PT-OP-E Functional Tests Start: 02/04/22 18:00 Freq: Status: Active Protocol: Document 05/12/22 11:28 [facility] (Rec: 05/12/22 12:25 [facility] [id number]) Functional Tests 6 Minute Walk Test Distance 179ft Device Used fww PT-OP-F Manual Assessment Start: 02/04/22 18:00 Freq: Status: Active Protocol: Document 02/09/22 11:20 [facility] (Rec: 02/09/22 15:02 [facility] [id number]) Manual Assessments Soft Tissue Assessment Soft Tissue Mobility Assessment tight calves w/limited passive DF PT-OP-G Mobility & Gait Start: 02/04/22 18:00 Freq: Status: Active Protocol: Document 02/09/22 11:20 [facility] (Rec: 02/09/22 15:02 [facility] [id number]) OP Mobility Evaluation Bed Mobility Rolling can roll B indep w/lower body following upper body Supine to and from Sit required min A for both supine <>sit Transfers Sit to Stand heavy use of UEs -pt reports sometimes needs to help OP Gait Assessment Comments Gait Comments Dec foot clearance B with heavy use of 4WW and dec DF R> L and dec hip flex PT-OP-M Strength Start: 02/04/22 18:00 Freq: Status: Active Protocol: Document 05/12/22 11:28 [facility] (Rec: 05/12/22 12:24 [facility] [id number]) Hip Strength Hip Manual Muscle Testing Right Flexion (L2) 3 Fair Abduction 2+ Poor+ External Rotation 3+ Fair+ Internal Rotation 3+ Fair+ Left Flexion (L2) 3- Fair- Abduction 2+ Poor+ External Rotation 3+ Fair+ Internal Rotation 3+ Fair+ Knee Strength Knee Manual Muscle Testing Right Flexion (S2) 4- Good- Extension (L3) 4- Good- Left Flexion (S2) 4- Good- Extension (L3) 4- Good- Ankle/Foot Strength Ankle and Foot Manual Muscle Testing Right Dorsiflexion (L4) 3+ Fair+ Plantarflexion (S1) 4- Good- Left Dorsiflexion (L4) 3+ Fair+ Plantarflexion (S1) 4- Good- Comments PF tested seated B PT-OP-Q Treatments Start: 02/04/22 18:00 Freq: Status: Active Protocol: Document 05/29/22 11:46 [facility] (Rec: 05/29/22 13:18 [facility] [id number]) Cardio Equipment Recumbent Elliptical (Biodex) Duration (Minutes) 10 Resistance 2>5 Seat Position 6 Other UEs/ LEs, cued 30 RPM goal, maintains 25RPM, vc knee alignment Therapeutic Exercises Supine Exercises H/s stretch Side bilateral Equipment Used manual w/ PNF contract/relax Comments R>L HS tightness Sitting Exercises dynadisc Sitting Exercise Name 1. seated balance w/posture 2. w/reaching all directions w/ BUEs Reps/Minutes 10 min Comments 3. w/balloon volley w/aide w/ SBA lat wt shift Sitting Exercise Name to UEs Side bilateral Reps/Minutes 10 ea hamstring stretch Side bilateral Equipment Used biodex, 5 step Reps/Minutes x60s ea sit<> stand Equipment Used from waiting room chair, Biodex, mat table Reps/Minutes between activities Comments SBA>CGA, standing up to FWW Therapeutic Activity Therapeutic Activity supine>sit, log roll Comments supine to sit 1x ea w/min A for sitting up PT-OP-T Assessment and Plan Start: 02/04/22 18:00 Freq: Status: Active Protocol: Document 05/29/22 11:46 [facility] (Rec: 05/29/22 13:18 [facility] [id number]) Physical Therapy Assessment Impairments Impairments Activity Tolerance,Balance, Functional Activities, Functional Mobility,Gait,Pain, Posture,ROM,Soft Tissue Mobility,Strength Goals rolling Impairment pt rolls well to L side but difficult rolling R w/o assist Fpc Goal (LTG) Pt will be indep w/roll B w/ difficulty LTG Duration 08/04/22 6 min walk Impairment 179ft 05/12 w/FWW Pharmacology Professor Goal (LTG) Pt will be able to walk at least 350ft in 6 min to show more functional gait speed LTG Duration 08/04 functional activities Short Term Goal (STG) Pt will be able to do bed mobility indep consistantly 03/09/22: pt reports helps her at times comes to sitting, during tx instructed log roll able to perform with cues continued BUE support. 04/03/22: able to get out of bed self but still need getting leg in bed and can roll over B . 05/12-gets out of bed ok and is getting rail to help get into bed STG Duration 06/29 Fpc Goal (LTG) Pt will be able to do sit to stand Indep and safely 02/27/22; cues for proper hand placement and hip hinge slow controlled descent, scoot forward feet under push from seated and downward pressure on FWW. 03/09/22: pt stated needs use BUE support and at times has to help her. 04/03/22: progressing: cues needed for consistant BUE support slow descent. LTG Duration achieved 05/12 strength Short Term Goal (STG) Pt will be indep w/HEP 02/27/22: added theraputty, wall plank, reviewed seated resisted hip abd, HC, STS, mini squat 03/09/22: reviewed TA bridge ( added 1/2 foam roll under forefoot), SLR STG Duration achieved-advancing as able Pharmacology Professor Goal (LTG) Pt will score at least 4/5 on MMT to show improved LE strength improvign pt ability to do ADLs 05/12-improved LTG Duration 08/04 gait Fpc Goal (LTG) Pt will be able to walk safely with SPC at home and in community. 02/27/22: pt uses moderate UE WB on FWW during gait, cues for DF and controlled purposeful LE advancement. 04/03/22: progressing decrease BUE WB on FWW today, still decrease DF more effort hip/ knee flexion to advance LEs. LTG Duration discontinue goal-unrealistic w /current now known diagnosis balance Short Term Goal (STG) Pt will be able to score at least 36 on KIMBLE to show safe ambulation w/AD w/dec risk for falls. 02/13/22: KIMBLE 21/56. 04/07-05/12- STG Duration 06/28 Fpc Goal (LTG) Pt will be able to score at least 46 on KIMBLE to show safe ambulation w/dec risk for falls. LTG Duration 08/04 Assessment Summary Assessment Pt struggles to get up from waiting room chair and needs cues for scooting to edge of chair and foot placement and is able to stand w/ UE support SBA. Her RLE demonstrates increased tone initially with recumbant elliptical as she could not get heel to make contact - with breathwork and cues for slowly pushing through heel pt's R heel is able to contact pedal. Pt has positive feedback response to manual Hamstring stretching w/ PNF and R Hamstring tightness greater than L. Physical Therapy Plan Frequency and Duration Frequency of Treatment 2x/Week Duration of treatment (weeks) 12 Plan of Care Start Date 05/12/22 Plan of Care End Date 08/04/22 Therapeutic Interventions Therapeutic Interventions Aquatic Therapy,Balance Training,Coordination Training ,Gait Training,Home Exercise Program,Joint Mobilizations, Manual Therapy,Neuromuscular Re-education,Orthotic/ Prosthetic Management,Patient/ Caregiver Education,Self-Care/ Home Management,Soft Tissue Mobilization,Taping, Therapeutic Activities, Therapeutic Exercises Modalities Electric Stimulation Next Visit Focus/Plan Next Note Type Treatment Note Next Visit Plan PNF for rolling cont to work on strength for sup<> sitting. POC: cont to advance standing balance and gait & strength
--- NOTE | 2022-06-08 09:47 | PT.OTN ---
Current Diagnoses Muscle weakness (generalized) (06/08/22) Difficulty in walking, not elsewhere classified (06/08/22) Physical Therapy Treatment Note PT-OP-A Visit Information Start: 02/04/22 18:00 Freq: Status: Active Protocol: Document 06/08/22 09:03 [facility] (Rec: 06/08/22 09:47 [facility] [id number]) Out-Patient Physical Therapy Visit Information Visit Information Visit Type Treatment Note Visit Note 09/07 Visit Start Time 09:02 Visit Stop Time 09:44 Total Visit Minutes 42 Visit Number 23 Number of BINDER CHAINSTITCH Visits 0 PT-OP-B Current Condition Start: 02/04/22 18:00 Freq: Status: Active Protocol: Document 02/09/22 11:20 [facility] (Rec: 02/09/22 15:02 [facility] [id number]) Current Condition History of Current Condition Onset Date Jan Current Complaints weakness in entire body, falls History of Current Condition Pt is frustrated because she used to be able to go to high intensity classes and walk 3-5 miles a day but stopped in Mar d/t falls. She has seen 2 neurologists, 1 neurosurgeon and feels like she is really progressively worse. She is really hating not being able to walk daily. She is having trouble getting socks on. Her dexterity is limited also. No one has been able to say what they think it is. Pt has been using a 4WW since Nov and in June started using a cane. she started using devices d/t falls. She is planning to see another neurologist in [place]. She has started going to [employer] class but stopped d/t her balance being too bad. She has all the [employer] equipment including a reformer. Her also recently has dx of cancer. Pt reports she got her first booster in Dec and she wonders if this is what started this. In Jan, she had some falls when she was working on her [employer] and [employer]. Had Meniscus surgery in August and did PT for a short time and was DC quickly d/t how well she was doing. Dr. Jain sent her to the neurosurgeon for potential back surgery based on EMG, but neurosurgeon didn't think that was the issue. She has mild back pain in the AM that has only been recently d/t being less mobile. The neurosurgeon at first thought she needed another MRI of brain and had it scheduled, but then when he talked to the neurologist, the plan is now for her to see a different neurologist. Pt seeing a telehealth ND/MD who gave her folic acid steffanie something else but she doesn't feel like it helps. Pt reports R foot flops down sometime. Since getting 4WW , she has fallen 3 times ( oct). Prior to the walker, she was falling every few days and had some days wehre she fell more than once. All falls have resulted only in cuts and bruises Prior Treatments and Tests Lumbar MRI: IMPRESSION: 1. Multilevel lumbar spondylosis, causing foraminal stenosis as detailed above. 2. Severe central canal stenosis at L3-4 and L4-5. 3. No abnormal cord signal. 4. Remote compression fractures of T11 and T12. Cervical MRI:IMPRESSION: 1. Multilevel degenerative disc and facet disease, as well as uncovertebral hypertrophy. 2. Multilevel canal stenoses, worst at C5-C6 where there is minimal cord flattening. 3. Multilevel foraminal stenoses, worst at C5-C6 and C6-C7 where there is associated intraforaminal nerve root compression. Recommend correlation with clinical symptoms to ascertain relevance of these findings. IMPRESSION: BRAIN MRI: 1. No acute intracranial disease process. 2. No areas of acute or chronic infarction. 3. Bjue-qi-kfqpokct diffuse cerebral volume loss. 4. Mild periventricular and subcortical white matter chronic microvascular ischemic change. BRAIN MR ANGIOGRAM: Normal MR angiogram of the head. NECK MR ANGIOGRAM: 1. Less than 50% stenosis of the origin of the left internal carotid artery. 2. Right internal carotid artery is fully patent. 3. Vertebral arteries are fully patent. ADDENDUM: This case was reviewed at the request of Dr. Gonzalez and discussed by telephone at 11: 04 a.m. [place] time on October 14, 2021. This patient is brain parenchymal volume loss and chronic small vessel ischemic change. There is prominence of the ventricles and sulci, with the lateral ventricles larger than would be expected, given the degree of sulcal atrophy. Please consider normal pressure hydrocephalus. IMPRESSION: 1. Chronic mild wedging of the T9 vertebral body unchanged from prior examination which may be physiologic. 2. Multilevel disc degeneration. disc degeneration. Treatment Goals Patient/Caregiver Goals be able to get back to working outa nd walking PT-OP-C Subjective Start: 02/04/22 18:00 Freq: Status: Active Protocol: Document 06/08/22 09:03 [facility] (Rec: 06/08/22 09:47 [facility] [id number]) OP-PT Subjective Patient Comments Patient Comments Pt reports they gave her the wrong injection last week.She is frustrated because [facility] called to make sure she was getting the right one beforehand. She is stuck there for 4 hours each day and exhausted so didn't do as much work after so feels like she is worse now. PT-OP-D Balance Start: 02/04/22 18:00 Freq: Status: Active Protocol: Document 05/12/22 11:28 [facility] (Rec: 05/12/22 12:24 [facility] [id number]) Balance Tests Kimble Balance Test Kimble Balance Test Score 32 PT-OP-E Functional Tests Start: 02/04/22 18:00 Freq: Status: Active Protocol: Document 05/12/22 11:28 [facility] (Rec: 05/12/22 12:25 [facility] [id number]) Functional Tests 6 Minute Walk Test Distance 179ft Device Used fww PT-OP-F Manual Assessment Start: 02/04/22 18:00 Freq: Status: Active Protocol: Document 02/09/22 11:20 [facility] (Rec: 02/09/22 15:02 [facility] [id number]) Manual Assessments Soft Tissue Assessment Soft Tissue Mobility Assessment tight calves w/limited passive DF PT-OP-G Mobility & Gait Start: 02/04/22 18:00 Freq: Status: Active Protocol: Document 02/09/22 11:20 [facility] (Rec: 02/09/22 15:02 [facility] [id number]) OP Mobility Evaluation Bed Mobility Rolling can roll B indep w/lower body following upper body Supine to and from Sit required min A for both supine <>sit Transfers Sit to Stand heavy use of UEs -pt reports sometimes needs to help OP Gait Assessment Comments Gait Comments Dec foot clearance B with heavy use of 4WW and dec DF R> L and dec hip flex PT-OP-M Strength Start: 02/04/22 18:00 Freq: Status: Active Protocol: Document 05/12/22 11:28 [facility] (Rec: 05/12/22 12:24 [facility] [id number]) Hip Strength Hip Manual Muscle Testing Right Flexion (L2) 3 Fair Abduction 2+ Poor+ External Rotation 3+ Fair+ Internal Rotation 3+ Fair+ Left Flexion (L2) 3- Fair- Abduction 2+ Poor+ External Rotation 3+ Fair+ Internal Rotation 3+ Fair+ Knee Strength Knee Manual Muscle Testing Right Flexion (S2) 4- Good- Extension (L3) 4- Good- Left Flexion (S2) 4- Good- Extension (L3) 4- Good- Ankle/Foot Strength Ankle and Foot Manual Muscle Testing Right Dorsiflexion (L4) 3+ Fair+ Plantarflexion (S1) 4- Good- Left Dorsiflexion (L4) 3+ Fair+ Plantarflexion (S1) 4- Good- Comments PF tested seated B PT-OP-Q Treatments Start: 02/04/22 18:00 Freq: Status: Active Protocol: Document 06/08/22 09:03 [facility] (Rec: 06/08/22 09:47 [facility] [id number]) Gym Equipment Shuttle Recovery Unilateral Squats Details cued // knees asc/desc Resistance 25# (new band) Reps/Time x10 B Bilateral Squats Details cued //knees Resistance 50# (2 new bands) Reps/Time x15 Gait Training Gait Activity FWW Device Used FWW Distance/Duration 100ft, 150ft Comments occ cues for posture and step length & speed Neuro Re-Education Treatment Balance Activities hurdles Details positioned on side Equipment rail 1 Reps/Duration 6 hurdles (4x fwd, 1x side B) Comments cued // feet, DF/ hip/ knee flexion clearance, space between BLEs tilt board Details fwd & side Comments balancing & wt shifts ea foam Comments WBOS w/head turns &ec & NBOS w/head turns PT-OP-T Assessment and Plan Start: 02/04/22 18:00 Freq: Status: Active Protocol: Document 06/08/22 09:03 [facility] (Rec: 06/08/22 09:47 [facility] [id number]) Physical Therapy Assessment Goals rolling Impairment pt rolls well to L side but difficult rolling R w/o assist Motor Boss Goal (LTG) Pt will be indep w/roll B w/ difficulty LTG Duration 08/04/22 6 min walk Impairment 179ft 3/14 w/FWW Fdc Goal (LTG) Pt will be able to walk at least 350ft in 6 min to show more functional gait speed LTG Duration 08/04 functional activities Short Term Goal (STG) Pt will be able to do bed mobility indep consistantly 03/09/22: pt reports helps her at times comes to sitting, during tx instructed log roll able to perform with cues continued BUE support. 04/03/22: able to get out of bed self but still need getting leg in bed and can roll over B . 05/12-gets out of bed ok and is getting rail to help get into bed STG Duration 06/29 Fdc Goal (LTG) Pt will be able to do sit to stand Indep and safely 02/27/22; cues for proper hand placement and hip hinge slow controlled descent, scoot forward feet under push from seated and downward pressure on FWW. 03/09/22: pt stated needs use BUE support and at times has to help her. 04/03/22: progressing: cues needed for consistant BUE support slow descent. LTG Duration achieved 05/12 strength Short Term Goal (STG) Pt will be indep w/HEP 02/27/22: added theraputty, wall plank, reviewed seated resisted hip abd, HC, STS, mini squat 03/09/22: reviewed TA bridge ( added 1/2 foam roll under forefoot), SLR STG Duration achieved-advancing as able Fdc Goal (LTG) Pt will score at least 4/5 on MMT to show improved LE strength improvign pt ability to do ADLs 05/12-improved LTG Duration 08/04 gait Fdc Goal (LTG) Pt will be able to walk safely with SPC at home and in community. 02/27/22: pt uses moderate UE WB on FWW during gait, cues for DF and controlled purposeful LE advancement. 04/03/22: progressing decrease BUE WB on FWW today, still decrease DF more effort hip/ knee flexion to advance LEs. LTG Duration discontinue goal-unrealistic w /current now known diagnosis balance Short Term Goal (STG) Pt will be able to score at least 36 on KIMBLE to show safe ambulation w/AD w/dec risk for falls. 02/13/22: KIMBLE 21/56. 04/07-05/12- STG Duration 06/28 Motor Boss Goal (LTG) Pt will be able to score at least 46 on KIMBLE to show safe ambulation w/dec risk for falls. LTG Duration 08/04 Assessment Summary Assessment Pt appeared worse toay w/ balance, gait and mobility. She required cues to inc speed w/gait to improve step pattern. She also struggled more w/the balance tasks. Physical Therapy Plan Frequency and Duration Frequency of Treatment 2x/Week Duration of treatment (weeks) 12 Plan of Care Start Date 05/12/22 Plan of Care End Date 08/04/22 Next Visit Focus/Plan Next Note Type Treatment Note Next Visit Plan PNF for rolling cont to work on strength for sup<> sitting. POC: cont to advance standing balance and gait & strength
--- NOTE | 2022-06-11 12:53 | PT.OTN ---
Current Diagnoses Muscle weakness (generalized) (06/11/22) Difficulty in walking, not elsewhere classified (06/11/22) Physical Therapy Treatment Note PT-OP-A Visit Information Start: 02/04/22 18:00 Freq: Status: Active Protocol: Document 06/11/22 10:32 SW (Rec: 06/11/22 12:52 [id number]) Out-Patient Physical Therapy Visit Information Visit Information Visit Type Treatment Note Visit Note 09/07 Visit Start Time 10:32 Visit Stop Time 11:20 Total Visit Minutes 47 Visit Number 24 Number of LICENSED PESTICIDE APPLICATOR Visits 1 PT-OP-B Current Condition Start: 02/04/22 18:00 Freq: Status: Active Protocol: Document 02/09/22 11:20 [facility] (Rec: 02/09/22 15:02 [facility] [id number]) Current Condition History of Current Condition Onset Date Jan Current Complaints weakness in entire body, falls History of Current Condition Pt is frustrated because she used to be able to go to high intensity classes and walk 3-5 miles a day but stopped in Mar d/t falls. She has seen 2 neurologists, 1 neurosurgeon and feels like she is really progressively worse. She is really hating not being able to walk daily. She is having trouble getting socks on. Her dexterity is limited also. No one has been able to say what they think it is. Pt has been using a 4WW since Nov and in June started using a cane. she started using devices d/t falls. She is planning to see another neurologist in [place]. She has started going to [employer] class but stopped d/t her balance being too bad. She has all the [employer] equipment including a reformer. Her also recently has dx of cancer. Pt reports she got her first booster in Dec and she wonders if this is what started this. In Jan, she had some falls when she was working on her [employer] and [employer]. Had Meniscus surgery in August and did PT for a short time and was DC quickly d/t how well she was doing. Dr. Jain sent her to the neurosurgeon for potential back surgery based on EMG, but neurosurgeon didn't think that was the issue. She has mild back pain in the AM that has only been recently d/t being less mobile. The neurosurgeon at first thought she needed another MRI of brain and had it scheduled, but then when he talked to the neurologist, the plan is now for her to see a different neurologist. Pt seeing a telehealth ND/MD who gave her folic acid steffanie something else but she doesn't feel like it helps. Pt reports R foot flops down sometime. Since getting 4WW , she has fallen 3 times ( oct). Prior to the walker, she was falling every few days and had some days wehre she fell more than once. All falls have resulted only in cuts and bruises Prior Treatments and Tests Lumbar MRI: IMPRESSION: 1. Multilevel lumbar spondylosis, causing foraminal stenosis as detailed above. 2. Severe central canal stenosis at L3-4 and L4-5. 3. No abnormal cord signal. 4. Remote compression fractures of T11 and T12. Cervical MRI:IMPRESSION: 1. Multilevel degenerative disc and facet disease, as well as uncovertebral hypertrophy. 2. Multilevel canal stenoses, worst at C5-C6 where there is minimal cord flattening. 3. Multilevel foraminal stenoses, worst at C5-C6 and C6-C7 where there is associated intraforaminal nerve root compression. Recommend correlation with clinical symptoms to ascertain relevance of these findings. IMPRESSION: BRAIN MRI: 1. No acute intracranial disease process. 2. No areas of acute or chronic infarction. 3. [id number] diffuse cerebral volume loss. 4. Mild periventricular and subcortical white matter chronic microvascular ischemic change. BRAIN MR ANGIOGRAM: Normal MR angiogram of the head. NECK MR ANGIOGRAM: 1. Less than 50% stenosis of the origin of the left internal carotid artery. 2. Right internal carotid artery is fully patent. 3. Vertebral arteries are fully patent. ADDENDUM: This case was reviewed at the request of Dr. Gonzalez and discussed by telephone at 11: 04 a.m. [place] time on October 14, 2021. This patient is brain parenchymal volume loss and chronic small vessel ischemic change. There is prominence of the ventricles and sulci, with the lateral ventricles larger than would be expected, given the degree of sulcal atrophy. Please consider normal pressure hydrocephalus. IMPRESSION: 1. Chronic mild wedging of the T9 vertebral body unchanged from prior examination which may be physiologic. 2. Multilevel disc degeneration. disc degeneration. Treatment Goals Patient/Caregiver Goals be able to get back to working outa nd walking PT-OP-C Subjective Start: 02/04/22 18:00 Freq: Status: Active Protocol: Document 06/11/22 10:32 SW (Rec: 06/11/22 12:52 SW [id number]) OP-PT Subjective Patient Comments Patient Comments Pt reports a lot of support from friends, brought to therapy today by her friend. States she had an injection and she notices the differences and can tell when she is almost due for another one. She has noticed increased weakness in RLE. PT-OP-D Balance Start: 02/04/22 18:00 Freq: Status: Active Protocol: Document 05/12/22 11:28 [facility] (Rec: 05/12/22 12:24 [facility] [id number]) Balance Tests Kimble Balance Test Kimble Balance Test Score 32 PT-OP-E Functional Tests Start: 02/04/22 18:00 Freq: Status: Active Protocol: Document 05/12/22 11:28 [facility] (Rec: 05/12/22 12:25 [facility] [id number]) Functional Tests 6 Minute Walk Test Distance 179ft Device Used fww PT-OP-F Manual Assessment Start: 02/04/22 18:00 Freq: Status: Active Protocol: Document 02/09/22 11:20 [facility] (Rec: 02/09/22 15:02 [facility] [id number]) Manual Assessments Soft Tissue Assessment Soft Tissue Mobility Assessment tight calves w/limited passive DF PT-OP-G Mobility & Gait Start: 02/04/22 18:00 Freq: Status: Active Protocol: Document 02/09/22 11:20 [facility] (Rec: 02/09/22 15:02 [facility] [id number]) OP Mobility Evaluation Bed Mobility Rolling can roll B indep w/lower body following upper body Supine to and from Sit required min A for both supine <>sit Transfers Sit to Stand heavy use of UEs -pt reports sometimes needs to help OP Gait Assessment Comments Gait Comments Dec foot clearance B with heavy use of 4WW and dec DF R> L and dec hip flex PT-OP-M Strength Start: 02/04/22 18:00 Freq: Status: Active Protocol: Document 05/12/22 11:28 [facility] (Rec: 05/12/22 12:24 [facility] [id number]) Hip Strength Hip Manual Muscle Testing Right Flexion (L2) 3 Fair Abduction 2+ Poor+ External Rotation 3+ Fair+ Internal Rotation 3+ Fair+ Left Flexion (L2) 3- Fair- Abduction 2+ Poor+ External Rotation 3+ Fair+ Internal Rotation 3+ Fair+ Knee Strength Knee Manual Muscle Testing Right Flexion (S2) 4- Good- Extension (L3) 4- Good- Left Flexion (S2) 4- Good- Extension (L3) 4- Good- Ankle/Foot Strength Ankle and Foot Manual Muscle Testing Right Dorsiflexion (L4) 3+ Fair+ Plantarflexion (S1) 4- Good- Left Dorsiflexion (L4) 3+ Fair+ Plantarflexion (S1) 4- Good- Comments PF tested seated B PT-OP-Q Treatments Start: 02/04/22 18:00 Freq: Status: Active Protocol: Document 06/11/22 10:32 (Rec: 06/11/22 12:52 [id number]) Cardio Equipment Recumbent Elliptical (Biodex) Duration (Minutes) 10 Resistance 5 Seat Position 6 Other UEs/ LEs, cued 30 RPM goal, maintains 25RPM, vc knee alignment Therapeutic Exercises Standing Exercises side step Side bilateral Resistance AROM Equipment Used rail Reps/Minutes x3ft ea Comments EOS, L challenged and pulled into L hip ER, dc'd d/t fatigue april Standing Exercise Name 1 rail Side bilateral Reps/Minutes 10 mini squats Resistance AROM Equipment Used FWW/rail for safety Reps/Minutes 5 reps, 5 sec hold Comments cued TS/ chest lift, good core /HS facilitation for stability Neuro Re-Education Treatment Balance Activities head turns Surface firm Comments staggered stance and NBOS SLS Details toe tap Equipment 4 step Reps/Duration x5 tilt board Details fwd & side Comments balancing & wt shifts ea EC Details NBOS Equipment @ rail Reps/Duration 2x 8 sec foam Comments WBOS w/head turns &ec & NBOS w/head turns PT-OP-T Assessment and Plan Start: 02/04/22 18:00 Freq: Status: Active Protocol: Document 06/11/22 10:32 (Rec: 06/11/22 12:52 [id number]) Physical Therapy Assessment Goals rolling Impairment pt rolls well to L side but difficult rolling R w/o assist Technical Report Writer Goal (LTG) Pt will be indep w/roll B w/ difficulty LTG Duration 08/04/22 6 min walk Impairment 179ft 05/12 w/FWW Technical Report Writer Goal (LTG) Pt will be able to walk at least 350ft in 6 min to show more functional gait speed LTG Duration 08/04 functional activities Short Term Goal (STG) Pt will be able to do bed mobility indep consistantly 03/09/22: pt reports helps her at times comes to sitting, during tx instructed log roll able to perform with cues continued BUE support. 04/03/22: able to get out of bed self but still need getting leg in bed and can roll over B . 05/12-gets out of bed ok and is getting rail to help get into bed STG Duration 06/29 Group Home Goal (LTG) Pt will be able to do sit to stand Indep and safely 02/27/22; cues for proper hand placement and hip hinge slow controlled descent, scoot forward feet under push from seated and downward pressure on FWW. 03/09/22: pt stated needs use BUE support and at times has to help her. 04/03/22: progressing: cues needed for consistant BUE support slow descent. LTG Duration achieved 05/12 strength Short Term Goal (STG) Pt will be indep w/HEP 02/27/22: added theraputty, wall plank, reviewed seated resisted hip abd, HC, STS, mini squat 03/09/22: reviewed TA bridge ( added 1/2 foam roll under forefoot), SLR STG Duration achieved-advancing as able Group Home Goal (LTG) Pt will score at least 4/5 on MMT to show improved LE strength improvign pt ability to do ADLs 05/12-improved LTG Duration 08/04 gait Group Home Goal (LTG) Pt will be able to walk safely with SPC at home and in community. 02/27/22: pt uses moderate UE WB on FWW during gait, cues for DF and controlled purposeful LE advancement. 04/03/22: progressing decrease BUE WB on FWW today, still decrease DF more effort hip/ knee flexion to advance LEs. LTG Duration discontinue goal-unrealistic w /current now known diagnosis balance Short Term Goal (STG) Pt will be able to score at least 36 on KIMBLE to show safe ambulation w/AD w/dec risk for falls. 02/13/22: KIMBLE 21/56. 2/7-05/12- STG Duration 06/28 Technical Report Writer Goal (LTG) Pt will be able to score at least 46 on KIMBLE to show safe ambulation w/dec risk for falls. LTG Duration 08/04 Assessment Summary Assessment Pt required VC to get up from sit to stands for posture and scooting to edge of seat. Improved sit to stand with carryover of cues, needed reminders throughout session today. She states she is optimistic and determined, but reports frustration with her brain not listening to her body to dorsiflex foot/flex hip when ambulating. Post treatment fatigue, but noted she has plenty of time for rest today. Physical Therapy Plan Frequency and Duration Frequency of Treatment 2x/Week Duration of treatment (weeks) 12 Plan of Care Start Date 05/12/22 Plan of Care End Date 08/04/22 Therapeutic Interventions Therapeutic Interventions Aquatic Therapy,Balance Training,Coordination Training ,Gait Training,Home Exercise Program,Joint Mobilizations, Manual Therapy,Neuromuscular Re-education,Orthotic/ Prosthetic Management,Patient/ Caregiver Education,Self-Care/ Home Management,Soft Tissue Mobilization,Taping, Therapeutic Activities, Therapeutic Exercises Modalities Electric Stimulation Next Visit Focus/Plan Next Note Type Treatment Note Next Visit Plan PNF for rolling cont to work on strength for sup<> sitting. POC: cont to advance standing balance and gait & strength
--- NOTE | 2022-06-16 12:43 | PT.OTN ---
Current Diagnoses Muscle weakness (generalized) (06/16/22) Difficulty in walking, not elsewhere classified (06/16/22) Physical Therapy Treatment Note PT-OP-A Visit Information Start: 02/04/22 18:00 Freq: Status: Active Protocol: Document 06/16/22 11:16 NBM (Rec: 06/16/22 12:34 NBM [id number]) Out-Patient Physical Therapy Visit Information Visit Information Visit Type Treatment Note Visit Note 10/08 Visit Start Time 11:17 Visit Stop Time 12:02 Total Visit Minutes 45 Visit Number 25 Number of MODERN AND CONTEMPORARY ART CURATOR Visits 2 PT-OP-B Current Condition Start: 02/04/22 18:00 Freq: Status: Active Protocol: Document 02/09/22 11:20 [facility] (Rec: 02/09/22 15:02 [facility] [id number]) Current Condition History of Current Condition Onset Date Jan Current Complaints weakness in entire body, falls History of Current Condition Pt is frustrated because she used to be able to go to high intensity classes and walk 3-5 miles a day but stopped in Mar d/t falls. She has seen 2 neurologists, 1 neurosurgeon and feels like she is really progressively worse. She is really hating not being able to walk daily. She is having trouble getting socks on. Her dexterity is limited also. No one has been able to say what they think it is. Pt has been using a 4WW since Nov and in June started using a cane. she started using devices d/t falls. She is planning to see another neurologist in [place]. She has started going to [employer] class but stopped d/t her balance being too bad. She has all the [employer] equipment including a reformer. Her also recently has dx of cancer. Pt reports she got her first booster in Dec and she wonders if this is what started this. In Jan, she had some falls when she was working on her [employer] and [employer]. Had Meniscus surgery in August and did PT for a short time and was DC quickly d/t how well she was doing. Dr. Jain sent her to the neurosurgeon for potential back surgery based on EMG, but neurosurgeon didn't think that was the issue. She has mild back pain in the AM that has only been recently d/t being less mobile. The neurosurgeon at first thought she needed another MRI of brain and had it scheduled, but then when he talked to the neurologist, the plan is now for her to see a different neurologist. Pt seeing a telehealth ND/MD who gave her folic acid steffanie something else but she doesn't feel like it helps. Pt reports R foot flops down sometime. Since getting 4WW , she has fallen 3 times ( oct). Prior to the walker, she was falling every few days and had some days wehre she fell more than once. All falls have resulted only in cuts and bruises Prior Treatments and Tests Lumbar MRI: IMPRESSION: 1. Multilevel lumbar spondylosis, causing foraminal stenosis as detailed above. 2. Severe central canal stenosis at L3-4 and L4-5. 3. No abnormal cord signal. 4. Remote compression fractures of T11 and T12. Cervical MRI:IMPRESSION: 1. Multilevel degenerative disc and facet disease, as well as uncovertebral hypertrophy. 2. Multilevel canal stenoses, worst at C5-C6 where there is minimal cord flattening. 3. Multilevel foraminal stenoses, worst at C5-C6 and C6-C7 where there is associated intraforaminal nerve root compression. Recommend correlation with clinical symptoms to ascertain relevance of these findings. IMPRESSION: BRAIN MRI: 1. No acute intracranial disease process. 2. No areas of acute or chronic infarction. 3. Wknc-lb-bwokllmr diffuse cerebral volume loss. 4. Mild periventricular and subcortical white matter chronic microvascular ischemic change. BRAIN MR ANGIOGRAM: Normal MR angiogram of the head. NECK MR ANGIOGRAM: 1. Less than 50% stenosis of the origin of the left internal carotid artery. 2. Right internal carotid artery is fully patent. 3. Vertebral arteries are fully patent. ADDENDUM: This case was reviewed at the request of Dr. Gonzalez and discussed by telephone at 11: 04 a.m. [place] time on October 14, 2021. This patient is brain parenchymal volume loss and chronic small vessel ischemic change. There is prominence of the ventricles and sulci, with the lateral ventricles larger than would be expected, given the degree of sulcal atrophy. Please consider normal pressure hydrocephalus. IMPRESSION: 1. Chronic mild wedging of the T9 vertebral body unchanged from prior examination which may be physiologic. 2. Multilevel disc degeneration. disc degeneration. Treatment Goals Patient/Caregiver Goals be able to get back to working outa nd walking PT-OP-C Subjective Start: 02/04/22 18:00 Freq: Status: Active Protocol: Document 06/16/22 11:16 NB (Rec: 06/16/22 12:34 [facility] [id number]) OP-PT Subjective Patient Comments Patient Comments Pt reports her appt with [facility] is now on 07/01. Her friend is planning to help her with the reformer at home to help her get stronger. She slept all day yesterday after visitors left. Pt stopped using cane except to get into shower and out of bed, and has another FWW for upstairs. 4WW is being used in kitchen only. She thinks she was using cane as a crutch and does not really need it. PT-OP-D Balance Start: 02/04/22 18:00 Freq: Status: Active Protocol: Document 05/12/22 11:28 [facility] (Rec: 05/12/22 12:24 [facility] [id number]) Balance Tests Kimble Balance Test Kimble Balance Test Score 32 PT-OP-E Functional Tests Start: 02/04/22 18:00 Freq: Status: Active Protocol: Document 05/12/22 11:28 [facility] (Rec: 05/12/22 12:25 [facility] [id number]) Functional Tests 6 Minute Walk Test Distance 179ft Device Used fww PT-OP-F Manual Assessment Start: 02/04/22 18:00 Freq: Status: Active Protocol: Document 02/09/22 11:20 [facility] (Rec: 02/09/22 15:02 [facility] [id number]) Manual Assessments Soft Tissue Assessment Soft Tissue Mobility Assessment tight calves w/limited passive DF PT-OP-G Mobility & Gait Start: 02/04/22 18:00 Freq: Status: Active Protocol: Document 02/09/22 11:20 [facility] (Rec: 02/09/22 15:02 [facility] [id number]) OP Mobility Evaluation Bed Mobility Rolling can roll B indep w/lower body following upper body Supine to and from Sit required min A for both supine <>sit Transfers Sit to Stand heavy use of UEs -pt reports sometimes needs to help OP Gait Assessment Comments Gait Comments Dec foot clearance B with heavy use of 4WW and dec DF R> L and dec hip flex PT-OP-M Strength Start: 02/04/22 18:00 Freq: Status: Active Protocol: Document 05/12/22 11:28 [facility] (Rec: 05/12/22 12:24 [facility] [id number]) Hip Strength Hip Manual Muscle Testing Right Flexion (L2) 3 Fair Abduction 2+ Poor+ External Rotation 3+ Fair+ Internal Rotation 3+ Fair+ Left Flexion (L2) 3- Fair- Abduction 2+ Poor+ External Rotation 3+ Fair+ Internal Rotation 3+ Fair+ Knee Strength Knee Manual Muscle Testing Right Flexion (S2) 4- Good- Extension (L3) 4- Good- Left Flexion (S2) 4- Good- Extension (L3) 4- Good- Ankle/Foot Strength Ankle and Foot Manual Muscle Testing Right Dorsiflexion (L4) 3+ Fair+ Plantarflexion (S1) 4- Good- Left Dorsiflexion (L4) 3+ Fair+ Plantarflexion (S1) 4- Good- Comments PF tested seated B PT-OP-Q Treatments Start: 02/04/22 18:00 Freq: Status: Active Protocol: Document 06/16/22 11:16 [facility] (Rec: 06/16/22 12:34 [facility] [id number]) Cardio Equipment Recumbent Elliptical (Biodex) Duration (Minutes) 10 Resistance 4>5 Seat Position 9 Other UEs/ LEs, cued 30 RPM goal, maintains 25RPM, vc push through heels Therapeutic Exercises Sitting Exercises hip adduction Sitting Exercise Name ball squeeze Equipment Used blue/white ball Reps/Minutes 5 x 5SH biceps curls Side bilateral Resistance 1AROM>2# w/ AAROM Equipment Used mesh chair Reps/Minutes x10 Comments cues for breathing, AAROM from MODERN AND CONTEMPORARY ART CURATOR custodial through concentric phase and ecc sit<> stand Sitting Exercise Name vc for no UE support. Equipment Used from Biodex Reps/Minutes x8 Comments SBA>CGA, standing up to FWW Standing Exercises glute squeeze Equipment Used FWW Reps/Minutes x10 Gait Training Gait Activity FWW Device Used FWW; no AD Level of Assistance CGA, single STARCH MANGLE TENDER prn Surface carpet Distance/Duration 2x10ft w/ FWW; 2x10 w/ 1 STARCH MANGLE TENDER prn Treatment Focus upright posture, hip flexion, endurance Comments cues for posture and hip flexion Neuro Re-Education Treatment Balance Activities foam Equipment handrail w/ R STARCH MANGLE TENDER prn Comments WBOS w/head turns &ec PT-OP-T Assessment and Plan Start: 02/04/22 18:00 Freq: Status: Active Protocol: Document 06/16/22 11:16 [facility] (Rec: 06/16/22 12:34 [facility] [id number]) Physical Therapy Assessment Impairments Impairments Activity Tolerance,Balance, Functional Activities, Functional Mobility,Gait,Pain, Posture,ROM,Soft Tissue Mobility,Strength Goals rolling Impairment pt rolls well to L side but difficult rolling R w/o assist Animal Eviscerator Goal (LTG) Pt will be indep w/roll B w/ difficulty LTG Duration 08/04/22 6 min walk Impairment 179ft 05/12 w/FWW [facility]sp Goal (LTG) Pt will be able to walk at least 350ft in 6 min to show more functional gait speed LTG Duration 08/04 functional activities Short Term Goal (STG) Pt will be able to do bed mobility indep consistantly 03/09/22: pt reports helps her at times comes to sitting, during tx instructed log roll able to perform with cues continued BUE support. 04/03/22: able to get out of bed self but still need getting leg in bed and can roll over B . 05/12-gets out of bed ok and is getting rail to help get into bed STG Duration 06/29 [facility]sp Goal (LTG) Pt will be able to do sit to stand Indep and safely 02/27/22; cues for proper hand placement and hip hinge slow controlled descent, scoot forward feet under push from seated and downward pressure on FWW. 03/09/22: pt stated needs use BUE support and at times has to help her. 04/03/22: progressing: cues needed for consistant BUE support slow descent. LTG Duration achieved 05/12 strength Short Term Goal (STG) Pt will be indep w/HEP 02/27/22: added theraputty, wall plank, reviewed seated resisted hip abd, HC, STS, mini squat 03/09/22: reviewed TA bridge ( added 1/2 foam roll under forefoot), SLR STG Duration achieved-advancing as able Animal Eviscerator Goal (LTG) Pt will score at least 4/5 on MMT to show improved LE strength improvign pt ability to do ADLs 05/12-improved LTG Duration 08/04 gait Animal Eviscerator Goal (LTG) Pt will be able to walk safely with SPC at home and in community. 02/27/22: pt uses moderate UE WB on FWW during gait, cues for DF and controlled purposeful LE advancement. 04/03/22: progressing decrease BUE WB on FWW today, still decrease DF more effort hip/ knee flexion to advance LEs. LTG Duration discontinue goal-unrealistic w /current now known diagnosis balance Short Term Goal (STG) Pt will be able to score at least 36 on KIMBLE to show safe ambulation w/AD w/dec risk for falls. 02/13/22: KIMBLE 21/56. 04/07- STG Duration 06/28 Animal Eviscerator Goal (LTG) Pt will be able to score at least 46 on KIMBLE to show safe ambulation w/dec risk for falls. LTG Duration 08/04 Assessment Summary Assessment Pt requires cue for STS for no UE support and is able to perform; they also need cues for scooting to edge of seat and for anterior weightshifting and glute activation. Joie requires consistent upright postural cues for scapular setting and chin tuck - upright posture improves w/ visual feedback. Pt was able to perform biceps curls with 2# dumbbells on but today could only perform 1# AROM but needs MODERN AND CONTEMPORARY ART CURATOR assist AAROM with 2# dumbbells partway through concentric and eccentric range. Physical Therapy Plan Frequency and Duration Frequency of Treatment 2x/Week Duration of treatment (weeks) 12 Plan of Care Start Date 05/12/22 Plan of Care End Date 08/04/22 Therapeutic Interventions Therapeutic Interventions Aquatic Therapy,Balance Training,Coordination Training ,Gait Training,Home Exercise Program,Joint Mobilizations, Manual Therapy,Neuromuscular Re-education,Orthotic/ Prosthetic Management,Patient/ Caregiver Education,Self-Care/ Home Management,Soft Tissue Mobilization,Taping, Therapeutic Activities, Therapeutic Exercises Modalities Electric Stimulation Next Visit Focus/Plan Next Note Type Treatment Note Next Visit Plan Consider seated resisted clamshells, ball squeeze, and manual HS stretch next visit. PNF for rolling cont to work on strength for sup<> sitting. POC: cont to advance standing balance and gait & strength
--- NOTE | 2022-06-18 12:32 | PT.OTN ---
Current Diagnoses Muscle weakness (generalized) (06/18/22) Difficulty in walking, not elsewhere classified (06/18/22) Physical Therapy Treatment Note PT-OP-A Visit Information Start: 02/04/22 18:00 Freq: Status: Active Protocol: Document 06/18/22 11:22 [facility] (Rec: 06/18/22 12:32 [facility] [id number]) Out-Patient Physical Therapy Visit Information Visit Information Visit Type Progress Note Visit Note 03/10 Visit Start Time : Visit Stop Time 12:02 Total Visit Minutes 40 Visit Number 26 Number of WHEEL BORER Visits 0 PT-OP-B Current Condition Start: 02/04/22 18:00 Freq: Status: Active Protocol: Document 02/09/22 11:20 [facility] (Rec: 02/09/22 15:02 [facility] [id number]) Current Condition History of Current Condition Onset Date Jan Current Complaints weakness in entire body, falls History of Current Condition Pt is frustrated because she used to be able to go to high intensity classes and walk 3-5 miles a day but stopped in Mar d/t falls. She has seen 2 neurologists, 1 neurosurgeon and feels like she is really progressively worse. She is really hating not being able to walk daily. She is having trouble getting socks on. Her dexterity is limited also. No one has been able to say what they think it is. Pt has been using a 4WW since Nov and in June started using a cane. she started using devices d/t falls. She is planning to see another neurologist in [place]. She has started going to [employer] class but stopped d/t her balance being too bad. She has all the NERI equipment including a reformer. Her also recently has dx of cancer. Pt reports she got her first booster in Dec and she wonders if this is what started this. In Jan, she had some falls when she was working on her [employer] and [employer]. Had Meniscus surgery in August and did PT for a short time and was DC quickly d/t how well she was doing. Dr. Jain sent her to the neurosurgeon for potential back surgery based on EMG, but neurosurgeon didn't think that was the issue. She has mild back pain in the AM that has only been recently d/t being less mobile. The neurosurgeon at first thought she needed another MRI of brain and had it scheduled, but then when he talked to the neurologist, the plan is now for her to see a different neurologist. Pt seeing a telehealth ND/MD who gave her folic acid steffanie something else but she doesn't feel like it helps. Pt reports R foot flops down sometime. Since getting 4WW , she has fallen 3 times ( oct). Prior to the walker, she was falling every few days and had some days wehre she fell more than once. All falls have resulted only in cuts and bruises Prior Treatments and Tests Lumbar MRI: IMPRESSION: 1. Multilevel lumbar spondylosis, causing foraminal stenosis as detailed above. 2. Severe central canal stenosis at L3-4 and L4-5. 3. No abnormal cord signal. 4. Remote compression fractures of T11 and T12. Cervical MRI:IMPRESSION: 1. Multilevel degenerative disc and facet disease, as well as uncovertebral hypertrophy. 2. Multilevel canal stenoses, worst at C5-C6 where there is minimal cord flattening. 3. Multilevel foraminal stenoses, worst at C5-C6 and C6-C7 where there is associated intraforaminal nerve root compression. Recommend correlation with clinical symptoms to ascertain relevance of these findings. IMPRESSION: BRAIN MRI: 1. No acute intracranial disease process. 2. No areas of acute or chronic infarction. 3. Usvz-oh-jxjlpqpi diffuse cerebral volume loss. 4. Mild periventricular and subcortical white matter chronic microvascular ischemic change. BRAIN MR ANGIOGRAM: Normal MR angiogram of the head. NECK MR ANGIOGRAM: 1. Less than 50% stenosis of the origin of the left internal carotid artery. 2. Right internal carotid artery is fully patent. 3. Vertebral arteries are fully patent. ADDENDUM: This case was reviewed at the request of Dr. Gonzalez and discussed by telephone at 11: 04 a.m. [place] time on October 14, 2021. This patient is brain parenchymal volume loss and chronic small vessel ischemic change. There is prominence of the ventricles and sulci, with the lateral ventricles larger than would be expected, given the degree of sulcal atrophy. Please consider normal pressure hydrocephalus. IMPRESSION: 1. Chronic mild wedging of the T9 vertebral body unchanged from prior examination which may be physiologic. 2. Multilevel disc degeneration. disc degeneration. Treatment Goals Patient/Caregiver Goals be able to get back to working outa nd walking PT-OP-C Subjective Start: 02/04/22 18:00 Freq: Status: Active Protocol: Document 06/18/22 11:22 [facility] (Rec: 06/18/22 12:32 [facility] [id number]) OP-PT Subjective Patient Comments Patient Comments pt reports she sees neurology around July 03 PT-OP-D Balance Start: 02/04/22 18:00 Freq: Status: Active Protocol: Document 06/18/22 11:22 [facility] (Rec: 06/18/22 12:32 [facility] [id number]) Balance Tests Kimble Balance Test Kimble Balance Test Score 29 PT-OP-E Functional Tests Start: 02/04/22 18:00 Freq: Status: Active Protocol: Document 06/18/22 11:22 [facility] (Rec: 06/18/22 12:32 [facility] [id number]) Functional Tests 6 Minute Walk Test Distance 139ft Device Used fww PT-OP-F Manual Assessment Start: 02/04/22 18:00 Freq: Status: Active Protocol: Document 02/09/22 11:20 [facility] (Rec: 02/09/22 15:02 [facility] [id number]) Manual Assessments Soft Tissue Assessment Soft Tissue Mobility Assessment tight calves w/limited passive DF PT-OP-G Mobility & Gait Start: 02/04/22 18:00 Freq: Status: Active Protocol: Document 02/09/22 11:20 [facility] (Rec: 02/09/22 15:02 [facility] [id number]) OP Mobility Evaluation Bed Mobility Rolling can roll B indep w/lower body following upper body Supine to and from Sit required min A for both supine <>sit Transfers Sit to Stand heavy use of UEs -pt reports sometimes needs to help OP Gait Assessment Comments Gait Comments Dec foot clearance B with heavy use of 4WW and dec DF R> L and dec hip flex PT-OP-M Strength Start: 02/04/22 18:00 Freq: Status: Active Protocol: Document 06/18/22 11:22 [facility] (Rec: 06/18/22 12:32 [facility] [id number]) Hip Strength Hip Manual Muscle Testing Right Flexion (L2) 3 Fair Abduction 2+ Poor+ External Rotation 3 Fair Internal Rotation 3+ Fair+ Left Flexion (L2) 3 Fair Abduction 2+ Poor+ External Rotation 4- Good- Internal Rotation 3- Fair- Knee Strength Knee Manual Muscle Testing Right Flexion (S2) 4 Good Extension (L3) 4- Good- Left Flexion (S2) 4 Good Extension (L3) 4- Good- Ankle/Foot Strength Ankle and Foot Manual Muscle Testing Right Dorsiflexion (L4) 3+ Fair+ Plantarflexion (S1) 4- Good- Left Dorsiflexion (L4) 3+ Fair+ Plantarflexion (S1) 4- Good- Comments PF tested seated B PT-OP-Q Treatments Start: 02/04/22 18:00 Freq: Status: Active Protocol: Document 06/18/22 11:22 [facility] (Rec: 06/18/22 12:32 [facility] [id number]) Gait Training Gait Activity FWW Device Used FWW; Level of Assistance CGA Surface carpet Distance/Duration 150ft; 70ft Treatment Focus upright posture, hip flexion, endurance Comments cues for posture and hip flexion Neuro Re-Education Treatment Balance Activities KIMBLE Details 29 tilt board Details fwd & side Comments balancing & wt shifts ea PT-OP-T Assessment and Plan Start: 02/04/22 18:00 Freq: Status: Active Protocol: Document 06/18/22 11:22 [facility] (Rec: 06/18/22 12:32 [facility] [id number]) Physical Therapy Assessment Goals rolling Impairment pt rolls well to L side but difficult rolling R w/o assist Folder Machine Adjuster Goal (LTG) Pt will be indep w/roll B w/ difficulty LTG Duration achieved 06/18 6 min walk Impairment 179ft 05/12 w/FWW Residential Goal (LTG) Pt will be able to walk at least 350ft in 6 min to show more functional gait speed 06/18-139ft LTG Duration 6/6 functional activities Short Term Goal (STG) Pt will be able to do bed mobility indep consistantly 03/09/22: pt reports helps her at times comes to sitting, during tx instructed log roll able to perform with cues continued BUE support. 04/03/22: able to get out of bed self but still need getting leg in bed and can roll over B . 05/12-gets out of bed ok and is getting rail to help get into bed 06/18-gets into bed 50% of time by herself; out consistantly indep STG Duration 07/18 Folder Machine Adjuster Goal (LTG) Pt will be able to do sit to stand Indep and safely 02/27/22; cues for proper hand placement and hip hinge slow controlled descent, scoot forward feet under push from seated and downward pressure on FWW. 03/09/22: pt stated needs use BUE support and at times has to help her. 04/03/22: progressing: cues needed for consistant BUE support slow descent. LTG Duration achieved 05/12 strength Short Term Goal (STG) Pt will be indep w/HEP 02/27/22: added theraputty, wall plank, reviewed seated resisted hip abd, HC, STS, mini squat 03/09/22: reviewed TA bridge ( added 03/02 foam roll under forefoot), SLR STG Duration achieved-advancing as able Folder Machine Adjuster Goal (LTG) Pt will score at least 4/5 on MMT to show improved LE strength improvign pt ability to do ADLs 05/12-improved 06/18-no change LTG Duration 08/04 gait Residential Goal (LTG) Pt will be able to walk safely with SPC at home and in community. 02/27/22: pt uses moderate UE WB on FWW during gait, cues for DF and controlled purposeful LE advancement. 04/03/22: progressing decrease BUE WB on FWW today, still decrease DF more effort hip/ knee flexion to advance LEs. LTG Duration discontinue goal-unrealistic w /current now known diagnosis balance Short Term Goal (STG) Pt will be able to score at least 36 on KIMBLE to show safe ambulation w/AD w/dec risk for falls. 02/13/22: KIMBLE 56. 04/07-05/12-06/18- STG Duration 06/28 Residential Goal (LTG) Pt will be able to score at least 46 on KIMBLE to show safe ambulation w/dec risk for falls. LTG Duration 08/04 Assessment Summary Assessment Pt is making progress on her bed mobility and is more indep overall since starting PT w/ transfers. 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 Her strength and KIMBLE did not show much change recently w/slight decline only since last PN but still doing better since IE. She would benefit from cont PT to work on gait, balance and strength to imrpove funcitonal mobility. Physical Therapy Plan Frequency and Duration Frequency of Treatment 2x/Week Duration of treatment (weeks) 12 Plan of Care Start Date 05/12/22 Plan of Care End Date 08/04/22 Therapeutic Interventions Therapeutic Interventions Aquatic Therapy,Balance Training,Coordination Training ,Gait Training,Home Exercise Program,Joint Mobilizations, Manual Therapy,Neuromuscular Re-education,Orthotic/ Prosthetic Management,Patient/ Caregiver Education,Self-Care/ Home Management,Soft Tissue Mobilization,Taping, Therapeutic Activities, Therapeutic Exercises Modalities Electric Stimulation Next Visit Focus/Plan Next Note Type Treatment Note Next Visit Plan PNF for rolling cont to work on strength for sup<> sitting. POC: cont to advance standing balance and gait & strength
--- NOTE | 2022-06-23 12:34 | PT.OTN ---
Current Diagnoses Muscle weakness (generalized) (06/23/22) Difficulty in walking, not elsewhere classified (06/23/22) Physical Therapy Treatment Note PT-OP-A Visit Information Start: 02/04/22 18:00 Freq: Status: Active Protocol: Document 06/23/22 11:19 [facility] (Rec: 06/23/22 12:32 [facility] [id number]) Out-Patient Physical Therapy Visit Information Visit Information Visit Type Progress Note Visit Note 04/10 Pt late. Visit Start Time 11:24 Visit Stop Time 12:05 Total Visit Minutes 41 Visit Number 27 Number of ROLLER MACHINE OPERATOR Visits 1 PT-OP-B Current Condition Start: 02/04/22 18:00 Freq: Status: Active Protocol: Document 02/09/22 11:20 [facility] (Rec: 02/09/22 15:02 [facility] [id number]) Current Condition History of Current Condition Onset Date Jan Current Complaints weakness in entire body, falls History of Current Condition Pt is frustrated because she used to be able to go to high intensity classes and walk 3-5 miles a day but stopped in Mar d/t falls. She has seen 2 neurologists, 1 neurosurgeon and feels like she is really progressively worse. She is really hating not being able to walk daily. She is having trouble getting socks on. Her dexterity is limited also. No one has been able to say what they think it is. Pt has been using a 4WW since Nov and in June started using a cane. she started using devices d/t falls. She is planning to see another neurologist in [place]. She has started going to [employer] class but stopped d/t her balance being too bad. She has all the pilates equipment including a reformer. Her also recently has dx of cancer. Pt reports she got her first booster in Dec and she wonders if this is what started this. In Jan, she had some falls when she was working on her [employer] and [employer]. Had Meniscus surgery in August and did PT for a short time and was DC quickly d/t how well she was doing. Dr. Jain sent her to the neurosurgeon for potential back surgery based on EMG, but neurosurgeon didn't think that was the issue. She has mild back pain in the AM that has only been recently d/t being less mobile. The neurosurgeon at first thought she needed another MRI of brain and had it scheduled, but then when he talked to the neurologist, the plan is now for her to see a different neurologist. Pt seeing a telehealth ND/MD who gave her folic acid steffanie something else but she doesn't feel like it helps. Pt reports R foot flops down sometime. Since getting 4WW , she has fallen 3 times ( oct). Prior to the walker, she was falling every few days and had some days wehre she fell more than once. All falls have resulted only in cuts and bruises Prior Treatments and Tests Lumbar MRI: IMPRESSION: 1. Multilevel lumbar spondylosis, causing foraminal stenosis as detailed above. 2. Severe central canal stenosis at L3-4 and L4-5. 3. No abnormal cord signal. 4. Remote compression fractures of T11 and T12. Cervical MRI:IMPRESSION: 1. Multilevel degenerative disc and facet disease, as well as uncovertebral hypertrophy. 2. Multilevel canal stenoses, worst at C5-C6 where there is minimal cord flattening. 3. Multilevel foraminal stenoses, worst at C5-C6 and C6-C7 where there is associated intraforaminal nerve root compression. Recommend correlation with clinical symptoms to ascertain relevance of these findings. IMPRESSION: BRAIN MRI: 1. No acute intracranial disease process. 2. No areas of acute or chronic infarction. 3. Yqbw-fa-uptlnysh diffuse cerebral volume loss. 4. Mild periventricular and subcortical white matter chronic microvascular ischemic change. BRAIN MR ANGIOGRAM: Normal MR angiogram of the head. NECK MR ANGIOGRAM: 1. Less than 50% stenosis of the origin of the left internal carotid artery. 2. Right internal carotid artery is fully patent. 3. Vertebral arteries are fully patent. ADDENDUM: This case was reviewed at the request of Dr. Gonzalez and discussed by telephone at 11: 04 a.m. [place] time on October 14, 2021. This patient is brain parenchymal volume loss and chronic small vessel ischemic change. There is prominence of the ventricles and sulci, with the lateral ventricles larger than would be expected, given the degree of sulcal atrophy. Please consider normal pressure hydrocephalus. IMPRESSION: 1. Chronic mild wedging of the T9 vertebral body unchanged from prior examination which may be physiologic. 2. Multilevel disc degeneration. disc degeneration. Treatment Goals Patient/Caregiver Goals be able to get back to working outa nd walking PT-OP-C Subjective Start: 02/04/22 18:00 Freq: Status: Active Protocol: Document 06/23/22 11:19 [facility] (Rec: 06/23/22 12:32 [facility] [id number]) OP-PT Subjective Patient Comments Patient Comments Pt reports their chair lift stopped working and had to be reset which is why they were late today. They are feeling like this week is better than last. Their friend is visiting from [place] to help. Neuro appt . Pt has hired someone to help w/ rehabilitation center manager. PT-OP-D Balance Start: 02/04/22 18:00 Freq: Status: Active Protocol: Document 06/18/22 11:22 [facility] (Rec: 06/18/22 12:32 [facility] [id number]) Balance Tests Kimble Balance Test Kimble Balance Test Score 29 PT-OP-E Functional Tests Start: 02/04/22 18:00 Freq: Status: Active Protocol: Document 06/18/22 11:22 [facility] (Rec: 06/18/22 12:32 [facility] [id number]) Functional Tests 6 Minute Walk Test Distance 139ft Device Used fww PT-OP-F Manual Assessment Start: 02/04/22 18:00 Freq: Status: Active Protocol: Document 02/09/22 11:20 [facility] (Rec: 02/09/22 15:02 [facility] [id number]) Manual Assessments Soft Tissue Assessment Soft Tissue Mobility Assessment tight calves w/limited passive DF PT-OP-G Mobility & Gait Start: 02/04/22 18:00 Freq: Status: Active Protocol: Document 02/09/22 11:20 [facility] (Rec: 02/09/22 15:02 [facility] [id number]) OP Mobility Evaluation Bed Mobility Rolling can roll B indep w/lower body following upper body Supine to and from Sit required min A for both supine <>sit Transfers Sit to Stand heavy use of UEs -pt reports sometimes needs to help OP Gait Assessment Comments Gait Comments Dec foot clearance B with heavy use of 4WW and dec DF R> L and dec hip flex PT-OP-M Strength Start: 02/04/22 18:00 Freq: Status: Active Protocol: Document 06/18/22 11:22 [facility] (Rec: 06/18/22 12:32 [facility] [id number]) Hip Strength Hip Manual Muscle Testing Right Flexion (L2) 3 Fair Abduction 2+ Poor+ External Rotation 3 Fair Internal Rotation 3+ Fair+ Left Flexion (L2) 3 Fair Abduction 2+ Poor+ External Rotation 4- Good- Internal Rotation 3- Fair- Knee Strength Knee Manual Muscle Testing Right Flexion (S2) 4 Good Extension (L3) 4- Good- Left Flexion (S2) 4 Good Extension (L3) 4- Good- Ankle/Foot Strength Ankle and Foot Manual Muscle Testing Right Dorsiflexion (L4) 3+ Fair+ Plantarflexion (S1) 4- Good- Left Dorsiflexion (L4) 3+ Fair+ Plantarflexion (S1) 4- Good- Comments PF tested seated B PT-OP-Q Treatments Start: 02/04/22 18:00 Freq: Status: Active Protocol: Document 06/23/22 11:19 [facility] (Rec: 06/23/22 12:32 [facility] [id number]) Gym Equipment Shuttle Recovery Unilateral Squats Details cued // knees asc/desc Resistance 25# (new band) Reps/Time x10 B Bilateral Squats Details ball squeeze (improves knee alignment) Resistance 50# (2 new bands) Reps/Time 2x10 Therapeutic Exercises Supine Exercises piriformis stretch Supine Exercise Name on shuttle recovery Side bilateral Reps/Minutes x60 Comments R> L tightness, R w/ ROLLER MACHINE OPERATOR support H/s stretch Supine Exercise Name on shuttle recovery Side bilateral Equipment Used manual w/ PNF contract/relax Comments R>L HS tightness, R dc'd d/t R quad cramp Sitting Exercises sit<> stand Equipment Used mesh chair, GB Reps/Minutes x5 Comments CGA>Priscilla, standing up to FWW Standing Exercises glute squeeze Equipment Used FWW>no UE support Reps/Minutes 5 x 5SH Comments posture improves Gait Training Gait Activity FWW Device Used FWW Level of Assistance CGA Surface carpet Distance/Duration 70ft Treatment Focus upright posture, hip flexion, endurance Comments cues for posture and hip flexion Self-Care/Home Management Treatment Education Other Education Discussed dehydration and pt acknowledges decreased water intake and possibly dehydrated due to visitors limiting bathroom access. Pt is encouraged to increase hydration at home. PT-OP-T Assessment and Plan Start: 02/04/22 18:00 Freq: Status: Active Protocol: Document 06/23/22 11:19 [facility] (Rec: 06/23/22 12:32 [facility] [id number]) Physical Therapy Assessment Impairments Impairments Activity Tolerance,Balance, Functional Activities, Functional Mobility,Gait,Pain, Posture,ROM,Soft Tissue Mobility,Strength Goals rolling Impairment pt rolls well to L side but difficult rolling R w/o assist [employer] Representative Goal (LTG) Pt will be indep w/roll B w/ difficulty LTG Duration achieved 06/18 6 min walk Impairment 179ft 05/12 w/FWW [employer] Representative Goal (LTG) Pt will be able to walk at least 350ft in 6 min to show more functional gait speed 06/18-139ft LTG Duration 08/04 functional activities Short Term Goal (STG) Pt will be able to do bed mobility indep consistantly 03/09/22: pt reports helps her at times comes to sitting, during tx instructed log roll able to perform with cues continued BUE support. 04/03/22: able to get out of bed self but still need getting leg in bed and can roll over B . 05/12-gets out of bed ok and is getting rail to help get into bed 06/18-gets into bed 50% of time by herself; out consistantly indep STG Duration 07/18 Correction Goal (LTG) Pt will be able to do sit to stand Indep and safely 02/27/22; cues for proper hand placement and hip hinge slow controlled descent, scoot forward feet under push from seated and downward pressure on FWW. 03/09/22: pt stated needs use BUE support and at times has to help her. 04/03/22: progressing: cues needed for consistant BUE support slow descent. LTG Duration achieved 05/12 strength Short Term Goal (STG) Pt will be indep w/HEP 02/27/22: added theraputty, wall plank, reviewed seated resisted hip abd, HC, STS, mini squat 03/09/22: reviewed TA bridge ( added 1/2 foam roll under forefoot), SLR STG Duration achieved-advancing as able [employer] Sales Representative Goal (LTG) Pt will score at least 4/5 on MMT to show improved LE strength improvign pt ability to do ADLs 05/12-improved 06/18-no change LTG Duration 08/04 balance Short Term Goal (STG) Pt will be able to score at least 36 on KIMBLE to show safe ambulation w/AD w/dec risk for falls. 02/13/22: KIMBLE 56. 04/07-05/12-06/18- STG Duration 06/28 [employer] Representative Goal (LTG) Pt will be able to score at least 46 on KIMBLE to show safe ambulation w/dec risk for falls. LTG Duration 08/04 Assessment Summary Assessment Pt arrives w/ FWW and L foot occasional scuffing with ambulation before and after treatment. She requires consistent cues for sit to stand from mesh chair Priscilla w/ UE support, and is challenged w/ anterior weightshifting with standing and eccentric control with sitting. Pt requires cues for LE alignment w/ shuttle recovery which improves w/ ball squeeze. Manual R Hamstring stretch was discontinued due to pt complaint of R quad cramp. Discussed dehydration and pt acknowledges possibly dehydrated due to visitors limiting bathroom access. Pt has a rest break w/ water and is encouraged to increase hydration at home. Physical Therapy Plan Frequency and Duration Frequency of Treatment 2x/Week Duration of treatment (weeks) 12 Plan of Care Start Date 05/12/22 Plan of Care End Date 08/04/22 Therapeutic Interventions Therapeutic Interventions Aquatic Therapy,Balance Training,Coordination Training ,Gait Training,Home Exercise Program,Joint Mobilizations, Manual Therapy,Neuromuscular Re-education,Orthotic/ Prosthetic Management,Patient/ Caregiver Education,Self-Care/ Home Management,Soft Tissue Mobilization,Taping, Therapeutic Activities, Therapeutic Exercises Modalities Electric Stimulation Next Visit Focus/Plan Next Note Type Treatment Note Next Visit Plan PNF for rolling cont to work on strength for sup<> sitting. POC: cont to advance standing balance and gait & strength
--- NOTE | 2022-06-25 12:13 | PT.OTN ---
Current Diagnoses Muscle weakness (generalized) (06/25/22) Difficulty in walking, not elsewhere classified (06/25/22) Physical Therapy Treatment Note PT-OP-A Visit Information Start: 02/04/22 18:00 Freq: Status: Active Protocol: Document 06/25/22 11:22 [facility] (Rec: 06/25/22 12:13 [facility] [id number]) Out-Patient Physical Therapy Visit Information Visit Information Visit Type Treatment Note Visit Note 05/08 Visit Start Time : Visit Stop Time 12:02 Total Visit Minutes 40 Visit Number 28 Number of STENCILING MACHINE TENDER Visits 0 PT-OP-B Current Condition Start: 02/04/22 18:00 Freq: Status: Active Protocol: Document 02/09/22 11:20 [facility] (Rec: 02/09/22 15:02 [facility] [id number]) Current Condition History of Current Condition Onset Date Jan Current Complaints weakness in entire body, falls History of Current Condition Pt is frustrated because she used to be able to go to high intensity classes and walk 3-5 miles a day but stopped in Mar d/t falls. She has seen 2 neurologists, 1 neurosurgeon and feels like she is really progressively worse. She is really hating not being able to walk daily. She is having trouble getting socks on. Her dexterity is limited also. No one has been able to say what they think it is. Pt has been using a 4WW since Nov and in June started using a cane. she started using devices d/t falls. She is planning to see another neurologist in [place]. She has started going to [employer] class but stopped d/t her balance being too bad. She has all the Test[employer] equipment including a reformer. Her also recently has dx of cancer. Pt reports she got her first booster in Dec and she wonders if this is what started this. In Jan, she had some falls when she was working on her [employer] and [employer]. Had Meniscus surgery in August and did PT for a short time and was DC quickly d/t how well she was doing. Dr. Jain sent her to the neurosurgeon for potential back surgery based on EMG, but neurosurgeon didn't think that was the issue. She has mild back pain in the AM that has only been recently d/t being less mobile. The neurosurgeon at first thought she needed another MRI of brain and had it scheduled, but then when he talked to the neurologist, the plan is now for her to see a different neurologist. Pt seeing a telehealth ND/MD who gave her folic acid steffanie something else but she doesn't feel like it helps. Pt reports R foot flops down sometime. Since getting 4WW , she has fallen 3 times ( oct). Prior to the walker, she was falling every few days and had some days wehre she fell more than once. All falls have resulted only in cuts and bruises Prior Treatments and Tests Lumbar MRI: IMPRESSION: 1. Multilevel lumbar spondylosis, causing foraminal stenosis as detailed above. 2. Severe central canal stenosis at L3-4 and L4-5. 3. No abnormal cord signal. 4. Remote compression fractures of T11 and T12. Cervical MRI:IMPRESSION: 1. Multilevel degenerative disc and facet disease, as well as uncovertebral hypertrophy. 2. Multilevel canal stenoses, worst at C5-C6 where there is minimal cord flattening. 3. Multilevel foraminal stenoses, worst at C5-C6 and C6-C7 where there is associated intraforaminal nerve root compression. Recommend correlation with clinical symptoms to ascertain relevance of these findings. IMPRESSION: BRAIN MRI: 1. No acute intracranial disease process. 2. No areas of acute or chronic infarction. 3. Woan-vr-sthsmwmm diffuse cerebral volume loss. 4. Mild periventricular and subcortical white matter chronic microvascular ischemic change. BRAIN MR ANGIOGRAM: Normal MR angiogram of the head. NECK MR ANGIOGRAM: 1. Less than 50% stenosis of the origin of the left internal carotid artery. 2. Right internal carotid artery is fully patent. 3. Vertebral arteries are fully patent. ADDENDUM: This case was reviewed at the request of Dr. Gonzalez and discussed by telephone at 11: 04 a.m. [place] time on October 14, 2021. This patient is brain parenchymal volume loss and chronic small vessel ischemic change. There is prominence of the ventricles and sulci, with the lateral ventricles larger than would be expected, given the degree of sulcal atrophy. Please consider normal pressure hydrocephalus. IMPRESSION: 1. Chronic mild wedging of the T9 vertebral body unchanged from prior examination which may be physiologic. 2. Multilevel disc degeneration. disc degeneration. Treatment Goals Patient/Caregiver Goals be able to get back to working outa nd walking PT-OP-C Subjective Start: 02/04/22 18:00 Freq: Status: Active Protocol: Document 06/25/22 11:22 [facility] (Rec: 06/25/22 12:13 [facility] [id number]) OP-PT Subjective Patient Comments Patient Comments Pt reports she has been more often indep w/bed mobility PT-OP-D Balance Start: 02/04/22 18:00 Freq: Status: Active Protocol: Document 06/18/22 11:22 [facility] (Rec: 06/18/22 12:32 [facility] [id number]) Balance Tests Kimble Balance Test Kimble Balance Test Score 29 PT-OP-E Functional Tests Start: 02/04/22 18:00 Freq: Status: Active Protocol: Document 06/18/22 11:22 [facility] (Rec: 06/18/22 12:32 [facility] [id number]) Functional Tests 6 Minute Walk Test Distance 139ft Device Used fww PT-OP-F Manual Assessment Start: 02/04/22 18:00 Freq: Status: Active Protocol: Document 02/09/22 11:20 [facility] (Rec: 02/09/22 15:02 [facility] [id number]) Manual Assessments Soft Tissue Assessment Soft Tissue Mobility Assessment tight calves w/limited passive DF PT-OP-G Mobility & Gait Start: 02/04/22 18:00 Freq: Status: Active Protocol: Document 02/09/22 11:20 [facility] (Rec: 02/09/22 15:02 [facility] [id number]) OP Mobility Evaluation Bed Mobility Rolling can roll B indep w/lower body following upper body Supine to and from Sit required min A for both supine <>sit Transfers Sit to Stand heavy use of UEs -pt reports sometimes needs to help OP Gait Assessment Comments Gait Comments Dec foot clearance B with heavy use of 4WW and dec DF R> L and dec hip flex PT-OP-M Strength Start: 02/04/22 18:00 Freq: Status: Active Protocol: Document 06/18/22 11:22 [facility] (Rec: 06/18/22 12:32 [facility] [id number]) Hip Strength Hip Manual Muscle Testing Right Flexion (L2) 3 Fair Abduction 2+ Poor+ External Rotation 3 Fair Internal Rotation 3+ Fair+ Left Flexion (L2) 3 Fair Abduction 2+ Poor+ External Rotation 4- Good- Internal Rotation 3- Fair- Knee Strength Knee Manual Muscle Testing Right Flexion (S2) 4 Good Extension (L3) 4- Good- Left Flexion (S2) 4 Good Extension (L3) 4- Good- Ankle/Foot Strength Ankle and Foot Manual Muscle Testing Right Dorsiflexion (L4) 3+ Fair+ Plantarflexion (S1) 4- Good- Left Dorsiflexion (L4) 3+ Fair+ Plantarflexion (S1) 4- Good- Comments PF tested seated B PT-OP-Q Treatments Start: 02/04/22 18:00 Freq: Status: Active Protocol: Document 06/25/22 11:22 [facility] (Rec: 06/25/22 12:13 [facility] [id number]) Therapeutic Exercises Sitting Exercises calf stretch Sitting Exercise Name HS and calf stretch Side bilateral Equipment Used belt Reps/Minutes 60 sec DF Sitting Exercise Name stretch on 2 in board Side bilateral Reps/Minutes 3 min Comments discussed doing something like this at home Standing Exercises stretch Standing Exercise Name 1. gastroc 2. soleus Side bilateral Equipment Used // bars Reps/Minutes 30 sec sec ea Gait Training Gait Activity FWW Device Used FWW Level of Assistance CGA Surface carpet Distance/Duration 70ft; 100ft Treatment Focus upright posture, hip flexion, endurance Comments cues for lifting foot and heel landing Neuro Re-Education Treatment Balance Activities SLS Comments toe taps to blue foam w/1 rail x10 B x1 B w/CYLINDER VALVE REPAIRER only tilt board Details fwd & side Comments balancing & wt shifts ea foam Equipment handrail prn Comments WBOS & NBOS w/head turns &EC trials PT-OP-T Assessment and Plan Start: 02/04/22 18:00 Freq: Status: Active Protocol: Document 06/25/22 11:22 [facility] (Rec: 06/25/22 12:13 [facility] [id number]) Physical Therapy Assessment Goals rolling Impairment pt rolls well to L side but difficult rolling R w/o assist Bagel Maker Goal (LTG) Pt will be indep w/roll B w/ difficulty LTG Duration achieved 420 6 min walk Impairment 179ft 3/14 w/FWW Shelter Goal (LTG) Pt will be able to walk at least 350ft in 6 min to show more functional gait speed 20-139ft LTG Duration 6/6 functional activities Short Term Goal (STG) Pt will be able to do bed mobility indep consistantly 03/09/22: pt reports helps her at times comes to sitting, during tx instructed log roll able to perform with cues continued BUE support. 04/03/22: able to get out of bed self but still need getting leg in bed and can roll over B . 05/12-gets out of bed ok and is getting rail to help get into bed 06/18-gets into bed 50% of time by herself; out consistantly indep STG Duration 07/18 Bagel Maker Goal (LTG) Pt will be able to do sit to stand Indep and safely 02/27/22; cues for proper hand placement and hip hinge slow controlled descent, scoot forward feet under push from seated and downward pressure on FWW. 03/09/22: pt stated needs use BUE support and at times has to help her. 04/03/22: progressing: cues needed for consistant BUE support slow descent. LTG Duration achieved 05/12 strength Short Term Goal (STG) Pt will be indep w/HEP 02/27/22: added theraputty, wall plank, reviewed seated resisted hip abd, HC, STS, mini squat 03/09/22: reviewed TA bridge ( added 1/2 foam roll under forefoot), SLR STG Duration achieved-advancing as able Shelter Goal (LTG) Pt will score at least 4/5 on MMT to show improved LE strength improvign pt ability to do ADLs 05/12-improved 06/18-no change LTG Duration 08/04 balance Short Term Goal (STG) Pt will be able to score at least 36 on KIMBLE to show safe ambulation w/AD w/dec risk for falls. 02/13/22: KIMBLE 21/56. 04/07-05/12-06/18- STG Duration 06/28 Bagel Maker Goal (LTG) Pt will be able to score at least 46 on KIMBLE to show safe ambulation w/dec risk for falls. LTG Duration 08/04 Assessment Summary Assessment Pt cont to have more issues clearing L>R foot. She fatigued more during today's session. Encouraged to discuss AFOs w/neurologist at next follow up next week. Physical Therapy Plan Frequency and Duration Frequency of Treatment 2x/Week Duration of treatment (weeks) 12 Plan of Care Start Date 05/12/22 Plan of Care End Date 08/04/22 Next Visit Focus/Plan Next Note Type Treatment Note Next Visit Plan PNF for rolling cont to work on strength for sup<> sitting. cont to advance standing balance and gait & strength
--- NOTE | 2022-06-30 14:18 | PT.OTN ---
Current Diagnoses Muscle weakness (generalized) (06/30/22) Difficulty in walking, not elsewhere classified (06/30/22) Physical Therapy Treatment Note PT-OP-A Visit Information Start: 02/04/22 18:00 Freq: Status: Active Protocol: Document 06/30/22 13:33 [facility] (Rec: 06/30/22 14:22 [facility] [id number]) Out-Patient Physical Therapy Visit Information Visit Information Visit Type Treatment Note Visit Note 06/08 Visit Start Time 13:33 Visit Stop Time 14:18 Total Visit Minutes 45 Visit Number 28 Number of SPA COORDINATOR Visits 1 PT-OP-B Current Condition Start: 02/04/22 18:00 Freq: Status: Active Protocol: Document 02/09/22 11:20 [facility] (Rec: 02/09/22 15:02 [facility] [id number]) Current Condition History of Current Condition Onset Date Jan Current Complaints weakness in entire body, falls History of Current Condition Pt is frustrated because she used to be able to go to high intensity classes and walk 3-5 miles a day but stopped in Mar d/t falls. She has seen 2 neurologists, 1 neurosurgeon and feels like she is really progressively worse. She is really hating not being able to walk daily. She is having trouble getting socks on. Her dexterity is limited also. No one has been able to say what they think it is. Pt has been using a 4WW since Nov and in June started using a cane. she started using devices d/t falls. She is planning to see another neurologist in [place]. She has started going to [employer] class but stopped d/t her balance being too bad. She has all the [id number] equipment including a reformer. Her also recently has dx of cancer. Pt reports she got her first booster in Dec and she wonders if this is what started this. In Jan, she had some falls when she was working on her [employer] and [employer]. Had Meniscus surgery in August and did PT for a short time and was DC quickly d/t how well she was doing. Dr. Jain sent her to the neurosurgeon for potential back surgery based on EMG, but neurosurgeon didn't think that was the issue. She has mild back pain in the AM that has only been recently d/t being less mobile. The neurosurgeon at first thought she needed another MRI of brain and had it scheduled, but then when he talked to the neurologist, the plan is now for her to see a different neurologist. Pt seeing a telehealth ND/MD who gave her folic acid steffanie something else but she doesn't feel like it helps. Pt reports R foot flops down sometime. Since getting 4WW , she has fallen 3 times ( oct). Prior to the walker, she was falling every few days and had some days wehre she fell more than once. All falls have resulted only in cuts and bruises Prior Treatments and Tests Lumbar MRI: IMPRESSION: 1. Multilevel lumbar spondylosis, causing foraminal stenosis as detailed above. 2. Severe central canal stenosis at L3-4 and L4-5. 3. No abnormal cord signal. 4. Remote compression fractures of T11 and T12. Cervical MRI:IMPRESSION: 1. Multilevel degenerative disc and facet disease, as well as uncovertebral hypertrophy. 2. Multilevel canal stenoses, worst at C5-C6 where there is minimal cord flattening. 3. Multilevel foraminal stenoses, worst at C5-C6 and C6-C7 where there is associated intraforaminal nerve root compression. Recommend correlation with clinical symptoms to ascertain relevance of these findings. IMPRESSION: BRAIN MRI: 1. No acute intracranial disease process. 2. No areas of acute or chronic infarction. 3. Umwy-um-yjanapoj diffuse cerebral volume loss. 4. Mild periventricular and subcortical white matter chronic microvascular ischemic change. BRAIN MR ANGIOGRAM: Normal MR angiogram of the head. NECK MR ANGIOGRAM: 1. Less than 50% stenosis of the origin of the left internal carotid artery. 2. Right internal carotid artery is fully patent. 3. Vertebral arteries are fully patent. ADDENDUM: This case was reviewed at the request of Dr. Gonzalez and discussed by telephone at 11: 04 a.m. [place] time on October 14, 2021. This patient is brain parenchymal volume loss and chronic small vessel ischemic change. There is prominence of the ventricles and sulci, with the lateral ventricles larger than would be expected, given the degree of sulcal atrophy. Please consider normal pressure hydrocephalus. IMPRESSION: 1. Chronic mild wedging of the T9 vertebral body unchanged from prior examination which may be physiologic. 2. Multilevel disc degeneration. disc degeneration. Treatment Goals Patient/Caregiver Goals be able to get back to working outa nd walking PT-OP-C Subjective Start: 02/04/22 18:00 Freq: Status: Active Protocol: Document 06/30/22 13:33 [facility] (Rec: 06/30/22 14:22 [facility] [id number]) OP-PT Subjective Patient Comments Patient Comments Pt reported going to for follow up tomorrow. She feel loosing strength in hands and got mad couldnt thread sewing machine needle yesterday. She thinks little tire arrival, did some LAQ this am. PT-OP-D Balance Start: 02/04/22 18:00 Freq: Status: Active Protocol: Document 06/18/22 11:22 [facility] (Rec: 06/18/22 12:32 [facility] [id number]) Balance Tests Kimble Balance Test Kimble Balance Test Score 29 PT-OP-E Functional Tests Start: 02/04/22 18:00 Freq: Status: Active Protocol: Document 06/18/22 11:22 [facility] (Rec: 06/18/22 12:32 [facility] [id number]) Functional Tests 6 Minute Walk Test Distance 139ft Device Used fww PT-OP-F Manual Assessment Start: 02/04/22 18:00 Freq: Status: Active Protocol: Document 02/09/22 11:20 [facility] (Rec: 02/09/22 15:02 [facility] [id number]) Manual Assessments Soft Tissue Assessment Soft Tissue Mobility Assessment tight calves w/limited passive DF PT-OP-G Mobility & Gait Start: 02/04/22 18:00 Freq: Status: Active Protocol: Document 02/09/22 11:20 [facility] (Rec: 02/09/22 15:02 [facility] [id number]) OP Mobility Evaluation Bed Mobility Rolling can roll B indep w/lower body following upper body Supine to and from Sit required min A for both supine <>sit Transfers Sit to Stand heavy use of UEs -pt reports sometimes needs to help OP Gait Assessment Comments Gait Comments Dec foot clearance B with heavy use of 4WW and dec DF R> L and dec hip flex PT-OP-M Strength Start: 02/04/22 18:00 Freq: Status: Active Protocol: Document 06/18/22 11:22 [facility] (Rec: 06/18/22 12:32 [facility] [id number]) Hip Strength Hip Manual Muscle Testing Right Flexion (L2) 3 Fair Abduction 2+ Poor+ External Rotation 3 Fair Internal Rotation 3+ Fair+ Left Flexion (L2) 3 Fair Abduction 2+ Poor+ External Rotation 4- Good- Internal Rotation 3- Fair- Knee Strength Knee Manual Muscle Testing Right Flexion (S2) 4 Good Extension (L3) 4- Good- Left Flexion (S2) 4 Good Extension (L3) 4- Good- Ankle/Foot Strength Ankle and Foot Manual Muscle Testing Right Dorsiflexion (L4) 3+ Fair+ Plantarflexion (S1) 4- Good- Left Dorsiflexion (L4) 3+ Fair+ Plantarflexion (S1) 4- Good- Comments PF tested seated B PT-OP-Q Treatments Start: 02/04/22 18:00 Freq: Status: Active Protocol: Document 06/30/22 13:33 [facility] (Rec: 06/30/22 14:22 [facility] [id number]) Therapeutic Exercises Sitting Exercises calf stretch Sitting Exercise Name HS and calf stretch Side bilateral Equipment Used belt Reps/Minutes 60 sec Comments states doing at home as well and helpful sit<> stand Equipment Used mesh chair, GB Reps/Minutes x5 Comments CGA>Macy, standing up to FWW Standing Exercises stretch Standing Exercise Name 1. gastroc 2. soleus Side bilateral Equipment Used BUE on rail front, forefoot on edge blue foam Reps/Minutes 30 sec sec ea Gait Training Gait Activity FWW Device Used FWW Level of Assistance CGA Surface carpet Distance/Duration 100ft x2 Treatment Focus upright posture, hip flexion, endurance Comments cues for lifting foot and heel landing Neuro Re-Education Treatment Balance Activities tilt board Details fwd & side Equipment CG- 5%A- facing rail Comments balancing & wt shifts ea foam Equipment handrail prn Comments WBOS & NBOS w/head turns &EC trials PT-OP-T Assessment and Plan Start: 02/04/22 18:00 Freq: Status: Active Protocol: Document 06/30/22 13:33 [facility] (Rec: 06/30/22 14:22 [facility] [id number]) Physical Therapy Assessment Goals rolling Impairment pt rolls well to L side but difficult rolling R w/o assist Receipt And Report Clerk Goal (LTG) Pt will be indep w/roll B w/ difficulty LTG Duration achieved /20 6 min walk Impairment 179ft 3/14 w/FWW Longterm Goal (LTG) Pt will be able to walk at least 350ft in 6 min to show more functional gait speed 06/18-139ft LTG Duration 08/04 functional activities Short Term Goal (STG) Pt will be able to do bed mobility indep consistantly 03/09/22: pt reports helps her at times comes to sitting, during tx instructed log roll able to perform with cues continued BUE support. 04/03/22: able to get out of bed self but still need getting leg in bed and can roll over B . 05/12-gets out of bed ok and is getting rail to help get into bed 06/18-gets into bed 50% of time by herself; out consistantly indep STG Duration 07/18 Longterm Goal (LTG) Pt will be able to do sit to stand Indep and safely 02/27/22; cues for proper hand placement and hip hinge slow controlled descent, scoot forward feet under push from seated and downward pressure on FWW. 03/09/22: pt stated needs use BUE support and at times has to help her. 04/03/22: progressing: cues needed for consistant BUE support slow descent. LTG Duration achieved 05/12 strength Short Term Goal (STG) Pt will be indep w/HEP 02/27/22: added theraputty, wall plank, reviewed seated resisted hip abd, HC, STS, mini squat 03/09/22: reviewed TA bridge ( added 1/2 foam roll under forefoot), SLR STG Duration achieved-advancing as able Receipt And Report Clerk Goal (LTG) Pt will score at least 4/5 on MMT to show improved LE strength improvign pt ability to do ADLs 05/12-improved 06/18-no change LTG Duration 08/04 balance Short Term Goal (STG) Pt will be able to score at least 36 on KIMBLE to show safe ambulation w/AD w/dec risk for falls. 02/13/22: KIMBLE . 04/07-05/12-06/18- STG Duration 06/28 Receipt And Report Clerk Goal (LTG) Pt will be able to score at least 46 on KIMBLE to show safe ambulation w/dec risk for falls. LTG Duration 08/04 Assessment Summary Assessment Pt improved foot clearance and heel to eccentric forfoot descent during advancement post ex and balance activities . Pt only required 2 brief 1 min seated rests between activities. Pt did require Macy for R>L LE full postioning on tilt board, foam this date. Physical Therapy Plan Frequency and Duration Frequency of Treatment 2x/Week Duration of treatment (weeks) 12 Plan of Care Start Date 05/12/22 Plan of Care End Date 08/04/22 Therapeutic Interventions Therapeutic Interventions Aquatic Therapy,Balance Training,Coordination Training ,Gait Training,Home Exercise Program,Joint Mobilizations, Manual Therapy,Neuromuscular Re-education,Orthotic/ Prosthetic Management,Patient/ Caregiver Education,Self-Care/ Home Management,Soft Tissue Mobilization,Taping, Therapeutic Activities, Therapeutic Exercises Modalities Electric Stimulation Next Visit Focus/Plan Next Note Type Treatment Note Next Visit Plan PNF for rolling cont to work on strength for sup<> sitting. cont to advance standing balance and gait & strength
--- NOTE | 2022-07-02 13:34 | PT.OTN ---
Current Diagnoses Muscle weakness (generalized) (07/02/22) Difficulty in walking, not elsewhere classified (07/02/22) Physical Therapy Treatment Note PT-OP-A Visit Information Start: 02/04/22 18:00 Freq: Status: Active Protocol: Document 07/02/22 12:52 SP (Rec: 07/02/22 13:35 SP [id number]) Out-Patient Physical Therapy Visit Information Visit Information Visit Type Treatment Note Visit Note 07/08 Visit Start Time 12:52 Visit Stop Time 13:34 Total Visit Minutes 42 Visit Number 29 Number of SILO ERECTOR Visits 2 PT-OP-B Current Condition Start: 02/04/22 18:00 Freq: Status: Active Protocol: Document 02/09/22 11:20 [facility] (Rec: 02/09/22 15:02 [facility] [id number]) Current Condition History of Current Condition Onset Date Jan Current Complaints weakness in entire body, falls History of Current Condition Pt is frustrated because she used to be able to go to high intensity classes and walk 3-5 miles a day but stopped in Mar d/t falls. She has seen 2 neurologists, 1 neurosurgeon and feels like she is really progressively worse. She is really hating not being able to walk daily. She is having trouble getting socks on. Her dexterity is limited also. No one has been able to say what they think it is. Pt has been using a 4WW since Nov and in June started using a cane. she started using devices d/t falls. She is planning to see another neurologist in [place]. She has started going to [employer] class but stopped d/t her balance being too bad. She has all the [employer] equipment including a reformer. Her also recently has dx of cancer. Pt reports she got her first booster in Dec and she wonders if this is what started this. In Jan, she had some falls when she was working on her [employer] and [employer]. Had Meniscus surgery in August and did PT for a short time and was DC quickly d/t how well she was doing. Dr. Jain sent her to the neurosurgeon for potential back surgery based on EMG, but neurosurgeon didn't think that was the issue. She has mild back pain in the AM that has only been recently d/t being less mobile. The neurosurgeon at first thought she needed another MRI of brain and had it scheduled, but then when he talked to the neurologist, the plan is now for her to see a different neurologist. Pt seeing a telehealth ND/MD who gave her folic acid steffanie something else but she doesn't feel like it helps. Pt reports R foot flops down sometime. Since getting 4WW , she has fallen 3 times ( oct). Prior to the walker, she was falling every few days and had some days wehre she fell more than once. All falls have resulted only in cuts and bruises Prior Treatments and Tests Lumbar MRI: IMPRESSION: 1. Multilevel lumbar spondylosis, causing foraminal stenosis as detailed above. 2. Severe central canal stenosis at L3-4 and L4-5. 3. No abnormal cord signal. 4. Remote compression fractures of T11 and T12. Cervical MRI:IMPRESSION: 1. Multilevel degenerative disc and facet disease, as well as uncovertebral hypertrophy. 2. Multilevel canal stenoses, worst at C5-C6 where there is minimal cord flattening. 3. Multilevel foraminal stenoses, worst at C5-C6 and C6-C7 where there is associated intraforaminal nerve root compression. Recommend correlation with clinical symptoms to ascertain relevance of these findings. IMPRESSION: BRAIN MRI: 1. No acute intracranial disease process. 2. No areas of acute or chronic infarction. 3. Wrgk-lg-yzlwlmva diffuse cerebral volume loss. 4. Mild periventricular and subcortical white matter chronic microvascular ischemic change. BRAIN MR ANGIOGRAM: Normal MR angiogram of the head. NECK MR ANGIOGRAM: 1. Less than 50% stenosis of the origin of the left internal carotid artery. 2. Right internal carotid artery is fully patent. 3. Vertebral arteries are fully patent. ADDENDUM: This case was reviewed at the request of Dr. Gonzalez and discussed by telephone at 11: 04 a.m. [place] time on October 14, 2021. This patient is brain parenchymal volume loss and chronic small vessel ischemic change. There is prominence of the ventricles and sulci, with the lateral ventricles larger than would be expected, given the degree of sulcal atrophy. Please consider normal pressure hydrocephalus. IMPRESSION: 1. Chronic mild wedging of the T9 vertebral body unchanged from prior examination which may be physiologic. 2. Multilevel disc degeneration. disc degeneration. Treatment Goals Patient/Caregiver Goals be able to get back to working outa nd walking PT-OP-C Subjective Start: 02/04/22 18:00 Freq: Status: Active Protocol: Document 07/02/22 12:52 SP (Rec: 07/02/22 13:35 SP [id number]) OP-PT Subjective Patient Comments Patient Comments Pt reported saw Dr Nur, neurologist and does have ALS. PT-OP-D Balance Start: 02/04/22 18:00 Freq: Status: Active Protocol: Document 06/18/22 11:22 [facility] (Rec: 06/18/22 12:32 [facility] [id number]) Balance Tests Kimble Balance Test Kimble Balance Test Score 29 PT-OP-E Functional Tests Start: 02/04/22 18:00 Freq: Status: Active Protocol: Document 06/18/22 11:22 [facility] (Rec: 06/18/22 12:32 [facility] [id number]) Functional Tests 6 Minute Walk Test Distance 139ft Device Used fww PT-OP-F Manual Assessment Start: 02/04/22 18:00 Freq: Status: Active Protocol: Document 02/09/22 11:20 [facility] (Rec: 02/09/22 15:02 [facility] [id number]) Manual Assessments Soft Tissue Assessment Soft Tissue Mobility Assessment tight calves w/limited passive DF PT-OP-G Mobility & Gait Start: 02/04/22 18:00 Freq: Status: Active Protocol: Document 02/09/22 11:20 [facility] (Rec: 02/09/22 15:02 [facility] [id number]) OP Mobility Evaluation Bed Mobility Rolling can roll B indep w/lower body following upper body Supine to and from Sit required min A for both supine <>sit Transfers Sit to Stand heavy use of UEs -pt reports sometimes needs to help OP Gait Assessment Comments Gait Comments Dec foot clearance B with heavy use of 4WW and dec DF R> L and dec hip flex PT-OP-M Strength Start: 02/04/22 18:00 Freq: Status: Active Protocol: Document 06/18/22 11:22 [facility] (Rec: 06/18/22 12:32 [facility] [id number]) Hip Strength Hip Manual Muscle Testing Right Flexion (L2) 3 Fair Abduction 2+ Poor+ External Rotation 3 Fair Internal Rotation 3+ Fair+ Left Flexion (L2) 3 Fair Abduction 2+ Poor+ External Rotation 4- Good- Internal Rotation 3- Fair- Knee Strength Knee Manual Muscle Testing Right Flexion (S2) 4 Good Extension (L3) 4- Good- Left Flexion (S2) 4 Good Extension (L3) 4- Good- Ankle/Foot Strength Ankle and Foot Manual Muscle Testing Right Dorsiflexion (L4) 3+ Fair+ Plantarflexion (S1) 4- Good- Left Dorsiflexion (L4) 3+ Fair+ Plantarflexion (S1) 4- Good- Comments PF tested seated B PT-OP-Q Treatments Start: 02/04/22 18:00 Freq: Status: Active Protocol: Document 07/02/22 12:52 SP (Rec: 07/02/22 13:35 SP [id number]) Gym Equipment Shuttle Recovery Unilateral Squats Details cued // knees asc/desc Resistance 25# (new band) Reps/Time x10 B Bilateral Squats Details good //knees, good knee flexion stretch unstable Resistance 50# (2 new bands) stable, 50 ( old band unstable) Shuttle Recovery Platform Stable,Unstable Reps/Time x15 each Therapeutic Exercises Standing Exercises stretch Standing Exercise Name 1. gastroc 2. soleus Side bilateral Equipment Used BUE on rail front, forefoot on edge blue foam Reps/Minutes 30 sec sec ea Comments good feedback stretch backwards walk Standing Exercise Name fwd/back Side bilateral Equipment Used yellow tband w/rail Reps/Minutes 2x10ft ea Gait Training Gait Activity FWW Device Used FWW Level of Assistance CGA Surface carpet Distance/Duration 100ft x2 Treatment Focus upright posture, hip flexion, endurance Comments cues for lifting foot and heel strike>toe Neuro Re-Education Treatment Balance Activities hurdles Details lateral Equipment rail 1 w/ BUE Reps/Duration 6 hurdles (4x fwd, 1x side B)- positioned on side Comments cued // feet, DF/ hip/ knee flexion clearance, space between BLEs, improved foot clearance with proximity to lisandro each LE foam Equipment handrail prn Comments WBOS w/head turns Macy 07/02/22 due to Retro lean PT-OP-T Assessment and Plan Start: 02/04/22 18:00 Freq: Status: Active Protocol: Document 07/02/22 12:52 SP (Rec: 07/02/22 13:35 SP [id number]) Physical Therapy Assessment Goals rolling Impairment pt rolls well to L side but difficult rolling R w/o assist Mcfp Goal (LTG) Pt will be indep w/roll B w/ difficulty LTG Duration achieved 06/18 6 min walk Impairment 179ft 05/12 w/FWW Boom Conveyor Operator Goal (LTG) Pt will be able to walk at least 350ft in 6 min to show more functional gait speed 06/18-139ft LTG Duration 08/04 functional activities Short Term Goal (STG) Pt will be able to do bed mobility indep consistantly 03/09/22: pt reports helps her at times comes to sitting, during tx instructed log roll able to perform with cues continued BUE support. 04/03/22: able to get out of bed self but still need getting leg in bed and can roll over B . 05/12-gets out of bed ok and is getting rail to help get into bed 06/18-gets into bed 50% of time by herself; out consistantly indep STG Duration 07/18 Mcfp Goal (LTG) Pt will be able to do sit to stand Indep and safely 02/27/22; cues for proper hand placement and hip hinge slow controlled descent, scoot forward feet under push from seated and downward pressure on FWW. 03/09/22: pt stated needs use BUE support and at times has to help her. 04/03/22: progressing: cues needed for consistant BUE support slow descent. LTG Duration achieved 05/12 strength Short Term Goal (STG) Pt will be indep w/HEP 02/27/22: added theraputty, wall plank, reviewed seated resisted hip abd, HC, STS, mini squat 03/09/22: reviewed TA bridge ( added 1/2 foam roll under forefoot), SLR STG Duration achieved-advancing as able Mcfp Goal (LTG) Pt will score at least 4/5 on MMT to show improved LE strength improvign pt ability to do ADLs 05/12-improved 06/18-no change LTG Duration 08/04 balance Short Term Goal (STG) Pt will be able to score at least 36 on KIMBLE to show safe ambulation w/AD w/dec risk for falls. 02/13/22: KIMBLE 21/56. 04/07-05/12-06/18- STG Duration 06/28 Mcfp Goal (LTG) Pt will be able to score at least 46 on KIMBLE to show safe ambulation w/dec risk for falls. LTG Duration 08/04 Assessment Summary Assessment Pt improved strategies proximity stepping to hurdles for consistant foot clearance each LE BUE support on HR. Pt responded wellto unstable shuttle press today, that's a good stretch in my knees, they are so stiff. Pt only required 1 brief seated rest between standing activities. Required Max A for BLEs on shuttle press, Mod A off. She was ableto position each LE on / off foam pad end tx. Physical Therapy Plan Frequency and Duration Frequency of Treatment 2x/Week Duration of treatment (weeks) 12 Plan of Care Start Date 05/12/22 Plan of Care End Date 08/04/22 Therapeutic Interventions Therapeutic Interventions Aquatic Therapy,Balance Training,Coordination Training ,Gait Training,Home Exercise Program,Joint Mobilizations, Manual Therapy,Neuromuscular Re-education,Orthotic/ Prosthetic Management,Patient/ Caregiver Education,Self-Care/ Home Management,Soft Tissue Mobilization,Taping, Therapeutic Activities, Therapeutic Exercises Modalities Electric Stimulation Next Visit Focus/Plan Next Note Type Treatment Note Next Visit Plan PNF for rolling cont to work on strength for sup<> sitting. cont to advance standing balance and gait & strength
--- NOTE | 2022-07-09 14:23 | PT.OTN ---
Current Diagnoses Muscle weakness (generalized) (07/09/22) Difficulty in walking, not elsewhere classified (07/09/22) Physical Therapy Treatment Note PT-OP-A Visit Information Start: 02/04/22 18:00 Freq: Status: Active Protocol: Document 07/09/22 14:19 [facility] (Rec: 07/09/22 14:23 [facility] [id number]) Out-Patient Physical Therapy Visit Information Visit Information Visit Type Treatment Note Visit Note 08/08 Visit Start Time 13:30 Visit Stop Time 14:17 Total Visit Minutes 47 Visit Number 30 Number of VOCATIONAL TRAINER Visits 0 PT-OP-B Current Condition Start: 02/04/22 18:00 Freq: Status: Active Protocol: Document 02/09/22 11:20 [facility] (Rec: 02/09/22 15:02 [facility] [id number]) Current Condition History of Current Condition Onset Date Jan Current Complaints weakness in entire body, falls History of Current Condition Pt is frustrated because she used to be able to go to high intensity classes and walk 3-5 miles a day but stopped in Mar d/t falls. She has seen 2 neurologists, 1 neurosurgeon and feels like she is really progressively worse. She is really hating not being able to walk daily. She is having trouble getting socks on. Her dexterity is limited also. No one has been able to say what they think it is. Pt has been using a 4WW since Nov and in June started using a cane. she started using devices d/t falls. She is planning to see another neurologist in [place]. She has started going to [employer] class but stopped d/t her balance being too bad. She has all the [employer] equipment including a reformer. Her also recently has dx of cancer. Pt reports she got her first booster in Dec and she wonders if this is what started this. In Jan, she had some falls when she was working on her [employer] and [employer]. Had Meniscus surgery in August and did PT for a short time and was DC quickly d/t how well she was doing. Dr. Jain sent her to the neurosurgeon for potential back surgery based on EMG, but neurosurgeon didn't think that was the issue. She has mild back pain in the AM that has only been recently d/t being less mobile. The neurosurgeon at first thought she needed another MRI of brain and had it scheduled, but then when he talked to the neurologist, the plan is now for her to see a different neurologist. Pt seeing a telehealth ND/MD who gave her folic acid steffanie something else but she doesn't feel like it helps. Pt reports R foot flops down sometime. Since getting 4WW , she has fallen 3 times ( oct). Prior to the walker, she was falling every few days and had some days wehre she fell more than once. All falls have resulted only in cuts and bruises Prior Treatments and Tests Lumbar MRI: IMPRESSION: 1. Multilevel lumbar spondylosis, causing foraminal stenosis as detailed above. 2. Severe central canal stenosis at L3-4 and L4-5. 3. No abnormal cord signal. 4. Remote compression fractures of T11 and T12. Cervical MRI:IMPRESSION: 1. Multilevel degenerative disc and facet disease, as well as uncovertebral hypertrophy. 2. Multilevel canal stenoses, worst at C5-C6 where there is minimal cord flattening. 3. Multilevel foraminal stenoses, worst at C5-C6 and C6-C7 where there is associated intraforaminal nerve root compression. Recommend correlation with clinical symptoms to ascertain relevance of these findings. IMPRESSION: BRAIN MRI: 1. No acute intracranial disease process. 2. No areas of acute or chronic infarction. 3. Rfyy-uv-emzvxwql diffuse cerebral volume loss. 4. Mild periventricular and subcortical white matter chronic microvascular ischemic change. BRAIN MR ANGIOGRAM: Normal MR angiogram of the head. NECK MR ANGIOGRAM: 1. Less than 50% stenosis of the origin of the left internal carotid artery. 2. Right internal carotid artery is fully patent. 3. Vertebral arteries are fully patent. ADDENDUM: This case was reviewed at the request of Dr. Gonzalez and discussed by telephone at 11: 04 a.m. [place] time on October 14, 2021. This patient is brain parenchymal volume loss and chronic small vessel ischemic change. There is prominence of the ventricles and sulci, with the lateral ventricles larger than would be expected, given the degree of sulcal atrophy. Please consider normal pressure hydrocephalus. IMPRESSION: 1. Chronic mild wedging of the T9 vertebral body unchanged from prior examination which may be physiologic. 2. Multilevel disc degeneration. disc degeneration. 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 Plans to try to paint. She notes the neurologist doesn't believe in AFOs. PT-OP-D Balance Start: 02/04/22 18:00 Freq: Status: Active Protocol: Document 06/18/22 11:22 [facility] (Rec: 06/18/22 12:32 [facility] [id number]) Balance Tests Kimble Balance Test Kimble Balance Test Score 29 PT-OP-E Functional Tests Start: 02/04/22 18:00 Freq: Status: Active Protocol: Document 06/18/22 11:22 [facility] (Rec: 06/18/22 12:32 [facility] [id number]) Functional Tests 6 Minute Walk Test Distance 139ft Device Used fww PT-OP-F Manual Assessment Start: 02/04/22 18:00 Freq: Status: Active Protocol: Document 02/09/22 11:20 [facility] (Rec: 02/09/22 15:02 [facility] [id number]) Manual Assessments Soft Tissue Assessment Soft Tissue Mobility Assessment tight calves w/limited passive DF PT-OP-G Mobility & Gait Start: 02/04/22 18:00 Freq: Status: Active Protocol: Document 02/09/22 11:20 [facility] (Rec: 02/09/22 15:02 [facility] [id number]) OP Mobility Evaluation Bed Mobility Rolling can roll B indep w/lower body following upper body Supine to and from Sit required min A for both supine <>sit Transfers Sit to Stand heavy use of UEs -pt reports sometimes needs to help OP Gait Assessment Comments Gait Comments Dec foot clearance B with heavy use of 4WW and dec DF R> L and dec hip flex PT-OP-M Strength Start: 02/04/22 18:00 Freq: Status: Active Protocol: Document 06/18/22 11:22 [facility] (Rec: 06/18/22 12:32 [facility] [id number]) Hip Strength Hip Manual Muscle Testing Right Flexion (L2) 3 Fair Abduction 2+ Poor+ External Rotation 3 Fair Internal Rotation 3+ Fair+ Left Flexion (L2) 3 Fair Abduction 2+ Poor+ External Rotation 4- Good- Internal Rotation 3- Fair- Knee Strength Knee Manual Muscle Testing Right Flexion (S2) 4 Good Extension (L3) 4- Good- Left Flexion (S2) 4 Good Extension (L3) 4- Good- Ankle/Foot Strength Ankle and Foot Manual Muscle Testing Right Dorsiflexion (L4) 3+ Fair+ Plantarflexion (S1) 4- Good- Left Dorsiflexion (L4) 3+ Fair+ Plantarflexion (S1) 4- Good- Comments PF tested seated B PT-OP-Q Treatments Start: 02/04/22 18:00 Freq: Status: Active Protocol: Document 07/09/22 14:19 [facility] (Rec: 07/09/22 14:23 [facility] [id number]) Gait Training Gait Activity FWW Device Used FWW Level of Assistance CGA Surface carpet Distance/Duration 100ft Treatment Focus upright posture, hip flexion, endurance Comments cues for lifting foot and heel strike>toe 2. w/tband around R foot to gait belt-much imrpoved foot clearance w/gait. Pt to bring in her brace she [id number] Neuro Re-Education Treatment Balance Activities hurdles Details on their side Equipment rail 1 w/ BUE Reps/Duration 6 hurdles (4x fwd, 1x side B)- positioned on side Comments cued // feet, DF/ hip/ knee flexion clearance, space between BLEs, improved foot clearance with proximity to lisandro each LE tilt board Details fwd & side Equipment CG- 5%A- facing rail Comments balancing & wt shifts ea foam Equipment handrail prn Comments WBOS & NBOS w/head turns &EC trials PT-OP-T Assessment and Plan Start: 02/04/22 18:00 Freq: Status: Active Protocol: Document 07/09/22 14:19 [facility] (Rec: 07/09/22 14:23 [facility] [id number]) Physical Therapy Assessment Goals rolling Impairment pt rolls well to L side but difficult rolling R w/o assist Sandwich Wrapper Goal (LTG) Pt will be indep w/roll B w/ difficulty LTG Duration achieved 4/20 6 min walk Impairment 179ft 3/14 w/FWW Detention Goal (LTG) Pt will be able to walk at least 350ft in 6 min to show more functional gait speed 06/18-139ft LTG Duration 08/04 functional activities Short Term Goal (STG) Pt will be able to do bed mobility indep consistantly 03/09/22: pt reports helps her at times comes to sitting, during tx instructed log roll able to perform with cues continued BUE support. 04/03/22: able to get out of bed self but still need getting leg in bed and can roll over B . 05/12-gets out of bed ok and is getting rail to help get into bed 06/18-gets into bed 50% of time by herself; out consistantly indep STG Duration 07/18 Detention Goal (LTG) Pt will be able to do sit to stand Indep and safely 02/27/22; cues for proper hand placement and hip hinge slow controlled descent, scoot forward feet under push from seated and downward pressure on FWW. 03/09/22: pt stated needs use BUE support and at times has to help her. 04/03/22: progressing: cues needed for consistant BUE support slow descent. LTG Duration achieved 05/12 strength Short Term Goal (STG) Pt will be indep w/HEP 02/27/22: added theraputty, wall plank, reviewed seated resisted hip abd, HC, STS, mini squat 03/09/22: reviewed TA bridge ( added 1/2 foam roll under forefoot), SLR STG Duration achieved-advancing as able Sandwich Wrapper Goal (LTG) Pt will score at least 4/5 on MMT to show improved LE strength improvign pt ability to do ADLs 05/12-improved 06/18-no change LTG Duration 08/04 balance Short Term Goal (STG) Pt will be able to score at least 36 on KIMBLE to show safe ambulation w/AD w/dec risk for falls. 02/13/22: KIMBLE 56. 04/07-05/12-06/18- STG Duration 06/28 Sandwich Wrapper Goal (LTG) Pt will be able to score at least 46 on KIMBLE to show safe ambulation w/dec risk for falls. LTG Duration 08/04 Assessment Summary Assessment Pt did much better w/gait when having tband around foot. She was encoruaged to bring in her brace to see if it will work and otherwise discuss w/ PT other AFO option as R foot keeps dragging. She is struggling w/foot clearance on R and w/balance Physical Therapy Plan Frequency and Duration Frequency of Treatment 2x/Week Duration of treatment (weeks) 12 Plan of Care Start Date 05/12/22 Plan of Care End Date 08/04/22 Next Visit Focus/Plan Next Note Type Treatment Note Next Visit Plan PNF for rolling cont to work on strength for sup<> sitting. cont to advance standing balance and gait & strength
--- NOTE | 2022-07-14 11:32 | PT.OTN ---
Current Diagnoses Muscle weakness (generalized) (07/14/22) Difficulty in walking, not elsewhere classified (07/14/22) Physical Therapy Treatment Note PT-OP-A Visit Information Start: 02/04/22 18:00 Freq: Status: Active Protocol: Document 07/14/22 10:48 SP (Rec: 07/14/22 11:41 SP [id number]) Out-Patient Physical Therapy Visit Information Visit Information Visit Type Treatment Note Visit Note 09/07 (update POC pre 08/04) Visit Start Time 10:48 Visit Stop Time 11:32 Total Visit Minutes 44 Visit Number 31 Number of WAREHOUSE INVENTORY CLERK Visits 1 PT-OP-B Current Condition Start: 02/04/22 18:00 Freq: Status: Active Protocol: Document 02/09/22 11:20 [facility] (Rec: 02/09/22 15:02 [facility] [id number]) Current Condition History of Current Condition Onset Date Jan Current Complaints weakness in entire body, falls History of Current Condition Pt is frustrated because she used to be able to go to high intensity classes and walk 3-5 miles a day but stopped in Mar d/t falls. She has seen 2 neurologists, 1 neurosurgeon and feels like she is really progressively worse. She is really hating not being able to walk daily. She is having trouble getting socks on. Her dexterity is limited also. No one has been able to say what they think it is. Pt has been using a 4WW since Nov and in June started using a cane. she started using devices d/t falls. She is planning to see another neurologist in [place]. She has started going to [employer] class but stopped d/t her balance being too bad. She has all the pil[employer]ORLD equipment including a reformer. Her also recently has dx of cancer. Pt reports she got her first booster in Dec and she wonders if this is what started this. In Jan, she had some falls when she was working on her [employer] and [employer]. Had Meniscus surgery in August and did PT for a short time and was DC quickly d/t how well she was doing. Dr. Jain sent her to the neurosurgeon for potential back surgery based on EMG, but neurosurgeon didn't think that was the issue. She has mild back pain in the AM that has only been recently d/t being less mobile. The neurosurgeon at first thought she needed another MRI of brain and had it scheduled, but then when he talked to the neurologist, the plan is now for her to see a different neurologist. Pt seeing a telehealth ND/MD who gave her folic acid steffanie something else but she doesn't feel like it helps. Pt reports R foot flops down sometime. Since getting 4WW , she has fallen 3 times ( oct). Prior to the walker, she was falling every few days and had some days wehre she fell more than once. All falls have resulted only in cuts and bruises Prior Treatments and Tests Lumbar MRI: IMPRESSION: 1. Multilevel lumbar spondylosis, causing foraminal stenosis as detailed above. 2. Severe central canal stenosis at L3-4 and L4-5. 3. No abnormal cord signal. 4. Remote compression fractures of T11 and T12. Cervical MRI:IMPRESSION: 1. Multilevel degenerative disc and facet disease, as well as uncovertebral hypertrophy. 2. Multilevel canal stenoses, worst at C5-C6 where there is minimal cord flattening. 3. Multilevel foraminal stenoses, worst at C5-C6 and C6-C7 where there is associated intraforaminal nerve root compression. Recommend correlation with clinical symptoms to ascertain relevance of these findings. IMPRESSION: BRAIN MRI: 1. No acute intracranial disease process. 2. No areas of acute or chronic infarction. 3. Epnt-lr-lbpbrqzj diffuse cerebral volume loss. 4. Mild periventricular and subcortical white matter chronic microvascular ischemic change. BRAIN MR ANGIOGRAM: Normal MR angiogram of the head. NECK MR ANGIOGRAM: 1. Less than 50% stenosis of the origin of the left internal carotid artery. 2. Right internal carotid artery is fully patent. 3. Vertebral arteries are fully patent. ADDENDUM: This case was reviewed at the request of Dr. Gonzalez and discussed by telephone at 11: 04 a.m. [place] time on October 14, 2021. This patient is brain parenchymal volume loss and chronic small vessel ischemic change. There is prominence of the ventricles and sulci, with the lateral ventricles larger than would be expected, given the degree of sulcal atrophy. Please consider normal pressure hydrocephalus. IMPRESSION: 1. Chronic mild wedging of the T9 vertebral body unchanged from prior examination which may be physiologic. 2. Multilevel disc degeneration. disc degeneration. Treatment Goals Patient/Caregiver Goals be able to get back to working outa nd walking PT-OP-C Subjective Start: 02/04/22 18:00 Freq: Status: Active Protocol: Document 07/14/22 10:48 SP (Rec: 07/14/22 11:41 SP [id number]) OP-PT Subjective Patient Comments Patient Comments Pt stated forgot her ankle DF ankle strap. Is going to get shoes at [employer] today to get shoes to fasten strap to. PT-OP-D Balance Start: 02/04/22 18:00 Freq: Status: Active Protocol: Document 06/18/22 11:22 [facility] (Rec: 06/18/22 12:32 [facility] [id number]) Balance Tests Kimble Balance Test Kimble Balance Test Score 29 PT-OP-E Functional Tests Start: 02/04/22 18:00 Freq: Status: Active Protocol: Document 06/18/22 11:22 [facility] (Rec: 06/18/22 12:32 [facility] [id number]) Functional Tests 6 Minute Walk Test Distance 139ft Device Used fww PT-OP-F Manual Assessment Start: 02/04/22 18:00 Freq: Status: Active Protocol: Document 02/09/22 11:20 [facility] (Rec: 02/09/22 15:02 [facility] [id number]) Manual Assessments Soft Tissue Assessment Soft Tissue Mobility Assessment tight calves w/limited passive DF PT-OP-G Mobility & Gait Start: 02/04/22 18:00 Freq: Status: Active Protocol: Document 02/09/22 11:20 [facility] (Rec: 02/09/22 15:02 [facility] [id number]) OP Mobility Evaluation Bed Mobility Rolling can roll B indep w/lower body following upper body Supine to and from Sit required min A for both supine <>sit Transfers Sit to Stand heavy use of UEs -pt reports sometimes needs to help OP Gait Assessment Comments Gait Comments Dec foot clearance B with heavy use of 4WW and dec DF R> L and dec hip flex PT-OP-M Strength Start: 02/04/22 18:00 Freq: Status: Active Protocol: Document 06/18/22 11:22 [facility] (Rec: 06/18/22 12:32 [facility] [id number]) Hip Strength Hip Manual Muscle Testing Right Flexion (L2) 3 Fair Abduction 2+ Poor+ External Rotation 3 Fair Internal Rotation 3+ Fair+ Left Flexion (L2) 3 Fair Abduction 2+ Poor+ External Rotation 4- Good- Internal Rotation 3- Fair- Knee Strength Knee Manual Muscle Testing Right Flexion (S2) 4 Good Extension (L3) 4- Good- Left Flexion (S2) 4 Good Extension (L3) 4- Good- Ankle/Foot Strength Ankle and Foot Manual Muscle Testing Right Dorsiflexion (L4) 3+ Fair+ Plantarflexion (S1) 4- Good- Left Dorsiflexion (L4) 3+ Fair+ Plantarflexion (S1) 4- Good- Comments PF tested seated B PT-OP-Q Treatments Start: 02/04/22 18:00 Freq: Status: Active Protocol: Document 07/14/22 10:48 SP (Rec: 07/14/22 11:41 SP [id number]) Gym Equipment Shuttle Recovery Bilateral Squats Details good //knees, good knee flexion stretch unstable Resistance 50# (2 new bands) stable, 50 ( old band unstable) Shuttle Recovery Platform Stable,Unstable Reps/Time x15 each Therapeutic Exercises Standing Exercises side step Side bilateral Resistance AROM Equipment Used rail Reps/Minutes 10 ft x1 laps Comments Improved foot clearance with TB wrap R ft DF/ IV Gait Training Gait Activity FWW Device Used FWW Level of Assistance CGA Surface carpet Distance/Duration 100 ft 2 Treatment Focus upright posture, hip flexion, endurance Comments cues for lifting foot and heel strike>toe 2. w/tband wrap CCW spiral around R foot to gait belt- much improved foot clearance w /gait. Pt to bring in her brace next tx. Neuro Re-Education Treatment Balance Activities tilt board Details fwd, bwd & lateral Equipment CG- 15%A, rail on side (RUE support) Comments balancing & wt shifts ea PT-OP-T Assessment and Plan Start: 02/04/22 18:00 Freq: Status: Active Protocol: Document 07/14/22 10:48 SP (Rec: 07/14/22 11:41 SP [id number]) Physical Therapy Assessment Goals rolling Impairment pt rolls well to L side but difficult rolling R w/o assist Residential Goal (LTG) Pt will be indep w/roll B w/ difficulty LTG Duration achieved 4/20 6 min walk Impairment 179ft 3/14 w/FWW Director Supply Chain Goal (LTG) Pt will be able to walk at least 350ft in 6 min to show more functional gait speed 06/18-139ft LTG Duration 08/04 functional activities Short Term Goal (STG) Pt will be able to do bed mobility indep consistantly 03/09/22: pt reports helps her at times comes to sitting, during tx instructed log roll able to perform with cues continued BUE support. 04/03/22: able to get out of bed self but still need getting leg in bed and can roll over B . 05/12-gets out of bed ok and is getting rail to help get into bed 06/18-gets into bed 50% of time by herself; out consistantly indep STG Duration 07/18 Residential Goal (LTG) Pt will be able to do sit to stand Indep and safely 02/27/22; cues for proper hand placement and hip hinge slow controlled descent, scoot forward feet under push from seated and downward pressure on FWW. 03/09/22: pt stated needs use BUE support and at times has to help her. 04/03/22: progressing: cues needed for consistant BUE support slow descent. LTG Duration achieved 05/12 strength Short Term Goal (STG) Pt will be indep w/HEP 02/27/22: added theraputty, wall plank, reviewed seated resisted hip abd, HC, STS, mini squat 03/09/22: reviewed TA bridge ( added 1/2 foam roll under forefoot), SLR STG Duration achieved-advancing as able Residential Goal (LTG) Pt will score at least 4/5 on MMT to show improved LE strength improvign pt ability to do ADLs 05/12-improved 06/18-no change LTG Duration 08/04 balance Short Term Goal (STG) Pt will be able to score at least 36 on KIMBLE to show safe ambulation w/AD w/dec risk for falls. 02/13/22: KIMBLE . 04/07-05/12-06/18- STG Duration 06/28 Residential Goal (LTG) Pt will be able to score at least 46 on KIMBLE to show safe ambulation w/dec risk for falls. LTG Duration 08/04 Assessment Summary Assessment Pt improved RLE foot clearance with TB spiral wrap CCW to support toe clearance gait and side stepping. Next tx recheck ankle DF brace/new shoe fasten to. Physical Therapy Plan Frequency and Duration Frequency of Treatment 2x/Week Duration of treatment (weeks) 12 Plan of Care Start Date 05/12/22 Plan of Care End Date 08/04/22 Therapeutic Interventions Therapeutic Interventions Aquatic Therapy,Balance Training,Coordination Training ,Gait Training,Home Exercise Program,Joint Mobilizations, Manual Therapy,Neuromuscular Re-education,Orthotic/ Prosthetic Management,Patient/ Caregiver Education,Self-Care/ Home Management,Soft Tissue Mobilization,Taping, Therapeutic Activities, Therapeutic Exercises Modalities Electric Stimulation Next Visit Focus/Plan Next Note Type Treatment Note Next Visit Plan PNF for rolling cont to work on strength for sup<> sitting. POC: cont to advance standing balance and gait & strength
--- NOTE | 2022-07-16 12:02 | PT-OP ANOTE ---
Pt cancelled appt, transportation didn't come to bring her.
--- NOTE | 2022-07-17 12:48 | PT.OTN ---
Current Diagnoses Muscle weakness (generalized) (07/17/22) Difficulty in walking, not elsewhere classified (07/17/22) Physical Therapy Treatment Note PT-OP-A Visit Information Start: 02/04/22 18:00 Freq: Status: Active Protocol: Document 07/17/22 12:03 SP (Rec: 07/17/22 13:39 SP [id number]) Out-Patient Physical Therapy Visit Information Visit Information Visit Type Treatment Note Visit Note 10/08 (update POC pre 08/04) Visit Start Time 12:03 Visit Stop Time 12:48 Total Visit Minutes 45 Visit Number 32 Number of SHIP'S OFFICER Visits 2 PT-OP-B Current Condition Start: 02/04/22 18:00 Freq: Status: Active Protocol: Document 02/09/22 11:20 [facility] (Rec: 02/09/22 15:02 [facility] [id number]) Current Condition History of Current Condition Onset Date Jan Current Complaints weakness in entire body, falls History of Current Condition Pt is frustrated because she used to be able to go to high intensity classes and walk 3-5 miles a day but stopped in Mar d/t falls. She has seen 2 neurologists, 1 neurosurgeon and feels like she is really progressively worse. She is really hating not being able to walk daily. She is having trouble getting socks on. Her dexterity is limited also. No one has been able to say what they think it is. Pt has been using a 4WW since Nov and in June started using a cane. she started using devices d/t falls. She is planning to see another neurologist in [place]. She has started going to [employer] class but stopped d/t her balance being too bad. She has all the [employer]box equipment including a reformer. Her also recently has dx of cancer. Pt reports she got her first booster in Dec and she wonders if this is what started this. In Jan, she had some falls when she was working on her [employer] and [employer]. Had Meniscus surgery in August and did PT for a short time and was DC quickly d/t how well she was doing. Dr. Jain sent her to the neurosurgeon for potential back surgery based on EMG, but neurosurgeon didn't think that was the issue. She has mild back pain in the AM that has only been recently d/t being less mobile. The neurosurgeon at first thought she needed another MRI of brain and had it scheduled, but then when he talked to the neurologist, the plan is now for her to see a different neurologist. Pt seeing a telehealth ND/MD who gave her folic acid steffanie something else but she doesn't feel like it helps. Pt reports R foot flops down sometime. Since getting 4WW , she has fallen 3 times ( oct). Prior to the walker, she was falling every few days and had some days wehre she fell more than once. All falls have resulted only in cuts and bruises Prior Treatments and Tests Lumbar MRI: IMPRESSION: 1. Multilevel lumbar spondylosis, causing foraminal stenosis as detailed above. 2. Severe central canal stenosis at L3-4 and L4-5. 3. No abnormal cord signal. 4. Remote compression fractures of T11 and T12. Cervical MRI:IMPRESSION: 1. Multilevel degenerative disc and facet disease, as well as uncovertebral hypertrophy. 2. Multilevel canal stenoses, worst at C5-C6 where there is minimal cord flattening. 3. Multilevel foraminal stenoses, worst at C5-C6 and C6-C7 where there is associated intraforaminal nerve root compression. Recommend correlation with clinical symptoms to ascertain relevance of these findings. IMPRESSION: BRAIN MRI: 1. No acute intracranial disease process. 2. No areas of acute or chronic infarction. 3. Dspo-wg-otdindpv diffuse cerebral volume loss. 4. Mild periventricular and subcortical white matter chronic microvascular ischemic change. BRAIN MR ANGIOGRAM: Normal MR angiogram of the head. NECK MR ANGIOGRAM: 1. Less than 50% stenosis of the origin of the left internal carotid artery. 2. Right internal carotid artery is fully patent. 3. Vertebral arteries are fully patent. ADDENDUM: This case was reviewed at the request of Dr. Gonzalez and discussed by telephone at 11: 04 a.m. [place] time on October 14, 2021. This patient is brain parenchymal volume loss and chronic small vessel ischemic change. There is prominence of the ventricles and sulci, with the lateral ventricles larger than would be expected, given the degree of sulcal atrophy. Please consider normal pressure hydrocephalus. IMPRESSION: 1. Chronic mild wedging of the T9 vertebral body unchanged from prior examination which may be physiologic. 2. Multilevel disc degeneration. disc degeneration. Treatment Goals Patient/Caregiver Goals be able to get back to working outa nd walking PT-OP-C Subjective Start: 02/04/22 18:00 Freq: Status: Active Protocol: Document 07/17/22 12:03 SP (Rec: 07/17/22 13:39 SP [id number]) OP-PT Subjective Patient Comments Patient Comments Pt reports she tried on so many shoes on Wed for comfort for arch support and found the new black stretch maryjanes were best fit. Pt brought her DF ankle brace to trial fit with new shoes. Demonstrates decreased R>L foot clearance today. Pt stated saddened not able to sew anymore, trying to find an activity can do with what limited strength has in hands, need another theraputty for home. PT-OP-D Balance Start: 02/04/22 18:00 Freq: Status: Active Protocol: Document 06/18/22 11:22 [facility] (Rec: 06/18/22 12:32 [facility] [id number]) Balance Tests Kimble Balance Test Kimble Balance Test Score 29 PT-OP-E Functional Tests Start: 02/04/22 18:00 Freq: Status: Active Protocol: Document 06/18/22 11:22 [facility] (Rec: 06/18/22 12:32 [facility] [id number]) Functional Tests 6 Minute Walk Test Distance 139ft Device Used fww PT-OP-F Manual Assessment Start: 02/04/22 18:00 Freq: Status: Active Protocol: Document 02/09/22 11:20 [facility] (Rec: 02/09/22 15:02 [facility] [id number]) Manual Assessments Soft Tissue Assessment Soft Tissue Mobility Assessment tight calves w/limited passive DF PT-OP-G Mobility & Gait Start: 02/04/22 18:00 Freq: Status: Active Protocol: Document 02/09/22 11:20 [facility] (Rec: 02/09/22 15:02 [facility] [id number]) OP Mobility Evaluation Bed Mobility Rolling can roll B indep w/lower body following upper body Supine to and from Sit required min A for both supine <>sit Transfers Sit to Stand heavy use of UEs -pt reports sometimes needs to help OP Gait Assessment Comments Gait Comments Dec foot clearance B with heavy use of 4WW and dec DF R> L and dec hip flex PT-OP-M Strength Start: 02/04/22 18:00 Freq: Status: Active Protocol: Document 06/18/22 11:22 [facility] (Rec: 06/18/22 12:32 [facility] [id number]) Hip Strength Hip Manual Muscle Testing Right Flexion (L2) 3 Fair Abduction 2+ Poor+ External Rotation 3 Fair Internal Rotation 3+ Fair+ Left Flexion (L2) 3 Fair Abduction 2+ Poor+ External Rotation 4- Good- Internal Rotation 3- Fair- Knee Strength Knee Manual Muscle Testing Right Flexion (S2) 4 Good Extension (L3) 4- Good- Left Flexion (S2) 4 Good Extension (L3) 4- Good- Ankle/Foot Strength Ankle and Foot Manual Muscle Testing Right Dorsiflexion (L4) 3+ Fair+ Plantarflexion (S1) 4- Good- Left Dorsiflexion (L4) 3+ Fair+ Plantarflexion (S1) 4- Good- Comments PF tested seated B PT-OP-Q Treatments Start: 02/04/22 18:00 Freq: Status: Active Protocol: Document 07/17/22 12:03 SP (Rec: 07/17/22 13:39 SP [id number]) Therapeutic Exercises Sitting Exercises theraputty Sitting Exercise Name reviewed HEP: grasp squeeze, pick out buttons Resistance re supplied yellow theraputty (provided Red for progression) Equipment Used accidently threw past given away. Reps/Minutes 2 min Comments good feedback will help with cutting/hobby strength Standing Exercises side step Side bilateral Resistance AROM Equipment Used //bars Reps/Minutes 10 ft x2 laps Comments Improved but not 100% foot clearance with DF brace Gait Training Gait Activity FWW Device Used FWW, DF brace RLE Level of Assistance CGA Surface carpet Distance/Duration 80 ft x2, 20 ft x2 Treatment Focus upright posture, hip flexion, endurance Comments cues for lifting R>L foot and heel strike>toe control. Decreased foot clearance today , so significant improvement with brace- not able anchor enough onto forefoot for added DF support. Self-Care/Home Management Treatment Education Other Education Extensive time spent education and need max assist for donning R ankle DF brace. Pt unable to Don self nor clasp strap. DIscussed and provided image of button strap similar brace that only wraps around lower leg and strap afixes to a button on shoe, believe she may be able to manage. Pt will look into alternative. SHIP'S OFFICER reissued yellow and red putty for self use home for hand strengthening while waiting for OT referral/ tx. PT-OP-T Assessment and Plan Start: 02/04/22 18:00 Freq: Status: Active Protocol: Document 07/17/22 12:03 SP (Rec: 07/17/22 13:39 SP [id number]) Physical Therapy Assessment Goals rolling Impairment pt rolls well to L side but difficult rolling R w/o assist Museum Exhibit Designer Goal (LTG) Pt will be indep w/roll B w/ difficulty LTG Duration achieved 06/18 6 min walk Impairment 179ft 05/12 w/FWW Museum Exhibit Designer Goal (LTG) Pt will be able to walk at least 350ft in 6 min to show more functional gait speed 06/18-139ft LTG Duration 08/04 functional activities Short Term Goal (STG) Pt will be able to do bed mobility indep consistantly 03/09/22: pt reports helps her at times comes to sitting, during tx instructed log roll able to perform with cues continued BUE support. 04/03/22: able to get out of bed self but still need getting leg in bed and can roll over B . 05/12-gets out of bed ok and is getting rail to help get into bed 06/18-gets into bed 50% of time by herself; out consistantly indep STG Duration 07/18 Museum Exhibit Designer Goal (LTG) Pt will be able to do sit to stand Indep and safely 02/27/22; cues for proper hand placement and hip hinge slow controlled descent, scoot forward feet under push from seated and downward pressure on FWW. 03/09/22: pt stated needs use BUE support and at times has to help her. 04/03/22: progressing: cues needed for consistant BUE support slow descent. LTG Duration achieved 05/12 strength Short Term Goal (STG) Pt will be indep w/HEP 02/27/22: added theraputty, wall plank, reviewed seated resisted hip abd, HC, STS, mini squat 03/09/22: reviewed TA bridge ( added 1/2 foam roll under forefoot), SLR STG Duration achieved-advancing as able Correction Goal (LTG) Pt will score at least 4/5 on MMT to show improved LE strength improvign pt ability to do ADLs 05/12-improved 06/18-no change LTG Duration 08/04 balance Short Term Goal (STG) Pt will be able to score at least 36 on KIMBLE to show safe ambulation w/AD w/dec risk for falls. 02/13/22: KIMBLE . 04/07-05/12-06/18- STG Duration 06/28 Museum Exhibit Designer Goal (LTG) Pt will be able to score at least 46 on KIMBLE to show safe ambulation w/dec risk for falls. LTG Duration 08/04 Assessment Summary Assessment Tx focused on proper fit, assess use of DF ankle brace/ strap with new adriana shoes. Pt unable to don band at forefoot & lower leg, thread nor clasp strap fastener of brace. SHIP'S OFFICER donned to pt RLE bulky and doesn't provide sufficient DF for foot clearance, provided new HO for alternative DF brace ([employer] Soft AFO for foot drop), see image scanned in. It can provide support and clip on any shoe. Increased effort to lift R>L LE today with every step, hands hard time gripping . Pt good squeeze with reissued theraputty able to fully close hand around FWW handle. Physical Therapy Plan Frequency and Duration Frequency of Treatment 2x/Week Duration of treatment (weeks) 12 Plan of Care Start Date 05/12/22 Plan of Care End Date 08/04/22 Therapeutic Interventions Therapeutic Interventions Aquatic Therapy,Balance Training,Coordination Training ,Gait Training,Home Exercise Program,Joint Mobilizations, Manual Therapy,Neuromuscular Re-education,Orthotic/ Prosthetic Management,Patient/ Caregiver Education,Self-Care/ Home Management,Soft Tissue Mobilization,Taping, Therapeutic Activities, Therapeutic Exercises Modalities Electric Stimulation Next Visit Focus/Plan Next Note Type Treatment Note Next Visit Plan PNF for rolling cont to work on strength for sup<> sitting. POC: cont to advance standing balance and gait & strength
--- NOTE | 2022-07-20 12:48 | PT.OTN ---
Current Diagnoses Muscle weakness (generalized) (07/20/22) Difficulty in walking, not elsewhere classified (07/20/22) Physical Therapy Treatment Note PT-OP-A Visit Information Start: 02/04/22 18:00 Freq: Status: Active Protocol: Document 07/20/22 12:01 SP (Rec: 07/20/22 12:59 SP [id number]) Out-Patient Physical Therapy Visit Information Visit Information Visit Type Treatment Note Visit Note 11/08 (update POC pre 08/04) ASHOK Diaz observed tx with pt and MANAGER DR[employer] Aracely with permission of pt. Visit Start Time 12:01 Visit Stop Time 12:48 Total Visit Minutes 47 Visit Number [address] Visits 3 PT-OP-B Current Condition Start: 02/04/22 18:00 Freq: Status: Active Protocol: Document 02/09/22 11:20 [facility] (Rec: 02/09/22 15:02 [facility] [id number]) Current Condition History of Current Condition Onset Date Jan Current Complaints weakness in entire body, falls History of Current Condition Pt is frustrated because she used to be able to go to high intensity classes and walk 3-5 miles a day but stopped in Mar d/t falls. She has seen 2 neurologists, 1 neurosurgeon and feels like she is really progressively worse. She is really hating not being able to walk daily. She is having trouble getting socks on. Her dexterity is limited also. No one has been able to say what they think it is. Pt has been using a 4WW since Nov and in June started using a cane. she started using devices d/t falls. She is planning to see another neurologist in [place]. She has started going to [employer] class but stopped d/t her balance being too bad. She has all the pilates equipment including a reformer. Her also recently has dx of cancer. Pt reports she got her first booster in Dec and she wonders if this is what started this. In Jan, she had some falls when she was working on her [employer] and [employer]. Had Meniscus surgery in August and did PT for a short time and was DC quickly d/t how well she was doing. Dr. Jain sent her to the neurosurgeon for potential back surgery based on EMG, but neurosurgeon didn't think that was the issue. She has mild back pain in the AM that has only been recently d/t being less mobile. The neurosurgeon at first thought she needed another MRI of brain and had it scheduled, but then when he talked to the neurologist, the plan is now for her to see a different neurologist. Pt seeing a telehealth ND/MD who gave her folic acid steffanie something else but she doesn't feel like it helps. Pt reports R foot flops down sometime. Since getting 4WW , she has fallen 3 times ( oct). Prior to the walker, she was falling every few days and had some days wehre she fell more than once. All falls have resulted only in cuts and bruises Prior Treatments and Tests Lumbar MRI: IMPRESSION: 1. Multilevel lumbar spondylosis, causing foraminal stenosis as detailed above. 2. Severe central canal stenosis at L3-4 and L4-5. 3. No abnormal cord signal. 4. Remote compression fractures of T11 and T12. Cervical MRI:IMPRESSION: 1. Multilevel degenerative disc and facet disease, as well as uncovertebral hypertrophy. 2. Multilevel canal stenoses, worst at C5-C6 where there is minimal cord flattening. 3. Multilevel foraminal stenoses, worst at C5-C6 and C6-C7 where there is associated intraforaminal nerve root compression. Recommend correlation with clinical symptoms to ascertain relevance of these findings. IMPRESSION: BRAIN MRI: 1. No acute intracranial disease process. 2. No areas of acute or chronic infarction. 3. [id number] diffuse cerebral volume loss. 4. Mild periventricular and subcortical white matter chronic microvascular ischemic change. BRAIN MR ANGIOGRAM: Normal MR angiogram of the head. NECK MR ANGIOGRAM: 1. Less than 50% stenosis of the origin of the left internal carotid artery. 2. Right internal carotid artery is fully patent. 3. Vertebral arteries are fully patent. ADDENDUM: This case was reviewed at the request of Dr. Gonzalez and discussed by telephone at 11: 04 a.m. [place] time on October 14, 2021. This patient is brain parenchymal volume loss and chronic small vessel ischemic change. There is prominence of the ventricles and sulci, with the lateral ventricles larger than would be expected, given the degree of sulcal atrophy. Please consider normal pressure hydrocephalus. IMPRESSION: 1. Chronic mild wedging of the T9 vertebral body unchanged from prior examination which may be physiologic. 2. Multilevel disc degeneration. disc degeneration. Treatment Goals Patient/Caregiver Goals be able to get back to working outa nd walking PT-OP-C Subjective Start: 02/04/22 18:00 Freq: Status: Active Protocol: Document 07/20/22 12:01 SP (Rec: 07/20/22 12:59 SP [id number]) OP-PT Subjective Patient Comments Patient Comments Pt reports her forfoot isnt clearing well today. The additional putty is has been helpful and going to go get her buttons to put in/pick out . Pt stated had a blood draw just before arrival to assess new med doing ok on her liver. PT-OP-D Balance Start: 02/04/22 18:00 Freq: Status: Active Protocol: Document 06/18/22 11:22 [facility] (Rec: 06/18/22 12:32 [facility] [id number]) Balance Tests Kimble Balance Test Kimble Balance Test Score 29 PT-OP-E Functional Tests Start: 02/04/22 18:00 Freq: Status: Active Protocol: Document 06/18/22 11:22 [facility] (Rec: 06/18/22 12:32 [facility] [id number]) Functional Tests 6 Minute Walk Test Distance 139ft Device Used fww PT-OP-F Manual Assessment Start: 02/04/22 18:00 Freq: Status: Active Protocol: Document 02/09/22 11:20 [facility] (Rec: 02/09/22 15:02 [facility] [id number]) Manual Assessments Soft Tissue Assessment Soft Tissue Mobility Assessment tight calves w/limited passive DF PT-OP-G Mobility & Gait Start: 02/04/22 18:00 Freq: Status: Active Protocol: Document 02/09/22 11:20 [facility] (Rec: 02/09/22 15:02 [facility] [id number]) OP Mobility Evaluation Bed Mobility Rolling can roll B indep w/lower body following upper body Supine to and from Sit required min A for both supine <>sit Transfers Sit to Stand heavy use of UEs -pt reports sometimes needs to help OP Gait Assessment Comments Gait Comments Dec foot clearance B with heavy use of 4WW and dec DF R> L and dec hip flex PT-OP-M Strength Start: 02/04/22 18:00 Freq: Status: Active Protocol: Document 06/18/22 11:22 [facility] (Rec: 06/18/22 12:32 [facility] [id number]) Hip Strength Hip Manual Muscle Testing Right Flexion (L2) 3 Fair Abduction 2+ Poor+ External Rotation 3 Fair Internal Rotation 3+ Fair+ Left Flexion (L2) 3 Fair Abduction 2+ Poor+ External Rotation 4- Good- Internal Rotation 3- Fair- Knee Strength Knee Manual Muscle Testing Right Flexion (S2) 4 Good Extension (L3) 4- Good- Left Flexion (S2) 4 Good Extension (L3) 4- Good- Ankle/Foot Strength Ankle and Foot Manual Muscle Testing Right Dorsiflexion (L4) 3+ Fair+ Plantarflexion (S1) 4- Good- Left Dorsiflexion (L4) 3+ Fair+ Plantarflexion (S1) 4- Good- Comments PF tested seated B PT-OP-Q Treatments Start: 02/04/22 18:00 Freq: Status: Active Protocol: Document 07/20/22 12:01 SP (Rec: 07/20/22 12:59 SP [id number]) Gym Equipment Shuttle Recovery Bilateral Squats Details good //knees, good knee flexion stretch unstable Resistance 50 # (2 new band) Shuttle Recovery Platform Stable,Unstable Reps/Time x10 Therapeutic Exercises Sitting Exercises LAQ Sitting Exercise Name inPT Side bilateral Resistance ROM Reps/Minutes 3 SH x8 Comments target to kick to, she stated might apply 1# leg wt. Therapeutic Activity Therapeutic Activity sit>supine, log roll L and R, R SL>sit Reps/Minutes 1 Comments Min A for BLE onto bed, support for R>LLE positioning into knee flexion with cues RUE HABD with TA fac to complete log roll to L SL. R LR self with support pull on rail. R SL>sit heavy BUE Gait Training Gait Activity FWW Device Used FWW, Blue TB DF assist to gait belt (sent home for carryover support) Level of Assistance CGA Surface carpet Distance/Duration 100 ft x2 Treatment Focus upright posture, hip flexion, endurance Comments Decreased foot clearance today , so significant improvement with TB forefoot>gait belt. PT-OP-T Assessment and Plan Start: 02/04/22 18:00 Freq: Status: Active Protocol: Document 07/20/22 12:01 SP (Rec: 07/20/22 12:59 SP [id number]) Physical Therapy Assessment Goals 6 min walk Impairment 179ft 314 w/FWW Detention Goal (LTG) Pt will be able to walk at least 350ft in 6 min to show more functional gait speed 06/18-139ft LTG Duration 08/04 functional activities Short Term Goal (STG) Pt will be able to do bed mobility indep consistantly 03/09/22: pt reports helps her at times comes to sitting, during tx instructed log roll able to perform with cues continued BUE support. 04/03/22: able to get out of bed self but still need getting leg in bed and can roll over B . 05/12-gets out of bed ok and is getting rail to help get into bed 06/18-gets into bed 50% of time by herself; out consistantly indep 07/20/22: required Min A for BLE into bed, Min A as needed for trunk support roll and maintain LE bent to utilize push roll. STG Duration 07/18 slow progression 07/20/22 Tile Edger Goal (LTG) Pt will be able to do sit to stand Indep and safely 02/27/22; cues for proper hand placement and hip hinge slow controlled descent, scoot forward feet under push from seated and downward pressure on FWW. 03/09/22: pt stated needs use BUE support and at times has to help her. 04/03/22: progressing: cues needed for consistant BUE support slow descent. 07/20/22: pt reports is having to get support to come to standing at times, especially on toilet. LTG Duration achieved 05/12, regressing 07/20 strength Short Term Goal (STG) Pt will be indep w/HEP 02/27/22: added theraputty, wall plank, reviewed seated resisted hip abd, HC, STS, mini squat 03/09/22: reviewed TA bridge ( added 1/2 foam roll under forefoot), SLR STG Duration achieved-advancing as able Tile Edger Goal (LTG) Pt will score at least 4/5 on MMT to show improved LE strength improvign pt ability to do ADLs 05/12-improved 06/18-no change LTG Duration 08/04 balance Short Term Goal (STG) Pt will be able to score at least 36 on KIMBLE to show safe ambulation w/AD w/dec risk for falls. 02/13/22: KIMBLE 21/56. 2/7-28 05/12-06/18- STG Duration 06/28 Detention Goal (LTG) Pt will be able to score at least 46 on KIMBLE to show safe ambulation w/dec risk for falls. LTG Duration 08/04 Assessment Summary Assessment Pt required Min A for each LE into bed, stationary RLE bent in supine to push from for log roll L trunk support as needed. Pt improved foot clearance with Tb assisted anchored forefoot to gait belt . Physical Therapy Plan Frequency and Duration Frequency of Treatment 2x/Week Duration of treatment (weeks) 12 Plan of Care Start Date 05/12/22 Plan of Care End Date 08/04/22 Therapeutic Interventions Therapeutic Interventions Aquatic Therapy,Balance Training,Coordination Training ,Gait Training,Home Exercise Program,Joint Mobilizations, Manual Therapy,Neuromuscular Re-education,Orthotic/ Prosthetic Management,Patient/ Caregiver Education,Self-Care/ Home Management,Soft Tissue Mobilization,Taping, Therapeutic Activities, Therapeutic Exercises Modalities Electric Stimulation Next Visit Focus/Plan Next Note Type Treatment Note Next Visit Plan Next tx: 6MWT, Kimble, feedback to goals. POC: PNF for rolling cont to work on strength for sup<> sitting. POC: cont to advance standing balance and gait & strength
--- NOTE | 2022-07-23 12:45 | PT.OTN ---
Current Diagnoses Muscle weakness (generalized) (07/23/22) Difficulty in walking, not elsewhere classified (07/23/22) Physical Therapy Treatment Note PT-OP-A Visit Information Start: 02/04/22 18:00 Freq: Status: Active Protocol: Document 07/23/22 12:01 SP (Rec: 07/23/22 12:47 SP [id number]) Out-Patient Physical Therapy Visit Information Visit Information Visit Type Treatment Note Visit Note 12/08 (update POC pre 07/30 PT appt) ASHOK Diaz observed tx with pt and PERFORMANCE IMPROVEMENT ANALYST Aracely with permission of pt. Visit Start Time 12:01 Visit Stop Time 12:45 Total Visit Minutes 44 Visit Number 34 Number of PERFORMANCE IMPROVEMENT ANALYST Visits 4 PT-OP-B Current Condition Start: 02/04/22 18:00 Freq: Status: Active Protocol: Document 02/09/22 11:20 [facility] (Rec: 02/09/22 15:02 [facility] [id number]) Current Condition History of Current Condition Onset Date Jan Current Complaints weakness in entire body, falls History of Current Condition Pt is frustrated because she used to be able to go to high intensity classes and walk 3-5 miles a day but stopped in Mar d/t falls. She has seen 2 neurologists, 1 neurosurgeon and feels like she is really progressively worse. She is really hating not being able to walk daily. She is having trouble getting socks on. Her dexterity is limited also. No one has been able to say what they think it is. Pt has been using a 4WW since Nov and in June started using a cane. she started using devices d/t falls. She is planning to see another neurologist in [place]. She has started going to [employer] class but stopped d/t her balance being too bad. She has all the pilates equipment including a reformer. Her also recently has dx of cancer. Pt reports she got her first booster in Dec and she wonders if this is what started this. In Jan, she had some falls when she was working on her [employer] and [employer]. Had Meniscus surgery in August and did PT for a short time and was DC quickly d/t how well she was doing. Dr. Jain sent her to the neurosurgeon for potential back surgery based on EMG, but neurosurgeon didn't think that was the issue. She has mild back pain in the AM that has only been recently d/t being less mobile. The neurosurgeon at first thought she needed another MRI of brain and had it scheduled, but then when he talked to the neurologist, the plan is now for her to see a different neurologist. Pt seeing a telehealth ND/MD who gave her folic acid steffanie something else but she doesn't feel like it helps. Pt reports R foot flops down sometime. Since getting 4WW , she has fallen 3 times ( oct). Prior to the walker, she was falling every few days and had some days wehre she fell more than once. All falls have resulted only in cuts and bruises Prior Treatments and Tests Lumbar MRI: IMPRESSION: 1. Multilevel lumbar spondylosis, causing foraminal stenosis as detailed above. 2. Severe central canal stenosis at L3-4 and L4-5. 3. No abnormal cord signal. 4. Remote compression fractures of T11 and T12. Cervical MRI:IMPRESSION: 1. Multilevel degenerative disc and facet disease, as well as uncovertebral hypertrophy. 2. Multilevel canal stenoses, worst at C5-C6 where there is minimal cord flattening. 3. Multilevel foraminal stenoses, worst at C5-C6 and C6-C7 where there is associated intraforaminal nerve root compression. Recommend correlation with clinical symptoms to ascertain relevance of these findings. IMPRESSION: BRAIN MRI: 1. No acute intracranial disease process. 2. No areas of acute or chronic infarction. 3. Vgyu-ai-bwykbmtk diffuse cerebral volume loss. 4. Mild periventricular and subcortical white matter chronic microvascular ischemic change. BRAIN MR ANGIOGRAM: Normal MR angiogram of the head. NECK MR ANGIOGRAM: 1. Less than 50% stenosis of the origin of the left internal carotid artery. 2. Right internal carotid artery is fully patent. 3. Vertebral arteries are fully patent. ADDENDUM: This case was reviewed at the request of Dr. Gonzalez and discussed by telephone at 11: 04 a.m. [place] time on October 14, 2021. This patient is brain parenchymal volume loss and chronic small vessel ischemic change. There is prominence of the ventricles and sulci, with the lateral ventricles larger than would be expected, given the degree of sulcal atrophy. Please consider normal pressure hydrocephalus. IMPRESSION: 1. Chronic mild wedging of the T9 vertebral body unchanged from prior examination which may be physiologic. 2. Multilevel disc degeneration. disc degeneration. Treatment Goals Patient/Caregiver Goals be able to get back to working outa nd walking PT-OP-C Subjective Start: 02/04/22 18:00 Freq: Status: Active Protocol: Document 07/23/22 12:01 SP (Rec: 07/23/22 12:47 SP [id number]) OP-PT Subjective Patient Comments Patient Comments Pt reported orderec another AFO ankle wrap brace on [employer] but didn't get here before appt like hoped. She stated wants to keep wearing same shoes. She is trying to get in to see Dr Jain for yrly follow up. PT-OP-D Balance Start: 02/04/22 18:00 Freq: Status: Active Protocol: Document 06/18/22 11:22 [facility] (Rec: 06/18/22 12:32 [facility] [id number]) Balance Tests Kimble Balance Test Kimble Balance Test Score 29 PT-OP-E Functional Tests Start: 02/04/22 18:00 Freq: Status: Active Protocol: Document 07/23/22 12:01 SP (Rec: 07/23/22 14:14 SP [id number]) Functional Tests 6 Minute Walk Test Distance 110 ft Device Used FWW Comments scuffing R>LLE but improved hip/knee flexion for clearance today 07/23 PT-OP-F Manual Assessment Start: 02/04/22 18:00 Freq: Status: Active Protocol: Document 02/09/22 11:20 [facility] (Rec: 02/09/22 15:02 [facility] [id number]) Manual Assessments Soft Tissue Assessment Soft Tissue Mobility Assessment tight calves w/limited passive DF PT-OP-G Mobility & Gait Start: 02/04/22 18:00 Freq: Status: Active Protocol: Document 02/09/22 11:20 [facility] (Rec: 02/09/22 15:02 [facility] [id number]) OP Mobility Evaluation Bed Mobility Rolling can roll B indep w/lower body following upper body Supine to and from Sit required min A for both supine <>sit Transfers Sit to Stand heavy use of UEs -pt reports sometimes needs to help OP Gait Assessment Comments Gait Comments Dec foot clearance B with heavy use of 4WW and dec DF R> L and dec hip flex PT-OP-M Strength Start: 02/04/22 18:00 Freq: Status: Active Protocol: Document 06/18/22 11:22 [facility] (Rec: 06/18/22 12:32 [facility] [id number]) Hip Strength Hip Manual Muscle Testing Right Flexion (L2) 3 Fair Abduction 2+ Poor+ External Rotation 3 Fair Internal Rotation 3+ Fair+ Left Flexion (L2) 3 Fair Abduction 2+ Poor+ External Rotation 4- Good- Internal Rotation 3- Fair- Knee Strength Knee Manual Muscle Testing Right Flexion (S2) 4 Good Extension (L3) 4- Good- Left Flexion (S2) 4 Good Extension (L3) 4- Good- Ankle/Foot Strength Ankle and Foot Manual Muscle Testing Right Dorsiflexion (L4) 3+ Fair+ Plantarflexion (S1) 4- Good- Left Dorsiflexion (L4) 3+ Fair+ Plantarflexion (S1) 4- Good- Comments PF tested seated B PT-OP-Q Treatments Start: 02/04/22 18:00 Freq: Status: Active Protocol: Document 07/23/22 12:01 SP (Rec: 07/23/22 12:47 SP [id number]) Gym Equipment Shuttle Recovery Unilateral Squats Details good form/pacing Resistance 25# (new band) Reps/Time x10 each LE Bilateral Squats Details good //knees, good knee flexion stretch unstable Resistance 50 # (2 new band) Shuttle Recovery Platform Stable,Unstable Reps/Time 2x10 Gait Training Gait Activity 6MWT Device Used FWW Level of Assistance SBA/S Distance/Duration 110ft decrease from 139 ft on 06/18/22 Neuro Re-Education Treatment Balance Activities step tap Equipment 2 step, //bars tilt board Details fwd, bwd & lateral Equipment CG- 15%A, rail on side (RUE support) Comments balancing & wt shifts ea PT-OP-T Assessment and Plan Start: 02/04/22 18:00 Freq: Status: Active Protocol: Document 07/23/22 12:01 SP (Rec: 07/23/22 12:47 SP [id number]) Physical Therapy Assessment Goals 6 min walk Impairment 179ft 3/14 w/FWW Group Home Goal (LTG) Pt will be able to walk at least 350ft in 6 min to show more functional gait speed 06/18-139ft 07/23/22: regression 110ft w/ FWW, improved foot clearance compared to last 2 tx needing TB DF support . LTG Duration 08/04 regression: 07/23/22 functional activities Short Term Goal (STG) Pt will be able to do bed mobility indep consistantly 03/09/22: pt reports helps her at times comes to sitting, during tx instructed log roll able to perform with cues continued BUE support. 04/03/22: able to get out of bed self but still need getting leg in bed and can roll over B . 05/12-gets out of bed ok and is getting rail to help get into bed 06/18-gets into bed 50% of time by herself; out consistantly indep 07/20/22: required Min A for BLE into bed, Min A as needed for trunk support roll and maintain LE bent to utilize push roll. STG Duration 07/18 slow progression 07/20/22 Grinding Wheel Facer Goal (LTG) Pt will be able to do sit to stand Indep and safely 02/27/22; cues for proper hand placement and hip hinge slow controlled descent, scoot forward feet under push from seated and downward pressure on FWW. 03/09/22: pt stated needs use BUE support and at times has to help her. 04/03/22: progressing: cues needed for consistant BUE support slow descent. 07/20/22: pt reports is having to get support to come to standing at times, especially on toilet. LTG Duration achieved 05/12, regressing 07/20 strength Short Term Goal (STG) Pt will be indep w/HEP 02/27/22: added theraputty, wall plank, reviewed seated resisted hip abd, HC, STS, mini squat 03/09/22: reviewed TA bridge ( added 1/2 foam roll under forefoot), SLR STG Duration achieved-advancing as able Grinding Wheel Facer Goal (LTG) Pt will score at least 4/5 on MMT to show improved LE strength improvign pt ability to do ADLs 05/12-improved 06/18-no change LTG Duration 08/04 balance Short Term Goal (STG) Pt will be able to score at least 36 on KIMBLE to show safe ambulation w/AD w/dec risk for falls. 02/13/22: KIMBLE . 04/07-05/12-06/18- STG Duration 06/28 Grinding Wheel Facer Goal (LTG) Pt will be able to score at least 46 on KIMBLE to show safe ambulation w/dec risk for falls. LTG Duration 08/04 Assessment Summary Assessment Pt reports and demonstrates having a better day today with increased L>R LE toe clearance and moderate BUE WB on FWW improved self posturing corrections. 6MWT using FWW decreased by 69 ft from eval . Pt requires Mod A for tilt board unsupported with Max cues for stacked trunk/ core /pelvic alignment to allow LE proprioceptive corrections, good quad fac post ther ex reclined resisted squats on shuttle recovery. Pt is open to DF support AFO bracing that can be simple to don self due to additional limited decrease tenant relations coordinator strength and dexterity manipulation. Ankle DF straps purchased on [employer] haven't given the support she requires for consistant toe clearance. She stated the TB support from forefoot to gait belt helped last tx and into mid day. She reports would appreciate any therapist notation can provide to give to her physician for support for more supportive ankle stability. Pt stated would like to continue with therapy to help prevent continual aggressive decline in mobility is aware can happen with her dx. Physical Therapy Plan Frequency and Duration Frequency of Treatment 2x/Week Duration of treatment (weeks) 12 Plan of Care Start Date 05/12/22 Plan of Care End Date 08/04/22 Therapeutic Interventions Therapeutic Interventions Aquatic Therapy,Balance Training,Coordination Training ,Gait Training,Home Exercise Program,Joint Mobilizations, Manual Therapy,Neuromuscular Re-education,Orthotic/ Prosthetic Management,Patient/ Caregiver Education,Self-Care/ Home Management,Soft Tissue Mobilization,Taping, Therapeutic Activities, Therapeutic Exercises Modalities Electric Stimulation Next Visit Focus/Plan Next Note Type Progress Note Next Visit Plan Next tx: Kelsie, update POC. POC: PNF for rolling cont to work on strength for sup<> sitting. POC: cont to advance standing balance and gait & strength
--- NOTE | 2022-08-03 11:47 | PT-OP ANOTE ---
Pt called re: no show and left message as this is her last scheduled appt. Pt to call back to discuss further planning for PT
--- NOTE | 2022-08-03 18:42 | PT.OTN ---
Current Diagnoses Muscle weakness (generalized) (08/03/22) Difficulty in walking, not elsewhere classified (08/03/22) Physical Therapy Treatment Note PT-OP-A Visit Information Start: 02/04/22 18:00 Freq: Status: Active Protocol: Document 08/03/22 18:33 [facility] (Rec: 08/04/22 18:42 [facility] [id number]) Out-Patient Physical Therapy Visit Information Visit Information Visit Note 03/10 Visit Start Time 11:55 Visit Stop Time 12:20 Total Visit Minutes 25 Visit Number 35 Number of MACHINE CELL TUBER Visits 0 PT-OP-B Current Condition Start: 02/04/22 18:00 Freq: Status: Active Protocol: Document 02/09/22 11:20 [facility] (Rec: 02/09/22 15:02 [facility] [id number]) Current Condition History of Current Condition Onset Date Jan Current Complaints weakness in entire body, falls History of Current Condition Pt is frustrated because she used to be able to go to high intensity classes and walk 3-5 miles a day but stopped in Mar d/t falls. She has seen 2 neurologists, 1 neurosurgeon and feels like she is really progressively worse. She is really hating not being able to walk daily. She is having trouble getting socks on. Her dexterity is limited also. No one has been able to say what they think it is. Pt has been using a 4WW since Nov and in June started using a cane. she started using devices d/t falls. She is planning to see another neurologist in [place]. She has started going to [employer] class but stopped d/t her balance being too bad. She has all the [employer] equipment including a reformer. Her also recently has dx of cancer. Pt reports she got her first booster in Dec and she wonders if this is what started this. In Jan, she had some falls when she was working on her [employer] and [employer]. Had Meniscus surgery in August and did PT for a short time and was DC quickly d/t how well she was doing. Dr. Jain sent her to the neurosurgeon for potential back surgery based on EMG, but neurosurgeon didn't think that was the issue. She has mild back pain in the AM that has only been recently d/t being less mobile. The neurosurgeon at first thought she needed another MRI of brain and had it scheduled, but then when he talked to the neurologist, the plan is now for her to see a different neurologist. Pt seeing a telehealth ND/MD who gave her folic acid steffanie something else but she doesn't feel like it helps. Pt reports R foot flops down sometime. Since getting 4WW , she has fallen 3 times ( oct). Prior to the walker, she was falling every few days and had some days wehre she fell more than once. All falls have resulted only in cuts and bruises Prior Treatments and Tests Lumbar MRI: IMPRESSION: 1. Multilevel lumbar spondylosis, causing foraminal stenosis as detailed above. 2. Severe central canal stenosis at L3-4 and L4-5. 3. No abnormal cord signal. 4. Remote compression fractures of T11 and T12. Cervical MRI:IMPRESSION: 1. Multilevel degenerative disc and facet disease, as well as uncovertebral hypertrophy. 2. Multilevel canal stenoses, worst at C5-C6 where there is minimal cord flattening. 3. Multilevel foraminal stenoses, worst at C5-C6 and C6-C7 where there is associated intraforaminal nerve root compression. Recommend correlation with clinical symptoms to ascertain relevance of these findings. IMPRESSION: BRAIN MRI: 1. No acute intracranial disease process. 2. No areas of acute or chronic infarction. 3. Bcwg-ij-hwosxkct diffuse cerebral volume loss. 4. Mild periventricular and subcortical white matter chronic microvascular ischemic change. BRAIN MR ANGIOGRAM: Normal MR angiogram of the head. NECK MR ANGIOGRAM: 1. Less than 50% stenosis of the origin of the left internal carotid artery. 2. Right internal carotid artery is fully patent. 3. Vertebral arteries are fully patent. ADDENDUM: This case was reviewed at the request of Dr. Gonzalez and discussed by telephone at 11: 04 a.m. [place] time on October 14, 2021. This patient is brain parenchymal volume loss and chronic small vessel ischemic change. There is prominence of the ventricles and sulci, with the lateral ventricles larger than would be expected, given the degree of sulcal atrophy. Please consider normal pressure hydrocephalus. IMPRESSION: 1. Chronic mild wedging of the T9 vertebral body unchanged from prior examination which may be physiologic. 2. Multilevel disc degeneration. disc degeneration. Treatment Goals Patient/Caregiver Goals be able to get back to working outa nd walking PT-OP-C Subjective Start: 02/04/22 18:00 Freq: Status: Active Protocol: Document 08/03/22 18:33 [facility] (Rec: 08/04/22 18:42 [facility] [id number]) OP-PT Subjective Patient Comments Patient Comments Pt's dgt is with her. Pt notes she has had 2 falls recently. mostly w/4WW PT-OP-D Balance Start: 02/04/22 18:00 Freq: Status: Active Protocol: Document 06/18/22 11:22 [facility] (Rec: 06/18/22 12:32 [facility] [id number]) Balance Tests Kimble Balance Test Kimble Balance Test Score 29 PT-OP-E Functional Tests Start: 02/04/22 18:00 Freq: Status: Active Protocol: Document 07/23/22 12:01 SP (Rec: 07/23/22 14:14 SP [id number]) Functional Tests 6 Minute Walk Test Distance 110 ft Device Used FWW Comments scuffing R>LLE but improved hip/knee flexion for clearance today 07/23 PT-OP-F Manual Assessment Start: 02/04/22 18:00 Freq: Status: Active Protocol: Document 02/09/22 11:20 [facility] (Rec: 02/09/22 15:02 [facility] [id number]) Manual Assessments Soft Tissue Assessment Soft Tissue Mobility Assessment tight calves w/limited passive DF PT-OP-G Mobility & Gait Start: 02/04/22 18:00 Freq: Status: Active Protocol: Document 02/09/22 11:20 [facility] (Rec: 02/09/22 15:02 [facility] [id number]) OP Mobility Evaluation Bed Mobility Rolling can roll B indep w/lower body following upper body Supine to and from Sit required min A for both supine <>sit Transfers Sit to Stand heavy use of UEs -pt reports sometimes needs to help OP Gait Assessment Comments Gait Comments Dec foot clearance B with heavy use of 4WW and dec DF R> L and dec hip flex PT-OP-M Strength Start: 02/04/22 18:00 Freq: Status: Active Protocol: Document 06/18/22 11:22 [facility] (Rec: 06/18/22 12:32 [facility] [id number]) Hip Strength Hip Manual Muscle Testing Right Flexion (L2) 3 Fair Abduction 2+ Poor+ External Rotation 3 Fair Internal Rotation 3+ Fair+ Left Flexion (L2) 3 Fair Abduction 2+ Poor+ External Rotation 4- Good- Internal Rotation 3- Fair- Knee Strength Knee Manual Muscle Testing Right Flexion (S2) 4 Good Extension (L3) 4- Good- Left Flexion (S2) 4 Good Extension (L3) 4- Good- Ankle/Foot Strength Ankle and Foot Manual Muscle Testing Right Dorsiflexion (L4) 3+ Fair+ Plantarflexion (S1) 4- Good- Left Dorsiflexion (L4) 3+ Fair+ Plantarflexion (S1) 4- Good- Comments PF tested seated B PT-OP-Q Treatments Start: 02/04/22 18:00 Freq: Status: Active Protocol: Document 08/03/22 18:33 [facility] (Rec: 08/04/22 18:42 [facility] [id number]) Self-Care/Home Management Treatment Education Other Education 25 min: w/pt and dgt: edu re: doing OP OT for UE strengthening exercises; discussed CG as pt is going to start havign them. edu to have CG that can physically help her and to cotn to do what she can on her own as much as possible; edu re: working on getting AFO for general practitioner and will discuss w/ MD as over the counter ones are not working at this time. Edu that this will require her wearing sneakers. Edu re: why the AFO will help w/foot clearance. Edu to no longer use the 4WW and only use FWW at home. PT-OP-T Assessment and Plan Start: 02/04/22 18:00 Freq: Status: Active Protocol: Document 08/03/22 18:33 [facility] (Rec: 08/04/22 18:42 [facility] [id number]) Physical Therapy Assessment Goals 6 min walk Impairment 179ft 05/12 w/FWW [facility] Goal (LTG) Pt will be able to walk at least 350ft in 6 min to show more functional gait speed 06/18-139ft 07/23/22: regression 110ft w/ FWW, improved foot clearance compared to last 2 tx needing TB DF support . LTG Duration DC functional activities Short Term Goal (STG) Pt will maintain need for no more than min A for bed mobltiy STG Duration 09/27 Workers Compensation Manager Goal (LTG) Pt will maintain mostly indepenence of sit to stands w /only occ need for min A LTG Duration 10/26/22 strength Short Term Goal (STG) Pt will be indep w/HEP 02/27/22: added theraputty, wall plank, reviewed seated resisted hip abd, HC, STS, mini squat 03/09/22: reviewed TA bridge ( added 1/2 foam roll under forefoot), SLR STG Duration achieved-advancing as able [facility]ci Goal (LTG) Pt will score at least 4/5 on MMT to show improved LE strength improvign pt ability to do ADLs 05/12-improved 06/18-no change LTG Duration discontinue gait [facility] Goal (LTG) Pt will be able to cont to amb w/FWW indep int he home LTG Duration 10/26/22 balance Short Term Goal (STG) Pt will be able to score at least 36 on KIMBLE to show safe ambulation w/AD w/dec risk for falls. 02/13/22: KIMBLE /56. 04/07-05/12-06/18- STG Duration discontinue Workers Compensation Manager Goal (LTG) Pt will be able to score at least 46 on KIMBLE to show safe ambulation w/dec risk for falls. LTG Duration Discontinue Assessment Summary Assessment At this time, pt is no longer progressing w/PT and is havign more general decline which is expected based on pt's new diagnosis from neurologist of ALS. She is cont her HEP at home,but has dec balance and gait since starting.P [place] to work towrads getting pt AFO as she has dec R foot clearance, whcih is slowing her down and she is catching her foot more often. She does have 2 recent falls. The AFO would be beneficial to help w/LE foot clearance R>L. She tried tband tied at [place] to gait belt which made a big difference in gait a couple session ago, so at this time, a AFO is recommending. Cont PT for maintenance d/t diagnosis of ALS and if pt did not attend PT, pt would see a rapid decline and dec mobility. Physical Therapy Plan Frequency and Duration Frequency of Treatment 1x/Week Duration of treatment (weeks) 12 Plan of Care Start Date 08/03/22 Plan of Care End Date 10/26/22 Therapeutic Interventions Therapeutic Interventions Aquatic Therapy,Balance Training,Coordination Training ,Gait Training,Home Exercise Program,Joint Mobilizations, Manual Therapy,Neuromuscular Re-education,Orthotic/ Prosthetic Management,Patient/ Caregiver Education,Self-Care/ Home Management,Soft Tissue Mobilization,Taping, Therapeutic Activities, Therapeutic Exercises Modalities Electric Stimulation Next Visit Focus/Plan Next Note Type Treatment Note Next Visit Plan change to habilitative PT for working on maintaining balance , gait and bedm obility/ transfers
--- NOTE | 2022-08-03 18:42 | PT.OPPOC ---
Physical, Occupational & Speech Therapy At [facility] Current Diagnoses Muscle weakness (generalized) (08/03/22) Difficulty in walking, not elsewhere classified (08/03/22) Visit Care Team Role Provider Type Dewayne Ledezma MD Attending Provider Physician Family Provider Primary Care Provider Referring Provider Specialty: Family Practice Address: [address] [place] [address], [place], [place], [facility] Email: [email or web address] Plan Of Care PT-OP-T Assessment and Plan Start: 02/04/22 18:00 Freq: Status: Active Protocol: Document 08/03/22 18:33 [facility] (Rec: 08/04/22 18:42 [facility] [id number]) Physical Therapy Assessment Goals 6 min walk Impairment 179ft 05/12 w/FWW Fdc Goal (LTG) Pt will be able to walk at least 350ft in 6 min to show more functional gait speed 06/18-139ft 07/23/22: regression 110ft w/ FWW, improved foot clearance compared to last 2 tx needing TB DF support . LTG Duration DC functional activities Short Term Goal (STG) Pt will maintain need for no more than min A for bed mobltiy STG Duration 09/27 [employer] Goal (LTG) Pt will maintain mostly indepenence of sit to stands w /only occ need for min A LTG Duration 10/26/22 strength Short Term Goal (STG) Pt will be indep w/HEP 02/27/22: added theraputty, wall plank, reviewed seated resisted hip abd, HC, STS, mini squat 03/09/22: reviewed TA bridge ( added 1/2 foam roll under forefoot), SLR STG Duration achieved-advancing as able Battery [employer] Goal (LTG) Pt will score at least 4/5 on MMT to show improved LE strength improvign pt ability to do ADLs 05/12-improved 06/18-no change LTG Duration discontinue gait Fdc Goal (LTG) Pt will be able to cont to amb w/FWW indep int he home LTG Duration 10/26/22 balance Short Term Goal (STG) Pt will be able to score at least 36 on KIMBLE to show safe ambulation w/AD w/dec risk for falls. 02/13/22: KIMBLE 2156. 04/07-05/12-06/18- STG Duration discontinue Battery [employer] Goal (LTG) Pt will be able to score at least 46 on KIMBLE to show safe ambulation w/dec risk for falls. LTG Duration Discontinue Assessment Summary Assessment At this time, pt is no longer progressing w/PT and is havign more general decline which is expected based on pt's new diagnosis from neurologist of ALS. She is cont her HEP at home,but has dec balance and gait since starting.P [place] to work towrads getting pt AFO as she has dec R foot clearance, whcidinah is slowing her down and she is catching her foot more often. She does have 2 recent falls. The AFO would be beneficial to help w/LE foot clearance R>L. She tried tband tied at [place] to gait belt which made a big difference in gait a couple session ago, so at this time, a AFO is recommending. Cont PT for maintenance d/t diagnosis of ALS and if pt did not attend PT, pt would see a rapid decline and dec mobility. Physical Therapy Plan Frequency and Duration Frequency of Treatment 1x/Week Duration of treatment (weeks) 12 Plan of Care Start Date 08/03/22 Plan of Care End Date 10/26/22 Therapeutic Interventions Therapeutic Interventions Aquatic Therapy,Balance Training,Coordination Training ,Gait Training,Home Exercise Program,Joint Mobilizations, Manual Therapy,Neuromuscular Re-education,Orthotic/ Prosthetic Management,Patient/ Caregiver Education,Self-Care/ Home Management,Soft Tissue Mobilization,Taping, Therapeutic Activities, Therapeutic Exercises Modalities Electric Stimulation Next Visit Focus/Plan Next Note Type Treatment Note Next Visit Plan change to habilitative PT for working on maintaining balance , gait and bedm obility/ transfers Plan of Care Dates Plan of Care Start Date 08/03/22 Plan of Care End Date 10/26/22 Electronically Signed by: Leni Russell, PT 08/04/22 [id number] If you are in agreement with this Plan of Care, please return a signed and dated copy. I have reviewed this Plan of Care and certify that the skilled therapy services above are required to meet the patient?s needs. Physician Signature Date Printed Name and Credentials Clinical Instructor Signature Printed Name and Credentials
--- NOTE | 2022-08-14 09:47 | PT.OTN ---
Current Diagnoses Muscle weakness (generalized) (08/14/22) Difficulty in walking, not elsewhere classified (08/14/22) Physical Therapy Treatment Note PT-OP-A Visit Information Start: 02/04/22 18:00 Freq: Status: Active Protocol: Document 08/14/22 09:02 SP (Rec: 08/14/22 09:53 SP [id number]) Out-Patient Physical Therapy Visit Information Visit Information Visit Type Treatment Note Visit Note 04/10 Visit Start Time 09:02 Visit Stop Time 09:47 Total Visit Minutes 45 Visit Number 36 Number of AREA DIRECTOR Visits 1 PT-OP-B Current Condition Start: 02/04/22 18:00 Freq: Status: Active Protocol: Document 02/09/22 11:20 [facility] (Rec: 02/09/22 15:02 [facility] [id number]) Current Condition History of Current Condition Onset Date Jan Current Complaints weakness in entire body, falls History of Current Condition Pt is frustrated because she used to be able to go to high intensity classes and walk 3-5 miles a day but stopped in Mar d/t falls. She has seen 2 neurologists, 1 neurosurgeon and feels like she is really progressively worse. She is really hating not being able to walk daily. She is having trouble getting socks on. Her dexterity is limited also. No one has been able to say what they think it is. Pt has been using a 4WW since Nov and in June started using a cane. she started using devices d/t falls. She is planning to see another neurologist in [place]. She has started going to [employer] class but stopped d/t her balance being too bad. She has all the [employer] equipment including a reformer. Her also recently has dx of cancer. Pt reports she got her first booster in Dec and she wonders if this is what started this. In Jan, she had some falls when she was working on her [employer]. Had Meniscus surgery in August and did PT for a short time and was DC quickly d/t how well she was doing. Dr. Jain sent her to the neurosurgeon for potential back surgery based on EMG, but neurosurgeon didn't think that was the issue. She has mild back pain in the AM that has only been recently d/t being less mobile. The neurosurgeon at first thought she needed another MRI of brain and had it scheduled, but then when he talked to the neurologist, the plan is now for her to see a different neurologist. Pt seeing a telehealth ND/MD who gave her folic acid steffanie something else but she doesn't feel like it helps. Pt reports R foot flops down sometime. Since getting 4WW , she has fallen 3 times ( oct). Prior to the walker, she was falling every few days and had some days wehre she fell more than once. All falls have resulted only in cuts and bruises Prior Treatments and Tests Lumbar MRI: IMPRESSION: 1. Multilevel lumbar spondylosis, causing foraminal stenosis as detailed above. 2. Severe central canal stenosis at L3-4 and L4-5. 3. No abnormal cord signal. 4. Remote compression fractures of T11 and T12. Cervical MRI:IMPRESSION: 1. Multilevel degenerative disc and facet disease, as well as uncovertebral hypertrophy. 2. Multilevel canal stenoses, worst at C5-C6 where there is minimal cord flattening. 3. Multilevel foraminal stenoses, worst at C5-C6 and C6-C7 where there is associated intraforaminal nerve root compression. Recommend correlation with clinical symptoms to ascertain relevance of these findings. IMPRESSION: BRAIN MRI: 1. No acute intracranial disease process. 2. No areas of acute or chronic infarction. 3. Etzf-sr-[id number] diffuse cerebral volume loss. 4. Mild periventricular and subcortical white matter chronic microvascular ischemic change. BRAIN MR ANGIOGRAM: Normal MR angiogram of the head. NECK MR ANGIOGRAM: 1. Less than 50% stenosis of the origin of the left internal carotid artery. 2. Right internal carotid artery is fully patent. 3. Vertebral arteries are fully patent. ADDENDUM: This case was reviewed at the request of Dr. Gonzalez and discussed by telephone at 11: 04 a.m. [place] time on October 14, 2021. This patient is brain parenchymal volume loss and chronic small vessel ischemic change. There is prominence of the ventricles and sulci, with the lateral ventricles larger than would be expected, given the degree of sulcal atrophy. Please consider normal pressure hydrocephalus. IMPRESSION: 1. Chronic mild wedging of the T9 vertebral body unchanged from prior examination which may be physiologic. 2. Multilevel disc degeneration. disc degeneration. Treatment Goals Patient/Caregiver Goals be able to get back to working outa nd walking PT-OP-C Subjective Start: 02/04/22 18:00 Freq: Status: Active Protocol: Document 08/14/22 09:02 SP (Rec: 08/14/22 09:53 SP [id number]) OP-PT Subjective Patient Comments Patient Comments Pt reports will be getting AFOs next week, arrives with [place] sneakers w/ slip heel finds good support and functional assist for donning. PT-OP-D Balance Start: 02/04/22 18:00 Freq: Status: Active Protocol: Document 06/18/22 11:22 [facility] (Rec: 06/18/22 12:32 [facility] [id number]) Balance Tests Kimble Balance Test Kimble Balance Test Score 29 PT-OP-E Functional Tests Start: 02/04/22 18:00 Freq: Status: Active Protocol: Document 07/23/22 12:01 SP (Rec: 07/23/22 14:14 SP [id number]) Functional Tests 6 Minute Walk Test Distance 110 ft Device Used FWW Comments scuffing R>LLE but improved hip/knee flexion for clearance today 07/23 PT-OP-F Manual Assessment Start: 02/04/22 18:00 Freq: Status: Active Protocol: Document 02/09/22 11:20 [facility] (Rec: 02/09/22 15:02 [facility] [id number]) Manual Assessments Soft Tissue Assessment Soft Tissue Mobility Assessment tight calves w/limited passive DF PT-OP-G Mobility & Gait Start: 02/04/22 18:00 Freq: Status: Active Protocol: Document 02/09/22 11:20 [facility] (Rec: 02/09/22 15:02 [facility] [id number]) OP Mobility Evaluation Bed Mobility Rolling can roll B indep w/lower body following upper body Supine to and from Sit required min A for both supine <>sit Transfers Sit to Stand heavy use of UEs -pt reports sometimes needs to help OP Gait Assessment Comments Gait Comments Dec foot clearance B with heavy use of 4WW and dec DF R> L and dec hip flex PT-OP-M Strength Start: 02/04/22 18:00 Freq: Status: Active Protocol: Document 06/18/22 11:22 [facility] (Rec: 06/18/22 12:32 [facility] [id number]) Hip Strength Hip Manual Muscle Testing Right Flexion (L2) 3 Fair Abduction 2+ Poor+ External Rotation 3 Fair Internal Rotation 3+ Fair+ Left Flexion (L2) 3 Fair Abduction 2+ Poor+ External Rotation 4- Good- Internal Rotation 3- Fair- Knee Strength Knee Manual Muscle Testing Right Flexion (S2) 4 Good Extension (L3) 4- Good- Left Flexion (S2) 4 Good Extension (L3) 4- Good- Ankle/Foot Strength Ankle and Foot Manual Muscle Testing Right Dorsiflexion (L4) 3+ Fair+ Plantarflexion (S1) 4- Good- Left Dorsiflexion (L4) 3+ Fair+ Plantarflexion (S1) 4- Good- Comments PF tested seated B PT-OP-Q Treatments Start: 02/04/22 18:00 Freq: Status: Active Protocol: Document 08/14/22 09:02 SP (Rec: 08/14/22 09:53 SP [id number]) Gym Equipment Shuttle Recovery Unilateral Squats Details good form/pacing Resistance 25# (new band) Reps/Time x10 each LE Bilateral Squats Details good //knees, cued no locking L top range Resistance 50 # (2 new band)> 62# (1 new band) Shuttle Recovery Platform Stable,Unstable Reps/Time x15 (62#1 new), x15 (50#2 new) Therapeutic Exercises Supine Exercises LTR Supine Exercise Name initiated inPT for core strengthening and support bed mob rolling Side bilateral Equipment Used yellow kick ball between BLEs Reps/Minutes x10 Comments more AROM L than R cued core fac bridge Supine Exercise Name HEP reviewed Side bilateral Equipment Used small green ball between knees , 1/2 foam under forefoot Reps/Minutes 5 sec x10 Comments cued hand flat arm straight gentle presure into bed, neutral pelvis Standing Exercises side step Side bilateral Resistance AROM Equipment Used //bars Reps/Minutes 10 ft x1 laps Comments end tx, Therapeutic Activity Therapeutic Activity sit>supine, log roll L and R, R SL>sit Reps/Minutes 1 Comments Mod A for BLE on/off bed, Mod A support for each LE positioning into knee flexion with cues HABD with TA fac to complete log roll. More challenge LR R than L. Max A trunk righting SL>sit. Gait Training Gait Activity FWW Device Used FWW, Blue TB DF assist to gait belt (sent home for carryover support) Level of Assistance CGA Surface carpet Distance/Duration 78ft, 25 ft, 58 ft Treatment Focus upright posture, hip flexion ft clearance, endurance Comments Decreased foot clearance today R>L. Decreased glut fac lateral shear R>L during mid stance phases. PT-OP-T Assessment and Plan Start: 02/04/22 18:00 Freq: Status: Active Protocol: Document 08/14/22 09:02 SP (Rec: 08/14/22 09:53 SP [id number]) Physical Therapy Assessment Goals 6 min walk Impairment 179ft 05/12 w/FWW [employer] Goal (LTG) Pt will be able to walk at least 350ft in 6 min to show more functional gait speed 06/18-139ft 07/23/22: regression 110ft w/ FWW, improved foot clearance compared to last 2 tx needing TB DF support . LTG Duration DC functional activities Short Term Goal (STG) Pt will maintain need for no more than min A for bed mobltiy STG Duration 09/27 [employer] Goal (LTG) Pt will maintain mostly indepenence of sit to stands w /only occ need for min A LTG Duration 10/26/22 strength Short Term Goal (STG) Pt will be indep w/HEP 02/27/22: added theraputty, wall plank, reviewed seated resisted hip abd, HC, STS, mini squat 03/09/22: reviewed TA bridge ( added 1/2 foam roll under forefoot), SLR STG Duration achieved-advancing as able [employer]stream [employer]oman[employer]uring Technician Goal (LTG) Pt will score at least 4/5 on MMT to show improved LE strength improvign pt ability to do ADLs 05/12-improved 06/18-no change LTG Duration discontinue gait Downstream [employer]oman[employer]uring Technician Goal (LTG) Pt will be able to cont to amb w/FWW indep int he home LTG Duration 10/26/22 balance Short Term Goal (STG) Pt will be able to score at least 36 on KIMBLE to show safe ambulation w/AD w/dec risk for falls. 02/13/22: KIMBLE . 04/07-05/12-06/18- STG Duration discontinue Prison Goal (LTG) Pt will be able to score at least 46 on KIMBLE to show safe ambulation w/dec risk for falls. LTG Duration Discontinue Assessment Summary Assessment Pt tolerated increase resistance and reps during shuttle recovery B. Cued core and hip add fac during supine LTR and bridging, pt requires Min/Mod assist for each LE repositioning when needed. Max A L SL>sitting for trunk righting, Min/Mod for scooting to EOtable, states has to help her as well. Mod A to wt shift and come to full stand with safety cues proper hand placement. Pt decreased R >L toe clearance, increased hip flexion to advance LEs. She report [facility] might have B AFO potentially next week. LOB x1 to R during stagger stance (RLE fwd) gait and quick reposition of FWW. DIscussed WBOS then pivot FWW and marching steps during turns and slower pacing dfor safety. Physical Therapy Plan Frequency and Duration Frequency of Treatment 1x/Week Duration of treatment (weeks) 12 Plan of Care Start Date 08/03/22 Plan of Care End Date 10/26/22 Therapeutic Interventions Therapeutic Interventions Aquatic Therapy,Balance Training,Coordination Training ,Gait Training,Home Exercise Program,Joint Mobilizations, Manual Therapy,Neuromuscular Re-education,Orthotic/ Prosthetic Management,Patient/ Caregiver Education,Self-Care/ Home Management,Soft Tissue Mobilization,Taping, Therapeutic Activities, Therapeutic Exercises Modalities Electric Stimulation Next Visit Focus/Plan Next Note Type Treatment Note Next Visit Plan Next safety hand placement, WBOS stance while moves FWW. march steps. POC: change to habilitative PT for working on maintaining balance, gait and bedm obility /transfers
--- NOTE | 2022-08-17 13:34 | PT.OTN ---
Current Diagnoses Muscle weakness (generalized) (08/17/22) Difficulty in walking, not elsewhere classified (08/17/22) Physical Therapy Treatment Note PT-OP-A Visit Information Start: 02/04/22 18:00 Freq: Status: Active Protocol: Document 08/17/22 12:52 SP (Rec: 08/17/22 13:30 SP [id number]) Out-Patient Physical Therapy Visit Information Visit Information Visit Type Treatment Note Visit Note 05/08 Visit Start Time 12:52 Visit Stop Time 13:34 Total Visit Minutes 42 Visit Number 37 Number of RN FIRST ASSISTANT Visits 2 PT-OP-B Current Condition Start: 02/04/22 18:00 Freq: Status: Active Protocol: Document 02/09/22 11:20 [facility] (Rec: 02/09/22 15:02 [facility] [id number]) Current Condition History of Current Condition Onset Date Jan Current Complaints weakness in entire body, falls History of Current Condition Pt is frustrated because she used to be able to go to high intensity classes and walk 3-5 miles a day but stopped in Mar d/t falls. She has seen 2 neurologists, 1 neurosurgeon and feels like she is really progressively worse. She is really hating not being able to walk daily. She is having trouble getting socks on. Her dexterity is limited also. No one has been able to say what they think it is. Pt has been using a 4WW since Nov and in June started using a cane. she started using devices d/t falls. She is planning to see another neurologist in [place]. She has started going to [employer] class but stopped d/t her balance being too bad. She has all the [employer] equipment including a reformer. Her also recently has dx of cancer. Pt reports she got her first booster in Dec and she wonders if this is what started this. In Jan, she had some falls when she was working on her [employer] and [employer]. Had Meniscus surgery in August and did PT for a short time and was DC quickly d/t how well she was doing. Dr. Jain sent her to the neurosurgeon for potential back surgery based on EMG, but neurosurgeon didn't think that was the issue. She has mild back pain in the AM that has only been recently d/t being less mobile. The neurosurgeon at first thought she needed another MRI of brain and had it scheduled, but then when he talked to the neurologist, the plan is now for her to see a different neurologist. Pt seeing a telehealth ND/MD who gave her folic acid steffanie something else but she doesn't feel like it helps. Pt reports R foot flops down sometime. Since getting 4WW , she has fallen 3 times ( oct). Prior to the walker, she was falling every few days and had some days wehre she fell more than once. All falls have resulted only in cuts and bruises Prior Treatments and Tests Lumbar MRI: IMPRESSION: 1. Multilevel lumbar spondylosis, causing foraminal stenosis as detailed above. 2. Severe central canal stenosis at L3-4 and L4-5. 3. No abnormal cord signal. 4. Remote compression fractures of T11 and T12. Cervical MRI:IMPRESSION: 1. Multilevel degenerative disc and facet disease, as well as uncovertebral hypertrophy. 2. Multilevel canal stenoses, worst at C5-C6 where there is minimal cord flattening. 3. Multilevel foraminal stenoses, worst at C5-C6 and C6-C7 where there is associated intraforaminal nerve root compression. Recommend correlation with clinical symptoms to ascertain relevance of these findings. IMPRESSION: BRAIN MRI: 1. No acute intracranial disease process. 2. No areas of acute or chronic infarction. 3. Anmz-zq-krsvarsr diffuse cerebral volume loss. 4. Mild periventricular and subcortical white matter chronic microvascular ischemic change. BRAIN MR ANGIOGRAM: Normal MR angiogram of the head. NECK MR ANGIOGRAM: 1. Less than 50% stenosis of the origin of the left internal carotid artery. 2. Right internal carotid artery is fully patent. 3. Vertebral arteries are fully patent. ADDENDUM: This case was reviewed at the request of Dr. Gonzalez and discussed by telephone at 11: 04 a.m. [place] time on October 14, 2021. This patient is brain parenchymal volume loss and chronic small vessel ischemic change. There is prominence of the ventricles and sulci, with the lateral ventricles larger than would be expected, given the degree of sulcal atrophy. Please consider normal pressure hydrocephalus. IMPRESSION: 1. Chronic mild wedging of the T9 vertebral body unchanged from prior examination which may be physiologic. 2. Multilevel disc degeneration. disc degeneration. Treatment Goals Patient/Caregiver Goals be able to get back to working outa nd walking PT-OP-C Subjective Start: 02/04/22 18:00 Freq: Status: Active Protocol: Document 08/17/22 12:52 SP (Rec: 08/17/22 13:30 SP [id number]) OP-PT Subjective Patient Comments Patient Comments Pt reports and demonstrates R> L LE foot not clearing as well today when arrived, more effort of hip flexion to advance each LE. She states has a caregiver daily now for 4 hrs and has found helpful. PT-OP-D Balance Start: 02/04/22 18:00 Freq: Status: Active Protocol: Document 06/18/22 11:22 [facility] (Rec: 06/18/22 12:32 [facility] [id number]) Balance Tests Kimble Balance Test Kimble Balance Test Score 29 PT-OP-E Functional Tests Start: 02/04/22 18:00 Freq: Status: Active Protocol: Document 07/23/22 12:01 SP (Rec: 07/23/22 14:14 SP [id number]) Functional Tests 6 Minute Walk Test Distance 110 ft Device Used FWW Comments scuffing R>LLE but improved hip/knee flexion for clearance today 07/23 PT-OP-F Manual Assessment Start: 02/04/22 18:00 Freq: Status: Active Protocol: Document 02/09/22 11:20 [facility] (Rec: 02/09/22 15:02 [facility] [id number]) Manual Assessments Soft Tissue Assessment Soft Tissue Mobility Assessment tight calves w/limited passive DF PT-OP-G Mobility & Gait Start: 02/04/22 18:00 Freq: Status: Active Protocol: Document 02/09/22 11:20 [facility] (Rec: 02/09/22 15:02 [facility] [id number]) OP Mobility Evaluation Bed Mobility Rolling can roll B indep w/lower body following upper body Supine to and from Sit required min A for both supine <>sit Transfers Sit to Stand heavy use of UEs -pt reports sometimes needs to help OP Gait Assessment Comments Gait Comments Dec foot clearance B with heavy use of 4WW and dec DF R> L and dec hip flex PT-OP-M Strength Start: 02/04/22 18:00 Freq: Status: Active Protocol: Document 06/18/22 11:22 [facility] (Rec: 06/18/22 12:32 [facility] [id number]) Hip Strength Hip Manual Muscle Testing Right Flexion (L2) 3 Fair Abduction 2+ Poor+ External Rotation 3 Fair Internal Rotation 3+ Fair+ Left Flexion (L2) 3 Fair Abduction 2+ Poor+ External Rotation 4- Good- Internal Rotation 3- Fair- Knee Strength Knee Manual Muscle Testing Right Flexion (S2) 4 Good Extension (L3) 4- Good- Left Flexion (S2) 4 Good Extension (L3) 4- Good- Ankle/Foot Strength Ankle and Foot Manual Muscle Testing Right Dorsiflexion (L4) 3+ Fair+ Plantarflexion (S1) 4- Good- Left Dorsiflexion (L4) 3+ Fair+ Plantarflexion (S1) 4- Good- Comments PF tested seated B PT-OP-Q Treatments Start: 02/04/22 18:00 Freq: Status: Active Protocol: Document 08/17/22 12:52 SP (Rec: 08/17/22 13:30 SP [id number]) Gym Equipment Shuttle Recovery Unilateral Squats Details good form/pacing Resistance 25# (new band) Reps/Time 8 reps R, reps LLE Bilateral Squats Details cued R knee lateral, 08/17 last activity Resistance 50 # (2 new band)> 62# (1 new band) Shuttle Recovery Platform Stable,Unstable Reps/Time x7 reps (62#1 new), x10 (50#2 new) Therapeutic Exercises Standing Exercises side step Side bilateral Resistance AROM Equipment Used //bars Reps/Minutes 10 ft x1 lap Comments 2nd activity Gait Training Gait Activity FWW Device Used FWW Level of Assistance CGA Surface carpet Distance/Duration 78ft, 25 ft, 58 ft Treatment Focus upright posture, hip flexion ft clearance, endurance Comments Improved R>L foot clearance post side stepping and shuttle recovery. Neuro Re-Education Treatment Balance Activities tilt board Details fwd, bwd & lateral Equipment CG- 15%A, rail on side (RUE support) Comments balancing & wt shifts ea able stabilize up to 9 sec each direction without UE support CGA. PT-OP-T Assessment and Plan Start: 02/04/22 18:00 Freq: Status: Active Protocol: Document 08/17/22 12:52 SP (Rec: 08/17/22 13:30 SP [id number]) Physical Therapy Assessment Goals 6 min walk Impairment 179ft 3/14 w/FWW Usp Goal (LTG) Pt will be able to walk at least 350ft in 6 min to show more functional gait speed 06/18-139ft 07/23/22: regression 110ft w/ FWW, improved foot clearance compared to last 2 tx needing TB DF support . LTG Duration DC functional activities Short Term Goal (STG) Pt will maintain need for no more than min A for bed mobltiy STG Duration 09/27 Civil Engineering Intern Goal (LTG) Pt will maintain mostly indepenence of sit to stands w /only occ need for min A LTG Duration 10/26/22 strength Short Term Goal (STG) Pt will be indep w/HEP 02/27/22: added theraputty, wall plank, reviewed seated resisted hip abd, HC, STS, mini squat 03/09/22: reviewed TA bridge ( added 12 foam roll under forefoot), SLR STG Duration achieved-advancing as able Usp Goal (LTG) Pt will score at least 4/5 on MMT to show improved LE strength improvign pt ability to do ADLs 05/12-improved 06/18-no change LTG Duration discontinue gait Usp Goal (LTG) Pt will be able to cont to amb w/FWW indep int he home LTG Duration 10/26/22 balance Short Term Goal (STG) Pt will be able to score at least 36 on KIMBLE to show safe ambulation w/AD w/dec risk for falls. 02/13/22: KIMBLE 21/56. 04/07-05/12-32 06/18- STG Duration discontinue Usp Goal (LTG) Pt will be able to score at least 46 on KIMBLE to show safe ambulation w/dec risk for falls. LTG Duration Discontinue Assessment Summary Assessment Pt improved R>L foot clearance forward gait post balance and side stepping activities and continued shuttle recovery, occasional cues for more proximal to FWW. She stated she might put rubber bottoms back on FWW to help slow FWW glide due to feels moves to fast for her at times when advancing each LE and afraid might fall again as discussed before last tx happened. Good pacing and FWW repositioning as tx progressed this tx ableto be more SBA vs close SBA. Physical Therapy Plan Frequency and Duration Frequency of Treatment 1x/Week Duration of treatment (weeks) 12 Plan of Care Start Date 08/03/22 Plan of Care End Date 10/26/22 Therapeutic Interventions Therapeutic Interventions Aquatic Therapy,Balance Training,Coordination Training ,Gait Training,Home Exercise Program,Joint Mobilizations, Manual Therapy,Neuromuscular Re-education,Orthotic/ Prosthetic Management,Patient/ Caregiver Education,Self-Care/ Home Management,Soft Tissue Mobilization,Taping, Therapeutic Activities, Therapeutic Exercises Modalities Electric Stimulation Next Visit Focus/Plan Next Note Type Treatment Note Next Visit Plan Continue safety hand placement , WBOS stance while moves FWW. april steps. Check if received BLE AFOs. POC: change to habilitative PT for working on maintaining balance, gait and bedm obility /transfers
--- NOTE | 2022-08-24 13:34 | PT.OTN ---
Current Diagnoses Muscle weakness (generalized) (08/24/22) Difficulty in walking, not elsewhere classified (08/24/22) Physical Therapy Treatment Note PT-OP-A Visit Information Start: 02/04/22 18:00 Freq: Status: Active Protocol: Document 08/24/22 12:50 SP (Rec: 08/24/22 13:59 SP [id number]) Out-Patient Physical Therapy Visit Information Visit Information Visit Type Treatment Note Visit Note 06/08 Visit Start Time 12:50 Visit Stop Time 13:34 Total Visit Minutes 44 Visit Number 38 Number of CALL CENTER ASSISTANT Visits 3 PT-OP-B Current Condition Start: 02/04/22 18:00 Freq: Status: Active Protocol: Document 02/09/22 11:20 [facility] (Rec: 02/09/22 15:02 [facility] [id number]) Current Condition History of Current Condition Onset Date Jan Current Complaints weakness in entire body, falls History of Current Condition Pt is frustrated because she used to be able to go to high intensity classes and walk 3-5 miles a day but stopped in Mar d/t falls. She has seen 2 neurologists, 1 neurosurgeon and feels like she is really progressively worse. She is really hating not being able to walk daily. She is having trouble getting socks on. Her dexterity is limited also. No one has been able to say what they think it is. Pt has been using a 4WW since Nov and in June started using a cane. she started using devices d/t falls. She is planning to see another neurologist in [place]. She has started going to [employer] class but stopped d/t her balance being too bad. She has all the [employer] equipment including a reformer. Her also recently has dx of cancer. Pt reports she got her first booster in Dec and she wonders if this is what started this. In Jan, she had some falls when she was working on her [email or web address] and [employer]. Had Meniscus surgery in August and did PT for a short time and was DC quickly d/t how well she was doing. Dr. Jain sent her to the neurosurgeon for potential back surgery based on EMG, but neurosurgeon didn't think that was the issue. She has mild back pain in the AM that has only been recently d/t being less mobile. The neurosurgeon at first thought she needed another MRI of brain and had it scheduled, but then when he talked to the neurologist, the plan is now for her to see a different neurologist. Pt seeing a telehealth ND/MD who gave her folic acid steffanie something else but she doesn't feel like it helps. Pt reports R foot flops down sometime. Since getting 4WW , she has fallen 3 times ( oct). Prior to the walker, she was falling every few days and had some days wehre she fell more than once. All falls have resulted only in cuts and bruises Prior Treatments and Tests Lumbar MRI: IMPRESSION: 1. Multilevel lumbar spondylosis, causing foraminal stenosis as detailed above. 2. Severe central canal stenosis at L3-4 and L4-5. 3. No abnormal cord signal. 4. Remote compression fractures of T11 and T12. Cervical MRI:IMPRESSION: 1. Multilevel degenerative disc and facet disease, as well as uncovertebral hypertrophy. 2. Multilevel canal stenoses, worst at C5-C6 where there is minimal cord flattening. 3. Multilevel foraminal stenoses, worst at C5-C6 and C6-C7 where there is associated intraforaminal nerve root compression. Recommend correlation with clinical symptoms to ascertain relevance of these findings. IMPRESSION: BRAIN MRI: 1. No acute intracranial disease process. 2. No areas of acute or chronic infarction. 3. Vuen-mq-mtnfknpx diffuse cerebral volume loss. 4. Mild periventricular and subcortical white matter chronic microvascular ischemic change. BRAIN MR ANGIOGRAM: Normal MR angiogram of the head. NECK MR ANGIOGRAM: 1. Less than 50% stenosis of the origin of the left internal carotid artery. 2. Right internal carotid artery is fully patent. 3. Vertebral arteries are fully patent. ADDENDUM: This case was reviewed at the request of Dr. Gonzalez and discussed by telephone at 11: 04 a.m. [place] time on October 14, 2021. This patient is brain parenchymal volume loss and chronic small vessel ischemic change. There is prominence of the ventricles and sulci, with the lateral ventricles larger than would be expected, given the degree of sulcal atrophy. Please consider normal pressure hydrocephalus. IMPRESSION: 1. Chronic mild wedging of the T9 vertebral body unchanged from prior examination which may be physiologic. 2. Multilevel disc degeneration. disc degeneration. Treatment Goals Patient/Caregiver Goals be able to get back to working outa nd walking PT-OP-C Subjective Start: 02/04/22 18:00 Freq: Status: Active Protocol: Document 08/24/22 12:50 SP (Rec: 08/24/22 13:59 SP [id number]) OP-PT Subjective Patient Comments Patient Comments Pt arrives with new R AFO donned. She reports was brushing teeth in standing with FWW positioned front up against sink for safety support as needed and B legs didn't support her so leaned forward and braced her self on FWW while called to her caregiver for help. She assisted her to w/c. Requested caregiver take off her L AFO because thought didn't have to mobility to recover and didn' t put back on. PT-OP-D Balance Start: 02/04/22 18:00 Freq: Status: Active Protocol: Document 06/18/22 11:22 [facility] (Rec: 06/18/22 12:32 [facility] [id number]) Balance Tests Kimble Balance Test Kimble Balance Test Score 29 PT-OP-E Functional Tests Start: 02/04/22 18:00 Freq: Status: Active Protocol: Document 07/23/22 12:01 SP (Rec: 07/23/22 14:14 SP [id number]) Functional Tests 6 Minute Walk Test Distance 110 ft Device Used FWW Comments scuffing R>LLE but improved hip/knee flexion for clearance today 07/23 PT-OP-F Manual Assessment Start: 02/04/22 18:00 Freq: Status: Active Protocol: Document 02/09/22 11:20 [facility] (Rec: 02/09/22 15:02 [facility] [id number]) Manual Assessments Soft Tissue Assessment Soft Tissue Mobility Assessment tight calves w/limited passive DF PT-OP-G Mobility & Gait Start: 02/04/22 18:00 Freq: Status: Active Protocol: Document 02/09/22 11:20 [facility] (Rec: 02/09/22 15:02 [facility] [id number]) OP Mobility Evaluation Bed Mobility Rolling can roll B indep w/lower body following upper body Supine to and from Sit required min A for both supine <>sit Transfers Sit to Stand heavy use of UEs -pt reports sometimes needs to help OP Gait Assessment Comments Gait Comments Dec foot clearance B with heavy use of 4WW and dec DF R> L and dec hip flex PT-OP-M Strength Start: 02/04/22 18:00 Freq: Status: Active Protocol: Document 06/18/22 11:22 [facility] (Rec: 06/18/22 12:32 [facility] [id number]) Hip Strength Hip Manual Muscle Testing Right Flexion (L2) 3 Fair Abduction 2+ Poor+ External Rotation 3 Fair Internal Rotation 3+ Fair+ Left Flexion (L2) 3 Fair Abduction 2+ Poor+ External Rotation 4- Good- Internal Rotation 3- Fair- Knee Strength Knee Manual Muscle Testing Right Flexion (S2) 4 Good Extension (L3) 4- Good- Left Flexion (S2) 4 Good Extension (L3) 4- Good- Ankle/Foot Strength Ankle and Foot Manual Muscle Testing Right Dorsiflexion (L4) 3+ Fair+ Plantarflexion (S1) 4- Good- Left Dorsiflexion (L4) 3+ Fair+ Plantarflexion (S1) 4- Good- Comments PF tested seated B PT-OP-Q Treatments Start: 02/04/22 18:00 Freq: Status: Active Protocol: Document 08/24/22 12:50 SP (Rec: 08/24/22 13:59 SP [id number]) Gym Equipment Shuttle Recovery Unilateral Squats Details good form/pacing Resistance 25# (new band) Reps/Time 8 reps R, reps LLE Bilateral Squats Details cued R knee lateral, 08/17 last activity Resistance 62# (1 new band) Shuttle Recovery Platform Stable,Unstable Reps/Time 12 reps, 10 reps Therapeutic Activity Therapeutic Activity sit<> stand Name during transfers w/ FWW Comments Min A slower descent, wt shift over CARLOS A coming to standing from 20 chair/shuttle recovery to FWW today. Gait Training Gait Activity 6MWT Description regressed of 17 ft from 07/23 and 46 ft since Jun 18. Device Used FWW Level of Assistance SBA/S Distance/Duration 93 ft Treatment Focus foot clearance, safety Comments Cues for RLE>LLE foot clearance, new AFO donned on RLE today. FWW Device Used FWW Level of Assistance CGA Surface carpet Distance/Duration 25 ft Treatment Focus upright posture, hip flexion ft clearance, endurance Comments Improved upright posturing, R> L foot clearance post side stepping and shuttle recovery. Self-Care/Home Management Treatment Education Patient Education Body Mechanics,Fall Risk,Joint Protection,Safety Other Education CALL CENTER ASSISTANT discussed will take some time wearing B AFOs and repositioning BLEs during gait and mobility to reeducate how gives DF support but still needs to hip and knee flexion to complete advancement. Incorporated this into tx during gait/pivot and transfers. PT-OP-T Assessment and Plan Start: 02/04/22 18:00 Freq: Status: Active Protocol: Document 08/24/22 12:50 SP (Rec: 08/24/22 13:59 SP [id number]) Physical Therapy Assessment Goals 6 min walk Impairment 179ft 05/12 w/FWW Volunteer Fire Fighter Goal (LTG) Pt will be able to walk at least 350ft in 6 min to show more functional gait speed 06/18-139ft 07/23/22: regression 110ft w/ FWW, improved foot clearance compared to last 2 tx needing TB DF support . 08/24/22: 93ft in 6 min (R AFO donned) w/ FWW, increased effort for hip/knee flexion to advance each LE, continues challenge LE clearance. LTG Duration DC functional activities Short Term Goal (STG) Pt will maintain need for no more than min A for bed mobltiy STG Duration 09/27 Fdc Goal (LTG) Pt will maintain mostly indepenence of sit to stands w /only occ need for min A 08/24/22: pt requires CG- Min A during STS from 20 chair and shuttle recovery with cues wt shift forward and slow descent due to decrease strength eccentric sit, improved reaching back prior sit and push to stand needs extra support. LTG Duration 10/26/22 updated 08/24/22 strength Short Term Goal (STG) Pt will be indep w/HEP 02/27/22: added theraputty, wall plank, reviewed seated resisted hip abd, HC, STS, mini squat 03/09/22: reviewed TA bridge ( added 1/2 foam roll under forefoot), SLR 08/24/22: reviewed HEP: LAQ target (FWW flowered cummings pocket seam to kick to), standing march in //bar ( counter at home) fairly heavy UEs bar. STG Duration achieved-advancing as able Volunteer Fire Fighter Goal (LTG) Pt will score at least 4/5 on MMT to show improved LE strength improvign pt ability to do ADLs 05/12-improved 06/18-no change LTG Duration discontinue gait Fdc Goal (LTG) Pt will be able to cont to amb w/FWW indep int he home 08/24/22: pt states has someone nearby for safety. LTG Duration 10/26/22 updated 08/24/22 balance Short Term Goal (STG) Pt will be able to score at least 36 on KIMBLE to show safe ambulation w/AD w/dec risk for falls. 02/13/22: KIMBLE 21/56. 04/07-05/12-06/18- STG Duration discontinue Volunteer Fire Fighter Goal (LTG) Pt will be able to score at least 46 on KIMBLE to show safe ambulation w/dec risk for falls. LTG Duration Discontinue Assessment Summary Assessment Pt continues to require assist for STS from 20 surface but improved proper hand positioned. She required RLE abd extra support with // feet to support abd side step repositioning during standing activity. She improved LE advancement foot clearance post shuttle recovery and side stepping activities and more upright posturing leaving tx. Ed for use of AFOs for DF foot clearance support during gait , need for increase hip flexion to support clearance. She requires brief rest between activities for tiring recovery. Decreased cues for body proximal to FWW forward and turns today. Physical Therapy Plan Frequency and Duration Frequency of Treatment 1x/Week Duration of treatment (weeks) 12 Plan of Care Start Date 08/03/22 Plan of Care End Date 10/26/22 Therapeutic Interventions Therapeutic Interventions Aquatic Therapy,Balance Training,Coordination Training ,Gait Training,Home Exercise Program,Joint Mobilizations, Manual Therapy,Neuromuscular Re-education,Orthotic/ Prosthetic Management,Patient/ Caregiver Education,Self-Care/ Home Management,Soft Tissue Mobilization,Taping, Therapeutic Activities, Therapeutic Exercises Modalities Electric Stimulation Next Visit Focus/Plan Next Note Type Treatment Note Next Visit Plan Pt benefits from continued PT for LE strengthening and mobility activities for LE foot clearance to decrease risk of decline mobility. POC: change to habilitative PT for working on maintaining balance, gait and bedm obility /transfers
--- NOTE | 2022-08-31 16:05 | PT.OTN ---
Current Diagnoses Muscle weakness (generalized) (08/31/22) Difficulty in walking, not elsewhere classified (08/31/22) Physical Therapy Treatment Note PT-OP-A Visit Information Start: 02/04/22 18:00 Freq: Status: Active Protocol: Document 08/31/22 12:46 [facility] (Rec: 08/31/22 16:04 [facility] [id number]) Out-Patient Physical Therapy Visit Information Visit Information Visit Type Treatment Note Visit Start Time 12:47 Visit Stop Time 13:30 Total Visit Minutes 43 Visit Number 39 Number of [employer] Visits 0 PT-OP-B Current Condition Start: 02/04/22 18:00 Freq: Status: Active Protocol: Document 02/09/22 11:20 [facility] (Rec: 02/09/22 15:02 [facility] [id number]) Current Condition History of Current Condition Onset Date Jan Current Complaints weakness in entire body, falls History of Current Condition Pt is frustrated because she used to be able to go to high intensity classes and walk 3-5 miles a day but stopped in Mar d/t falls. She has seen 2 neurologists, 1 neurosurgeon and feels like she is really progressively worse. She is really hating not being able to walk daily. She is having trouble getting socks on. Her dexterity is limited also. No one has been able to say what they think it is. Pt has been using a 4WW since Nov and in June started using a cane. she started using devices d/t falls. She is planning to see another neurologist in [place]. She has started going to [employer] class but stopped d/t her balance being too bad. She has all the [employer] equipment including a reformer. Her also recently has dx of cancer. Pt reports she got her first booster in Dec and she wonders if this is what started this. In Jan, she had some falls when she was working on her [email or web address] and [employer]. Had Meniscus surgery in August and did PT for a short time and was DC quickly d/t how well she was doing. Dr. Jain sent her to the neurosurgeon for potential back surgery based on EMG, but neurosurgeon didn't think that was the issue. She has mild back pain in the AM that has only been recently d/t being less mobile. The neurosurgeon at first thought she needed another MRI of brain and had it scheduled, but then when he talked to the neurologist, the plan is now for her to see a different neurologist. Pt seeing a telehealth ND/MD who gave her folic acid steffanie something else but she doesn't feel like it helps. Pt reports R foot flops down sometime. Since getting 4WW , she has fallen 3 times ( oct). Prior to the walker, she was falling every few days and had some days wehre she fell more than once. All falls have resulted only in cuts and bruises Prior Treatments and Tests Lumbar MRI: IMPRESSION: 1. Multilevel lumbar spondylosis, causing foraminal stenosis as detailed above. 2. Severe central canal stenosis at L3-4 and L4-5. 3. No abnormal cord signal. 4. Remote compression fractures of T11 and T12. Cervical MRI:IMPRESSION: 1. Multilevel degenerative disc and facet disease, as well as uncovertebral hypertrophy. 2. Multilevel canal stenoses, worst at C5-C6 where there is minimal cord flattening. 3. Multilevel foraminal stenoses, worst at C5-C6 and C6-C7 where there is associated intraforaminal nerve root compression. Recommend correlation with clinical symptoms to ascertain relevance of these findings. IMPRESSION: BRAIN MRI: 1. No acute intracranial disease process. 2. No areas of acute or chronic infarction. 3. Jjao-pb-fqgstlfe diffuse cerebral volume loss. 4. Mild periventricular and subcortical white matter chronic microvascular ischemic change. BRAIN MR ANGIOGRAM: Normal MR angiogram of the head. NECK MR ANGIOGRAM: 1. Less than 50% stenosis of the origin of the left internal carotid artery. 2. Right internal carotid artery is fully patent. 3. Vertebral arteries are fully patent. ADDENDUM: This case was reviewed at the request of Dr. Gonzalez and discussed by telephone at 11: 04 a.m. [place] time on October 14, 2021. This patient is brain parenchymal volume loss and chronic small vessel ischemic change. There is prominence of the ventricles and sulci, with the lateral ventricles larger than would be expected, given the degree of sulcal atrophy. Please consider normal pressure hydrocephalus. IMPRESSION: 1. Chronic mild wedging of the T9 vertebral body unchanged from prior examination which may be physiologic. 2. Multilevel disc degeneration. disc degeneration. Treatment Goals Patient/Caregiver Goals be able to get back to working outa nd walking PT-OP-C Subjective Start: 02/04/22 18:00 Freq: Status: Active Protocol: Document 08/31/22 12:46 [facility] (Rec: 08/31/22 16:04 [facility] [id number]) OP-PT Subjective Patient Comments Patient Comments Pt reports she is weaker this week. CG agrees Patient Reported Progress Worse PT-OP-D Balance Start: 02/04/22 18:00 Freq: Status: Active Protocol: Document 06/18/22 11:22 [facility] (Rec: 06/18/22 12:32 [facility] [id number]) Balance Tests Kimble Balance Test Kimble Balance Test Score 29 PT-OP-E Functional Tests Start: 02/04/22 18:00 Freq: Status: Active Protocol: Document 07/23/22 12:01 [facility] (Rec: 07/23/22 14:14 [facility] [id number]) Functional Tests 6 Minute Walk Test Distance 110 ft Device Used FWW Comments scuffing R>LLE but improved hip/knee flexion for clearance today 07/23 PT-OP-F Manual Assessment Start: 02/04/22 18:00 Freq: Status: Active Protocol: Document 02/09/22 11:20 [facility] (Rec: 02/09/22 15:02 [facility] [id number]) Manual Assessments Soft Tissue Assessment Soft Tissue Mobility Assessment tight calves w/limited passive DF PT-OP-G Mobility & Gait Start: 02/04/22 18:00 Freq: Status: Active Protocol: Document 02/09/22 11:20 [facility] (Rec: 02/09/22 15:02 [facility] [id number]) OP Mobility Evaluation Bed Mobility Rolling can roll B indep w/lower body following upper body Supine to and from Sit required min A for both supine <>sit Transfers Sit to Stand heavy use of UEs -pt reports sometimes needs to help OP Gait Assessment Comments Gait Comments Dec foot clearance B with heavy use of 4WW and dec DF R> L and dec hip flex PT-OP-M Strength Start: 02/04/22 18:00 Freq: Status: Active Protocol: Document 06/18/22 11:22 [facility] (Rec: 06/18/22 12:32 [facility] [id number]) Hip Strength Hip Manual Muscle Testing Right Flexion (L2) 3 Fair Abduction 2+ Poor+ External Rotation 3 Fair Internal Rotation 3+ Fair+ Left Flexion (L2) 3 Fair Abduction 2+ Poor+ External Rotation 4- Good- Internal Rotation 3- Fair- Knee Strength Knee Manual Muscle Testing Right Flexion (S2) 4 Good Extension (L3) 4- Good- Left Flexion (S2) 4 Good Extension (L3) 4- Good- Ankle/Foot Strength Ankle and Foot Manual Muscle Testing Right Dorsiflexion (L4) 3+ Fair+ Plantarflexion (S1) 4- Good- Left Dorsiflexion (L4) 3+ Fair+ Plantarflexion (S1) 4- Good- Comments PF tested seated B PT-OP-Q Treatments Start: 02/04/22 18:00 Freq: Status: Active Protocol: Document 08/31/22 12:46 [facility] (Rec: 08/31/22 16:04 [facility] [id number]) Gait Training Gait Activity FWW Device Used FWW Level of Assistance CGA Surface carpet Distance/Duration 65 ft Treatment Focus upright posture, hip flexion ft clearance, endurance Comments Improved upright posturing, R> L foot clearance post side stepping Neuro Re-Education Treatment Other Activities facilitation Comments traction to LE to improve hip ext engagement for sit to stand R PNF Comments 1. ant elevation B ( individually) sustaine dhold w /traction through LE to help irradiation 2. ant elevation B prolonged holds (individually) 3. ant elevation COI and dissosciation COI of LE 4. mass flex B (individually) sustained to COI 5. ant elevation pelvis, post dep scap recip pattern sustained holds to recip B individually Self-Care/Home Management Treatment Education Other Education 5 min: edu re: difference btwn standard safety belt and one w/handles; discussed pt calling neurlogist to inform of recent quicker decline PT-OP-T Assessment and Plan Start: 02/04/22 18:00 Freq: Status: Active Protocol: Document 08/31/22 12:46 [facility] (Rec: 08/31/22 16:04 [facility] [id number]) Physical Therapy Assessment Goals 6 min walk Impairment 179ft 05/12 w/FWW Usp Goal (LTG) Pt will be able to walk at least 350ft in 6 min to show more functional gait speed 06/18-139ft 07/23/22: regression 110ft w/ FWW, improved foot clearance compared to last 2 tx needing TB DF support . 08/24/22: 93ft in 6 min (R AFO donned) w/ FWW, increased effort for hip/knee flexion to advance each LE, continues challenge LE clearance. LTG Duration DC functional activities Short Term Goal (STG) Pt will maintain need for no more than min A for bed mobltiy STG Duration 09/27 [employer] Sacker Goal (LTG) Pt will maintain mostly indepenence of sit to stands w /only occ need for min A 08/24/22: pt requires CG- Min A during STS from 20 chair and shuttle recovery with cues wt shift forward and slow descent due to decrease strength eccentric sit, improved reaching back prior sit and push to stand needs extra support. LTG Duration 10/26/22 updated 08/24/22 strength Short Term Goal (STG) Pt will be indep w/HEP 02/27/22: added theraputty, wall plank, reviewed seated resisted hip abd, HC, STS, mini squat 03/09/22: reviewed TA bridge ( added 1/2 foam roll under forefoot), SLR 08/24/22: reviewed HEP: LAQ target (FWW flowered cummings pocket seam to kick to), standing april in //bar ( counter at home) fairly heavy UEs bar. STG Duration achieved-advancing as able Usp Goal (LTG) Pt will score at least 4/5 on MMT to show improved LE strength improvign pt ability to do ADLs 05/12-improved 06/18-no change LTG Duration discontinue gait Usp Goal (LTG) Pt will be able to cont to amb w/FWW indep int he home 08/24/22: pt states has someone nearby for safety. LTG Duration 10/26/22 updated 08/24/22 balance Short Term Goal (STG) Pt will be able to score at least 36 on KIMBLE to show safe ambulation w/AD w/dec risk for falls. 02/13/22: KIMBLE 56. 04/07-05/12-06/18- STG Duration discontinue Usp Goal (LTG) Pt will be able to score at least 46 on KIMBLE to show safe ambulation w/dec risk for falls. LTG Duration Discontinue Assessment Summary Assessment Pt required assist for transfers and sitt o stand and was weak w/gait today. She had imrpoved foot clearance after taking fof AFOs and also imrpoved further after PNF. pt told to call prosthestist re: knee locking and dificulty w/AFOs espeically if it becomes more than today. Physical Therapy Plan Frequency and Duration Frequency of Treatment 1x/Week Duration of treatment (weeks) 12 Plan of Care Start Date 08/03/22 Plan of Care End Date 10/26/22 Next Visit Focus/Plan Next Note Type Treatment Note Next Visit Plan Pt benefits from continued PT for LE strengthening and mobility activities for LE foot clearance to decrease risk of decline mobility. POC: change to habilitative PT for working on maintaining balance, gait and bedm obility /transfers
--- NOTE | 2022-09-07 13:32 | PT.OTN ---
Addendum entered and electronically signed by Aracely Sullivan, NORMA 09/07/22 15:43: PT Aide assisted caregiver with w/c ride to car due to pt low endurance & LE strength unable end tx. Original Note: Current Diagnoses Muscle weakness (generalized) (09/07/22) Difficulty in walking, not elsewhere classified (09/07/22) Physical Therapy Treatment Note PT-OP-A Visit Information Start: 02/04/22 18:00 Freq: Status: Active Protocol: Document 09/07/22 12:49 SP (Rec: 09/07/22 13:34 SP [id number]) Out-Patient Physical Therapy Visit Information Visit Information Visit Type Treatment Note Visit Note 08/08 after PN Caregiver arrives with pt but stayed in waiting room. Visit Start Time 12:49 Visit Stop Time 13:32 Total Visit Minutes 43 Visit Number 40 Number of PROCESS DESIGN CHEMICAL ENGINEER Visits 1 PT-OP-B Current Condition Start: 02/04/22 18:00 Freq: Status: Active Protocol: Document 02/09/22 11:20 [facility] (Rec: 02/09/22 15:02 [facility] [id number]) Current Condition History of Current Condition Onset Date Jan Current Complaints weakness in entire body, falls History of Current Condition Pt is frustrated because she used to be able to go to high intensity classes and walk 3-5 miles a day but stopped in Mar d/t falls. She has seen 2 neurologists, 1 neurosurgeon and feels like she is really progressively worse. She is really hating not being able to walk daily. She is having trouble getting socks on. Her dexterity is limited also. No one has been able to say what they think it is. Pt has been using a 4WW since Nov and in June started using a cane. she started using devices d/t falls. She is planning to see another neurologist in [place]. She has started going to [employer] class but stopped d/t her balance being too bad. She has all the pilates equipment including a reformer. Her also recently has dx of cancer. Pt reports she got her first booster in Dec and she wonders if this is what started this. In Jan, she had some falls when she was working on her [employer] and stumbled [employer]. Had Meniscus surgery in August and did PT for a short time and was DC quickly d/t how well she was doing. Dr. Jain sent her to the neurosurgeon for potential back surgery based on EMG, but neurosurgeon didn't think that was the issue. She has mild back pain in the AM that has only been recently d/t being less mobile. The neurosurgeon at first thought she needed another MRI of brain and had it scheduled, but then when he talked to the neurologist, the plan is now for her to see a different neurologist. Pt seeing a telehealth ND/MD who gave her folic acid steffanie something else but she doesn't feel like it helps. Pt reports R foot flops down sometime. Since getting 4WW , she has fallen 3 times ( oct). Prior to the walker, she was falling every few days and had some days wehre she fell more than once. All falls have resulted only in cuts and bruises Prior Treatments and Tests Lumbar MRI: IMPRESSION: 1. Multilevel lumbar spondylosis, causing foraminal stenosis as detailed above. 2. Severe central canal stenosis at L3-4 and L4-5. 3. No abnormal cord signal. 4. Remote compression fractures of T11 and T12. Cervical MRI:IMPRESSION: 1. Multilevel degenerative disc and facet disease, as well as uncovertebral hypertrophy. 2. Multilevel canal stenoses, worst at C5-C6 where there is minimal cord flattening. 3. Multilevel foraminal stenoses, worst at C5-C6 and C6-C7 where there is associated intraforaminal nerve root compression. Recommend correlation with clinical symptoms to ascertain relevance of these findings. IMPRESSION: BRAIN MRI: 1. No acute intracranial disease process. 2. No areas of acute or chronic infarction. 3. [id number]-tl-[id number] diffuse cerebral volume loss. 4. Mild periventricular and subcortical white matter chronic microvascular ischemic change. BRAIN MR ANGIOGRAM: Normal MR angiogram of the head. NECK MR ANGIOGRAM: 1. Less than 50% stenosis of the origin of the left internal carotid artery. 2. Right internal carotid artery is fully patent. 3. Vertebral arteries are fully patent. ADDENDUM: This case was reviewed at the request of Dr. Gonzalez and discussed by telephone at 11: 04 a.m. [place] time on October 14, 2021. This patient is brain parenchymal volume loss and chronic small vessel ischemic change. There is prominence of the ventricles and sulci, with the lateral ventricles larger than would be expected, given the degree of sulcal atrophy. Please consider normal pressure hydrocephalus. IMPRESSION: 1. Chronic mild wedging of the T9 vertebral body unchanged from prior examination which may be physiologic. 2. Multilevel disc degeneration. disc degeneration. Treatment Goals Patient/Caregiver Goals be able to get back to working outa nd walking PT-OP-C Subjective Start: 02/04/22 18:00 Freq: Status: Active Protocol: Document 09/07/22 12:49 SP (Rec: 09/07/22 13:34 SP [id number]) OP-PT Subjective Patient Comments Patient Comments Pt reports caregiver suggesting close follow at side trailing pt with w/c for support sit if needed for safety. Pt stated she almost buckled coming to stand and 1st few steps while with her no w/c nearby . Pt concerned only 2 more appts of PT scheduled and thinks needs to continue even though not making gain, actually regressing. She thinks does see a difference on days comes. Her caregiver is going to help her get on the pilates table to assist continue strengthening at home , the theraband exercises don' t seem to be helping as well now. She can roll over but better 1 way more than another , has to help at times . She states her feet are clearing floor better since last tx but hasn't called the leather leveler as PT suggested last tx. Patient Reported Progress Worse PT-OP-D Balance Start: 02/04/22 18:00 Freq: Status: Active Protocol: Document 06/18/22 11:22 [facility] (Rec: 06/18/22 12:32 [facility] [id number]) Balance Tests Kimble Balance Test Kimble Balance Test Score 29 PT-OP-E Functional Tests Start: 02/04/22 18:00 Freq: Status: Active Protocol: Document 07/23/22 12:01 SP (Rec: 07/23/22 14:14 SP [id number]) Functional Tests 6 Minute Walk Test Distance 110 ft Device Used FWW Comments scuffing R>LLE but improved hip/knee flexion for clearance today 07/23 PT-OP-F Manual Assessment Start: 02/04/22 18:00 Freq: Status: Active Protocol: Document 02/09/22 11:20 [facility] (Rec: 02/09/22 15:02 [facility] [id number]) Manual Assessments Soft Tissue Assessment Soft Tissue Mobility Assessment tight calves w/limited passive DF PT-OP-G Mobility & Gait Start: 02/04/22 18:00 Freq: Status: Active Protocol: Document 02/09/22 11:20 [facility] (Rec: 02/09/22 15:02 [facility] [id number]) OP Mobility Evaluation Bed Mobility Rolling can roll B indep w/lower body following upper body Supine to and from Sit required min A for both supine <>sit Transfers Sit to Stand heavy use of UEs -pt reports sometimes needs to help OP Gait Assessment Comments Gait Comments Dec foot clearance B with heavy use of 4WW and dec DF R> L and dec hip flex PT-OP-M Strength Start: 02/04/22 18:00 Freq: Status: Active Protocol: Document 06/18/22 11:22 [facility] (Rec: 06/18/22 12:32 [facility] [id number]) Hip Strength Hip Manual Muscle Testing Right Flexion (L2) 3 Fair Abduction 2+ Poor+ External Rotation 3 Fair Internal Rotation 3+ Fair+ Left Flexion (L2) 3 Fair Abduction 2+ Poor+ External Rotation 4- Good- Internal Rotation 3- Fair- Knee Strength Knee Manual Muscle Testing Right Flexion (S2) 4 Good Extension (L3) 4- Good- Left Flexion (S2) 4 Good Extension (L3) 4- Good- Ankle/Foot Strength Ankle and Foot Manual Muscle Testing Right Dorsiflexion (L4) 3+ Fair+ Plantarflexion (S1) 4- Good- Left Dorsiflexion (L4) 3+ Fair+ Plantarflexion (S1) 4- Good- Comments PF tested seated B PT-OP-Q Treatments Start: 02/04/22 18:00 Freq: Status: Active Protocol: Document 09/07/22 12:49 SP (Rec: 09/07/22 13:34 SP [id number]) Therapeutic Exercises Standing Exercises side step Side bilateral Resistance AROM Equipment Used //bars Reps/Minutes 10 ft x1 lap Comments 2nd activity step ups Standing Exercise Name unable 6 step Side bilateral Resistance close SBA Equipment Used blue foam 2 Min A as needed for LE positioning, //bars Reps/Minutes x3 to position for balance activity Comments B rail Mod/ Max UE support, cues hip flex R foot clearance and heels apart Therapeutic Activity Therapeutic Activity sit<> stand Name during STS and SPT transfers w / FWW Reps/Minutes 4 reps Comments Mod/ Max A wt shift fwd maintain stand/wt shift for UE repositining to come to stand . Mod A slower descent. Gait Training Gait Activity FWW Device Used FWW Level of Assistance CGA Surface carpet Distance/Duration 41 ft waiting room to //bars Treatment Focus upright posture, hip flexion ft clearance, endurance Comments increased BUE WB on FWW with slower pacing today and increased effort LE advancement today, R>L foot clearance. Neuro Re-Education Treatment Balance Activities foam Details 5%- 25% A Equipment handrail prn Reps/Duration 8 min total Comments -NBOS & stride stance w/head turns cues elongation, buttocks tucked underneath her and even BLE WB. -Seated rest between fwd stance and stride stance. PT-OP-T Assessment and Plan Start: 02/04/22 18:00 Freq: Status: Active Protocol: Document 09/07/22 12:49 SP (Rec: 09/07/22 13:34 SP [id number]) Physical Therapy Assessment Goals 6 min walk Impairment 179ft 05/12 w/FWW Group Home Goal (LTG) Pt will be able to walk at least 350ft in 6 min to show more functional gait speed 06/18-139ft 07/23/22: regression 110ft w/ FWW, improved foot clearance compared to last 2 tx needing TB DF support . 08/24/22: 93ft in 6 min (R AFO donned) w/ FWW, increased effort for hip/knee flexion to advance each LE, continues challenge LE clearance. LTG Duration DC functional activities Short Term Goal (STG) Pt will maintain need for no more than min A for bed mobltiy STG Duration 09/27 Group Home Goal (LTG) Pt will maintain mostly indepenence of sit to stands w /only occ need for min A 08/24/22: pt requires CG- Min A during STS from 20 chair and shuttle recovery with cues wt shift forward and slow descent due to decrease strength eccentric sit, improved reaching back prior sit and push to stand needs extra support. LTG Duration 10/26/22 updated 08/24/22 strength Short Term Goal (STG) Pt will be indep w/HEP 02/27/22: added theraputty, wall plank, reviewed seated resisted hip abd, HC, STS, mini squat 03/09/22: reviewed TA bridge ( added 1/2 foam roll under forefoot), SLR 08/24/22: reviewed HEP: LAQ target (FWW flowered cummings pocket seam to kick to), standing march in //bar ( counter at home) fairly heavy UEs bar. STG Duration achieved-advancing as able Softball Player Goal (LTG) Pt will score at least 4/5 on MMT to show improved LE strength improvign pt ability to do ADLs 05/12-improved 06/18-no change LTG Duration discontinue gait Softball Player Goal (LTG) Pt will be able to cont to amb w/FWW indep int he home 08/24/22: pt states has someone nearby for safety. LTG Duration 10/26/22 updated 08/24/22 balance Short Term Goal (STG) Pt will be able to score at least 36 on KIMBLE to show safe ambulation w/AD w/dec risk for falls. 02/13/22: KIMBLE 21/56. 04/07-05/12-06/18- STG Duration discontinue Softball Player Goal (LTG) Pt will be able to score at least 46 on KIMBLE to show safe ambulation w/dec risk for falls. LTG Duration Discontinue Assessment Summary Assessment Pt tires quickly during gait today, decreased distance with 2 brief stand rests tolerated with increase BUE WB support on FWW. Decrease foot clearance as distance progressed. Pt required seated rest between activities for rest recovery. She was able to work on standing balance, wt shifting with quad/glut and less UE contact as able while providing 5-25% A trunk support. PT stopped over during tx discussed calling leather leveler to adjust AFO to give more assist for foot clearance. Pt required increased support during STS Mod/ Max A and Mod A slow descent sit. Pt would benefit from continued PT to maintain LE strength for mobility. PROCESS DESIGN CHEMICAL ENGINEER suggested for safety would be good for to trail WC with pt for opportunity to sit or see if can get a FWW with a seat. Physical Therapy Plan Frequency and Duration Frequency of Treatment 1x/Week Duration of treatment (weeks) 12 Plan of Care Start Date 08/03/22 Plan of Care End Date 10/26/22 Therapeutic Interventions Therapeutic Interventions Aquatic Therapy,Balance Training,Coordination Training ,Gait Training,Home Exercise Program,Joint Mobilizations, Manual Therapy,Neuromuscular Re-education,Orthotic/ Prosthetic Management,Patient/ Caregiver Education,Self-Care/ Home Management,Soft Tissue Mobilization,Taping, Therapeutic Activities, Therapeutic Exercises Modalities Electric Stimulation Next Visit Focus/Plan Next Note Type Treatment Note Next Visit Plan Pt benefits from continued PT for LE strengthening and mobility activities for LE foot clearance to decrease risk of decline mobility. POC: change to habilitative PT for working on maintaining balance, gait and bedm obility /transfers
--- NOTE | 2022-09-14 18:35 | PT.OTN ---
Current Diagnoses Muscle weakness (generalized) (09/14/22) Difficulty in walking, not elsewhere classified (09/14/22) Physical Therapy Treatment Note PT-OP-A Visit Information Start: 02/04/22 18:00 Freq: Status: Active Protocol: Document 09/14/22 13:20 [facility] (Rec: 09/14/22 13:34 [facility] [id number]) Out-Patient Physical Therapy Visit Information Visit Information Visit Type Treatment Note Visit Start Time 12:47 Visit Stop Time 13:30 Total Visit Minutes 43 Visit Number 41 Number of NETWORK ANNOUNCER Visits 0 PT-OP-B Current Condition Start: 02/04/22 18:00 Freq: Status: Active Protocol: Document 02/09/22 11:20 [facility] (Rec: 02/09/22 15:02 [facility] [id number]) Current Condition History of Current Condition Onset Date Jan Current Complaints weakness in entire body, falls History of Current Condition Pt is frustrated because she used to be able to go to high intensity classes and walk 3-5 miles a day but stopped in Mar d/t falls. She has seen 2 neurologists, 1 neurosurgeon and feels like she is really progressively worse. She is really hating not being able to walk daily. She is having trouble getting socks on. Her dexterity is limited also. No one has been able to say what they think it is. Pt has been using a 4WW since Nov and in June started using a cane. she started using devices d/t falls. She is planning to see another neurologist in [place]. She has started going to [employer] class but stopped d/t her balance being too bad. She has all the [employer] equipment including a reformer. Her also recently has dx of cancer. Pt reports she got her first booster in Dec and she wonders if this is what started this. In Jan, she had some falls when she was working on her [employer] and [employer]. Had Meniscus surgery in August and did PT for a short time and was DC quickly d/t how well she was doing. Dr. Jain sent her to the neurosurgeon for potential back surgery based on EMG, but neurosurgeon didn't think that was the issue. She has mild back pain in the AM that has only been recently d/t being less mobile. The neurosurgeon at first thought she needed another MRI of brain and had it scheduled, but then when he talked to the neurologist, the plan is now for her to see a different neurologist. Pt seeing a telehealth ND/MD who gave her folic acid steffanie something else but she doesn't feel like it helps. Pt reports R foot flops down sometime. Since getting 4WW , she has fallen 3 times ( oct). Prior to the walker, she was falling every few days and had some days wehre she fell more than once. All falls have resulted only in cuts and bruises Prior Treatments and Tests Lumbar MRI: IMPRESSION: 1. Multilevel lumbar spondylosis, causing foraminal stenosis as detailed above. 2. Severe central canal stenosis at L3-4 and L4-5. 3. No abnormal cord signal. 4. Remote compression fractures of T11 and T12. Cervical MRI:IMPRESSION: 1. Multilevel degenerative disc and facet disease, as well as uncovertebral hypertrophy. 2. Multilevel canal stenoses, worst at C5-C6 where there is minimal cord flattening. 3. Multilevel foraminal stenoses, worst at C5-C6 and C6-C7 where there is associated intraforaminal nerve root compression. Recommend correlation with clinical symptoms to ascertain relevance of these findings. IMPRESSION: BRAIN MRI: 1. No acute intracranial disease process. 2. No areas of acute or chronic infarction. 3. Lzbo-vq-nkppjsgt diffuse cerebral volume loss. 4. Mild periventricular and subcortical white matter chronic microvascular ischemic change. BRAIN MR ANGIOGRAM: Normal MR angiogram of the head. NECK MR ANGIOGRAM: 1. Less than 50% stenosis of the origin of the left internal carotid artery. 2. Right internal carotid artery is fully patent. 3. Vertebral arteries are fully patent. ADDENDUM: This case was reviewed at the request of Dr. Gonzalez and discussed by telephone at 11: 04 a.m. [place] time on October 14, 2021. This patient is brain parenchymal volume loss and chronic small vessel ischemic change. There is prominence of the ventricles and sulci, with the lateral ventricles larger than would be expected, given the degree of sulcal atrophy. Please consider normal pressure hydrocephalus. IMPRESSION: 1. Chronic mild wedging of the T9 vertebral body unchanged from prior examination which may be physiologic. 2. Multilevel disc degeneration. disc degeneration. Treatment Goals Patient/Caregiver Goals be able to get back to working outa nd walking PT-OP-C Subjective Start: 02/04/22 18:00 Freq: Status: Active Protocol: Document 09/14/22 13:20 [facility] (Rec: 09/14/22 13:34 [facility] [id number]) OP-PT Subjective Patient Comments Patient Comments Pt reprots she has been using her pilates machine w/her CG PT-OP-D Balance Start: 02/04/22 18:00 Freq: Status: Active Protocol: Document 06/18/22 11:22 [facility] (Rec: 06/18/22 12:32 [facility] [id number]) Balance Tests Kimble Balance Test Kimble Balance Test Score 29 PT-OP-E Functional Tests Start: 02/04/22 18:00 Freq: Status: Active Protocol: Document 07/23/22 12:01 [facility] (Rec: 07/23/22 14:14 [facility] [id number]) Functional Tests 6 Minute Walk Test Distance 110 ft Device Used FWW Comments scuffing R>LLE but improved hip/knee flexion for clearance today 07/23 PT-OP-F Manual Assessment Start: 02/04/22 18:00 Freq: Status: Active Protocol: Document 02/09/22 11:20 [facility] (Rec: 02/09/22 15:02 [facility] [id number]) Manual Assessments Soft Tissue Assessment Soft Tissue Mobility Assessment tight calves w/limited passive DF PT-OP-G Mobility & Gait Start: 02/04/22 18:00 Freq: Status: Active Protocol: Document 02/09/22 11:20 [facility] (Rec: 02/09/22 15:02 [facility] [id number]) OP Mobility Evaluation Bed Mobility Rolling can roll B indep w/lower body following upper body Supine to and from Sit required min A for both supine <>sit Transfers Sit to Stand heavy use of UEs -pt reports sometimes needs to help OP Gait Assessment Comments Gait Comments Dec foot clearance B with heavy use of 4WW and dec DF R> L and dec hip flex PT-OP-M Strength Start: 02/04/22 18:00 Freq: Status: Active Protocol: Document 06/18/22 11:22 [facility] (Rec: 06/18/22 12:32 [facility] [id number]) Hip Strength Hip Manual Muscle Testing Right Flexion (L2) 3 Fair Abduction 2+ Poor+ External Rotation 3 Fair Internal Rotation 3+ Fair+ Left Flexion (L2) 3 Fair Abduction 2+ Poor+ External Rotation 4- Good- Internal Rotation 3- Fair- Knee Strength Knee Manual Muscle Testing Right Flexion (S2) 4 Good Extension (L3) 4- Good- Left Flexion (S2) 4 Good Extension (L3) 4- Good- Ankle/Foot Strength Ankle and Foot Manual Muscle Testing Right Dorsiflexion (L4) 3+ Fair+ Plantarflexion (S1) 4- Good- Left Dorsiflexion (L4) 3+ Fair+ Plantarflexion (S1) 4- Good- Comments PF tested seated B PT-OP-Q Treatments Start: 02/04/22 18:00 Freq: Status: Active Protocol: Document 09/14/22 13:20 [facility] (Rec: 09/14/22 13:34 [facility] [id number]) Therapeutic Activity Therapeutic Activity supine>sit, log roll Reps/Minutes 12 min Comments sit to s/l mod A then after PNF s/l to sit mod A then min to mod A to scoot fwd to EOB w /lean side to side then sit to stand from elevated plinth min A Gait Training Gait Activity FWW Device Used FWW Level of Assistance CGA Surface carpet Distance/Duration 50ft thru gym then 10ft through //bars Treatment Focus upright posture, hip flexion ft clearance, activity tolerance Neuro Re-Education Treatment Balance Activities head turns Comments WBOS balance on firm SLS Comments toe taps to blue foam x10 B foam Comments WBOS balance Other Activities PNF Comments 1. r pelvis sustained holds ant elevation to COI 2. r pelvis sustained holds post dep to COI 3. mass flex R prgressed to COI 4. mass ext R progressed to COI PT-OP-T Assessment and Plan Start: 02/04/22 18:00 Freq: Status: Active Protocol: Document 09/14/22 13:20 [facility] (Rec: 09/14/22 13:34 [facility] [id number]) Physical Therapy Assessment Goals 6 min walk Impairment 179ft 05/12 w/FWW Stunt Woman Goal (LTG) Pt will be able to walk at least 350ft in 6 min to show more functional gait speed 06/18-139ft 07/23/22: regression 110ft w/ FWW, improved foot clearance compared to last 2 tx needing TB DF support . 08/24/22: 93ft in 6 min (R AFO donned) w/ FWW, increased effort for hip/knee flexion to advance each LE, continues challenge LE clearance. LTG Duration DC functional activities Short Term Goal (STG) Pt will maintain need for no more than min A for bed mobltiy STG Duration 09/27 Stunt Woman Goal (LTG) Pt will maintain mostly indepenence of sit to stands w /only occ need for min A 08/24/22: pt requires CG- Min A during STS from 20 chair and shuttle recovery with cues wt shift forward and slow descent due to decrease strength eccentric sit, improved reaching back prior sit and push to stand needs extra support. LTG Duration 10/26/22 updated 08/24/22 strength Short Term Goal (STG) Pt will be indep w/HEP 02/27/22: added theraputty, wall plank, reviewed seated resisted hip abd, HC, STS, mini squat 03/09/22: reviewed TA bridge ( added 1/2 foam roll under forefoot), SLR 08/24/22: reviewed HEP: LAQ target (FWW flowered cummings pocket seam to kick to), standing april in //bar ( counter at home) fairly heavy UEs bar. STG Duration achieved-advancing as able Stunt Woman Goal (LTG) Pt will score at least 4/5 on MMT to show improved LE strength improvign pt ability to do ADLs 05/12-improved 06/18-no change LTG Duration discontinue gait Nursing Home Goal (LTG) Pt will be able to cont to amb w/FWW indep int he home 08/24/22: pt states has someone nearby for safety. LTG Duration 10/26/22 updated 08/24/22 balance Short Term Goal (STG) Pt will be able to score at least 36 on KIMBLE to show safe ambulation w/AD w/dec risk for falls. 02/13/22: KIMBLE /56. 04/07-05/12-06/18- STG Duration discontinue Stunt Woman Goal (LTG) Pt will be able to score at least 46 on KIMBLE to show safe ambulation w/dec risk for falls. LTG Duration Discontinue Assessment Summary Assessment Pt had improved facilitation w /PNF patterns today but still does have weakness with this and shows quik fatigue. She did amb w/better LE clearance today overall but cues needed throughout session for posture as pt cont to lean fwd during standing activities. D/t disease process likely, pt is progressively getting weaker overall. Physical Therapy Plan Frequency and Duration Frequency of Treatment 1x/Week Duration of treatment (weeks) 12 Plan of Care Start Date 08/03/22 Plan of Care End Date 10/26/22 Next Visit Focus/Plan Next Note Type Treatment Note Next Visit Plan Pt benefits from continued PT for LE strengthening and mobility activities for LE foot clearance to decrease risk of decline mobility. POC: change to maintenance PT for working on maintaining balance, gait and bed mobility /transfers
--- NOTE | 2022-09-21 13:55 | PT.OTN ---
Current Diagnoses Muscle weakness (generalized) (09/21/22) Difficulty in walking, not elsewhere classified (09/21/22) Physical Therapy Treatment Note PT-OP-A Visit Information Start: 02/04/22 18:00 Freq: Status: Active Protocol: Document 09/21/22 13:45 [facility] (Rec: 09/21/22 13:55 [facility] [id number]) Out-Patient Physical Therapy Visit Information Visit Information Visit Type Treatment Note Visit Start Time 12:48 Visit Stop Time 11:38 Total Visit Minutes 50 Visit Number 42 Number of PROJECT INTERNSHIP Visits 0 PT-OP-B Current Condition Start: 02/04/22 18:00 Freq: Status: Active Protocol: Document 02/09/22 11:20 [facility] (Rec: 02/09/22 15:02 [facility] [id number]) Current Condition History of Current Condition Onset Date Jan Current Complaints weakness in entire body, falls History of Current Condition Pt is frustrated because she used to be able to go to high intensity classes and walk 3-5 miles a day but stopped in Mar d/t falls. She has seen 2 neurologists, 1 neurosurgeon and feels like she is really progressively worse. She is really hating not being able to walk daily. She is having trouble getting socks on. Her dexterity is limited also. No one has been able to say what they think it is. Pt has been using a 4WW since Nov and in June started using a cane. she started using devices d/t falls. She is planning to see another neurologist in [place]. She has started going to [employer] class but stopped d/t her balance being too bad. She has all the [employer] equipment including a reformer. Her also recently has dx of cancer. Pt reports she got her first booster in Dec and she wonders if this is what started this. In Jan, she had some falls when she was working on her [employer] and [employer]. Had Meniscus surgery in August and did PT for a short time and was DC quickly d/t how well she was doing. Dr. Jain sent her to the neurosurgeon for potential back surgery based on EMG, but neurosurgeon didn't think that was the issue. She has mild back pain in the AM that has only been recently d/t being less mobile. The neurosurgeon at first thought she needed another MRI of brain and had it scheduled, but then when he talked to the neurologist, the plan is now for her to see a different neurologist. Pt seeing a telehealth ND/MD who gave her folic acid steffanie something else but she doesn't feel like it helps. Pt reports R foot flops down sometime. Since getting 4WW , she has fallen 3 times ( oct). Prior to the walker, she was falling every few days and had some days wehre she fell more than once. All falls have resulted only in cuts and bruises Prior Treatments and Tests Lumbar MRI: IMPRESSION: 1. Multilevel lumbar spondylosis, causing foraminal stenosis as detailed above. 2. Severe central canal stenosis at L3-4 and L4-5. 3. No abnormal cord signal. 4. Remote compression fractures of T11 and T12. Cervical MRI:IMPRESSION: 1. Multilevel degenerative disc and facet disease, as well as uncovertebral hypertrophy. 2. Multilevel canal stenoses, worst at C5-C6 where there is minimal cord flattening. 3. Multilevel foraminal stenoses, worst at C5-C6 and C6-C7 where there is associated intraforaminal nerve root compression. Recommend correlation with clinical symptoms to ascertain relevance of these findings. IMPRESSION: BRAIN MRI: 1. No acute intracranial disease process. 2. No areas of acute or chronic infarction. 3. Mpeq-hm-qlpiigvr diffuse cerebral volume loss. 4. Mild periventricular and subcortical white matter chronic microvascular ischemic change. BRAIN MR ANGIOGRAM: Normal MR angiogram of the head. NECK MR ANGIOGRAM: 1. Less than 50% stenosis of the origin of the left internal carotid artery. 2. Right internal carotid artery is fully patent. 3. Vertebral arteries are fully patent. ADDENDUM: This case was reviewed at the request of Dr. Gonzalez and discussed by telephone at 11: 04 a.m. [place] time on October 14, 2021. This patient is brain parenchymal volume loss and chronic small vessel ischemic change. There is prominence of the ventricles and sulci, with the lateral ventricles larger than would be expected, given the degree of sulcal atrophy. Please consider normal pressure hydrocephalus. IMPRESSION: 1. Chronic mild wedging of the T9 vertebral body unchanged from prior examination which may be physiologic. 2. Multilevel disc degeneration. disc degeneration. Treatment Goals Patient/Caregiver Goals be able to get back to working outa nd walking PT-OP-C Subjective Start: 02/04/22 18:00 Freq: Status: Active Protocol: Document 09/21/22 13:45 [facility] (Rec: 09/21/22 13:55 [facility] [id number]) OP-PT Subjective Patient Comments Patient Comments Pt reports she feels like getting down to her pilates machine has been really helpful. PT-OP-D Balance Start: 02/04/22 18:00 Freq: Status: Active Protocol: Document 06/18/22 11:22 [facility] (Rec: 06/18/22 12:32 [facility] [id number]) Balance Tests Kimble Balance Test Kimble Balance Test Score 29 PT-OP-E Functional Tests Start: 02/04/22 18:00 Freq: Status: Active Protocol: Document 07/23/22 12:01 [facility] (Rec: 07/23/22 14:14 [facility] [id number]) Functional Tests 6 Minute Walk Test Distance 110 ft Device Used FWW Comments scuffing R>LLE but improved hip/knee flexion for clearance today 07/23 PT-OP-F Manual Assessment Start: 02/04/22 18:00 Freq: Status: Active Protocol: Document 02/09/22 11:20 [facility] (Rec: 02/09/22 15:02 [facility] [id number]) Manual Assessments Soft Tissue Assessment Soft Tissue Mobility Assessment tight calves w/limited passive DF PT-OP-G Mobility & Gait Start: 02/04/22 18:00 Freq: Status: Active Protocol: Document 02/09/22 11:20 [facility] (Rec: 02/09/22 15:02 [facility] [id number]) OP Mobility Evaluation Bed Mobility Rolling can roll B indep w/lower body following upper body Supine to and from Sit required min A for both supine <>sit Transfers Sit to Stand heavy use of UEs -pt reports sometimes needs to help OP Gait Assessment Comments Gait Comments Dec foot clearance B with heavy use of 4WW and dec DF R> L and dec hip flex PT-OP-M Strength Start: 02/04/22 18:00 Freq: Status: Active Protocol: Document 06/18/22 11:22 [facility] (Rec: 06/18/22 12:32 [facility] [id number]) Hip Strength Hip Manual Muscle Testing Right Flexion (L2) 3 Fair Abduction 2+ Poor+ External Rotation 3 Fair Internal Rotation 3+ Fair+ Left Flexion (L2) 3 Fair Abduction 2+ Poor+ External Rotation 4- Good- Internal Rotation 3- Fair- Knee Strength Knee Manual Muscle Testing Right Flexion (S2) 4 Good Extension (L3) 4- Good- Left Flexion (S2) 4 Good Extension (L3) 4- Good- Ankle/Foot Strength Ankle and Foot Manual Muscle Testing Right Dorsiflexion (L4) 3+ Fair+ Plantarflexion (S1) 4- Good- Left Dorsiflexion (L4) 3+ Fair+ Plantarflexion (S1) 4- Good- Comments PF tested seated B PT-OP-Q Treatments Start: 02/04/22 18:00 Freq: Status: Active Protocol: Document 09/21/22 13:45 [facility] (Rec: 09/21/22 13:55 [facility] [id number]) Therapeutic Exercises Standing Exercises side step Side bilateral Resistance AROM Equipment Used //bars Reps/Minutes 10 ft x1 lap Comments cues for step length and posture heel raises Standing Exercise Name fwd/back wt shifts (cues for heel raises to get wt into toes) Side bilateral Equipment Used bar Reps/Minutes 10 mini squats Resistance AROM Equipment Used bar Reps/Minutes 10 Comments cues for glute squeeze on way up Therapeutic Activity Therapeutic Activity sit<> stand Comments 1. sit to stand from W/c to FWW then transfer to mat table x mod A 2. sit to stand from w/c to // bar x1 mod A 3. transfer to car seat then left w/CG mod A w/FWW supine>sit, log roll Comments mod A sit to supine then mod A roll to R side & mod A s/l to sit and min A to scoot to EOB Neuro Re-Education Treatment Balance Activities balance Surface firm Comments WBOS stand w/o holding on w/ max cues for glute engagement and posture x10 trials Other Activities PNF Reps/Duration 9 min Comments 1. L pelvis sustained holds ant elevation to COI 2. mass flex L prgressed to COI PT-OP-T Assessment and Plan Start: 02/04/22 18:00 Freq: Status: Active Protocol: Document 09/21/22 13:45 [facility] (Rec: 09/21/22 13:55 [facility] [id number]) Physical Therapy Assessment Goals 6 min walk Impairment 179ft 05/12 w/FWW Instructor Nurse Goal (LTG) Pt will be able to walk at least 350ft in 6 min to show more functional gait speed 06/18-139ft 07/23/22: regression 110ft w/ FWW, improved foot clearance compared to last 2 tx needing TB DF support . 08/24/22: 93ft in 6 min (R AFO donned) w/ FWW, increased effort for hip/knee flexion to advance each LE, continues challenge LE clearance. LTG Duration DC functional activities Short Term Goal (STG) Pt will maintain need for no more than min A for bed mobltiy STG Duration 09/27 Alf Goal (LTG) Pt will maintain mostly indepenence of sit to stands w /only occ need for min A 08/24/22: pt requires CG- Min A during STS from 20 chair and shuttle recovery with cues wt shift forward and slow descent due to decrease strength eccentric sit, improved reaching back prior sit and push to stand needs extra support. LTG Duration 10/26/22 updated 08/24/22 strength Short Term Goal (STG) Pt will be indep w/HEP 02/27/22: added theraputty, wall plank, reviewed seated resisted hip abd, HC, STS, mini squat 03/09/22: reviewed TA bridge ( added 12 foam roll under forefoot), SLR 08/24/22: reviewed HEP: LAQ target (FWW flowered [employer] pocket seam to kick to), standing march in //bar ( counter at home) fairly heavy UEs bar. STG Duration achieved-advancing as able Alf Goal (LTG) Pt will score at least 4/5 on MMT to show improved LE strength improvign pt ability to do ADLs 05/12-improved 06/18-no change LTG Duration discontinue gait Instructor Nurse Goal (LTG) Pt will be able to cont to amb w/FWW indep int he home 08/24/22: pt states has someone nearby for safety. LTG Duration 10/26/22 updated 08/24/22 balance Short Term Goal (STG) Pt will be able to score at least 36 on KIMBLE to show safe ambulation w/AD w/dec risk for falls. 02/13/22: KIMBLE 56. 04/07-05/12-06/18- STG Duration discontinue Instructor Nurse Goal (LTG) Pt will be able to score at least 46 on KIMBLE to show safe ambulation w/dec risk for falls. LTG Duration Discontinue Assessment Summary Assessment Pt cont to struggle w/ transfers but did do better w/ PNF on L side w/better facilitation than R on past days. She does fatigue w/ activity and shows dec balance . Physical Therapy Plan Frequency and Duration Frequency of Treatment 1x/Week Duration of treatment (weeks) 12 Plan of Care Start Date 08/03/22 Plan of Care End Date 10/26/22 Next Visit Focus/Plan Next Note Type Treatment Note Next Visit Plan Pt benefits from continued PT for LE strengthening and mobility activities for LE foot clearance to decrease pace of progression dec mobility d/t ALS. POC:working on maintaining balance, gait and bed mobility /transfers
--- NOTE | 2022-09-30 11:34 | PT.OTN ---
Current Diagnoses Muscle weakness (generalized) (09/30/22) Difficulty in walking, not elsewhere classified (09/30/22) Physical Therapy Treatment Note PT-OP-A Visit Information Start: 02/04/22 18:00 Freq: Status: Active Protocol: Document 09/30/22 10:51 SP (Rec: 09/30/22 11:40 SP [id number]) Out-Patient Physical Therapy Visit Information Visit Information Visit Type Treatment Note Visit Start Time 10:51 Visit Stop Time 11:34 Total Visit Minutes 43 Visit Number 43 Number of TARIFF COMPILING CLERK Visits 1 PT-OP-B Current Condition Start: 02/04/22 18:00 Freq: Status: Active Protocol: Document 02/09/22 11:20 [facility] (Rec: 02/09/22 15:02 [facility] [id number]) Current Condition History of Current Condition Onset Date Jan Current Complaints weakness in entire body, falls History of Current Condition Pt is frustrated because she used to be able to go to high intensity classes and walk 3-5 miles a day but stopped in Mar d/t falls. She has seen 2 neurologists, 1 neurosurgeon and feels like she is really progressively worse. She is really hating not being able to walk daily. She is having trouble getting socks on. Her dexterity is limited also. No one has been able to say what they think it is. Pt has been using a 4WW since Nov and in June started using a cane. she started using devices d/t falls. She is planning to see another neurologist in [place]. She has started going to [employer] class but stopped d/t her balance being too bad. She has all the [employer] equipment including a reformer. Her also recently has dx of cancer. Pt reports she got her first booster in Dec and she wonders if this is what started this. In Jan, she had some falls when she was working on her Agilvax and Tagito. Had Meniscus surgery in August and did PT for a short time and was DC quickly d/t how well she was doing. Dr. Jain sent her to the neurosurgeon for potential back surgery based on EMG, but neurosurgeon didn't think that was the issue. She has mild back pain in the AM that has only been recently d/t being less mobile. The neurosurgeon at first thought she needed another MRI of brain and had it scheduled, but then when he talked to the neurologist, the plan is now for her to see a different neurologist. Pt seeing a telehealth ND/MD who gave her folic acid steffanie something else but she doesn't feel like it helps. Pt reports R foot flops down sometime. Since getting 4WW , she has fallen 3 times ( oct). Prior to the walker, she was falling every few days and had some days wehre she fell more than once. All falls have resulted only in cuts and bruises Prior Treatments and Tests Lumbar MRI: IMPRESSION: 1. Multilevel lumbar spondylosis, causing foraminal stenosis as detailed above. 2. Severe central canal stenosis at L3-4 and L4-5. 3. No abnormal cord signal. 4. Remote compression fractures of T11 and T12. Cervical MRI:IMPRESSION: 1. Multilevel degenerative disc and facet disease, as well as uncovertebral hypertrophy. 2. Multilevel canal stenoses, worst at C5-C6 where there is minimal cord flattening. 3. Multilevel foraminal stenoses, worst at C5-C6 and C6-C7 where there is associated intraforaminal nerve root compression. Recommend correlation with clinical symptoms to ascertain relevance of these findings. IMPRESSION: BRAIN MRI: 1. No acute intracranial disease process. 2. No areas of acute or chronic infarction. 3. [id number] diffuse cerebral volume loss. 4. Mild periventricular and subcortical white matter chronic microvascular ischemic change. BRAIN MR ANGIOGRAM: Normal MR angiogram of the head. NECK MR ANGIOGRAM: 1. Less than 50% stenosis of the origin of the left internal carotid artery. 2. Right internal carotid artery is fully patent. 3. Vertebral arteries are fully patent. ADDENDUM: This case was reviewed at the request of Dr. Gonzalez and discussed by telephone at 11: 04 a.m. [place] time on October 14, 2021. This patient is brain parenchymal volume loss and chronic small vessel ischemic change. There is prominence of the ventricles and sulci, with the lateral ventricles larger than would be expected, given the degree of sulcal atrophy. Please consider normal pressure hydrocephalus. IMPRESSION: 1. Chronic mild wedging of the T9 vertebral body unchanged from prior examination which may be physiologic. 2. Multilevel disc degeneration. disc degeneration. Treatment Goals Patient/Caregiver Goals be able to get back to working outa nd walking PT-OP-C Subjective Start: 02/04/22 18:00 Freq: Status: Active Protocol: Document 09/30/22 10:51 SP (Rec: 09/30/22 11:40 SP [id number]) OP-PT Subjective Patient Comments Patient Comments Pt reported need increased help to get up to stand today. I want to work on transfers and standing balance, walking will be to tiring. PT-OP-D Balance Start: 02/04/22 18:00 Freq: Status: Active Protocol: Document 06/18/22 11:22 [facility] (Rec: 06/18/22 12:32 [facility] [id number]) Balance Tests Kimble Balance Test Kimble Balance Test Score 29 PT-OP-E Functional Tests Start: 02/04/22 18:00 Freq: Status: Active Protocol: Document 07/23/22 12:01 SP (Rec: 07/23/22 14:14 SP [id number]) Functional Tests 6 Minute Walk Test Distance 110 ft Device Used FWW Comments scuffing R>LLE but improved hip/knee flexion for clearance today 07/23 PT-OP-F Manual Assessment Start: 02/04/22 18:00 Freq: Status: Active Protocol: Document 02/09/22 11:20 [facility] (Rec: 02/09/22 15:02 [facility] [id number]) Manual Assessments Soft Tissue Assessment Soft Tissue Mobility Assessment tight calves w/limited passive DF PT-OP-G Mobility & Gait Start: 02/04/22 18:00 Freq: Status: Active Protocol: Document 02/09/22 11:20 [facility] (Rec: 02/09/22 15:02 [facility] [id number]) OP Mobility Evaluation Bed Mobility Rolling can roll B indep w/lower body following upper body Supine to and from Sit required min A for both supine <>sit Transfers Sit to Stand heavy use of UEs -pt reports sometimes needs to help OP Gait Assessment Comments Gait Comments Dec foot clearance B with heavy use of 4WW and dec DF R> L and dec hip flex PT-OP-M Strength Start: 02/04/22 18:00 Freq: Status: Active Protocol: Document 06/18/22 11:22 [facility] (Rec: 06/18/22 12:32 [facility] [id number]) Hip Strength Hip Manual Muscle Testing Right Flexion (L2) 3 Fair Abduction 2+ Poor+ External Rotation 3 Fair Internal Rotation 3+ Fair+ Left Flexion (L2) 3 Fair Abduction 2+ Poor+ External Rotation 4- Good- Internal Rotation 3- Fair- Knee Strength Knee Manual Muscle Testing Right Flexion (S2) 4 Good Extension (L3) 4- Good- Left Flexion (S2) 4 Good Extension (L3) 4- Good- Ankle/Foot Strength Ankle and Foot Manual Muscle Testing Right Dorsiflexion (L4) 3+ Fair+ Plantarflexion (S1) 4- Good- Left Dorsiflexion (L4) 3+ Fair+ Plantarflexion (S1) 4- Good- Comments PF tested seated B PT-OP-Q Treatments Start: 02/04/22 18:00 Freq: Status: Active Protocol: Document 09/30/22 10:51 SP (Rec: 09/30/22 11:40 SP [id number]) Therapeutic Activity Therapeutic Activity sit<> stand Comments 1. sit to stand from W/c to FWW max A x1 then stand pivot transfer Min A to mat table 2. sit to stand from w/c to // bar x1 max A 3. SIt to stand from w/c to FWW transfer to car seat via caregiver pivot to left w/CG/ Min A w/FWW. *Pt requires Max A for LE on/off table or into car, Max A to scoot back in car seat (seated on garbage back tosupport ease scoot back in seat fully) via caregiver. sit>supine, log roll L and R, R SL>sit Reps/Minutes 1 Comments Max A for BLE on/off bed, Mod/ Max A support for each LE positioning into knee flexion with cues HABD with TA fac to complete log roll. More challenge LE> R than L. Max A trunk righting SL>sit. Manual Therapy Treatment Manual Techniques Manual PNF (see ther act) Type See Neuro Re-Education Treatment Balance Activities tilt board Details fwd, bwd & lateral Equipment CG- 15%A, rail on side (RUE support) Reps/Duration //bars Comments balancing & wt shifts ea able stabilize up to 10 sec each direction without UE support CGA/Min A. foam Equipment blue foam, //bars (prn) Comments WBOS balance, wt shift, HT CG/ Min A Other Activities PNF Details B SL- sidelying Reps/Duration 9 min Comments 1. L pelvis sustained holds ant elevation to COI 2. mass flex L progressed to COI *Max support of LE. Self-Care/Home Management Treatment Activities Self-Care/Home Management Activities Car transfer with pt, Caregiver PT-OP-T Assessment and Plan Start: 02/04/22 18:00 Freq: Status: Active Protocol: Document 09/30/22 10:51 SP (Rec: 09/30/22 11:40 SP [id number]) Physical Therapy Assessment Goals 6 min walk Impairment 179ft 05/12 w/FWW [facility] Goal (LTG) Pt will be able to walk at least 350ft in 6 min to show more functional gait speed 06/18-139ft 07/23/22: regression 110ft w/ FWW, improved foot clearance compared to last 2 tx needing TB DF support . 08/24/22: 93ft in 6 min (R AFO donned) w/ FWW, increased effort for hip/knee flexion to advance each LE, continues challenge LE clearance. LTG Duration DC functional activities Short Term Goal (STG) Pt will maintain need for no more than min A for bed mobltiy STG Duration 09/27 [facility] Goal (LTG) Pt will maintain mostly indepenence of sit to stands w /only occ need for min A 08/24/22: pt requires CG- Min A during STS from 20 chair and shuttle recovery with cues wt shift forward and slow descent due to decrease strength eccentric sit, improved reaching back prior sit and push to stand needs extra support. LTG Duration 10/26/22 updated 08/24/22 strength Short Term Goal (STG) Pt will be indep w/HEP 02/27/22: added theraputty, wall plank, reviewed seated resisted hip abd, HC, STS, mini squat 03/09/22: reviewed TA bridge ( added 1/2 foam roll under forefoot), SLR 08/24/22: reviewed HEP: LAQ target (FWW flowered cummings pocket seam to kick to), standing march in //bar ( counter at home) fairly heavy UEs bar. STG Duration achieved-advancing as able Podiatric Medicine Professor Goal (LTG) Pt will score at least 4/5 on MMT to show improved LE strength improvign pt ability to do ADLs 05/12-improved 06/18-no change LTG Duration discontinue gait [facility] Goal (LTG) Pt will be able to cont to amb w/FWW indep int he home 08/24/22: pt states has someone nearby for safety. LTG Duration 10/26/22 updated 08/24/22 balance Short Term Goal (STG) Pt will be able to score at least 36 on KIMBLE to show safe ambulation w/AD w/dec risk for falls. 02/13/22: KIMBLE 21/56. 04/07-05/12-06/18- STG Duration discontinue Podiatric Medicine Professor Goal (LTG) Pt will be able to score at least 46 on KIMBLE to show safe ambulation w/dec risk for falls. LTG Duration Discontinue Assessment Summary Assessment Pt required increase support coming to standing today Heavy Max A x1, requires time for each LE repositioning (L weaker than R), Min A trunk stability during mobility. Pt was able to allow standing without UE support uneven surface wt shifting with cues for upright elongated posturing and quad facilitation. Pt required manual assist for repositoning onto uneven surface due to decreased strength. Unsteady stance LE x1 Min A for stability recovery, prevent buckling. Physical Therapy Plan Frequency and Duration Frequency of Treatment 1x/Week Duration of treatment (weeks) 12 Plan of Care Start Date 08/03/22 Plan of Care End Date 10/26/22 Therapeutic Interventions Therapeutic Interventions Aquatic Therapy,Balance Training,Coordination Training ,Gait Training,Home Exercise Program,Joint Mobilizations, Manual Therapy,Neuromuscular Re-education,Orthotic/ Prosthetic Management,Patient/ Caregiver Education,Self-Care/ Home Management,Soft Tissue Mobilization,Taping, Therapeutic Activities, Therapeutic Exercises Modalities Electric Stimulation Next Visit Focus/Plan Next Note Type Treatment Note Next Visit Plan Pt benefits from continued PT for LE strengthening and mobility activities for LE foot clearance to decrease pace of progression dec mobility d/t ALS. POC:working on maintaining balance, gait and bed mobility /transfers
--- NOTE | 2022-10-07 10:50 | PT.OTN ---
Current Diagnoses Muscle weakness (generalized) (10/07/22) Difficulty in walking, not elsewhere classified (10/07/22) Physical Therapy Treatment Note PT-OP-A Visit Information Start: 02/04/22 18:00 Freq: Status: Active Protocol: Document 10/07/22 10:03 SP (Rec: 10/07/22 10:53 SP [id number]) Out-Patient Physical Therapy Visit Information Visit Information Visit Type Treatment Note Visit Note Pt 3 min late. Caregiver attends with pt. Added HEP for MIN, states has been doing similar AAROM. Visit Start Time 10:03 Visit Stop Time 10:50 Total Visit Minutes 47 Visit Number 44 Number of IMMIGRATION JUDGE Visits 2 PT-OP-B Current Condition Start: 02/04/22 18:00 Freq: Status: Active Protocol: Document 02/09/22 11:20 [facility] (Rec: 02/09/22 15:02 [facility] [id number]) Current Condition History of Current Condition Onset Date Jan Current Complaints weakness in entire body, falls History of Current Condition Pt is frustrated because she used to be able to go to high intensity classes and walk 3-5 miles a day but stopped in Mar d/t falls. She has seen 2 neurologists, 1 neurosurgeon and feels like she is really progressively worse. She is really hating not being able to walk daily. She is having trouble getting socks on. Her dexterity is limited also. No one has been able to say what they think it is. Pt has been using a 4WW since Nov and in June started using a cane. she started using devices d/t falls. She is planning to see another neurologist in [place]. She has started going to [employer] class but stopped d/t her balance being too bad. She has all the pilates equipment including a reformer. Her also recently has dx of cancer. Pt reports she got her first booster in Dec and she wonders if this is what started this. In Jan, she had some falls when she was working on her [employer] and [employer]. Had Meniscus surgery in August and did PT for a short time and was DC quickly d/t how well she was doing. Dr. Jain sent her to the neurosurgeon for potential back surgery based on EMG, but neurosurgeon didn't think that was the issue. She has mild back pain in the AM that has only been recently d/t being less mobile. The neurosurgeon at first thought she needed another MRI of brain and had it scheduled, but then when he talked to the neurologist, the plan is now for her to see a different neurologist. Pt seeing a telehealth ND/MD who gave her folic acid steffanie something else but she doesn't feel like it helps. Pt reports R foot flops down sometime. Since getting 4WW , she has fallen 3 times ( nov). Prior to the walker, she was falling every few days and had some days wehre she fell more than once. All falls have resulted only in cuts and bruises Prior Treatments and Tests Lumbar MRI: IMPRESSION: 1. Multilevel lumbar spondylosis, causing foraminal stenosis as detailed above. 2. Severe central canal stenosis at L3-4 and L4-5. 3. No abnormal cord signal. 4. Remote compression fractures of T11 and T12. Cervical MRI:IMPRESSION: 1. Multilevel degenerative disc and facet disease, as well as uncovertebral hypertrophy. 2. Multilevel canal stenoses, worst at C5-C6 where there is minimal cord flattening. 3. Multilevel foraminal stenoses, worst at C5-C6 and C6-C7 where there is associated intraforaminal nerve root compression. Recommend correlation with clinical symptoms to ascertain relevance of these findings. IMPRESSION: BRAIN MRI: 1. No acute intracranial disease process. 2. No areas of acute or chronic infarction. 3. Wrbw-on-wprdgnzs diffuse cerebral volume loss. 4. Mild periventricular and subcortical white matter chronic microvascular ischemic change. BRAIN MR ANGIOGRAM: Normal MR angiogram of the head. NECK MR ANGIOGRAM: 1. Less than 50% stenosis of the origin of the left internal carotid artery. 2. Right internal carotid artery is fully patent. 3. Vertebral arteries are fully patent. ADDENDUM: This case was reviewed at the request of Dr. Gonzalez and discussed by telephone at 11: 04 a.m. [place] time on October 14, 2021. This patient is brain parenchymal volume loss and chronic small vessel ischemic change. There is prominence of the ventricles and sulci, with the lateral ventricles larger than would be expected, given the degree of sulcal atrophy. Please consider normal pressure hydrocephalus. IMPRESSION: 1. Chronic mild wedging of the T9 vertebral body unchanged from prior examination which may be physiologic. 2. Multilevel disc degeneration. disc degeneration. Treatment Goals Patient/Caregiver Goals be able to get back to working outa nd walking PT-OP-C Subjective Start: 02/04/22 18:00 Freq: Status: Active Protocol: Document 10/07/22 10:03 SP (Rec: 10/07/22 10:53 SP [id number]) OP-PT Subjective Patient Comments Patient Comments Pt stated has a new puffy bump on R elecranon process, physician aware. She reports challenging getting up to standing lately and need more support. I refuse to give up and doing as much as can with caregiver 6 hrs /day now. Went to on Wed, and measureed for a power w/c, will be looking into getting ramp at some point. She is unsure wants to think about needing adaptive van to support transport w/c. Dr asked if PT can give ex for LUE mobility strengthening. PT-OP-D Balance Start: 02/04/22 18:00 Freq: Status: Active Protocol: Document 06/18/22 11:22 [facility] (Rec: 06/18/22 12:32 [facility] [id number]) Balance Tests Kimble Balance Test Kimble Balance Test Score 29 PT-OP-E Functional Tests Start: 02/04/22 18:00 Freq: Status: Active Protocol: Document 07/23/22 12:01 SP (Rec: 07/23/22 14:14 SP [id number]) Functional Tests 6 Minute Walk Test Distance 110 ft Device Used FWW Comments scuffing R>LLE but improved hip/knee flexion for clearance today 07/23 PT-OP-F Manual Assessment Start: 02/04/22 18:00 Freq: Status: Active Protocol: Document 02/09/22 11:20 [facility] (Rec: 02/09/22 15:02 [facility] [id number]) Manual Assessments Soft Tissue Assessment Soft Tissue Mobility Assessment tight calves w/limited passive DF PT-OP-G Mobility & Gait Start: 02/04/22 18:00 Freq: Status: Active Protocol: Document 02/09/22 11:20 [facility] (Rec: 02/09/22 15:02 [facility] [id number]) OP Mobility Evaluation Bed Mobility Rolling can roll B indep w/lower body following upper body Supine to and from Sit required min A for both supine <>sit Transfers Sit to Stand heavy use of UEs -pt reports sometimes needs to help OP Gait Assessment Comments Gait Comments Dec foot clearance B with heavy use of 4WW and dec DF R> L and dec hip flex PT-OP-M Strength Start: 02/04/22 18:00 Freq: Status: Active Protocol: Document 06/18/22 11:22 [facility] (Rec: 06/18/22 12:32 [facility] [id number]) Hip Strength Hip Manual Muscle Testing Right Flexion (L2) 3 Fair Abduction 2+ Poor+ External Rotation 3 Fair Internal Rotation 3+ Fair+ Left Flexion (L2) 3 Fair Abduction 2+ Poor+ External Rotation 4- Good- Internal Rotation 3- Fair- Knee Strength Knee Manual Muscle Testing Right Flexion (S2) 4 Good Extension (L3) 4- Good- Left Flexion (S2) 4 Good Extension (L3) 4- Good- Ankle/Foot Strength Ankle and Foot Manual Muscle Testing Right Dorsiflexion (L4) 3+ Fair+ Plantarflexion (S1) 4- Good- Left Dorsiflexion (L4) 3+ Fair+ Plantarflexion (S1) 4- Good- Comments PF tested seated B PT-OP-Q Treatments Start: 02/04/22 18:00 Freq: Status: Active Protocol: Document 10/07/22 10:03 SP (Rec: 10/07/22 10:53 SP [id number]) Gym Equipment Shuttle Recovery Unilateral Squats Details requires support LE repositioning, cued eccentric control Resistance 25# (old band) Reps/Time 10 reps B LE Bilateral Squats Details requires support LE repositioning, cued eccentric control Resistance 50# (old bands) Shuttle Recovery Platform Stable Reps/Time x15 Therapeutic Exercises Sitting Exercises arm ex Sitting Exercise Name 1. ER AROM 2. FF AAROM 3. resisted rows TB #1, sit eochair Resistance TB #1 Reps/Minutes x10 reps Comments 1. rows slow pac 2. bal front chair during rows maintaining balance cues Therapeutic Activity Therapeutic Activity sit<> stand Name STS and transfers Reps/Minutes 3 reps total through tx. Comments 1. sit to stand from W/c to FWW max A x1/ Mod A x1 then stand pivot transfer Min A x1 to biodex 2. sit to stand from w/c to // bar x1 max A 3. SIt to stand from w/c to mesh chair using FWW Min A w/ FWW, decreased R>L LE foot clearance, requires more march steps to complete fully back up to chair. Gait Training Gait Activity FWW Device Used FWW Level of Assistance CGA, w/c follow Surface carpet Distance/Duration 31ft thru gym Treatment Focus upright posture, hip flexion ft clearance, activity tolerance Comments decreased RLE foot clearance, improved post shuttle recovery . PT-OP-T Assessment and Plan Start: 02/04/22 18:00 Freq: Status: Active Protocol: Document 10/07/22 10:03 SP (Rec: 10/07/22 10:53 SP [id number]) Physical Therapy Assessment Goals 6 min walk Impairment 179ft 05/12 w/FWW Alf Goal (LTG) Pt will be able to walk at least 350ft in 6 min to show more functional gait speed 06/18-139ft 07/23/22: regression 110ft w/ FWW, improved foot clearance compared to last 2 tx needing TB DF support . 08/24/22: 93ft in 6 min (R AFO donned) w/ FWW, increased effort for hip/knee flexion to advance each LE, continues challenge LE clearance. LTG Duration DC functional activities Short Term Goal (STG) Pt will maintain need for no more than min A for bed mobltiy 10/07/22: Max A for trunk and BLEs support on/off shuttle recovery. DId requires same assist bed mobility recent tx. STG Duration 09/27 regression 10/07/22 Alf Goal (LTG) Pt will maintain mostly indepenence of sit to stands w /only occ need for min A 08/24/22: pt requires CG- Min A during STS from 20 chair and shuttle recovery with cues wt shift forward and slow descent due to decrease strength eccentric sit, improved reaching back prior sit and push to stand needs extra support. 10/07/22: requires Max A x1 and Mod A x1 for initial STS from w/c and end tx mesh chair, Mod A from elevated shuttle recovery with cues scoot fwd, feet back hip hinge press through BUEs. LTG Duration 10/26/22 regression 10/07/22 strength Short Term Goal (STG) Pt will be indep w/HEP 02/27/22: added theraputty, wall plank, reviewed seated resisted hip abd, HC, STS, mini squat 03/09/22: reviewed TA bridge ( added 1/2 foam roll under forefoot), SLR 08/24/22: reviewed HEP: LAQ target (FWW flowered cummings pocket seam to kick to), standing march in //bar ( counter at home) fairly heavy UEs bar. 10/07/22: added LUE HEP: aROM shld ER, resisted rows and AAROM FF via RUE and outside added support. STG Duration REgression: requires added support to perform 10/07/22 [employer] Goal (LTG) Pt will score at least 4/5 on MMT to show improved LE strength improvign pt ability to do ADLs 05/12-improved 06/18-no change LTG Duration discontinue gait Fibreglass Gun Hand Goal (LTG) Pt will be able to cont to amb w/FWW indep int he home 08/24/22: pt states has someone nearby for safety. 10/07/22: CG/ MIn A gait with FWW decreased R>L foot clearance with B AFOs donned, Max A x1/Mod A x2nd person during STS from w/c. LTG Duration 10/26/22 regression 10/07/22 balance Short Term Goal (STG) Pt will be able to score at least 36 on KIMBLE to show safe ambulation w/AD w/dec risk for falls. 02/13/22: KIMBLE 21/56. 04/07-05/12-06/18- STG Duration discontinue Alf Goal (LTG) Pt will be able to score at least 46 on KIMBLE to show safe ambulation w/dec risk for falls. LTG Duration Discontinue Assessment Summary Assessment Pt is requiring increase Max A and added Mod A 2nd person today to complete STS fully upright, Min A stand step pivot, decreased R>LLE foot clearance. She is ableto completed gait 31 ft w/ FWW, time needed due to decreased activity tolerance w/c follow for support but not needed. Provided pt and caregiver instruction in LUE ther ex to allow suport for transfers wt shift into stand, challenging today. Pt good feedback to added LUE AAROM HEP to carryover home. Physical Therapy Plan Frequency and Duration Frequency of Treatment 1x/Week Duration of treatment (weeks) 12 Plan of Care Start Date 08/03/22 Plan of Care End Date 10/26/22 Therapeutic Interventions Therapeutic Interventions Aquatic Therapy,Balance Training,Coordination Training ,Gait Training,Home Exercise Program,Joint Mobilizations, Manual Therapy,Neuromuscular Re-education,Orthotic/ Prosthetic Management,Patient/ Caregiver Education,Self-Care/ Home Management,Soft Tissue Mobilization,Taping, Therapeutic Activities, Therapeutic Exercises Modalities Electric Stimulation Next Visit Focus/Plan Next Note Type Treatment Note Next Visit Plan REcheck added LUE ther ex to assist transfers. POC: Pt benefits from continued PT for LE strengthening and mobility activities for LE foot clearance to decrease pace of progression dec mobility d/t ALS. POC:working on maintaining balance, gait and bed mobility /transfers
--- NOTE | 2022-10-12 13:34 | PT.OTN ---
Current Diagnoses Muscle weakness (generalized) (10/12/22) Difficulty in walking, not elsewhere classified (10/12/22) Physical Therapy Treatment Note PT-OP-A Visit Information Start: 02/04/22 18:00 Freq: Status: Active Protocol: Document 10/12/22 12:47 [facility] (Rec: 10/12/22 13:34 [facility] [id number]) Out-Patient Physical Therapy Visit Information Visit Information Visit Type Progress Note Visit Note 03/10 Visit Start Time 12:46 Visit Stop Time 13:30 Total Visit Minutes 44 Visit Number 45 Number of SHOE TREER Visits 0 PT-OP-B Current Condition Start: 02/04/22 18:00 Freq: Status: Active Protocol: Document 02/09/22 11:20 [facility] (Rec: 02/09/22 15:02 [facility] [id number]) Current Condition History of Current Condition Onset Date Jan Current Complaints weakness in entire body, falls History of Current Condition Pt is frustrated because she used to be able to go to high intensity classes and walk 3-5 miles a day but stopped in Mar d/t falls. She has seen 2 neurologists, 1 neurosurgeon and feels like she is really progressively worse. She is really hating not being able to walk daily. She is having trouble getting socks on. Her dexterity is limited also. No one has been able to say what they think it is. Pt has been using a 4WW since Nov and in June started using a cane. she started using devices d/t falls. She is planning to see another neurologist in [place]. She has started going to [employer] class but stopped d/t her balance being too bad. She has all the [employer] equipment including a reformer. Her also recently has dx of cancer. Pt reports she got her first booster in Dec and she wonders if this is what started this. In Jan, she had some falls when she was working on her [employer] and [employer]. Had Meniscus surgery in August and did PT for a short time and was DC quickly d/t how well she was doing. Dr. Jain sent her to the neurosurgeon for potential back surgery based on EMG, but neurosurgeon didn't think that was the issue. She has mild back pain in the AM that has only been recently d/t being less mobile. The neurosurgeon at first thought she needed another MRI of brain and had it scheduled, but then when he talked to the neurologist, the plan is now for her to see a different neurologist. Pt seeing a telehealth ND/MD who gave her folic acid steffanie something else but she doesn't feel like it helps. Pt reports R foot flops down sometime. Since getting 4WW , she has fallen 3 times ( oct). Prior to the walker, she was falling every few days and had some days wehre she fell more than once. All falls have resulted only in cuts and bruises Prior Treatments and Tests Lumbar MRI: IMPRESSION: 1. Multilevel lumbar spondylosis, causing foraminal stenosis as detailed above. 2. Severe central canal stenosis at L3-4 and L4-5. 3. No abnormal cord signal. 4. Remote compression fractures of T11 and T12. Cervical MRI:IMPRESSION: 1. Multilevel degenerative disc and facet disease, as well as uncovertebral hypertrophy. 2. Multilevel canal stenoses, worst at C5-C6 where there is minimal cord flattening. 3. Multilevel foraminal stenoses, worst at C5-C6 and C6-C7 where there is associated intraforaminal nerve root compression. Recommend correlation with clinical symptoms to ascertain relevance of these findings. IMPRESSION: BRAIN MRI: 1. No acute intracranial disease process. 2. No areas of acute or chronic infarction. 3. [id number] diffuse cerebral volume loss. 4. Mild periventricular and subcortical white matter chronic microvascular ischemic change. BRAIN MR ANGIOGRAM: Normal MR angiogram of the head. NECK MR ANGIOGRAM: 1. Less than 50% stenosis of the origin of the left internal carotid artery. 2. Right internal carotid artery is fully patent. 3. Vertebral arteries are fully patent. ADDENDUM: This case was reviewed at the request of Dr. Gonzalez and discussed by telephone at 11: 04 a.m. [place] time on October 14, 2021. This patient is brain parenchymal volume loss and chronic small vessel ischemic change. There is prominence of the ventricles and sulci, with the lateral ventricles larger than would be expected, given the degree of sulcal atrophy. Please consider normal pressure hydrocephalus. IMPRESSION: 1. Chronic mild wedging of the T9 vertebral body unchanged from prior examination which may be physiologic. 2. Multilevel disc degeneration. disc degeneration. Treatment Goals Patient/Caregiver Goals be able to get back to working outa nd walking PT-OP-C Subjective Start: 02/04/22 18:00 Freq: Status: Active Protocol: Document 10/12/22 12:47 [facility] (Rec: 10/12/22 13:34 [facility] [id number]) OP-PT Subjective Patient Comments Patient Comments pt reports compliance w/new exercises PT-OP-D Balance Start: 02/04/22 18:00 Freq: Status: Active Protocol: Document 06/18/22 11:22 [facility] (Rec: 06/18/22 12:32 [facility] [id number]) Balance Tests Iglesias Balance Test Iglesias Balance Test Score 29 PT-OP-E Functional Tests Start: 02/04/22 18:00 Freq: Status: Active Protocol: Document 07/23/22 12:01 SP (Rec: 07/23/22 14:14 SP [id number]) Functional Tests 6 Minute Walk Test Distance 110 ft Device Used FWW Comments scuffing R>LLE but improved hip/knee flexion for clearance today 07/23 PT-OP-F Manual Assessment Start: 02/04/22 18:00 Freq: Status: Active Protocol: Document 02/09/22 11:20 [facility] (Rec: 02/09/22 15:02 [facility] [id number]) Manual Assessments Soft Tissue Assessment Soft Tissue Mobility Assessment tight calves w/limited passive DF PT-OP-G Mobility & Gait Start: 02/04/22 18:00 Freq: Status: Active Protocol: Document 02/09/22 11:20 [facility] (Rec: 02/09/22 15:02 [facility] [id number]) OP Mobility Evaluation Bed Mobility Rolling can roll B indep w/lower body following upper body Supine to and from Sit required min A for both supine <>sit Transfers Sit to Stand heavy use of UEs -pt reports sometimes needs to help OP Gait Assessment Comments Gait Comments Dec foot clearance B with heavy use of 4WW and dec DF R> L and dec hip flex PT-OP-M Strength Start: 02/04/22 18:00 Freq: Status: Active Protocol: Document 06/18/22 11:22 [facility] (Rec: 06/18/22 12:32 [facility] [id number]) Hip Strength Hip Manual Muscle Testing Right Flexion (L2) 3 Fair Abduction 2+ Poor+ External Rotation 3 Fair Internal Rotation 3+ Fair+ Left Flexion (L2) 3 Fair Abduction 2+ Poor+ External Rotation 4- Good- Internal Rotation 3- Fair- Knee Strength Knee Manual Muscle Testing Right Flexion (S2) 4 Good Extension (L3) 4- Good- Left Flexion (S2) 4 Good Extension (L3) 4- Good- Ankle/Foot Strength Ankle and Foot Manual Muscle Testing Right Dorsiflexion (L4) 3+ Fair+ Plantarflexion (S1) 4- Good- Left Dorsiflexion (L4) 3+ Fair+ Plantarflexion (S1) 4- Good- Comments PF tested seated B PT-OP-Q Treatments Start: 02/04/22 18:00 Freq: Status: Active Protocol: Document 10/12/22 12:47 [facility] (Rec: 10/12/22 13:34 [facility] [id number]) Therapeutic Exercises Sitting Exercises hip add Side bilateral Equipment Used ball Reps/Minutes 5 sec x15 arm ex Sitting Exercise Name 1. ER AROM 2. FF AAROM 3. resisted rows TB #1, sit eochair Resistance TB #1 Reps/Minutes x10 reps Comments 1. rows slow pac 2. bal front chair during rows maintaining balance cues Standing Exercises side step Side bilateral Resistance AROM Equipment Used //bars Reps/Minutes 10 ft x1 lap Comments cues for step length and posture Therapeutic Activity Therapeutic Activity sit<> stand Comments 5x throguhout session w/mod A Neuro Re-Education Treatment Balance Activities fwd/back Comments fwd april x10ft w/b rails; about 3ft backwards w/B rails balance Comments 1. firm WBOS w/EC 2. NBOS trials head turns Comments WBOS w/head turns PT-OP-T Assessment and Plan Start: 02/04/22 18:00 Freq: Status: Active Protocol: Document 10/12/22 12:47 [facility] (Rec: 10/12/22 13:34 [facility] [id number]) Physical Therapy Assessment Goals maintain Intermediate Goal (LTG) Pt will cont compliance w/HEP and PT in order to slow decline of progressive diagnosis (ALS). LTG Duration 01/04/23 6 min walk Impairment 179ft 05/12 w/FWW Intermediate Goal (LTG) Pt will be able to walk at least 350ft in 6 min to show more functional gait speed 06/18-139ft 07/23/22: regression 110ft w/ FWW, improved foot clearance compared to last 2 tx needing TB DF support . 08/24/22: 93ft in 6 min (R AFO donned) w/ FWW, increased effort for hip/knee flexion to advance each LE, continues challenge LE clearance. LTG Duration DC functional activities Short Term Goal (STG) Pt will maintain need for no more than min A for bed mobltiy 10/07/22: Max A for trunk and BLEs support on/off shuttle recovery. DId requires same assist bed mobility recent tx. STG Duration DC goal pt needing max A for bed mobility Intermediate Goal (LTG) Pt will maintain mostly indepenence of sit to stands w /only occ need for min A 08/24/22: pt requires CG- Min A during STS from 20 chair and shuttle recovery with cues wt shift forward and slow descent due to decrease strength eccentric sit, improved reaching back prior sit and push to stand needs extra support. 10/07/22: requires Max A x1 and Mod A x1 for initial STS from w/c and end tx mesh chair, Mod A from elevated shuttle recovery with cues scoot fwd, feet back hip hinge press through BUEs. 10/12-mod A LTG Duration 01/24 strength Short Term Goal (STG) Pt will be indep w/HEP 02/27/22: added theraputty, wall plank, reviewed seated resisted hip abd, HC, STS, mini squat 03/09/22: reviewed TA bridge ( added 1/2 foam roll under forefoot), SLR 08/24/22: reviewed HEP: LAQ target (FWW flowered cummings pocket seam to kick to), standing april in //bar ( counter at home) fairly heavy UEs bar. 10/07/22: added LUE HEP: aROM shld ER, resisted rows and AAROM FF via RUE and outside added support. STG Duration REgression: requires added support to perform 10/07/22 Intermediate Goal (LTG) Pt will score at least 4/5 on MMT to show improved LE strength improvign pt ability to do ADLs 05/12-improved 06/18-no change LTG Duration discontinue gait Intermediate Goal (LTG) Pt will be able to cont to amb w/FWW indep int he home 08/24/22: pt states has someone nearby for safety. 10/07/22: CG/ MIn A gait with FWW decreased R>L foot clearance with B AFOs donned, Max A x1/Mod A x2nd person during STS from w/c. 10/12-CGA to in A LTG Duration 01/24/23 Assessment Summary Assessment Pt would benefit from cont PT to dec speed of progression of ALS causing weakness. She has had further progression of her weakness and is working w/ neurologist w/getting set up w /electric w/c. She would benefit from PT to cont to allow pt to remain more mobile as disease cont to progress w /weakness inc. Physical Therapy Plan Frequency and Duration Frequency of Treatment 1x/Week Duration of treatment (weeks) 12 Plan of Care Start Date 10/12/22 Plan of Care End Date 01/04/23 Next Visit Focus/Plan Next Note Type Treatment Note Next Visit Plan Pt benefits from continued PT for LE strengthening and mobility activities for LE foot clearance to decrease pace of progression dec mobility d/t ALS. POC:working on maintaining balance, gait and bed mobility /transfers
--- NOTE | 2022-10-12 13:34 | PT.OPPOC ---
Physical, Occupational & Speech Therapy At [facility] Current Diagnoses Muscle weakness (generalized) (10/12/22) Difficulty in walking, not elsewhere classified (10/12/22) Visit Care Team Role Provider Type Dewayne Ledezma MD Attending Provider Physician Family Provider Primary Care Provider Referring Provider Specialty: Family Practice Address: [address] [place] [address], [place], [place], [facility] Email: [email or web address] Plan Of Care PT-OP-T Assessment and Plan Start: 02/04/22 18:00 Freq: Status: Active Protocol: Document 10/12/22 12:47 [facility] (Rec: 10/12/22 13:34 [facility] [id number]) Physical Therapy Assessment Goals maintain Prison Goal (LTG) Pt will cont compliance w/HEP and PT in order to slow decline of progressive diagnosis (ALS). LTG Duration 01/04/23 6 min walk Impairment 179ft 05/12 w/FWW Botany Professor Goal (LTG) Pt will be able to walk at least 350ft in 6 min to show more functional gait speed 06/18-139ft 07/23/22: regression 110ft w/ FWW, improved foot clearance compared to last 2 tx needing TB DF support . 08/24/22: 93ft in 6 min (R AFO donned) w/ FWW, increased effort for hip/knee flexion to advance each LE, continues challenge LE clearance. LTG Duration DC functional activities Short Term Goal (STG) Pt will maintain need for no more than min A for bed mobltiy 10/07/22: Max A for trunk and BLEs support on/off shuttle recovery. DId requires same assist bed mobility recent tx. STG Duration DC goal pt needing max A for bed mobility Prison Goal (LTG) Pt will maintain mostly indepenence of sit to stands w /only occ need for min A 08/24/22: pt requires CG- Min A during STS from 20 chair and shuttle recovery with cues wt shift forward and slow descent due to decrease strength eccentric sit, improved reaching back prior sit and push to stand needs extra support. 10/07/22: requires Max A x1 and Mod A x1 for initial STS from w/c and end tx mesh chair, Mod A from elevated shuttle recovery with cues scoot fwd, feet back hip hinge press through BUEs. 10/12-mod A LTG Duration 01/24 strength Short Term Goal (STG) Pt will be indep w/HEP 02/27/22: added theraputty, wall plank, reviewed seated resisted hip abd, HC, STS, mini squat 03/09/22: reviewed TA bridge ( added 1/2 foam roll under forefoot), SLR 08/24/22: reviewed HEP: LAQ target (FWW flowered cummings pocket seam to kick to), standing april in //bar ( counter at home) fairly heavy UEs bar. 10/07/22: added LUE HEP: aROM shld ER, resisted rows and AAROM FF via RUE and outside added support. STG Duration REgression: requires added support to perform 10/07/22 Botany Professor Goal (LTG) Pt will score at least 4/5 on MMT to show improved LE strength improvign pt ability to do ADLs 05/12-improved 06/18-no change LTG Duration discontinue gait Botany Professor Goal (LTG) Pt will be able to cont to amb w/FWW indep int he home 08/24/22: pt states has someone nearby for safety. 10/07/22: CG/ MIn A gait with FWW decreased R>L foot clearance with B AFOs donned, Max A x1/Mod A x2nd person during STS from w/c. 10/12-CGA to in A LTG Duration 01/24/23 Assessment Summary Assessment Pt would benefit from cont PT to dec speed of progression of ALS causing weakness. She has had further progression of her weakness and is working w/ neurologist w/getting set up w /electric w/c. She would benefit from PT to cont to allow pt to remain more mobile as disease cont to progress w /weakness inc. Physical Therapy Plan Frequency and Duration Frequency of Treatment 1x/Week Duration of treatment (weeks) 12 Plan of Care Start Date 10/12/22 Plan of Care End Date 01/04/23 Next Visit Focus/Plan Next Note Type Treatment Note Next Visit Plan Pt benefits from continued PT for LE strengthening and mobility activities for LE foot clearance to decrease pace of progression dec mobility d/t ALS. POC:working on maintaining balance, gait and bed mobility /transfers Plan of Care Dates Plan of Care Start Date 10/12/22 Plan of Care End Date 01/04/23 Electronically Signed by: Leni Russell, PT 10/12/22 [id number] If you are in agreement with this Plan of Care, please return a signed and dated copy. I have reviewed this Plan of Care and certify that the skilled therapy services above are required to meet the patient?s needs. Physician Signature Date Printed Name and Credentials Clinical Instructor Signature Printed Name and Credentials
--- NOTE | 2022-10-21 11:30 | PT.OTN ---
Current Diagnoses Muscle weakness (generalized) (10/21/22) Difficulty in walking, not elsewhere classified (10/21/22) Physical Therapy Treatment Note PT-OP-A Visit Information Start: 02/04/22 18:00 Freq: Status: Active Protocol: Document 10/21/22 10:48 SP (Rec: 10/21/22 11:40 SP [id number]) Out-Patient Physical Therapy Visit Information Visit Information Visit Type Treatment Note Visit Note 04/10 Visit Start Time 10:48 Visit Stop Time 11:30 Total Visit Minutes 42 Visit Number 46 Number of METALLURGICAL ANALYST Visits 1 PT-OP-B Current Condition Start: 02/04/22 18:00 Freq: Status: Active Protocol: Document 02/09/22 11:20 [facility] (Rec: 02/09/22 15:02 [facility] [id number]) Current Condition History of Current Condition Onset Date Jan Current Complaints weakness in entire body, falls History of Current Condition Pt is frustrated because she used to be able to go to high intensity classes and walk 3-5 miles a day but stopped in Mar d/t falls. She has seen 2 neurologists, 1 neurosurgeon and feels like she is really progressively worse. She is really hating not being able to walk daily. She is having trouble getting socks on. Her dexterity is limited also. No one has been able to say what they think it is. Pt has been using a 4WW since Nov and in June started using a cane. she started using devices d/t falls. She is planning to see another neurologist in [place]. She has started going to [employer] class but stopped d/t her balance being too bad. She has all the [employer] equipment including a reformer. Her also recently has dx of cancer. Pt reports she got her first booster in Dec and she wonders if this is what started this. In Jan, she had some falls when she was working on her [employer]. Had Meniscus surgery in August and did PT for a short time and was DC quickly d/t how well she was doing. Dr. Jain sent her to the neurosurgeon for potential back surgery based on EMG, but neurosurgeon didn't think that was the issue. She has mild back pain in the AM that has only been recently d/t being less mobile. The neurosurgeon at first thought she needed another MRI of brain and had it scheduled, but then when he talked to the neurologist, the plan is now for her to see a different neurologist. Pt seeing a telehealth ND/MD who gave her folic acid steffanie something else but she doesn't feel like it helps. Pt reports R foot flops down sometime. Since getting 4WW , she has fallen 3 times ( oct). Prior to the walker, she was falling every few days and had some days wehre she fell more than once. All falls have resulted only in cuts and bruises Prior Treatments and Tests Lumbar MRI: IMPRESSION: 1. Multilevel lumbar spondylosis, causing foraminal stenosis as detailed above. 2. Severe central canal stenosis at L3-4 and L4-5. 3. No abnormal cord signal. 4. Remote compression fractures of T11 and T12. Cervical MRI:IMPRESSION: 1. Multilevel degenerative disc and facet disease, as well as uncovertebral hypertrophy. 2. Multilevel canal stenoses, worst at C5-C6 where there is minimal cord flattening. 3. Multilevel foraminal stenoses, worst at C5-C6 and C6-C7 where there is associated intraforaminal nerve root compression. Recommend correlation with clinical symptoms to ascertain relevance of these findings. IMPRESSION: BRAIN MRI: 1. No acute intracranial disease process. 2. No areas of acute or chronic infarction. 3. Xydl-lm-[id number] diffuse cerebral volume loss. 4. Mild periventricular and subcortical white matter chronic microvascular ischemic change. BRAIN MR ANGIOGRAM: Normal MR angiogram of the head. NECK MR ANGIOGRAM: 1. Less than 50% stenosis of the origin of the left internal carotid artery. 2. Right internal carotid artery is fully patent. 3. Vertebral arteries are fully patent. ADDENDUM: This case was reviewed at the request of Dr. Gonzalez and discussed by telephone at 11: 04 a.m. [place] time on October 14, 2021. This patient is brain parenchymal volume loss and chronic small vessel ischemic change. There is prominence of the ventricles and sulci, with the lateral ventricles larger than would be expected, given the degree of sulcal atrophy. Please consider normal pressure hydrocephalus. IMPRESSION: 1. Chronic mild wedging of the T9 vertebral body unchanged from prior examination which may be physiologic. 2. Multilevel disc degeneration. disc degeneration. Treatment Goals Patient/Caregiver Goals be able to get back to working outa nd walking PT-OP-C Subjective Start: 02/04/22 18:00 Freq: Status: Active Protocol: Document 10/21/22 10:48 SP (Rec: 10/21/22 11:40 SP [id number]) OP-PT Subjective Patient Comments Patient Comments Pt reports not sure if her AFOs really help her with foot clearance. I got a good work out last tx. She states doing her exercises at home. PT-OP-D Balance Start: 02/04/22 18:00 Freq: Status: Active Protocol: Document 06/18/22 11:22 [facility] (Rec: 06/18/22 12:32 [facility] [id number]) Balance Tests Iglesias Balance Test Iglesias Balance Test Score 29 PT-OP-E Functional Tests Start: 02/04/22 18:00 Freq: Status: Active Protocol: Document 07/23/22 12:01 SP (Rec: 07/23/22 14:14 SP [id number]) Functional Tests 6 Minute Walk Test Distance 110 ft Device Used FWW Comments scuffing R>LLE but improved hip/knee flexion for clearance today 07/23 PT-OP-F Manual Assessment Start: 02/04/22 18:00 Freq: Status: Active Protocol: Document 02/09/22 11:20 [facility] (Rec: 02/09/22 15:02 [facility] [id number]) Manual Assessments Soft Tissue Assessment Soft Tissue Mobility Assessment tight calves w/limited passive DF PT-OP-G Mobility & Gait Start: 02/04/22 18:00 Freq: Status: Active Protocol: Document 02/09/22 11:20 [facility] (Rec: 02/09/22 15:02 [facility] [id number]) OP Mobility Evaluation Bed Mobility Rolling can roll B indep w/lower body following upper body Supine to and from Sit required min A for both supine <>sit Transfers Sit to Stand heavy use of UEs -pt reports sometimes needs to help OP Gait Assessment Comments Gait Comments Dec foot clearance B with heavy use of 4WW and dec DF R> L and dec hip flex PT-OP-M Strength Start: 02/04/22 18:00 Freq: Status: Active Protocol: Document 06/18/22 11:22 [facility] (Rec: 06/18/22 12:32 [facility] [id number]) Hip Strength Hip Manual Muscle Testing Right Flexion (L2) 3 Fair Abduction 2+ Poor+ External Rotation 3 Fair Internal Rotation 3+ Fair+ Left Flexion (L2) 3 Fair Abduction 2+ Poor+ External Rotation 4- Good- Internal Rotation 3- Fair- Knee Strength Knee Manual Muscle Testing Right Flexion (S2) 4 Good Extension (L3) 4- Good- Left Flexion (S2) 4 Good Extension (L3) 4- Good- Ankle/Foot Strength Ankle and Foot Manual Muscle Testing Right Dorsiflexion (L4) 3+ Fair+ Plantarflexion (S1) 4- Good- Left Dorsiflexion (L4) 3+ Fair+ Plantarflexion (S1) 4- Good- Comments PF tested seated B PT-OP-Q Treatments Start: 02/04/22 18:00 Freq: Status: Active Protocol: Document 10/21/22 10:48 SP (Rec: 10/21/22 11:40 SP [id number]) Therapeutic Exercises Sitting Exercises hip add Side bilateral Equipment Used ball Reps/Minutes 5 sec x15 arm ex Sitting Exercise Name 1. ER AROM 2. FF AAROM (hands clasped) reach FWW 3. resisted rows TB #1, Resistance TB #1 Equipment Used sit EOMat table (METALLURGICAL ANALYST SBA seated front) Reps/Minutes x10 reps Comments 1. rows slow pac 2. bal front chair during rows maintaining balance cues Standing Exercises side step Side bilateral Resistance AROM Equipment Used //bars Reps/Minutes 10 ft x2 length, need sit rest between length Comments cues for step length and posture Therapeutic Activity Therapeutic Activity sit<> stand Comments 5x throughout session: Max x1/ Min A 2nd person initial from w/c, Max A rest reps, Mod A w/ c + blue foam. Cues reach back for self support slow descent sit (Mod/Max A) PT-OP-T Assessment and Plan Start: 02/04/22 18:00 Freq: Status: Active Protocol: Document 10/21/22 10:48 SP (Rec: 10/21/22 11:40 SP [id number]) Physical Therapy Assessment Goals maintain Wood Web Weaving Machine Operator Goal (LTG) Pt will cont compliance w/HEP and PT in order to slow decline of progressive diagnosis (ALS). LTG Duration 01/04/23 functional activities Short Term Goal (STG) Pt will maintain need for no more than min A for bed mobltiy 10/07/22: Max A for trunk and BLEs support on/off shuttle recovery. DId requires same assist bed mobility recent tx. STG Duration DC goal pt needing max A for bed mobility Longterm Goal (LTG) Pt will maintain mostly indepenence of sit to stands w /only occ need for min A 08/24/22: pt requires CG- Min A during STS from 20 chair and shuttle recovery with cues wt shift forward and slow descent due to decrease strength eccentric sit, improved reaching back prior sit and push to stand needs extra support. 10/07/22: requires Max A x1 and Mod A x1 for initial STS from w/c and end tx mesh chair, Mod A from elevated shuttle recovery with cues scoot fwd, feet back hip hinge press through BUEs. 10/12-mod A LTG Duration 01/24 gait Wood Web Weaving Machine Operator Goal (LTG) Pt will be able to cont to amb w/FWW indep int he home 08/24/22: pt states has someone nearby for safety. 10/07/22: CG/ MIn A gait with FWW decreased R>L foot clearance with B Get donned, Max A x1/Mod A x2nd person during STS from w/c. 10/12-CGA to in A LTG Duration 01/24/23 Assessment Summary Assessment Pt improved trunk self corrections during seated ex unsupported. Max A/Mod x2 initial STS then reduced to Max A x1 from wc as tx progressed. Decreased standing endurance in//bars today, required seated rest each length and time to advance each LE R>L weakness clearance . Cues for upright/ elongated posturing with downward BUE pressure on FWW/ //bars helped with mobility. Pt would benefit continued skilled PT to reduce decline mobility. PT Aide assists with 2nd person when needed. Physical Therapy Plan Frequency and Duration Frequency of Treatment 1x/Week Duration of treatment (weeks) 12 Plan of Care Start Date 10/12/22 Plan of Care End Date 01/04/23 Therapeutic Interventions Therapeutic Interventions Aquatic Therapy,Balance Training,Coordination Training ,Gait Training,Home Exercise Program,Joint Mobilizations, Manual Therapy,Neuromuscular Re-education,Orthotic/ Prosthetic Management,Patient/ Caregiver Education,Self-Care/ Home Management,Soft Tissue Mobilization,Taping, Therapeutic Activities, Therapeutic Exercises Modalities Electric Stimulation Next Visit Focus/Plan Next Note Type Treatment Note Next Visit Plan Pt benefits from continued PT for LE strengthening and mobility activities for LE foot clearance to decrease pace of progression dec mobility d/t ALS. POC:working on maintaining balance, gait and bed mobility /transfers
--- NOTE | 2022-11-05 12:43 | PT.OTN ---
Current Diagnoses Muscle weakness (generalized) (11/05/22) Difficulty in walking, not elsewhere classified (11/05/22) Physical Therapy Treatment Note PT-OP-A Visit Information Start: 02/04/22 18:00 Freq: Status: Active Protocol: Document 11/05/22 12:00 SP (Rec: 11/05/22 12:46 SP [id number]) Out-Patient Physical Therapy Visit Information Visit Information Visit Type Treatment Note Visit Note 05/08 Visit Start Time 12:00 Visit Stop Time 12:43 Total Visit Minutes 43 Visit Number 47 Number of DEPUTY CONTROLLER Visits 2 PT-OP-B Current Condition Start: 02/04/22 18:00 Freq: Status: Active Protocol: Document 02/09/22 11:20 [facility] (Rec: 02/09/22 15:02 [facility] [id number]) Current Condition History of Current Condition Onset Date Jan Current Complaints weakness in entire body, falls History of Current Condition Pt is frustrated because she used to be able to go to high intensity classes and walk 3-5 miles a day but stopped in Mar d/t falls. She has seen 2 neurologists, 1 neurosurgeon and feels like she is really progressively worse. She is really hating not being able to walk daily. She is having trouble getting socks on. Her dexterity is limited also. No one has been able to say what they think it is. Pt has been using a 4WW since Nov and in June started using a cane. she started using devices d/t falls. She is planning to see another neurologist in [place]. She has started going to [employer] class but stopped d/t her balance being too bad. She has all the [employer] equipment including a reformer. Her also recently has dx of cancer. Pt reports she got her first booster in Dec and she wonders if this is what started this. In Jan, she had some falls when she was working on her [employer] and [employer]. Had Meniscus surgery in August and did PT for a short time and was DC quickly d/t how well she was doing. Dr. Jain sent her to the neurosurgeon for potential back surgery based on EMG, but neurosurgeon didn't think that was the issue. She has mild back pain in the AM that has only been recently d/t being less mobile. The neurosurgeon at first thought she needed another MRI of brain and had it scheduled, but then when he talked to the neurologist, the plan is now for her to see a different neurologist. Pt seeing a telehealth ND/MD who gave her folic acid steffanie something else but she doesn't feel like it helps. Pt reports R foot flops down sometime. Since getting 4WW , she has fallen 3 times ( oct). Prior to the walker, she was falling every few days and had some days wehre she fell more than once. All falls have resulted only in cuts and bruises Prior Treatments and Tests Lumbar MRI: IMPRESSION: 1. Multilevel lumbar spondylosis, causing foraminal stenosis as detailed above. 2. Severe central canal stenosis at L3-4 and L4-5. 3. No abnormal cord signal. 4. Remote compression fractures of T11 and T12. Cervical MRI:IMPRESSION: 1. Multilevel degenerative disc and facet disease, as well as uncovertebral hypertrophy. 2. Multilevel canal stenoses, worst at C5-C6 where there is minimal cord flattening. 3. Multilevel foraminal stenoses, worst at C5-C6 and C6-C7 where there is associated intraforaminal nerve root compression. Recommend correlation with clinical symptoms to ascertain relevance of these findings. IMPRESSION: BRAIN MRI: 1. No acute intracranial disease process. 2. No areas of acute or chronic infarction. 3. Ginx-tg-rshccrwk diffuse cerebral volume loss. 4. Mild periventricular and subcortical white matter chronic microvascular ischemic change. BRAIN MR ANGIOGRAM: Normal MR angiogram of the head. NECK MR ANGIOGRAM: 1. Less than 50% stenosis of the origin of the left internal carotid artery. 2. Right internal carotid artery is fully patent. 3. Vertebral arteries are fully patent. ADDENDUM: This case was reviewed at the request of Dr. Gonzalez and discussed by telephone at 11: 04 a.m. [place] time on October 14, 2021. This patient is brain parenchymal volume loss and chronic small vessel ischemic change. There is prominence of the ventricles and sulci, with the lateral ventricles larger than would be expected, given the degree of sulcal atrophy. Please consider normal pressure hydrocephalus. IMPRESSION: 1. Chronic mild wedging of the T9 vertebral body unchanged from prior examination which may be physiologic. 2. Multilevel disc degeneration. disc degeneration. Treatment Goals Patient/Caregiver Goals be able to get back to working outa nd walking PT-OP-C Subjective Start: 02/04/22 18:00 Freq: Status: Active Protocol: Document 11/05/22 12:00 SP (Rec: 11/05/22 12:46 SP [id number]) OP-PT Subjective Patient Comments Patient Comments Pt reports caregiver is helping her perform BLE & BUE with A-AAROM at home. PT-OP-D Balance Start: 02/04/22 18:00 Freq: Status: Active Protocol: Document 06/18/22 11:22 [facility] (Rec: 06/18/22 12:32 [facility] [id number]) Balance Tests Iglesias Balance Test Iglesias Balance Test Score 29 PT-OP-E Functional Tests Start: 02/04/22 18:00 Freq: Status: Active Protocol: Document 07/23/22 12:01 SP (Rec: 07/23/22 14:14 SP [id number]) Functional Tests 6 Minute Walk Test Distance 110 ft Device Used FWW Comments scuffing R>LLE but improved hip/knee flexion for clearance today 07/23 PT-OP-F Manual Assessment Start: 02/04/22 18:00 Freq: Status: Active Protocol: Document 02/09/22 11:20 [facility] (Rec: 02/09/22 15:02 [facility] [id number]) Manual Assessments Soft Tissue Assessment Soft Tissue Mobility Assessment tight calves w/limited passive DF PT-OP-G Mobility & Gait Start: 02/04/22 18:00 Freq: Status: Active Protocol: Document 02/09/22 11:20 [facility] (Rec: 02/09/22 15:02 [facility] [id number]) OP Mobility Evaluation Bed Mobility Rolling can roll B indep w/lower body following upper body Supine to and from Sit required min A for both supine <>sit Transfers Sit to Stand heavy use of UEs -pt reports sometimes needs to help OP Gait Assessment Comments Gait Comments Dec foot clearance B with heavy use of 4WW and dec DF R> L and dec hip flex PT-OP-M Strength Start: 02/04/22 18:00 Freq: Status: Active Protocol: Document 06/18/22 11:22 [facility] (Rec: 06/18/22 12:32 [facility] [id number]) Hip Strength Hip Manual Muscle Testing Right Flexion (L2) 3 Fair Abduction 2+ Poor+ External Rotation 3 Fair Internal Rotation 3+ Fair+ Left Flexion (L2) 3 Fair Abduction 2+ Poor+ External Rotation 4- Good- Internal Rotation 3- Fair- Knee Strength Knee Manual Muscle Testing Right Flexion (S2) 4 Good Extension (L3) 4- Good- Left Flexion (S2) 4 Good Extension (L3) 4- Good- Ankle/Foot Strength Ankle and Foot Manual Muscle Testing Right Dorsiflexion (L4) 3+ Fair+ Plantarflexion (S1) 4- Good- Left Dorsiflexion (L4) 3+ Fair+ Plantarflexion (S1) 4- Good- Comments PF tested seated B PT-OP-Q Treatments Start: 02/04/22 18:00 Freq: Status: Active Protocol: Document 11/05/22 12:00 SP (Rec: 11/05/22 12:46 SP [id number]) Gym Equipment Shuttle Recovery Unilateral Squats Details requires support LE repositioning, cued eccentric control Resistance 25# (old>new band) Reps/Time 12 reps each LE Bilateral Squats Details requires support LE repositioning, cued eccentric control Resistance 50# (old>new bands) Shuttle Recovery Platform Stable Reps/Time x10 Therapeutic Exercises Sitting Exercises hip add Side bilateral Equipment Used ball Reps/Minutes 5 sec x15 Comments cued sit upright, UEs on front knees or 1 UE on 1 //bar LAQ Sitting Exercise Name inPT Side bilateral Resistance ROM Reps/Minutes x10 reps Comments target therapist hand. sit<> stand Sitting Exercise Name to/from w/c, biodex. Resistance FWW Equipment Used Mod/ Max A Reps/Minutes x5 Comments Heavy Max A from w/c, Mod A from biodex to FWW Gait Training Gait Activity FWW Description fwd w/ FWW, side step in// bars Device Used FWW Level of Assistance CGA, w/c follow Surface carpet Distance/Duration 43ft biodex to //bars end // bars back w/c end Treatment Focus upright posture, hip flexion ft clearance, activity tolerance Comments decreased RLE foot clearance, improved post shuttle recovery . PT-OP-T Assessment and Plan Start: 02/04/22 18:00 Freq: Status: Active Protocol: Document 11/05/22 12:00 SP (Rec: 11/05/22 12:46 SP [id number]) Physical Therapy Assessment Goals maintain Septic Cleaner Goal (LTG) Pt will cont compliance w/HEP and PT in order to slow decline of progressive diagnosis (ALS). LTG Duration 01/04/23 functional activities Short Term Goal (STG) Pt will maintain need for no more than min A for bed mobltiy 10/07/22: Max A for trunk and BLEs support on/off shuttle recovery. DId requires same assist bed mobility recent tx. STG Duration DC goal pt needing max A for bed mobility Septic Cleaner Goal (LTG) Pt will maintain mostly indepenence of sit to stands w /only occ need for min A 08/24/22: pt requires CG- Min A during STS from 20 chair and shuttle recovery with cues wt shift forward and slow descent due to decrease strength eccentric sit, improved reaching back prior sit and push to stand needs extra support. 10/07/22: requires Max A x1 and Mod A x1 for initial STS from w/c and end tx mesh chair, Mod A from elevated shuttle recovery with cues scoot fwd, feet back hip hinge press through BUEs. 10/12-mod A LTG Duration 01/24 gait Septic Cleaner Goal (LTG) Pt will be able to cont to amb w/FWW indep int he home 08/24/22: pt states has someone nearby for safety. 10/07/22: CG/ MIn A gait with FWW decreased R>L foot clearance with B SENAOs [place], Max A x1/Mod A x2nd person during STS from w/c. 10/12-CGA to in A LTG Duration 01/24/23 Assessment Summary Assessment Pt was able to increase resistance on shuttle recovery leg press and increased distance 33 ft gait with FWW then immediately side stepping 1 laps in //bars with brief stop stand rests to give UEs relief from heavy UE WB on FWW & //bars but did not need to sit. She does take time to advance BLEs, more challenged clearance side and back stepping then forward. She initially was heavy Max A x1 intially coming to stand from w/c then Mod/Max A from elevated biodex. She was determined today to perform as much standing activity could tolerate today as does at home to keep strength has. She was challenged with unsupportive sitting balance during LE exercises, required 1 UE support on //bar or therapist support on gait belt. She would benefit from continued skilled therapy to decreased progressive decline in mobility. Physical Therapy Plan Frequency and Duration Frequency of Treatment 1x/Week Duration of treatment (weeks) 12 Plan of Care Start Date 10/12/22 Plan of Care End Date 01/04/23 Therapeutic Interventions Therapeutic Interventions Aquatic Therapy,Balance Training,Coordination Training ,Gait Training,Home Exercise Program,Joint Mobilizations, Manual Therapy,Neuromuscular Re-education,Orthotic/ Prosthetic Management,Patient/ Caregiver Education,Self-Care/ Home Management,Soft Tissue Mobilization,Taping, Therapeutic Activities, Therapeutic Exercises Modalities Electric Stimulation Next Visit Focus/Plan Next Note Type Treatment Note Next Visit Plan Pt benefits from continued PT for LE strengthening and mobility activities for LE foot clearance to decrease pace of progression dec mobility d/t ALS. POC:working on maintaining balance, gait and bed mobility /transfers
--- NOTE | 2022-11-12 12:28 | PT.OTN ---
Current Diagnoses Muscle weakness (generalized) (11/12/22) Difficulty in walking, not elsewhere classified (11/12/22) Physical Therapy Treatment Note PT-OP-A Visit Information Start: 02/04/22 18:00 Freq: Status: Active Protocol: Document 11/12/22 12:02 [facility] (Rec: 11/12/22 12:28 [facility] [id number]) Out-Patient Physical Therapy Visit Information Visit Information Visit Note 06/08 Visit Start Time 11:38 Visit Stop Time 12:18 Total Visit Minutes 40 Visit Number 48 Number of OPTIMIZATION CONSULTANT Visits 0 PT-OP-B Current Condition Start: 02/04/22 18:00 Freq: Status: Active Protocol: Document 02/09/22 11:20 [facility] (Rec: 02/09/22 15:02 [facility] [id number]) Current Condition History of Current Condition Onset Date Jan Current Complaints weakness in entire body, falls History of Current Condition Pt is frustrated because she used to be able to go to high intensity classes and walk 3-5 miles a day but stopped in Mar d/t falls. She has seen 2 neurologists, 1 neurosurgeon and feels like she is really progressively worse. She is really hating not being able to walk daily. She is having trouble getting socks on. Her dexterity is limited also. No one has been able to say what they think it is. Pt has been using a 4WW since Nov and in June started using a cane. she started using devices d/t falls. She is planning to see another neurologist in [place]. She has started going to [employer] class but stopped d/t her balance being too bad. She has all the [employer] equipment including a reformer. Her also recently has dx of cancer. Pt reports she got her first booster in Dec and she wonders if this is what started this. In Jan, she had some falls when she was working on her [employer] and [employer]. Had Meniscus surgery in August and did PT for a short time and was DC quickly d/t how well she was doing. Dr. Jain sent her to the neurosurgeon for potential back surgery based on EMG, but neurosurgeon didn't think that was the issue. She has mild back pain in the AM that has only been recently d/t being less mobile. The neurosurgeon at first thought she needed another MRI of brain and had it scheduled, but then when he talked to the neurologist, the plan is now for her to see a different neurologist. Pt seeing a telehealth ND/MD who gave her folic acid steffanie something else but she doesn't feel like it helps. Pt reports R foot flops down sometime. Since getting 4WW , she has fallen 3 times ( oct). Prior to the walker, she was falling every few days and had some days wehre she fell more than once. All falls have resulted only in cuts and bruises Prior Treatments and Tests Lumbar MRI: IMPRESSION: 1. Multilevel lumbar spondylosis, causing foraminal stenosis as detailed above. 2. Severe central canal stenosis at L3-4 and L4-5. 3. No abnormal cord signal. 4. Remote compression fractures of T11 and T12. Cervical MRI:IMPRESSION: 1. Multilevel degenerative disc and facet disease, as well as uncovertebral hypertrophy. 2. Multilevel canal stenoses, worst at C5-C6 where there is minimal cord flattening. 3. Multilevel foraminal stenoses, worst at C5-C6 and C6-C7 where there is associated intraforaminal nerve root compression. Recommend correlation with clinical symptoms to ascertain relevance of these findings. IMPRESSION: BRAIN MRI: 1. No acute intracranial disease process. 2. No areas of acute or chronic infarction. 3. Axjt-zo-vaehhhzy diffuse cerebral volume loss. 4. Mild periventricular and subcortical white matter chronic microvascular ischemic change. BRAIN MR ANGIOGRAM: Normal MR angiogram of the head. NECK MR ANGIOGRAM: 1. Less than 50% stenosis of the origin of the left internal carotid artery. 2. Right internal carotid artery is fully patent. 3. Vertebral arteries are fully patent. ADDENDUM: This case was reviewed at the request of Dr. Gonzalez and discussed by telephone at 11: 04 a.m. [place] time on October 14, 2021. This patient is brain parenchymal volume loss and chronic small vessel ischemic change. There is prominence of the ventricles and sulci, with the lateral ventricles larger than would be expected, given the degree of sulcal atrophy. Please consider normal pressure hydrocephalus. IMPRESSION: 1. Chronic mild wedging of the T9 vertebral body unchanged from prior examination which may be physiologic. 2. Multilevel disc degeneration. disc degeneration. Treatment Goals Patient/Caregiver Goals be able to get back to working outa nd walking PT-OP-C Subjective Start: 02/04/22 18:00 Freq: Status: Active Protocol: Document 11/12/22 12:02 [facility] (Rec: 11/12/22 12:28 [facility] [id number]) OP-PT Subjective Patient Comments Patient Comments Pt reports cont to do home exercises in bed and romelia rand on pilates machine. PT-OP-D Balance Start: 02/04/22 18:00 Freq: Status: Active Protocol: Document 06/18/22 11:22 [facility] (Rec: 06/18/22 12:32 [facility] [id number]) Balance Tests Iglesias Balance Test Iglesias Balance Test Score 29 PT-OP-E Functional Tests Start: 02/04/22 18:00 Freq: Status: Active Protocol: Document 07/23/22 12:01 SP (Rec: 07/23/22 14:14 SP [id number]) Functional Tests 6 Minute Walk Test Distance 110 ft Device Used FWW Comments scuffing R>LLE but improved hip/knee flexion for clearance today 07/23 PT-OP-F Manual Assessment Start: 02/04/22 18:00 Freq: Status: Active Protocol: Document 02/09/22 11:20 [facility] (Rec: 02/09/22 15:02 [facility] [id number]) Manual Assessments Soft Tissue Assessment Soft Tissue Mobility Assessment tight calves w/limited passive DF PT-OP-G Mobility & Gait Start: 02/04/22 18:00 Freq: Status: Active Protocol: Document 02/09/22 11:20 [facility] (Rec: 02/09/22 15:02 [facility] [id number]) OP Mobility Evaluation Bed Mobility Rolling can roll B indep w/lower body following upper body Supine to and from Sit required min A for both supine <>sit Transfers Sit to Stand heavy use of UEs -pt reports sometimes needs to help OP Gait Assessment Comments Gait Comments Dec foot clearance B with heavy use of 4WW and dec DF R> L and dec hip flex PT-OP-M Strength Start: 02/04/22 18:00 Freq: Status: Active Protocol: Document 06/18/22 11:22 [facility] (Rec: 06/18/22 12:32 [facility] [id number]) Hip Strength Hip Manual Muscle Testing Right Flexion (L2) 3 Fair Abduction 2+ Poor+ External Rotation 3 Fair Internal Rotation 3+ Fair+ Left Flexion (L2) 3 Fair Abduction 2+ Poor+ External Rotation 4- Good- Internal Rotation 3- Fair- Knee Strength Knee Manual Muscle Testing Right Flexion (S2) 4 Good Extension (L3) 4- Good- Left Flexion (S2) 4 Good Extension (L3) 4- Good- Ankle/Foot Strength Ankle and Foot Manual Muscle Testing Right Dorsiflexion (L4) 3+ Fair+ Plantarflexion (S1) 4- Good- Left Dorsiflexion (L4) 3+ Fair+ Plantarflexion (S1) 4- Good- Comments PF tested seated B PT-OP-Q Treatments Start: 02/04/22 18:00 Freq: Status: Active Protocol: Document 11/12/22 12:02 [facility] (Rec: 11/12/22 12:28 [facility] [id number]) Gym Equipment Shuttle Recovery Unilateral Squats Details requires support LE repositioning, cued eccentric control Resistance 25# (old band) Reps/Time 10 reps each LE Bilateral Squats Details requires support LE repositioning, cued eccentric control Resistance 50# (oldbands) Shuttle Recovery Platform Stable Reps/Time x10 Therapeutic Exercises Sitting Exercises knee ext Sitting Exercise Name DL in WC when pt moved pt Side bilateral Reps/Minutes 50ft x2;10 ft Standing Exercises side step Standing Exercise Name occ assist w/LE Side bilateral Resistance AROM Equipment Used //bars Reps/Minutes 10 ft ea Comments cues for step length and posture march Standing Exercise Name tap fwd then back under her Side bilateral Reps/Minutes 10 ea Comments // B HH Therapeutic Activity Therapeutic Activity sit<> stand Comments 3x during session sit to satand w/mod A w/cues for wt shift fwd and to get buttocks under at end 2. transfer to/from shuttle leg press mod A w/max cues for wt shift and posture w/max A for supine<>sit PT-OP-T Assessment and Plan Start: 02/04/22 18:00 Freq: Status: Active Protocol: Document 11/12/22 12:02 [facility] (Rec: 11/12/22 12:28 [facility] [id number]) Physical Therapy Assessment Goals maintain Mcfp Goal (LTG) Pt will cont compliance w/HEP and PT in order to slow decline of progressive diagnosis (ALS). LTG Duration 01/04/23 functional activities Short Term Goal (STG) Pt will maintain need for no more than min A for bed mobltiy 10/07/22: Max A for trunk and BLEs support on/off shuttle recovery. DId requires same assist bed mobility recent tx. STG Duration DC goal pt needing max A for bed mobility Mcfp Goal (LTG) Pt will maintain mostly indepenence of sit to stands w /only occ need for min A 08/24/22: pt requires CG- Min A during STS from 20 chair and shuttle recovery with cues wt shift forward and slow descent due to decrease strength eccentric sit, improved reaching back prior sit and push to stand needs extra support. 10/07/22: requires Max A x1 and Mod A x1 for initial STS from w/c and end tx mesh chair, Mod A from elevated shuttle recovery with cues scoot fwd, feet back hip hinge press through BUEs. 10/12-mod A LTG Duration 01/24 gait Sewing Inspector Goal (LTG) Pt will be able to cont to amb w/FWW indep int he home 08/24/22: pt states has someone nearby for safety. 10/07/22: CG/ MIn A gait with FWW decreased R>L foot clearance with B AFOs donned, Max A x1/Mod A x2nd person during STS from w/c. 10/12-CGA to in A LTG Duration 01/24/23 Assessment Summary Assessment Pt cont to struggle w/ transfers and sequencing of LEs and apperas to be having further decline based on process of ALS. She is encourage dto call to follow up re: the w/c measurements she had already. All sequencing of LEs take much more time now and pt fatigues quickly. Physical Therapy Plan Frequency and Duration Frequency of Treatment 1x/Week Duration of treatment (weeks) 12 Plan of Care Start Date 10/12/22 Plan of Care End Date 01/04/23 Therapeutic Interventions Therapeutic Interventions Aquatic Therapy,Balance Training,Coordination Training ,Gait Training,Home Exercise Program,Joint Mobilizations, Manual Therapy,Neuromuscular Re-education,Orthotic/ Prosthetic Management,Patient/ Caregiver Education,Self-Care/ Home Management,Soft Tissue Mobilization,Taping, Therapeutic Activities, Therapeutic Exercises Modalities Electric Stimulation Next Visit Focus/Plan Next Note Type Treatment Note Next Visit Plan Pt benefits from continued PT for LE strengthening and mobility activities for LE foot clearance to decrease pace of progression dec mobility d/t ALS. POC:working on maintaining balance, gait and bed mobility /transfers
--- NOTE | 2022-11-18 11:35 | PT.OTN ---
Current Diagnoses Muscle weakness (generalized) (11/18/22) Difficulty in walking, not elsewhere classified (11/18/22) Physical Therapy Treatment Note PT-OP-A Visit Information Start: 02/04/22 18:00 Freq: Status: Active Protocol: Document 11/18/22 10:58 SP (Rec: 11/18/22 11:41 SP [id number]) Out-Patient Physical Therapy Visit Information Visit Information Visit Type Treatment Note Visit Note 07/08 Visit Start Time 10:48 Visit Stop Time 11:35 Total Visit Minutes 47 Visit Number 49 Number of [employer]AINABLE DES[employer] Visits 1 PT-OP-B Current Condition Start: 02/04/22 18:00 Freq: Status: Active Protocol: Document 02/09/22 11:20 [facility] (Rec: 02/09/22 15:02 [facility] [id number]) Current Condition History of Current Condition Onset Date Jan Current Complaints weakness in entire body, falls History of Current Condition Pt is frustrated because she used to be able to go to high intensity classes and walk 3-5 miles a day but stopped in Mar d/t falls. She has seen 2 neurologists, 1 neurosurgeon and feels like she is really progressively worse. She is really hating not being able to walk daily. She is having trouble getting socks on. Her dexterity is limited also. No one has been able to say what they think it is. Pt has been using a 4WW since Nov and in June started using a cane. she started using devices d/t falls. She is planning to see another neurologist in [place]. She has started going to [employer] class but stopped d/t her balance being too bad. She has all the pilWowboard equipment including a reformer. Her also recently has dx of cancer. Pt reports she got her first booster in Dec and she wonders if this is what started this. In Jan, she had some falls when she was working on her [employer] and [employer]. Had Meniscus surgery in August and did PT for a short time and was DC quickly d/t how well she was doing. Dr. Jain sent her to the neurosurgeon for potential back surgery based on EMG, but neurosurgeon didn't think that was the issue. She has mild back pain in the AM that has only been recently d/t being less mobile. The neurosurgeon at first thought she needed another MRI of brain and had it scheduled, but then when he talked to the neurologist, the plan is now for her to see a different neurologist. Pt seeing a telehealth ND/MD who gave her folic acid steffanie something else but she doesn't feel like it helps. Pt reports R foot flops down sometime. Since getting 4WW , she has fallen 3 times ( oct). Prior to the walker, she was falling every few days and had some days wehre she fell more than once. All falls have resulted only in cuts and bruises Prior Treatments and Tests Lumbar MRI: IMPRESSION: 1. Multilevel lumbar spondylosis, causing foraminal stenosis as detailed above. 2. Severe central canal stenosis at L3-4 and L4-5. 3. No abnormal cord signal. 4. Remote compression fractures of T11 and T12. Cervical MRI:IMPRESSION: 1. Multilevel degenerative disc and facet disease, as well as uncovertebral hypertrophy. 2. Multilevel canal stenoses, worst at C5-C6 where there is minimal cord flattening. 3. Multilevel foraminal stenoses, worst at C5-C6 and C6-C7 where there is associated intraforaminal nerve root compression. Recommend correlation with clinical symptoms to ascertain relevance of these findings. IMPRESSION: BRAIN MRI: 1. No acute intracranial disease process. 2. No areas of acute or chronic infarction. 3. Resv-es-mnpiqput diffuse cerebral volume loss. 4. Mild periventricular and subcortical white matter chronic microvascular ischemic change. BRAIN MR ANGIOGRAM: Normal MR angiogram of the head. NECK MR ANGIOGRAM: 1. Less than 50% stenosis of the origin of the left internal carotid artery. 2. Right internal carotid artery is fully patent. 3. Vertebral arteries are fully patent. ADDENDUM: This case was reviewed at the request of Dr. Gonzalez and discussed by telephone at 11: 04 a.m. [place] time on October 14, 2021. This patient is brain parenchymal volume loss and chronic small vessel ischemic change. There is prominence of the ventricles and sulci, with the lateral ventricles larger than would be expected, given the degree of sulcal atrophy. Please consider normal pressure hydrocephalus. IMPRESSION: 1. Chronic mild wedging of the T9 vertebral body unchanged from prior examination which may be physiologic. 2. Multilevel disc degeneration. disc degeneration. Treatment Goals Patient/Caregiver Goals be able to get back to working outa nd walking PT-OP-C Subjective Start: 02/04/22 18:00 Freq: Status: Active Protocol: Document 11/18/22 10:58 SP (Rec: 11/18/22 11:41 SP [id number]) OP-PT Subjective Patient Comments Patient Comments Pt reports was unable to walk this am and needs more help with transfers, helped caregiver with her transfer this am. She woke up during the night with R hip pain. PT-OP-D Balance Start: 02/04/22 18:00 Freq: Status: Active Protocol: Document 06/18/22 11:22 [facility] (Rec: 06/18/22 12:32 [facility] [id number]) Balance Tests Iglesias Balance Test Iglesias Balance Test Score 29 PT-OP-E Functional Tests Start: 02/04/22 18:00 Freq: Status: Active Protocol: Document 07/23/22 12:01 SP (Rec: 07/23/22 14:14 SP [id number]) Functional Tests 6 Minute Walk Test Distance 110 ft Device Used FWW Comments scuffing R>LLE but improved hip/knee flexion for clearance today 07/23 PT-OP-F Manual Assessment Start: 02/04/22 18:00 Freq: Status: Active Protocol: Document 02/09/22 11:20 [facility] (Rec: 02/09/22 15:02 [facility] [id number]) Manual Assessments Soft Tissue Assessment Soft Tissue Mobility Assessment tight calves w/limited passive DF PT-OP-G Mobility & Gait Start: 02/04/22 18:00 Freq: Status: Active Protocol: Document 02/09/22 11:20 [facility] (Rec: 02/09/22 15:02 [facility] [id number]) OP Mobility Evaluation Bed Mobility Rolling can roll B indep w/lower body following upper body Supine to and from Sit required min A for both supine <>sit Transfers Sit to Stand heavy use of UEs -pt reports sometimes needs to help OP Gait Assessment Comments Gait Comments Dec foot clearance B with heavy use of 4WW and dec DF R> L and dec hip flex PT-OP-M Strength Start: 02/04/22 18:00 Freq: Status: Active Protocol: Document 06/18/22 11:22 [facility] (Rec: 06/18/22 12:32 [facility] [id number]) Hip Strength Hip Manual Muscle Testing Right Flexion (L2) 3 Fair Abduction 2+ Poor+ External Rotation 3 Fair Internal Rotation 3+ Fair+ Left Flexion (L2) 3 Fair Abduction 2+ Poor+ External Rotation 4- Good- Internal Rotation 3- Fair- Knee Strength Knee Manual Muscle Testing Right Flexion (S2) 4 Good Extension (L3) 4- Good- Left Flexion (S2) 4 Good Extension (L3) 4- Good- Ankle/Foot Strength Ankle and Foot Manual Muscle Testing Right Dorsiflexion (L4) 3+ Fair+ Plantarflexion (S1) 4- Good- Left Dorsiflexion (L4) 3+ Fair+ Plantarflexion (S1) 4- Good- Comments PF tested seated B PT-OP-Q Treatments Start: 02/04/22 18:00 Freq: Status: Active Protocol: Document 11/18/22 10:58 SP (Rec: 11/18/22 11:41 SP [id number]) Gym Equipment Shuttle Recovery Unilateral Squats Details requires support LE repositioning, cued eccentric control Resistance 25# (old band) Reps/Time 10 reps each LE, tires at 8 reps but able to complete 10 Bilateral Squats Details requires support LE repositioning, cued eccentric control Resistance 50# (old bands) Shuttle Recovery Platform Stable Reps/Time x10 Therapeutic Exercises Sitting Exercises sit backs Sitting Exercise Name hip hinge back/fwd Side bilateral Resistance therapist support to pull from (rows)- core fac Reps/Minutes 10, 5 reps Comments required BUE support march Side bilateral Resistance therapist assist through range Reps/Minutes 20 Comments cues for posture & core Therapeutic Activity Therapeutic Activity transfers Name biodex<>w/c, w/c>car Comments SPT/squat pivot Heavy Max x1 during tx, end tx Mod-Max A STS pivot to car sit<> stand Comments 3x during session sit to satand w/mod A w/cues for wt shift fwd and to get buttocks under at end 2. transfer to/from shuttle leg press mod A w/max cues for wt shift and posture w/max A for supine<>sit Gait Training Gait Activity //bars Description added Device Used //bars Level of Assistance Heavy Max STS, Min A gait w/ assist wt shift for each LE advance Distance/Duration 10 ft x1lap Treatment Focus posturing, stride, foot clearance Comments extra time to advance LE, support anterior opp LE prevent buckling, cues BIG step PT-OP-T Assessment and Plan Start: 02/04/22 18:00 Freq: Status: Active Protocol: Document 11/18/22 10:58 SP (Rec: 11/18/22 11:41 SP [id number]) Physical Therapy Assessment Goals maintain Mcfp Goal (LTG) Pt will cont compliance w/HEP and PT in order to slow decline of progressive diagnosis (ALS). LTG Duration 01/04/23 functional activities Short Term Goal (STG) Pt will maintain need for no more than min A for bed mobltiy 10/07/22: Max A for trunk and BLEs support on/off shuttle recovery. DId requires same assist bed mobility recent tx. STG Duration DC goal pt needing max A for bed mobility Filer Repairer Goal (LTG) Pt will maintain mostly indepenence of sit to stands w /only occ need for min A 08/24/22: pt requires CG- Min A during STS from 20 chair and shuttle recovery with cues wt shift forward and slow descent due to decrease strength eccentric sit, improved reaching back prior sit and push to stand needs extra support. 10/07/22: requires Max A x1 and Mod A x1 for initial STS from w/c and end tx mesh chair, Mod A from elevated shuttle recovery with cues scoot fwd, feet back hip hinge press through BUEs. 10/12-mod A LTG Duration 01/24 gait Filer Repairer Goal (LTG) Pt will be able to cont to amb w/FWW indep int he home 08/24/22: pt states has someone nearby for safety. 10/07/22: CG/ MIn A gait with FWW decreased R>L foot clearance with B AFOs donned, Max A x1/Mod A x2nd person during STS from w/c. 10/12-CGA to in A LTG Duration 01/24/23 Assessment Summary Assessment Pt cont to struggle w/ transfers and sequencing of LEs and apperas to be having further decline based on process of ALS. Pt required heavy Max A x1 STS, almost required 2nd person assist initial STS from w/c on 3rd attempt. Pt had PT Aide follow with w/c during gait in // bars for seated rest, all sequencing of LEs take much more time now and pt fatigues quickly. She required LE support reposition 2 person end tx to get back in car. [employer] started conversation with pt and caregiver Deloras support devices for support squat pivot transfer for and with needing more physical assist and safety coming to outpt PT, may need to start thinking about someone coming to home for PT. [employer] discussed with PT end tx. Will continue to assess benefits and mobility pt is able to perform. She continues to benefit from continued skilled therapy to maintain LE strength for mobility but appears to be having further decline based on progress of ALS. Physical Therapy Plan Frequency and Duration Frequency of Treatment 1x/Week Duration of treatment (weeks) 12 Plan of Care Start Date 10/12/22 Plan of Care End Date 01/04/23 Therapeutic Interventions Therapeutic Interventions Aquatic Therapy,Balance Training,Coordination Training ,Gait Training,Home Exercise Program,Joint Mobilizations, Manual Therapy,Neuromuscular Re-education,Orthotic/ Prosthetic Management,Patient/ Caregiver Education,Self-Care/ Home Management,Soft Tissue Mobilization,Taping, Therapeutic Activities, Therapeutic Exercises Modalities Electric Stimulation Next Visit Focus/Plan Next Note Type Treatment Note Next Visit Plan Review outpt PT vs HHPT/OT. F/ U calls to w/c rep (can ask come here) and home OT. At this time Pt benefits from continued PT for LE strengthening and mobility activities for LE foot clearance to decrease pace of progression dec mobility d/t ALS. POC:working on maintaining balance, gait and bed mobility /transfers
--- NOTE | 2022-11-25 12:27 | PT-OP ANOTE ---
BOOT AND SHOE LABORER called pt and left voice message, received message regarding cancelling today's appt due to not feeling well. [employer]OE LABORER offered openings for 11/26 or 11/27 at 1330 if doing well and able to reschedule appt otherwise will see on next week's scheduled appt with PT.
--- NOTE | 2022-11-27 11:04 | PT-OP ANOTE ---
11/27/22 at 1104am Joie called [employer] today. Pt is requesting to DC outpatient PT services, cancel all remaining appts and will call her doctor for referral to continue in Home Health PT and OT services. Per phone conversation, pt states is getting more difficult to mobilize outside of her home. She has contacted OT Ophelia Eldridge with [facility], per Leni PT's recommendation for continued services for mobility and has set up appt next week to come to her home. She appreciates all IH and therapists assistance. PT Leni will complete DC.
--- NOTE | 2022-11-30 17:22 | PT.OPDS ---
Current Diagnoses Muscle weakness (generalized) (11/18/22) Difficulty in walking, not elsewhere classified (11/18/22) Visit Care Team Role Provider Type Dewayne Ledezma MD Attending Provider Physician Family Provider Primary Care Provider Referring Provider Specialty: Family Practice Address: [address] [place] [address], [facility] [place], [address] Email: [email or web address] Visit Number Visit Number 49 Discharge Summary PT-OP-B Current Condition Start: 02/04/22 18:00 Freq: Status: Active Protocol: Document 02/09/22 11:20 [facility] (Rec: 02/09/22 15:02 [facility] [id number]) Current Condition History of Current Condition Onset Date Jan Current Complaints weakness in entire body, falls History of Current Condition Pt is frustrated because she used to be able to go to high intensity classes and walk 3-5 miles a day but stopped in Mar d/t falls. She has seen 2 neurologists, 1 neurosurgeon and feels like she is really progressively worse. She is really hating not being able to walk daily. She is having trouble getting socks on. Her dexterity is limited also. No one has been able to say what they think it is. Pt has been using a 4WW since Nov and in June started using a cane. she started using devices d/t falls. She is planning to see another neurologist in [place]. She has started going to [employer] class but stopped d/t her balance being too bad. She has all the pilates equipment including a reformer. Her also recently has dx of cancer. Pt reports she got her first booster in Dec and she wonders if this is what started this. In Jan, she had some falls when she was working on her [employer] and [employer]. Had Meniscus surgery in August and did PT for a short time and was DC quickly d/t how well she was doing. Dr. Jain sent her to the neurosurgeon for potential back surgery based on EMG, but neurosurgeon didn't think that was the issue. She has mild back pain in the AM that has only been recently d/t being less mobile. The neurosurgeon at first thought she needed another MRI of brain and had it scheduled, but then when he talked to the neurologist, the plan is now for her to see a different neurologist. Pt seeing a telehealth ND/MD who gave her folic acid steffanie something else but she doesn't feel like it helps. Pt reports R foot flops down sometime. Since getting 4WW , she has fallen 3 times ( oct). Prior to the walker, she was falling every few days and had some days wehre she fell more than once. All falls have resulted only in cuts and bruises Prior Treatments and Tests Lumbar MRI: IMPRESSION: 1. Multilevel lumbar spondylosis, causing foraminal stenosis as detailed above. 2. Severe central canal stenosis at L3-4 and L4-5. 3. No abnormal cord signal. 4. Remote compression fractures of T11 and T12. Cervical MRI:IMPRESSION: 1. Multilevel degenerative disc and facet disease, as well as uncovertebral hypertrophy. 2. Multilevel canal stenoses, worst at C5-C6 where there is minimal cord flattening. 3. Multilevel foraminal stenoses, worst at C5-C6 and C6-C7 where there is associated intraforaminal nerve root compression. Recommend correlation with clinical symptoms to ascertain relevance of these findings. IMPRESSION: BRAIN MRI: 1. No acute intracranial disease process. 2. No areas of acute or chronic infarction. 3. Hafl-jg-ajketrtz diffuse cerebral volume loss. 4. Mild periventricular and subcortical white matter chronic microvascular ischemic change. BRAIN MR ANGIOGRAM: Normal MR angiogram of the head. NECK MR ANGIOGRAM: 1. Less than 50% stenosis of the origin of the left internal carotid artery. 2. Right internal carotid artery is fully patent. 3. Vertebral arteries are fully patent. ADDENDUM: This case was reviewed at the request of Dr. Gonzalez and discussed by telephone at 11: 04 a.m. [place] time on October 14, 2021. This patient is brain parenchymal volume loss and chronic small vessel ischemic change. There is prominence of the ventricles and sulci, with the lateral ventricles larger than would be expected, given the degree of sulcal atrophy. Please consider normal pressure hydrocephalus. IMPRESSION: 1. Chronic mild wedging of the T9 vertebral body unchanged from prior examination which may be physiologic. 2. Multilevel disc degeneration. disc degeneration. Treatment Goals Patient/Caregiver Goals be able to get back to working outa nd walking PT-OP-C Subjective Start: 02/04/22 18:00 Freq: Status: Active Protocol: Document 11/18/22 10:58 SP (Rec: 11/18/22 11:41 SP [id number]) OP-PT Subjective Patient Comments Patient Comments Pt reports was unable to walk this am and needs more help with transfers, helped caregiver with her transfer this am. She woke up during the night with R hip pain. PT-OP-D Balance Start: 02/04/22 18:00 Freq: Status: Active Protocol: Document 06/18/22 11:22 [facility] (Rec: 06/18/22 12:32 [facility] [id number]) Balance Tests Iglesias Balance Test Iglesias Balance Test Score 29 PT-OP-E Functional Tests Start: 02/04/22 18:00 Freq: Status: Active Protocol: Document 07/23/22 12:01 SP (Rec: 07/23/22 14:14 SP [id number]) Functional Tests 6 Minute Walk Test Distance 110 ft Device Used FWW Comments scuffing R>LLE but improved hip/knee flexion for clearance today 07/23 PT-OP-F Manual Assessment Start: 02/04/22 18:00 Freq: Status: Active Protocol: Document 02/09/22 11:20 [facility] (Rec: 02/09/22 15:02 [facility] [id number]) Manual Assessments Soft Tissue Assessment Soft Tissue Mobility Assessment tight calves w/limited passive DF PT-OP-G Mobility & Gait Start: 02/04/22 18:00 Freq: Status: Active Protocol: Document 02/09/22 11:20 [facility] (Rec: 02/09/22 15:02 [facility] [id number]) OP Mobility Evaluation Bed Mobility Rolling can roll B indep w/lower body following upper body Supine to and from Sit required min A for both supine <>sit Transfers Sit to Stand heavy use of UEs -pt reports sometimes needs to help OP Gait Assessment Comments Gait Comments Dec foot clearance B with heavy use of 4WW and dec DF R> L and dec hip flex PT-OP-M Strength Start: 02/04/22 18:00 Freq: Status: Active Protocol: Document 06/18/22 11:22 [facility] (Rec: 06/18/22 12:32 [facility] [id number]) Hip Strength Hip Manual Muscle Testing Right Flexion (L2) 3 Fair Abduction 2+ Poor+ External Rotation 3 Fair Internal Rotation 3+ Fair+ Left Flexion (L2) 3 Fair Abduction 2+ Poor+ External Rotation 4- Good- Internal Rotation 3- Fair- Knee Strength Knee Manual Muscle Testing Right Flexion (S2) 4 Good Extension (L3) 4- Good- Left Flexion (S2) 4 Good Extension (L3) 4- Good- Ankle/Foot Strength Ankle and Foot Manual Muscle Testing Right Dorsiflexion (L4) 3+ Fair+ Plantarflexion (S1) 4- Good- Left Dorsiflexion (L4) 3+ Fair+ Plantarflexion (S1) 4- Good- Comments PF tested seated B PT-OP-T Assessment and Plan Start: 02/04/22 18:00 Freq: Status: Active Protocol: Document 11/30/22 17:21 [facility] (Rec: 11/30/22 17:22 [facility] [id number]) Physical Therapy Assessment Goals maintain Skilled Nursing Goal (LTG) Pt will cont compliance w/HEP and PT in order to slow decline of progressive diagnosis (ALS). LTG Duration 01/04/23 functional activities Short Term Goal (STG) Pt will maintain need for no more than min A for bed mobltiy 10/07/22: Max A for trunk and BLEs support on/off shuttle recovery. DId requires same assist bed mobility recent tx. STG Duration DC goal pt needing max A for bed mobility Skilled Nursing Goal (LTG) Pt will maintain mostly indepenence of sit to stands w /only occ need for min A 08/24/22: pt requires CG- Min A during STS from 20 chair and shuttle recovery with cues wt shift forward and slow descent due to decrease strength eccentric sit, improved reaching back prior sit and push to stand needs extra support. 10/07/22: requires Max A x1 and Mod A x1 for initial STS from w/c and end tx mesh chair, Mod A from elevated shuttle recovery with cues scoot fwd, feet back hip hinge press through BUEs. 10/12-mod A LTG Duration 01/24 gait Video Machines Mechanic Goal (LTG) Pt will be able to cont to amb w/FWW indep int he home 08/24/22: pt states has someone nearby for safety. 10/07/22: CG/ MIn A gait with FWW decreased R>L foot clearance with B AFOs donned, Max A x1/Mod A x2nd person during STS from w/c. 10/12-CGA to in A LTG Duration 01/24/23 Assessment Summary Assessment Pt initially made progrss w/PT , but d/t ALS diagnosis, started to decline in the past several months w/a significant decline over the past 2 months despite PT care. At this time, it is too difficult for pt to come in for appointments and pt called and spoke w/LOOM FIXER APPRENTICE and decided to DC OP PT d/t difficulty getting out of the house. Pt is starting w/in home OT. Physical Therapy Plan Discharge Physical Therapy Discharge Comments pt has difficulty leaving house.
== END 2022-12-02 16:50 | disposition home or self-care (01) ==
LOC: PHYS 10:45
PROVIDERS: Family Provider Family Medicine; PCP Family Medicine; Referring Provider Family Medicine; Visit Provider Family Medicine
DX: M62.81 Muscle weakness (generalized) (principal); R26.2 Difficulty in walking, not elsewhere classified
CPT/HCPCS: 97110; 97112; 97116; 97140; 97162; 97530; 97535

== ENCOUNTER 2022-12-06 16:45 | Emergency (ER) | payer MEDICARE, SELFPAY ==
[2022-12-06] VITALS (8 sets, daily range): BP systolic 125–145; BP diastolic 72–89; PULSE 72–78; RESP 16; TEMP 36.9; O2SAT 94–99
--- NOTE | 2022-12-06 16:56 | DI.RAD.S_ITS ---
PROCEDURE: XR ANKLE RT MIN 3V INDICATIONS: fall, twisted ankle, pain and swelling TECHNIQUE: 3 views of the ankle were acquired. COMPARISON: None. FINDINGS: Bones: Generalized osteopenia is seen, which limits evaluation. Mild bony irregularity can be seen involving the medial malleolus. There is a potential nondisplaced fracture of the proximal 5th metatarsal. The talar dome demonstrates no gifty abnormality. Soft tissues: Generalized soft tissue swelling is seen. IMPRESSION: Limited study, secondary to osteopenia. Potential nondisplaced medial malleolar fracture. A potential minimally displaced fracture of the proximal 5th metatarsal can also be seen. Please correlate with focal tenderness. If clinically appropriate, a follow-up ankle CT may be helpful for further evaluation. Dictated by: Lennox Espana M.D. on 12/06/2022 at 16:37 Approved by: Lennox Espana M.D. on 12/06/2022 at 16:39
--- NOTE | 2022-12-06 17:08 | PC.NURSE ---
Patient's close friends came to visit her. Pt agreed to let the and spouse back to visit. Upon arrival to ER, the of the friend came out and told us Joie's is dealing with prostate cancer at home, and that Joie has ALS which has been worse. He has concerns that Joie cannot care for both herself and her .
--- NOTE | 2022-12-06 18:24 | ED_ITS ---
HPI - Fall General Chief Complaint: Fall Stated Complaint: GLF; Right ankle pain Time Seen by Provider: 12/06/22 17:53 History of Present Illness HPI Narrative: Patient is a 77-year-old female who has ALS presents today with right ankle pain. She reports that they do have significant help home however they like some time alone caregiver was away for 4 hours.. She was getting up out of a chair something happened she could not get her foot to move which is often for her her foot bent and she landed on it. No hip pain no head injury no real knee pain. But she is obvious lateral swelling of her ankle. Related Data Home Medications Medication Instructions Recorded Confirmed No Known Home Medications 02/08/21 02/08/21 Allergies Allergy/AdvReac Type Severity Reaction Status Date / Time No Known Drug Allergies Allergy Unverified 02/08/21 13:45 Review of Systems Review of Systems ROS Unobtainable: All systems reviewed & are unremarkable except as noted in HPI and below Patient History Social History Smoking Status: Never smoker Smoking Status: Never smoker Exam Initial Vital Signs Initial Vital Signs: Vital Signs Temperature 98.4 F 12/06/22 16:51 Pulse Rate 78 12/06/22 16:51 Respiratory Rate 16 12/06/22 16:51 Blood Pressure 145/89 H 12/06/22 16:51 Pulse Oximetry 99 12/06/22 16:51 Oxygen Delivery Method Room Air 12/06/22 16:51 GENERAL: Very pleasant well-appearing 77-year-old female CARDIOVASCULAR: peripheral pulses in tact, cap refill <2 sec RESPIRATORY: No respiratory distress, speaks in full sentences without difficulty EXTREMITIES: Normal range of motion, no clubbing or edema. Neurovascularly intact Right lower extremity hip is nontender no pain with flexion extension internal or external rotation. Knee is stable. Significant lateral swelling of right ankle but and goal is stable distal pedal pulse present NEUROLOGICAL: Cranial nerves II through XII grossly intact. Normal gait and speech. SKIN: Warm, dry, no petechiae, no rashes or lesions. Course Orders Ordered: Discontinued Medications Ibuprofen (Ibuprofen 400 Mg Tablet) 800 mg PO NOW ONE Stop: 12/06/22 19:03 Vital Signs Vital signs: Vital Signs - 8 hr 12/06/22 16:51 Temperature 98.4 F Pulse Rate 78 Respiratory Rate 16 Blood Pressure 145/89 H Pulse Oximetry 99 Oxygen Delivery Method Room Air MDM - Fall Imaging Data Extremity x-ray #1: Radiologist's Impression: PROCEDURE: XR ANKLE RT MIN 3V INDICATIONS: fall, twisted ankle, pain and swelling TECHNIQUE: 3 views of the ankle were acquired. COMPARISON: None. FINDINGS: Bones: Generalized osteopenia is seen, which limits evaluation. Mild bony irregularity can be seen involving the medial malleolus. There is a p otential nondisplaced fracture of the proximal 5th metatarsal. The talar dome demonstrates no gifyt abnormality. Soft tissues: Generalized soft tissue swelling is seen. IMPRESSION: Limited study, secondary to osteopenia. Potential nondisplaced medial malleolar fracture. A potential minimally displaced fracture of the proximal 5th metatarsal can also be seen. Please correlate with focal tenderness. If clinically appropriate, a follow-up ankle CT may be helpful for further evaluation. Dictated by: Lennox Espana M.D. on 12/06/2022 at 16:37 MDM Narrative Medical decision making narrative: Monica 77-year-old female with debilitating ALS who presents with right ankle pain. She does have obvious swelling x-ray is negative. She has all things that she needs including wheelchair. They have caregivers at home as well. At this time supportive care only. I told her she can ambulate as tolerated. She will have to go by BLS back home the friends that are with her she is unable to get into their car. She was offered pain medication but declined. Discharge Plan Departure Patient Disposition: Home Clinical Impression: Right ankle sprain Instructions: Ankle Sprain Activity Restrictions/Additional Instructions: *You have been diagnosed with right ankle sprain *What to do: At this time you may weightbear as tolerated recommend using cane walker and other supportive devices. Rate and ice as often as possible. *Continue to take medications as directed Motrin 600 mg every 6 hours if needed for pain Tylenol 1000 mg every 6 hours if needed for [id number] pain *Follow up with your primary care provider in 2-3 days or call [phone] *Return to ER if you should have increasing pain swelling redness or any new, worsening or concerning symptoms Prescriptions: No Action No Known Home Medications Referrals: Dewayne Ledezma MD [Primary Care Provider] - Stand Alone Forms: Patient Portal/API
--- NOTE | 2022-12-06 19:02 | PC.NURSE ---
This [employer] and JUNIOR [place] assisted pt to and from commode @[id number]. pt is a two person maximum assist.
== END 2022-12-06 20:35 | disposition home or self-care (01) ==
PROVIDERS: Emergency Provider Emergency Medicine; Family Provider Family Medicine; PCP Family Medicine
DX: S93.401A Sprain of unspecified ligament of right ankle, initial encounter (principal); W18.30XA Fall on same level, unspecified, initial encounter
CPT/HCPCS: 73610; 99281; 99283

== ENCOUNTER → 2023-07-22 13:01 | Outpatient (CLI) | payer MEDICARE, SELFPAY | LOC: RESP 13:03 | PROVIDERS: Family Provider Family Medicine; PCP Family Medicine; Referring Provider Family Medicine; Visit Provider Family Medicine | DX: G12.21 Amyotrophic lateral sclerosis (principal); R94.2 Abnormal results of pulmonary function studies | CPT/HCPCS: 94060 ==